=== PATIENT | female | born 1985 | race Caucasian/White ===

== ENCOUNTER 2017-10-23 15:48 | Emergency (ER) | payer OTHER, SELFPAY ==
[2017-10-23 15:51] VITALS: BP 122/80; PULSE 87; RESP 14; TEMP 36.9; O2SAT 99; BMI 31.4
--- NOTE | 2017-10-23 18:48 | ED_ITS ---
HPI - Headache <KENIA Avila - Last Filed: 10/23/17 22:16> General Chief Complaint: Headache Stated Complaint: DIARRHEA 8WKS SPOTTING Time Seen by Provider: 10/23/17 19:12 History of Present Illness HPI Narrative: 31-year-old female currently 8 weeks 6 para 3 here for complaint of having a migraine headache that she has a history of. Nausea and lower pelvic abdominal pain that started a few days ago. She states that she has also had some vaginal spotting. She states that she has had some diarrhea as well. She denies any fevers or chills. She denies any urinary symptoms. Positive p.o. intake. She denies any flank pain. She denies any other concerns or complaints. MD Complaint: headache Related Data Home Medications Medication Instructions Recorded Confirmed methylphenidate HCl [Concerta] 36 mg PO QAM 10/23/17 10/23/17 sertraline [Zoloft] 50 mg PO DAILY 10/23/17 10/23/17 Previous Rx's Medication Instructions Recorded nitrofurantoin monohyd/m-cryst 1 cap PO Q12H 7 Days #14 cap 10/23/17 [Macrobid] Allergies Allergy/AdvReac Type Severity Reaction Status Date / Time cephalexin [CEPHALEXIN] Allergy Unknown Verified 10/23/17 15:54 latex [LATEX] Allergy Unknown Verified 10/23/17 15:54 levofloxacin [From LEVAQUIN] Allergy Unknown Verified 10/23/17 15:54 morphine [MORPHINE] Allergy Unknown Verified 10/23/17 15:54 ondansetron [ONDANSETRON] Allergy Unknown Verified 10/23/17 15:54 oxycodone [From PERCOCET] Allergy Unknown Verified 10/23/17 15:54 Penicillins [PENICILLINS] Allergy Unknown Verified 10/23/17 15:54 Review of Systems <KENIA Avila - Last Filed: 10/23/17 22:16> Constitutional Denies chills, Denies fever(s), Reports headache(s), Denies lethargy and Denies weakness Eyes Denies change in vision, Denies eye discharge, Denies irritation and Denies loss of vision ENT Ears, Nose, Mouth, and Throat: Denies change in voice, Reports headache(s), Denies neck pain and Denies sore throat Cardiovascular Denies chest pain, Denies irregular heart rhythm, Denies lightheadedness, Denies palpitations, Denies dyspnea, Denies dyspnea on exertion and Denies orthopnea Respiratory Denies cough, Denies dyspnea, Denies dyspnea on exertion and Denies wheezing Gastrointestinal Gastrointestinal: Reports abdominal pain and Reports diarrhea Genitourinary Comments: Vaginal spotting Musculoskeletal Denies neck pain Integumentary/Breasts Denies pruritus, Denies erythema, Denies rash and Denies wounds Neurologic Reports headache(s), Denies loss of vision and Denies weakness Endocrine Denies palpitations Allergic/Immunologic Denies wheezing Exam <KENIA Avila - Last Filed: 10/23/17 22:16> Initial Vital Signs Initial Vital Signs: Vital Signs Temperature 98.5 F 10/23/17 15:51 Pulse Rate 87 10/23/17 15:51 Respiratory Rate 14 10/23/17 15:51 Blood Pressure 122/80 H 10/23/17 15:51 Pulse Oximetry 99 10/23/17 15:51 Const General: cooperative and well developed Nutritional Appearance: well nourished Orientation: alert, awake, oriented x3 and not confused [facility] Mouth: oral mucosae normal and moist mucous membranes Eyes Conjunctivae: conjunctivae normal Sclera: sclerae normal Pupils: PERRL EOM: EOM intact bilaterally Resp Effort & Inspection: normal respiratory effort, able to speak in complete sentences, no respiratory distress and no use of accessory muscles Auscultation: clear to auscultation bilaterally, no rales, no rhonchi and no wheezes Cardio Rate: regular rate Rhythm: regular rhythm Heart Sounds: no click, no gallops, no murmurs and no rubs GI Inspection: non-distended Palpation: soft, no hepatosplenomegaly, No guarding, No pulsatile mass and tender Auscultation: normal bowel sounds Other: Generalized tenderness General: No CVA tenderness Skin General: no rashes or lesions noted, No jaundice and No petechiae <Jason Junior MD - Last Filed: 10/26/17 05:46> Initial Vital Signs Initial Vital Signs: Vital Signs Temperature 98.5 F 10/23/17 15:51 Pulse Rate 87 10/23/17 15:51 Respiratory Rate 14 10/23/17 15:51 Blood Pressure 122/80 H 10/23/17 15:51 Pulse Oximetry 99 10/23/17 15:51 Course <KENIA Avila - Last Filed: 10/23/17 22:16> Orders Ordered: Discontinued Medications Acetaminophen (Tylenol) 650 mg PO NOW ONE Stop: 10/23/17 19:16 Last Admin: 10/23/17 20:34 Dose: 650 mg Diphenhydramine HCl (Benadryl) 25 mg IV NOW ONE Stop: 10/23/17 19:16 Last Admin: 10/23/17 19:28 Dose: 25 mg Sodium Chloride (Normal Saline 0.9%) 1,000 mls @ 1,000 mls/hr IV BOLUS ONE Stop: 10/23/17 19:43 Last Infusion: 10/23/17 20:34 Dose: 0 mls/hr Admin: 10/23/17 19:03 Dose: 1,000 mls/hr Sodium Chloride (Normal Saline 0.9%) 1,000 mls @ 1,000 mls/hr IV BOLUS ONE Stop: 10/23/17 20:14 Last Infusion: 10/23/17 21:59 Dose: 0 mls/hr Admin: 10/23/17 20:33 Dose: 1,000 mls/hr Metoclopramide HCl (Reglan) 10 mg IV NOW ONE Stop: 10/23/17 19:16 Last Admin: 10/23/17 19:28 Dose: 10 mg Nitrofurantoin Macrocrystals (Macrobid 100 Mg Capsule) 100 mg PO NOW ONE Stop: 10/23/17 22:15 Last Admin: 10/23/17 22:43 Dose: 100 mg Vital Signs - 8 hr 10/23/17 15:51 10/23/17 21:26 Temperature 98.5 F Pulse Rate 87 76 Respiratory Rate 14 16 Blood Pressure 122/80 H Blood Pressure [Right Arm] 108/65 Pulse Oximetry 99 97 <Jason Junior MD - Last Filed: 10/26/17 05:46> Orders Ordered: Discontinued Medications Acetaminophen (Tylenol) 650 mg PO NOW ONE Stop: 10/23/17 19:16 Last Admin: 10/23/17 20:34 Dose: 650 mg Diphenhydramine HCl (Benadryl) 25 mg IV NOW ONE Stop: 10/23/17 19:16 Last Admin: 10/23/17 19:28 Dose: 25 mg Sodium Chloride (Normal Saline 0.9%) 1,000 mls @ 1,000 mls/hr IV BOLUS ONE Stop: 10/23/17 19:43 Last Infusion: 10/23/17 20:34 Dose: 0 mls/hr Admin: 10/23/17 19:03 Dose: 1,000 mls/hr Sodium Chloride (Normal Saline 0.9%) 1,000 mls @ 1,000 mls/hr IV BOLUS ONE Stop: 10/23/17 20:14 Last Infusion: 10/23/17 21:59 Dose: 0 mls/hr Admin: 10/23/17 20:33 Dose: 1,000 mls/hr Metoclopramide HCl (Reglan) 10 mg IV NOW ONE Stop: 10/23/17 19:16 Last Admin: 10/23/17 19:28 Dose: 10 mg Nitrofurantoin Macrocrystals (Macrobid 100 Mg Capsule) 100 mg PO NOW ONE Stop: 10/23/17 22:15 Last Admin: 10/23/17 22:43 Dose: 100 mg Vital Signs - 8 hr 10/23/17 15:51 10/23/17 21:26 Temperature 98.5 F Pulse Rate 87 76 Respiratory Rate 14 16 Blood Pressure 122/80 H Blood Pressure [Right Arm] 108/65 Pulse Oximetry 99 97 MDM - Headache <KENIA Avila - Last Filed: 10/23/17 22:16> Lab Data Result diagrams: 10/23/17 19:57 10/23/17 19:57 Lab Results 10/23/17 10/23/17 10/23/17 Range/Units 18:45 18:45 19:50 WBC 7.2 (4.5-11.0) X10^3/uL RBC 4.41 (4.0-5.2) X10^6/uL Hgb 11.6 L (12.0-16.0) g/dL Hct 34.1 L (36-46) % MCV 77.5 L (80-100) fL MCH 26.3 (26-34) PG MCHC 33.9 (30-36) % RDW 16.1 H (11.6-14.8) % Plt Count 232 (150-400) X10^3/uL Neut % (Auto) 73.4 (50-75) % Lymph % (Auto) 19.7 L (25-40) % [place] % (Auto) 6.0 (3-14) % Eos % (Auto) 0.3 L (2-4) % Baso % (Auto) 0.6 (0-2) % Neut # (Auto) 5300 (6851-3058) /uL Sodium 136 L (137-145) mmol/L Potassium 3.1 L (3.4-5.1) mmol/L Chloride 101 (98-107) mmol/L Carbon Dioxide 24 (22-32) mmol/L BUN 6 L (7-17) mg/dL Creatinine 0.50 L (0.52-1.04) mg/dL Estimated GFR > 60.0 (>60) mL/min BUN/Creatinine Ratio 12.0 (6-22) Glucose 92 (70-100) mg/dL Calcium 8.8 (8.4-10.2) mg/dL Total Bilirubin 0.6 (0.2-1.3) mg/dL AST 23 (14-36) IU/L ALT 28 (9-52) IU/L Alkaline Phosphatase 82 (38-126) U/L Total Protein 6.8 (6.3-8.2) g/dL Albumin 3.9 (3.5-5.0) g/dL Globulin 2.9 (1.7-4.1) g/dL Albumin/Globulin Ratio 1.3 (1.0-2.8) Urine Color Yellow Urine Appearance Clear Urine pH 6.0 (4.5-8.0) Ur Specific [place] 1.010 (1.000-1.035) Urine Protein Negative (Negative) Urine Glucose (UA) Negative (Normal) g/dL Urine Ketones 1+ H (NEGATIVE) Urine Occult Blood Trace-lysed (Negative) Urine Nitrate Negative (Negative) Urine Bilirubin Negative (NEGATIVE) Urine Urobilinogen 0.2 (0.2) E.U./dL Ur Leukocyte Esterase Trace H (NEGATIVE) Urine RBC 0-1/hpf (0-5/HPF) Urine WBC 5-10/hpf H (0-5/HPF) Ur Squamous Epith Cells 1-5 /hpf Urine Bacteria Few (2-10) H (None) Ur Culture Indicated? Specimen cultured Micro UA Comment Not Reportable 10/23/17 10/23/17 Range/Units 19:57 19:57 WBC 7.4 (4.5-11.0) X10^3/uL RBC 4.22 (4.0-5.2) X10^6/uL Hgb 11.0 L (12.0-16.0) g/dL Hct 33.0 L (36-46) % MCV 78.2 L (80-100) fL MCH 26.1 (26-34) PG MCHC 33.3 (30-36) % RDW 16.1 H (11.6-14.8) % Plt Count 224 (150-400) X10^3/uL Neut % (Auto) 67.9 (50-75) % Lymph % (Auto) 24.7 L (25-40) % [place] % (Auto) 6.4 (3-14) % Eos % (Auto) 0.5 L (2-4) % Baso % (Auto) 0.5 (0-2) % Neut # (Auto) 5100 (5199-9701) /uL Sodium 138 (137-145) mmol/L Potassium 3.1 L (3.4-5.1) mmol/L Chloride 104 (98-107) mmol/L Carbon Dioxide 21 L (22-32) mmol/L BUN 5 L (7-17) mg/dL Creatinine 0.50 L (0.52-1.04) mg/dL Estimated GFR > 60.0 (>60) mL/min BUN/Creatinine Ratio 10.0 (6-22) Glucose 85 (70-100) mg/dL Calcium 8.3 L (8.4-10.2) mg/dL Total Bilirubin 0.5 (0.2-1.3) mg/dL AST 19 (14-36) IU/L ALT 27 (9-52) IU/L Alkaline Phosphatase 86 (38-126) U/L Total Protein 6.5 (6.3-8.2) g/dL Albumin 3.7 (3.5-5.0) g/dL Globulin 2.8 (1.7-4.1) g/dL Albumin/Globulin Ratio 1.3 (1.0-2.8) Urine Color Urine Appearance Urine pH (4.5-8.0) Ur Specific [place] (1.000-1.035) Urine Protein (Negative) Urine Glucose (UA) (Normal) g/dL Urine Ketones (NEGATIVE) Urine Occult Blood (Negative) Urine Nitrate (Negative) Urine Bilirubin (NEGATIVE) Urine Urobilinogen (0.2) E.U./dL Ur Leukocyte Esterase (NEGATIVE) Urine RBC (0-5/HPF) Urine WBC (0-5/HPF) Ur Squamous Epith Cells Urine Bacteria (None) Ur Culture Indicated? Micro UA Comment Imaging Data ob us: Radiologist's impression: PROCEDURE: US OB >= 14 WEEKS FETUS INDICATIONS: SPOTTING; PAIN OUTSIDE/PRIOR DATING DATA: Last menstrual period (LMP): Unknown. LMP-based estimated date of delivery (BEST): None available. First dating scan (date and location): 10/23/17, [facility]. Estimated date of delivery (BEST) from first dating scan: 06/04/18. TECHNIQUE: Real-time scanning was performed of the fetus, with image documentation and biometric measurements. Endovaginal scanning: Was performed COMPARISON: None. FINDINGS: Single live uterine gestation is present which measures 1.6 cm in length for a gestational age of 8 weeks, zero days. There is a 3.5 x 0.6 x 1.4 cm subchorionic hemorrhage. There is a left corpus luteal cyst. There is also a simple 2.3 cm left ovarian cyst. The right ovary is unremarkable. IMPRESSION: 1. Single live intrauterine gestation with a gestational age of 8 weeks, zero days. 2. Small subchorionic bleed. Dictated by: Alexandra Valente M.D. on 10/23/2017 at 21:40 Approved by: Alexandra Valente M.D. on 10/23/2017 at 21:42 MDM Narrative Medical decision making narrative: CBC and Chem panel were obtained were unremarkable. Urinalysis indicates urinary tract infection she is prescribed Macrobid. [id number] Tylenol as needed for any discomfort. Pelvic ultrasound was obtained and shows 8 week intrauterine live . Subchorionic hemorrhage was seen on ultrasound and suspect is why she is spotting. Left ovarian cyst was also seen and suspect that that is why she is having some abdominal discomfort she was treated for headache with fluids and antiemetics along with Tylenol which relieved her headache. She is encouraged to hydrate herself well any use prescribed Phenergan as needed for the nausea. Follow up with OBGYN in the next couple of days. Will hold off for treating in the diarrhea for now. For any worsening symptoms return to the emergency room. She is encouraged to go home to quiet environment and rest <Jason Junior MD - Last Filed: 10/26/17 05:46> Lab Data Lab Results 10/23/17 10/23/17 10/23/17 Range/Units 18:45 18:45 19:50 WBC 7.2 (4.5-11.0) X10^3/uL RBC 4.41 (4.0-5.2) X10^6/uL Hgb 11.6 L (12.0-16.0) g/dL Hct 34.1 L (36-46) % MCV 77.5 L (80-100) fL MCH 26.3 (26-34) PG MCHC 33.9 (30-36) % RDW 16.1 H (11.6-14.8) % Plt Count 232 (150-400) X10^3/uL Neut % (Auto) 73.4 (50-75) % Lymph % (Auto) 19.7 L (25-40) % [place] % (Auto) 6.0 (3-14) % Eos % (Auto) 0.3 L (2-4) % Baso % (Auto) 0.6 (0-2) % Neut # (Auto) 5300 (6211-8435) /uL Sodium 136 L (137-145) mmol/L Potassium 3.1 L (3.4-5.1) mmol/L Chloride 101 (98-107) mmol/L Carbon Dioxide 24 (22-32) mmol/L BUN 6 L (7-17) mg/dL Creatinine 0.50 L (0.52-1.04) mg/dL Estimated GFR > 60.0 (>60) mL/min BUN/Creatinine Ratio 12.0 (6-22) Glucose 92 (70-100) mg/dL Calcium 8.8 (8.4-10.2) mg/dL Total Bilirubin 0.6 (0.2-1.3) mg/dL AST 23 (14-36) IU/L ALT 28 (9-52) IU/L Alkaline Phosphatase 82 (38-126) U/L Total Protein 6.8 (6.3-8.2) g/dL Albumin 3.9 (3.5-5.0) g/dL Globulin 2.9 (1.7-4.1) g/dL Albumin/Globulin Ratio 1.3 (1.0-2.8) Urine Color Yellow Urine Appearance Clear Urine pH 6.0 (4.5-8.0) Ur Specific [place] 1.010 (1.000-1.035) Urine Protein Negative (Negative) Urine Glucose (UA) Negative (Normal) g/dL Urine Ketones 1+ H (NEGATIVE) Urine Occult Blood Trace-lysed (Negative) Urine Nitrate Negative (Negative) Urine Bilirubin Negative (NEGATIVE) Urine Urobilinogen 0.2 (0.2) E.U./dL Ur Leukocyte Esterase Trace H (NEGATIVE) Urine RBC 0-1/hpf (0-5/HPF) Urine WBC 5-10/hpf H (0-5/HPF) Ur Squamous Epith Cells 1-5 /hpf Urine Bacteria Few (2-10) H (None) Ur Culture Indicated? Specimen cultured Micro UA Comment Not Reportable 10/23/17 10/23/17 Range/Units 19:57 19:57 WBC 7.4 (4.5-11.0) X10^3/uL RBC 4.22 (4.0-5.2) X10^6/uL Hgb 11.0 L (12.0-16.0) g/dL Hct 33.0 L (36-46) % MCV 78.2 L (80-100) fL MCH 26.1 (26-34) PG MCHC 33.3 (30-36) % RDW 16.1 H (11.6-14.8) % Plt Count 224 (150-400) X10^3/uL Neut % (Auto) 67.9 (50-75) % Lymph % (Auto) 24.7 L (25-40) % [place] % (Auto) 6.4 (3-14) % Eos % (Auto) 0.5 L (2-4) % Baso % (Auto) 0.5 (0-2) % Neut # (Auto) 5100 (3955-3322) /uL Sodium 138 (137-145) mmol/L Potassium 3.1 L (3.4-5.1) mmol/L Chloride 104 (98-107) mmol/L Carbon Dioxide 21 L (22-32) mmol/L BUN 5 L (7-17) mg/dL Creatinine 0.50 L (0.52-1.04) mg/dL Estimated GFR > 60.0 (>60) mL/min BUN/Creatinine Ratio 10.0 (6-22) Glucose 85 (70-100) mg/dL Calcium 8.3 L (8.4-10.2) mg/dL Total Bilirubin 0.5 (0.2-1.3) mg/dL AST 19 (14-36) IU/L ALT 27 (9-52) IU/L Alkaline Phosphatase 86 (38-126) U/L Total Protein 6.5 (6.3-8.2) g/dL Albumin 3.7 (3.5-5.0) g/dL Globulin 2.8 (1.7-4.1) g/dL Albumin/Globulin Ratio 1.3 (1.0-2.8) Urine Color Urine Appearance Urine pH (4.5-8.0) Ur Specific [place] (1.000-1.035) Urine Protein (Negative) Urine Glucose (UA) (Normal) g/dL Urine Ketones (NEGATIVE) Urine Occult Blood (Negative) Urine Nitrate (Negative) Urine Bilirubin (NEGATIVE) Urine Urobilinogen (0.2) E.U./dL Ur Leukocyte Esterase (NEGATIVE) Urine RBC (0-5/HPF) Urine WBC (0-5/HPF) Ur Squamous Epith Cells Urine Bacteria (None) Ur Culture Indicated? Micro UA Comment Discharge Plan Departure Patient Disposition: Home, Self-Care Clinical Impression: Migraine, Urinary tract infection, Discharge Date/Time: 10/23/17 22:51 Interventions: ED Discharge Assessment Last Done: 10/23/17 22:50 Instructions: DI for Urinary Tract Infection (UTI) Activity Restrictions/Additional Instructions: Blood work this evening was obtained and was normal. Urinalysis indicates urinary tract infection you are prescribed an antibiotic called macrobid use as directed. Use [id number] Tylenol as needed for any discomfort. Ultrasound shows live intrauterine approximately 8 weeks along. There is a small subchorionic bleed hence your spotting. Follow up with OBGYN in the next couple of days for re-evaluation. Use a prescribed Phenergan as needed for nausea and vomiting. Plenty of fluids slowly advance diet as tolerated. For any worsening symptoms return to the emergency room. Prescriptions: New nitrofurantoin monohyd/m-cryst [Macrobid] 100 mg capsule 1 cap PO Q12H 7 Days Qty: 14 RF: 0 No Action sertraline [Zoloft] 50 mg Tablet 50 mg PO DAILY RF: 0 methylphenidate HCl [Concerta] 36 mg Tablet Extended Release 24hr 36 mg PO QAM RF: 0 Referrals: Patrick Mullen MD [Primary Care Provider] - <Jason Junior MD - Last Filed: 10/26/17 05:46> Cosign ED Attending Cosignature Attestation: The PA/BROADCAST OPERATIONS ENGINEER functioned independently for the care of this pt, I was available, but not asked to participate in care. I am unable to determine appropriateness of management without personally examining the pt.
[2017-10-23 18:57] LABS: Add Manual Diff / Slide Review NO; Basophils Percent Auto 0.6 % (0-2); Eosinophils Percent Auto 0.3 % (2-4); Hematocrit 34.1 % (36-46); Hemoglobin 11.6 g/dL (12.0-16.0); Lymphocytes Percent Auto 19.7 % (25-40); Mean Corpuscular HGB Conc 33.9 % (30-36); Mean Corpuscular Hemoglobin 26.3 PG (26-34); Mean Corpuscular Volume 77.5 fL (80-100); Neutrophils Absolute Auto 5300 /uL (3000-5900); Neutrophils Percent Auto 73.4 % (50-75); Platelet Count 232 X10^3/uL (150-400); Red Blood Cell Count 4.41 X10^6/uL (4.0-5.2); Red Cell Distribution Width 16.1 % (11.6-14.8); White Blood Cell Count 7.2 X10^3/uL (4.5-11.0)
[2017-10-23] MEDS: SODIUM CHLORIDE 0.9% 1,000 ML 1000 ML IV ×2 (19:03→20:33)
[2017-10-23 19:12] LABS: Alanine Aminotransferase 28 IU/L (9-52); Albumin 3.9 g/dL (3.5-5.0); Albumin Globulin Ratio 1.3 (1.0-2.8); Alkaline Phosphatase 82 U/L (38-126); Aspartate Aminotransferase 23 IU/L (14-36); Bilirubin Total 0.6 mg/dL (0.2-1.3); Blood Urea Nitrogen 6 mg/dL (7-17); Calcium 8.8 mg/dL (8.4-10.2); Carbon Dioxide 24 mmol/L (22-32); Chloride 101 mmol/L (98-107); Estimated Glomerular Filt Rate > 60.0 mL/min (>60); Globulin 2.9 g/dL (1.7-4.1); Glucose 92 mg/dL (70-100); HEMOLYSIS < 15 (0-50); Potassium 3.1 mmol/L (3.4-5.1); Sodium 136 mmol/L (137-145); Total Protein 6.8 g/dL (6.3-8.2)
--- NOTE | 2017-10-23 19:15 | DI.US.S_ITS ---
PROCEDURE: US OB >= 14 WEEKS FETUS INDICATIONS: SPOTTING; PAIN OUTSIDE/PRIOR DATING DATA: Last menstrual period (LMP): Unknown. LMP-based estimated date of delivery (BEST): None available. First dating scan (date and location): 10/23/17, [facility]. Estimated date of delivery (BEST) from first dating scan: 06/04/18. TECHNIQUE: Real-time scanning was performed of the fetus, with image documentation and biometric measurements. Endovaginal scanning: Was performed COMPARISON: None. FINDINGS: Single live uterine gestation is present which measures 1.6 cm in length for a gestational age of 8 weeks, zero days. There is a 3.5 x 0.6 x 1.4 cm subchorionic hemorrhage. There is a left corpus luteal cyst. There is also a simple 2.3 cm left ovarian cyst. The right ovary is unremarkable. IMPRESSION: 1. Single live intrauterine gestation with a gestational age of 8 weeks, zero days. 2. Small subchorionic bleed. Dictated by: Alexandra Valente M.D. on 10/23/2017 at 21:40 Approved by: Alexandra Valente M.D. on 10/23/2017 at 21:42
[2017-10-23] MEDS: METOCLOPRAMIDE 10 MG/2 ML INJ IV (19:28)
[2017-10-23] MEDS: diphenhydrAMINE 50 MG/ML VIAL 25 MG IV (19:28)
[2017-10-23 20:03] LABS: Appearance Urine UA CLEAR; Bilirubin Urine UA NEGATIVE (NEGATIVE); Color Urine UA YELLOW; Glucose Urine UA NEGATIVE (Normal); Ketones Urine UA 1+ (NEGATIVE); Leukocyte Esterase Urine UA TRACE (NEGATIVE); Nitrite Urine UA Negative (Negative); Occult Blood Urine UA TRACE-LYSED (Negative); Protein Urine UA NEGATIVE (Negative); Urobilinogen Urine UA 0.2 E.U./dL (0.2)
[2017-10-23 20:04] LABS: RBC Urine 0-1/HPF (0-5/HPF); Squamous Epithelial Cell Urine 1-5 /HPF; WBC Urine 5-10/HPF (0-5/HPF)
[2017-10-23 20:05] LABS: Bacteria Urine Few (2-10); Culture Indicated Urine Specimen Cultured
[2017-10-23 20:23] LABS: Add Manual Diff / Slide Review NO; Basophils Percent Auto 0.5 % (0-2); Eosinophils Percent Auto 0.5 % (2-4); Lymphocytes Percent Auto 24.7 % (25-40); Mean Corpuscular HGB Conc 33.3 % (30-36); Mean Corpuscular Hemoglobin 26.1 PG (26-34); Mean Corpuscular Volume 78.2 fL (80-100); Monocytes Percent Auto 6.4 % (3-14); Neutrophils Absolute Auto 5100 /uL (3000-5900); Neutrophils Percent Auto 67.9 % (50-75); Platelet Count 224 X10^3/uL (150-400); Red Blood Cell Count 4.22 X10^6/uL (4.0-5.2); Red Cell Distribution Width 16.1 % (11.6-14.8); White Blood Cell Count 7.4 X10^3/uL (4.5-11.0)
[2017-10-23 20:26] LABS: Alanine Aminotransferase 27 IU/L (9-52); Albumin 3.7 g/dL (3.5-5.0); Albumin Globulin Ratio 1.3 (1.0-2.8); Alkaline Phosphatase 86 U/L (38-126); Aspartate Aminotransferase 19 IU/L (14-36); Bilirubin Total 0.5 mg/dL (0.2-1.3); Blood Urea Nitrogen 5 mg/dL (7-17); Calcium 8.3 mg/dL (8.4-10.2); Carbon Dioxide 21 mmol/L (22-32); Chloride 104 mmol/L (98-107); Estimated Glomerular Filt Rate > 60.0 mL/min (>60); Globulin 2.8 g/dL (1.7-4.1); Glucose 85 mg/dL (70-100); HEMOLYSIS < 15 (0-50); Potassium 3.1 mmol/L (3.4-5.1); Sodium 138 mmol/L (137-145); Total Protein 6.5 g/dL (6.3-8.2)
[2017-10-23] MEDS: ACETAMINOPHEN 325 MG TABLET 650 MG PO (20:34)
[2017-10-23 21:26] VITALS: BP 108/65; PULSE 76; RESP 16; O2SAT 97
[2017-10-23 22:38] VITALS: BP 113/65; PULSE 70; RESP 17; O2SAT 97
[2017-10-23] MEDS: NITROFURANTOIN ER 100 MG CAPSULE PO (22:43)
== END 2017-10-23 22:51 | disposition home or self-care (01) ==
PROVIDERS: Emergency Provider Nurse Practitioner Family
DX: O23.41 Unspecified infection of urinary tract in pregnancy, first trimester (principal); Z3A.08 8 weeks gestation of pregnancy
CPT/HCPCS: 36591; 76811; 76817; 80053; 81001; 81003; 85025; 87086; 96361; 96374; 96375; 99283; 99284; J1200; J2765

== ENCOUNTER 2018-03-27 12:03 | Emergency (ER) | payer OTHER, SELFPAY ==
[2018-03-27 12:21] VITALS: BP 115/75; PULSE 105; RESP 20; TEMP 37; O2SAT 99; BMI 34.3
--- NOTE | 2018-03-27 12:26 | ED.FEVER ---
HPI - Fever <KENIA Avila - Last Filed: 03/27/18 21:43> General Chief Complaint: Fever Stated Complaint: flu like symptoms, 30 wks preg, BC said go here Time Seen by Provider: 03/27/18 12:16 Source: patient Mode of arrival: ambulatory Limitations: no limitations History of Present Illness HPI Narrative: 32-year-old female with history of hyper emesis gravidarum that is a nonsmoker. She has 6 para 3. She is approximately 30 weeks . She is being treated by [facility] as she is high risk due to history of bleeding while during and also the hyperemesis gravidarum. She currently has a port and is receiving TPN via a pump. She has been using Phenergan for her nausea and vomiting along with oral Benadryl. She reports having generalized body discomfort over the past couple of days and low-grade fever. She does report having generalized abdominal pain. She also reports that she has had contractions. Contractions earlier today or approximately every 3 min apart they have then spaced out to approximately about every 10 min. She has a history of having contractions and takes nifedipine daily for this. Family reports that there has been a viral illness flu-like symptoms going around the house over the past week. She denies any vaginal bleeding or discharge. She denies any urinary symptoms. She states that she has had nasal congestion. Related Data Home Medications Medication Instructions Recorded Confirmed sertraline [Zoloft] 150 mg PO QPM 10/23/17 03/27/18 Tpn 1 ea CONTINUOUS IV INFUSION Q20H 03/27/18 03/27/18 nifedipine 30 mg PO DAILY 03/27/18 03/27/18 pantoprazole 20 mg PO DAILY 03/27/18 03/27/18 promethazine 1 dose IV PRN PRN 03/27/18 03/27/18 promethazine [Phenadoz] 25 mg WA Q6H PRN 03/27/18 03/27/18 Allergies Allergy/AdvReac Type Severity Reaction Status Date / Time cephalexin [CEPHALEXIN] Allergy Unknown Verified 10/23/17 15:54 latex [LATEX] Allergy Unknown Verified 10/23/17 15:54 levofloxacin [From LEVAQUIN] Allergy Unknown Verified 10/23/17 15:54 morphine [MORPHINE] Allergy Unknown Verified 10/23/17 15:54 ondansetron [ONDANSETRON] Allergy Unknown Verified 10/23/17 15:54 oxycodone [From PERCOCET] Allergy Unknown Verified 10/23/17 15:54 Penicillins [PENICILLINS] Allergy Unknown Verified 10/23/17 15:54 Review of Systems <KENIA Avila - Last Filed: 03/27/18 21:43> Constitutional Reports body ache(s), Reports chills and Reports fever(s) Eyes Denies change in vision, Denies eye discharge, Denies irritation and Denies loss of vision ENT Ears, Nose, Mouth, and Throat: Reports nasal congestion Cardiovascular Denies chest pain, Denies irregular heart rhythm, Denies lightheadedness, Denies palpitations, Denies dyspnea, Denies dyspnea on exertion and Denies orthopnea Respiratory Denies cough, Denies dyspnea, Denies dyspnea on exertion and Denies wheezing Gastrointestinal Comments: Nausea vomiting generalized abdominal pain. Genitourinary Denies hematuria, Denies flank pain, Denies urinary incontinence and Denies urinary urgency Musculoskeletal Denies back pain, Denies muscle weakness, Denies numbness and Denies tingling Integumentary/Breasts Denies pruritus, Denies erythema, Denies rash and Denies wounds Neurologic Denies loss of vision, Denies numbness and Denies tingling Endocrine Denies palpitations Hematologic/Lymphatic Denies easy bruising Allergic/Immunologic Denies wheezing Exam <KENIA Avila - Last Filed: 03/27/18 21:43> Initial Vital Signs Initial Vital Signs: Vital Signs Temperature 98.6 F 03/27/18 12:21 Pulse Rate 105 H 03/27/18 12:21 Respiratory Rate 20 03/27/18 12:21 Blood Pressure 115/75 03/27/18 12:21 Pulse Oximetry 99 03/27/18 12:21 Const General: cooperative and well developed Nutritional Appearance: well nourished Orientation: alert, awake, oriented x3 and not confused HENMT Ears: external ears normal and TM's normal bilaterally Nose: external nose normal Mouth: oral mucosae normal, oropharynx normal and moist mucous membranes Eyes General: appearance normal, both eyes and all related structures Eyelids: eyelids normal Conjunctivae: conjunctivae normal Sclera: sclerae normal Pupils: PERRL EOM: EOM intact bilaterally Resp Effort & Inspection: normal respiratory effort, able to speak in complete sentences, no respiratory distress and no use of accessory muscles Auscultation: clear to auscultation bilaterally, no rales, no rhonchi and no wheezes Cardio Rate: regular rate Rhythm: regular rhythm Heart Sounds: no click, no gallops, no murmurs and no rubs Pulses: normal peripheral pulses GI Inspection: non-distended Palpation: soft, no hepatosplenomegaly, No guarding, No pulsatile mass and tender (Generalized tenderness) Auscultation: normal bowel sounds General: No CVA tenderness Skin General: no rashes or lesions noted, No jaundice and No petechiae Neuro General: alert, oriented x3, gait normal and no focal motor deficits Speech: speech normal <Asya Rodriguez MD - Last Filed: 04/03/18 00:02> Initial Vital Signs Initial Vital Signs: Vital Signs Temperature 98.6 F 03/27/18 12:21 Pulse Rate 105 H 03/27/18 12:21 Respiratory Rate 20 03/27/18 12:21 Blood Pressure 115/75 03/27/18 12:21 Pulse Oximetry 99 03/27/18 12:21 Course <KENIA Avila - Last Filed: 03/27/18 21:43> Orders Ordered: Discontinued Medications Acetaminophen (Tylenol) 650 mg PO NOW ONE Stop: 03/27/18 13:21 Last Admin: 03/27/18 13:29 Dose: 650 mg Diphenhydramine HCl (Benadryl) 25 mg PO NOW ONE Stop: 03/27/18 12:42 Last Admin: 03/27/18 12:46 Dose: 25 mg Sodium Chloride (Normal Saline 0.9%) 1,000 mls @ 1,000 mls/hr IV BOLUS ONE Stop: 03/27/18 13:40 Last Infusion: 03/27/18 14:40 Dose: 0 mls/hr Admin: 03/27/18 12:45 Dose: 1,000 mls/hr Vital Signs - 8 hr 03/27/18 13:55 03/27/18 14:31 03/27/18 14:32 Temperature 100.9 F H 100.6 F H Pulse Rate 96 H Respiratory Rate 16 Pulse Oximetry 100 <Asya Rodriguez MD - Last Filed: 04/03/18 00:02> Orders Ordered: Discontinued Medications Acetaminophen (Tylenol) 650 mg PO NOW ONE Stop: 03/27/18 13:21 Last Admin: 03/27/18 13:29 Dose: 650 mg Diphenhydramine HCl (Benadryl) 25 mg PO NOW ONE Stop: 03/27/18 12:42 Last Admin: 03/27/18 12:46 Dose: 25 mg Sodium Chloride (Normal Saline 0.9%) 1,000 mls @ 1,000 mls/hr IV BOLUS ONE Stop: 03/27/18 13:40 Last Infusion: 03/27/18 14:40 Dose: 0 mls/hr Admin: 03/27/18 12:45 Dose: 1,000 mls/hr Vital Signs - 8 hr 03/27/18 13:55 03/27/18 14:31 03/27/18 14:32 Temperature 100.9 F H 100.6 F H Pulse Rate 96 H Respiratory Rate 16 Pulse Oximetry 100 MDM - Fever <KENIA Avila - Last Filed: 03/27/18 21:43> Lab Data Result diagrams: 03/27/18 12:27 03/27/18 Unknown Lab Results 03/27/18 03/27/18 03/27/18 Range/Units 12:27 13:20 13:23 WBC 5.9 (4.5-11.0) X10^3/uL RBC 3.40 L (4.0-5.2) X10^6/uL Hgb 11.0 L (12.0-16.0) g/dL Hct 31.4 L (36-46) % MCV 92.5 (80-100) fL MCH 32.3 (26-34) PG MCHC 34.9 (30-36) % RDW 18.3 H (11.6-14.8) % Plt Count 167 (150-400) X10^3/uL Neut % (Auto) 89.7 H (50-75) % Lymph % (Auto) 5.9 L (25-40) % Smyth % (Auto) 3.9 (3-14) % Eos % (Auto) 0.2 L (2-4) % Baso % (Auto) 0.3 (0-2) % Neut # (Auto) 5300 (6694-1989) /uL Sodium Cancelled Potassium Cancelled Chloride Cancelled Carbon Dioxide Cancelled BUN Cancelled Creatinine Cancelled Estimated GFR Cancelled BUN/Creatinine Ratio Cancelled Glucose Cancelled Calcium Cancelled Total Bilirubin Cancelled AST Cancelled ALT Cancelled Alkaline Phosphatase Cancelled Total Protein Cancelled Albumin Cancelled Globulin Cancelled Albumin/Globulin Ratio Cancelled Specimen Hemolysis Cancelled Urine RBC None seen (0-5/HPF) Urine WBC None seen (0-5/HPF) Urine Bacteria None seen (None) Ur Culture Indicated? Cult not indicated Micro UA Comment Microscopic normal Influenza A & B (PCR) (Negative) 03/27/18 03/27/18 Range/Units Unknown Unknown WBC (4.5-11.0) X10^3/uL RBC (4.0-5.2) X10^6/uL Hgb (12.0-16.0) g/dL Hct (36-46) % MCV (80-100) fL MCH (26-34) PG MCHC (30-36) % RDW (11.6-14.8) % Plt Count (150-400) X10^3/uL Neut % (Auto) (50-75) % Lymph % (Auto) (25-40) % Smyth % (Auto) (3-14) % Eos % (Auto) (2-4) % Baso % (Auto) (0-2) % Neut # (Auto) (4529-9990) /uL Sodium 137 Potassium 3.8 Chloride 106 Carbon Dioxide 24 BUN 9 Creatinine 0.40 L Estimated GFR > 60.0 BUN/Creatinine Ratio 22.5 H Glucose 109 H Calcium 8.1 L Total Bilirubin 0.6 AST 41 H ALT 42 Alkaline Phosphatase 145 H Total Protein 5.7 L Albumin 3.0 L Globulin 2.7 Albumin/Globulin Ratio 1.1 Specimen Hemolysis Urine RBC (0-5/HPF) Urine WBC (0-5/HPF) Urine Bacteria (None) Ur Culture Indicated? Micro UA Comment Influenza A & B (PCR) Negative (Negative) Urine Dip Bedside Urine Glucose Negative Bedside Urine Bilirubin - Negative Bedside Urine Ketone - Negative Urine Specific Rye 1.010 Bedside Urine Occult Blood - Negative Bedside Urine pH 8.5 Bedside Urine Protein +/- 15 Bedside Urine Urobilinogen +/- 1mg Bedside Urine Nitrite - Negative Bedside Urine Leukocytes - Negative Esterase MDM Narrative Medical decision making narrative: CBC shows mild anemia that is consistent with her prior Lab values. Otherwise is unremarkable. CMP was obtained and shows elevated alk-phos at 1:45 a.m. and albumin at 3.0 otherwise is unremarkable. heart tones were obtained and were at 166. Urinalysis was negative for urinary tract infection. Her nausea vomiting improved after Phenergan was administered. She was given fluids in the emergency room. She reports her contractions slowed down to approximately every [address] min[address] Kiarra BENZ who is on-call for her OBGYN at [facility] who states that they will follow up with her in the next few days. That she should continue with the Phenergan and the Benadryl and with the Tylenol. If any worsening symptoms they would like to see her down there at [place]. Instructed patient's that if she did have worsening symptoms to drive to [place]. [place] will call them tomorrow to check on them. Signs and symptoms presents as a viral illness. <Asya Rodriguez MD - Last Filed: 04/03/18 00:02> Lab Data Lab Results 03/27/18 03/27/18 03/27/18 Range/Units 12:27 13:20 13:23 WBC 5.9 (4.5-11.0) X10^3/uL RBC 3.40 L (4.0-5.2) X10^6/uL Hgb 11.0 L (12.0-16.0) g/dL Hct 31.4 L (36-46) % MCV 92.5 (80-100) fL MCH 32.3 (26-34) PG MCHC 34.9 (30-36) % RDW 18.3 H (11.6-14.8) % Plt Count 167 (150-400) X10^3/uL Neut % (Auto) 89.7 H (50-75) % Lymph % (Auto) 5.9 L (25-40) % Smyth % (Auto) 3.9 (3-14) % Eos % (Auto) 0.2 L (2-4) % Baso % (Auto) 0.3 (0-2) % Neut # (Auto) 5300 (9340-9509) /uL Sodium Cancelled Potassium Cancelled Chloride Cancelled Carbon Dioxide Cancelled BUN Cancelled Creatinine Cancelled Estimated GFR Cancelled BUN/Creatinine Ratio Cancelled Glucose Cancelled Calcium Cancelled Total Bilirubin Cancelled AST Cancelled ALT Cancelled Alkaline Phosphatase Cancelled Total Protein Cancelled Albumin Cancelled Globulin Cancelled Albumin/Globulin Ratio Cancelled Specimen Hemolysis Cancelled Urine RBC None seen (0-5/HPF) Urine WBC None seen (0-5/HPF) Urine Bacteria None seen (None) Ur Culture Indicated? Cult not indicated Micro UA Comment Microscopic normal Influenza A & B (PCR) (Negative) 03/27/18 03/27/18 Range/Units Unknown Unknown WBC (4.5-11.0) X10^3/uL RBC (4.0-5.2) X10^6/uL Hgb (12.0-16.0) g/dL Hct (36-46) % MCV (80-100) fL MCH (26-34) PG MCHC (30-36) % RDW (11.6-14.8) % Plt Count (150-400) X10^3/uL Neut % (Auto) (50-75) % Lymph % (Auto) (25-40) % Smyth % (Auto) (3-14) % Eos % (Auto) (2-4) % Baso % (Auto) (0-2) % Neut # (Auto) (9192-6580) /uL Sodium 137 Potassium 3.8 Chloride 106 Carbon Dioxide 24 BUN 9 Creatinine 0.40 L Estimated GFR > 60.0 BUN/Creatinine Ratio 22.5 H Glucose 109 H Calcium 8.1 L Total Bilirubin 0.6 AST 41 H ALT 42 Alkaline Phosphatase 145 H Total Protein 5.7 L Albumin 3.0 L Globulin 2.7 Albumin/Globulin Ratio 1.1 Specimen Hemolysis Urine RBC (0-5/HPF) Urine WBC (0-5/HPF) Urine Bacteria (None) Ur Culture Indicated? Micro UA Comment Influenza A & B (PCR) Negative (Negative) Urine Dip Bedside Urine Glucose Negative Bedside Urine Bilirubin - Negative Bedside Urine Ketone - Negative Urine Specific Rye 1.010 Bedside Urine Occult Blood - Negative Bedside Urine pH 8.5 Bedside Urine Protein +/- 15 Bedside Urine Urobilinogen +/- 1mg Bedside Urine Nitrite - Negative Bedside Urine Leukocytes - Negative Esterase Discharge Plan Departure Patient Disposition: Home Clinical Impression: Viral infection Discharge Date/Time: 03/27/18 15:10 Interventions: ED Discharge Assessment Last Done: 03/27/18 15:10 Instructions: DI for Viral Syndrome Activity Restrictions/Additional Instructions: Influenza swab was obtained was negative. Urinalysis negative for urinary tract infection. heart rate was 166. Laboratory results show a mild anemia otherwise is unremarkable. Signs and symptoms presents as a viral illness. Discussed case with OBGYN Calvin who will follow up with you. They will call you tomorrow to check on you. If you have any worsening symptoms use requested that he go to [place] so they can evaluate you directly. Continue the TPN, Phenergan Benadryl and other medications as prescribed. Follow up with primary care provider. Prescriptions: No Action sertraline [Zoloft] 50 mg Tablet 150 mg PO QPM RF: 0 nifedipine 30 mg tablet extended release 24hr 30 mg PO DAILY RF: 0 promethazine [Phenadoz] 25 mg suppository 25 mg WA Q6H PRN (Reason: Nausea And Vomiting) RF: 0 pantoprazole 20 mg tablet,delayed release (DR/EC) 20 mg PO DAILY RF: 0 promethazine 50 mg/mL Solution 1 dose IV PRN PRN (Reason: Nausea And Vomiting) RF: 0 Tpn 1 ea Continuous IV Infusion Q20H RF: 0 Referrals: Patrick Mullen MD [Primary Care Provider] -
[2018-03-27] MEDS: SODIUM CHLORIDE 0.9% 1,000 ML 1000 ML IV (12:45)
[2018-03-27] MEDS: diphenhydrAMINE 25 MG TABLET PO (12:46)
[2018-03-27 12:49] LABS: Add Manual Diff / Slide Review NO; Basophils Percent Auto 0.3 % (0-2); Eosinophils Percent Auto 0.2 % (2-4); Hematocrit 31.4 % (36-46); Lymphocytes Percent Auto 5.9 % (25-40); Mean Corpuscular HGB Conc 34.9 % (30-36); Mean Corpuscular Hemoglobin 32.3 PG (26-34); Mean Corpuscular Volume 92.5 fL (80-100); Monocytes Percent Auto 3.9 % (3-14); Neutrophils Absolute Auto 5300 /uL (3000-5900); Neutrophils Percent Auto 89.7 % (50-75); Platelet Count 167 X10^3/uL (150-400); Red Cell Distribution Width 18.3 % (11.6-14.8); White Blood Cell Count 5.9 X10^3/uL (4.5-11.0)
[2018-03-27] MEDS: ACETAMINOPHEN 325 MG TABLET 650 MG PO (13:29)
--- NOTE | 2018-03-27 13:39 | PC.NURSE ---
Lab redraw to double check critical values reported on first draw.
[2018-03-27 13:49] LABS: Alanine Aminotransferase 42 IU/L (9-52); Albumin Globulin Ratio 1.1 (1.0-2.8); Alkaline Phosphatase 145 U/L (38-126); Aspartate Aminotransferase 41 IU/L (14-36); BUN Creatinine Ratio 22.5 (6-22); Bilirubin Total 0.6 mg/dL (0.2-1.3); Blood Urea Nitrogen 9 mg/dL (7-17); Calcium 8.1 mg/dL (8.4-10.2); Carbon Dioxide 24 mmol/L (22-32); Chloride 106 mmol/L (98-107); Estimated Glomerular Filt Rate > 60.0 mL/min (>60); Globulin 2.7 g/dL (1.7-4.1); Glucose 109 mg/dL (70-100); HEMOLYSIS < 15 (0-50); Potassium 3.8 mmol/L (3.4-5.1); Sodium 137 mmol/L (137-145); Total Protein 5.7 g/dL (6.3-8.2)
[2018-03-27 13:51] LABS: Bacteria Urine None Seen; RBC Urine None Seen (0-5/HPF); WBC Urine None Seen (0-5/HPF)
[2018-03-27 13:55] VITALS: TEMP 38.3
[2018-03-27 13:57] LABS: Culture Indicated Urine Cult Not Indicated; Urine Comments Microscopic Normal
[2018-03-27 13:58] LABS: Influenza A and B by PCR Rapid Negative (Negative)
[2018-03-27 14:31] VITALS: TEMP 38.1
[2018-03-27 14:32] VITALS: PULSE 96; RESP 16; O2SAT 100
== END 2018-03-27 15:10 | disposition home or self-care (01) ==
PROVIDERS: Emergency Provider Nurse Practitioner Family
DX: O98.53 Other viral diseases complicating the puerperium (principal); Z3A.30 30 weeks gestation of pregnancy
CPT/HCPCS: 36415; 36591; 80053; 81003; 81015; 85025; 87400; 96360; 96361; 99283; 99284

== ENCOUNTER → 2018-10-26 09:48 | Outpatient (CLI) | payer OTHER, SELFPAY ==
--- NOTE | 2018-10-26 | DI.MRI.S_ITS ---
PROCEDURE: MR WRIST RT WO CON INDICATIONS: Pain in right wrist TECHNIQUE: Noncontrast coronal proton density fast spin echo and T2 fast spin echo with fat saturation; coronal 3-D gradient echo, axial T1 spin echo and T2 fast spin echo with fat saturation, sagittal T1 spin echo through the wrist. COMPARISON: None. FINDINGS: Image quality: Diagnostic. Bones: No acute fracture, dislocation, suspicious osseous lesion, or evidence of osteonecrosis is present involving the osseous structures of the wrist. Bony alignment of the wrist is within normal limits. There is no widening of the scapholunate and lunotriquetral joints. The alignment of the distal radial ulnar joint is also within normal limits. No significant joint effusions are appreciated. Carpal ligaments: Evaluation of the extrinsic and intrinsic ligaments of the wrist is difficult without intra-articular contrast. However, no acute injuries are suspected involving these structures. Triangular fibrocartilage complex: The triangular fibrocartilage appears intact. The adjacent meniscal homolog appears normal in the absence of intra-articular contrast. The extensor carpi ulnaris tendon is normal in location and morphology. Tendons and soft tissues: The carpal tunnel structures appear normal, including the median nerve. The ulnar nerve appears normal within Guyon's canal. There is a small ganglion cyst along the dorsal aspect of the capitate that measures 7 x 10 x 3 mm and is directly underlying the contents of the 4th extensor compartment. There is mild increased signal involving the tendons of the 4th extensor compartment with a small amount of fluid contained within its corresponding tendon sheath. Otherwise, the remainder of the extensor tendons of the wrist are intact and within normal limits. IMPRESSION: 1. Small ganglion cyst probably is arising from the 4th extensor compartment tendon sheath may be resulting in mild tenosynovitis of the 4th extensor compartment. No tendon tearing is evident. 2. The remainder of the bones and soft tissues of the wrist are otherwise unremarkable. Dictated by: Hilario Peng M.D. on 10/26/2018 at 11:05 Approved by: Hilario Peng M.D. on 10/26/2018 at 11:15
== END ==
PROVIDERS: Visit Provider Family Medicine
DX: M25.531 Pain in right wrist (principal); M67.431 Ganglion, right wrist
CPT/HCPCS: 73221

== ENCOUNTER 2018-12-03 15:13 | Emergency (ER) | payer OTHER, SELFPAY ==
[2018-12-03 15:52] VITALS: BP 139/95; PULSE 101; RESP 16; TEMP 37; O2SAT 98
--- NOTE | 2018-12-03 15:56 | DI.RAD.S_ITS ---
PROCEDURE: XR CHEST 1V INDICATIONS: chest pain TECHNIQUE: One view of the chest was acquired. COMPARISON: None. FINDINGS: Surgical changes and devices: Cholecystectomy clips are seen. Lungs and pleura: An incomplete inspiratory result is noted, causing a crowded appearance to the lung markings. No focal infiltrates are seen. No pneumothorax or significant pleural effusions are seen. Mediastinum: Mediastinal contours appear normal. Heart size is normal. Bones and chest wall: No suspicious bony lesions. Overlying soft tissues appear unremarkable. IMPRESSION: Limited portable chest examination, without a significant cardiopulmonary abnormality identified. Dictated by: Dragan Patel M.D. on 12/03/2018 at 15:49 Approved by: Dragan Patel M.D. on 12/03/2018 at 15:50
--- NOTE | 2018-12-03 16:26 | ED.CHESTPAIN ---
HPI - Chest Pain <Rocio French PA-C - Last Filed: 12/03/18 21:14> General Chief Complaint: Chest Pain Stated Complaint: Fever, red in both eyes, chest pain Time Seen by Provider: 12/03/18 16:10 Source: patient Mode of arrival: ambulatory Limitations: no limitations History of Present Illness HPI narrative: This 32-year-old female comes to ED with several family members who have had red eyes and some upper respiratory symptoms for the last few days, however she has also had chest pain since yesterday, mainly on the right. She states that she is short of breath, which she describes as ?shallow? breathing, and air hunger without any wheeze. She has some congestion and postnasal drip. She states she really has no cough. She feels like the pain is deep in her chest as it was with previous pneumonia, but also feels like her posterior throat is sore and can't tell whether chest pain is due to that. Back of her throat hurts with a deep breath. She describes the pain as constant, nonradiating. She denies any new pain or swelling in her extremities. She states she has had some intermittent fever along with the rest of her family for a few days. Prior to this, her 4-year-old was diagnosed with pinkeye and ear infection. He is on antibiotics. She denies any rash or other known exposures. She does have a history of DVT last year in the setting of having a line in her arm, otherwise no personal or family history. Past Medical History 1. Migraines 2. IBS 3. Allergies 4. Recurrent hives 5. H/o UE DVT with pG, arm line 6. Agglutiation/blood disorder Past Surgical History Appendectomy Tonsillectomy Cholecystectomy Tummy tuck Liposuction Palomo's neuroma and plantar fasciitis release Related Data Home Medications Medication Instructions Recorded Confirmed sertraline [Zoloft] 150 mg PO QPM 10/23/17 03/27/18 Tpn 1 ea CONTINUOUS IV INFUSION Q20H 03/27/18 03/27/18 nifedipine 30 mg PO DAILY 03/27/18 03/27/18 pantoprazole 20 mg PO DAILY 03/27/18 03/27/18 promethazine 1 dose IV PRN PRN 03/27/18 03/27/18 promethazine [Phenadoz] 25 mg ID Q6H PRN 03/27/18 03/27/18 Allergies Allergy/AdvReac Type Severity Reaction Status Date / Time cephalexin [CEPHALEXIN] Allergy Unknown Verified 10/23/17 15:54 latex [LATEX] Allergy Unknown Verified 10/23/17 15:54 levofloxacin [From LEVAQUIN] Allergy Unknown Verified 10/23/17 15:54 morphine [MORPHINE] Allergy Unknown Verified 10/23/17 15:54 ondansetron [ONDANSETRON] Allergy Unknown Verified 10/23/17 15:54 oxycodone [From PERCOCET] Allergy Unknown Verified 10/23/17 15:54 Penicillins [PENICILLINS] Allergy Unknown Verified 10/23/17 15:54 Review of Systems <Rocio French PA-C - Last Filed: 12/03/18 21:14> Review of Systems ROS Unobtainable: All systems reviewed & are unremarkable except as noted in HPI and below PFSH <Rocio French PA-C - Last Filed: 12/03/18 21:14> Social History Smoking Status: Never smoker Social History Smoking Status: Never smoker Exam <Rocio French PA-C - Last Filed: 12/03/18 21:14> Narrative Exam Narrative: GENERAL APPEARANCE: Patient sitting comfortably, in no distress. HEAD: No sinus TTP. EYES: PERRL, EOMI. EARS: Normal auditory canals, TMS intact with normal light reflexes. ORAL CAVITY: Normal oropharynx. THROAT: Erythematous without exudate NECK/THYROID: Neck supple, full range of motion, no cervical lymphadenopathy. LUNGS: Breath sounds are a bit coarse at the bases, otherwise clear to auscultation, no cough on exam HEART: RRR without murmur, nl S1, S2, no S3 or S4. EXTREMITIES: No cyanosis, no edema, no calf tenderness DERMATOLOGIC: No exanthem Initial Vital Signs Initial Vital Signs: Vital Signs Temperature 98.6 F 12/03/18 15:52 Pulse Rate 101 H 12/03/18 15:52 Respiratory Rate 16 12/03/18 15:52 Blood Pressure 139/95 H 12/03/18 15:52 Pulse Oximetry 98 12/03/18 15:52 <Thong Doshi DO - Last Filed: 12/04/18 15:04> Initial Vital Signs Initial Vital Signs: Vital Signs Temperature 98.6 F 12/03/18 15:52 Pulse Rate 101 H 12/03/18 15:52 Respiratory Rate 16 12/03/18 15:52 Blood Pressure 139/95 H 12/03/18 15:52 Pulse Oximetry 98 12/03/18 15:52 Course <Rocio French PA-C - Last Filed: 12/03/18 21:14> Additional Information: Patient's symptoms are in the setting of upper respiratory illness also experience by multiple other family members. She has had pneumonia previously and this feels similar, no evidence of that today. May be a viral bronchitis. She did not have improvement with nebulizer treatment. She does take low doses of ibuprofen at home as needed, advised not to take on any regular basis but can use this at low doses for a couple of days along with Tylenol arthritis and monitor. Advised return if any acutely worsening symptoms, otherwise follow up with PCP this week to reassess. Orders Ordered: Discontinued Medications Albuterol/Ipratropium (Duoneb) 3 ml INH NOW ONE Stop: 12/03/18 16:54 Last Admin: 12/03/18 16:54 Dose: 3 ml Ibuprofen (Advil) 400 mg PO NOW ONE Stop: 12/03/18 17:59 Last Admin: 12/03/18 18:01 Dose: 400 mg Vital Signs - 8 hr 12/03/18 15:52 12/03/18 16:59 Temperature 98.6 F Pulse Rate 101 H 79 Respiratory Rate 16 14 Blood Pressure 139/95 H Pulse Oximetry 98 99 <Thong Doshi DO - Last Filed: 12/04/18 15:04> Orders Ordered: Discontinued Medications Albuterol/Ipratropium (Duoneb) 3 ml INH NOW ONE Stop: 12/03/18 16:54 Last Admin: 12/03/18 16:54 Dose: 3 ml Ibuprofen (Advil) 400 mg PO NOW ONE Stop: 12/03/18 17:59 Last Admin: 12/03/18 18:01 Dose: 400 mg Vital Signs - 8 hr 12/03/18 15:52 12/03/18 16:59 Temperature 98.6 F Pulse Rate 101 H 79 Respiratory Rate 16 14 Blood Pressure 139/95 H Pulse Oximetry 98 99 MDM - Chest Pain <Rocio French PA-C - Last Filed: 12/03/18 21:14> Lab Data Attestation: I reviewed the patient's lab results. Result diagrams: 12/03/18 16:54 12/03/18 16:54 Lab Results 12/03/18 12/03/18 12/03/18 Range/Units 16:54 16:54 16:54 WBC 6.1 (4.5-11.0) X10^3/uL RBC 5.28 H (4.0-5.2) X10^6/uL Hgb 15.9 (12.0-16.0) g/dL Hct 46.5 H (36-46) % MCV 88.1 (80-100) fL MCH 30.1 (26-34) PG MCHC 34.2 (30-36) % RDW 13.7 (11.6-14.8) % Plt Count 256 (150-400) X10^3/uL Neut % (Auto) 55.1 (50-75) % Lymph % (Auto) 33.7 (25-40) % Robertson % (Auto) 8.3 (3-14) % Eos % (Auto) 1.9 L (2-4) % Baso % (Auto) 1.0 (0-2) % Neut # (Auto) 3300 (6400-2373) /uL Lymph # (Auto) 2000 (7730-3782) /uL Robertson # (Auto) 500 (0-900) /uL Eos # (Auto) 100 (0-450) /uL Baso # (Auto) 100 (0-100) /uL PT 15.9 H (10.1-12.7) SECONDS INR 1.4 H (0.9-1.3) APTT 36 (26.4-36.2) SECONDS D-Dimer (<230) ng/mL Sodium 142 (137-145) mmol/L Potassium 3.7 (3.4-5.1) mmol/L Chloride 102 (98-107) mmol/L Carbon Dioxide 29 (22-32) mmol/L BUN 8 (7-17) mg/dL Creatinine 0.50 L (0.52-1.04) mg/dL Estimated GFR > 60.0 (>60) mL/min BUN/Creatinine Ratio 16.0 (6-22) Glucose 100 (70-100) mg/dL Calcium 9.3 (8.4-10.2) mg/dL Total Bilirubin 0.6 (0.2-1.3) mg/dL AST 64 H (14-36) IU/L ALT 109 H (9-52) IU/L Alkaline Phosphatase 149 H (38-126) U/L Total Creatine Kinase < 20 L (30-135) U/L CK-MB (CK-2) TNP CK-MB (CK-2) Rel Index TNP Troponin I < 0.012 (0.01-0.034) ng/mL Total Protein 8.2 (6.3-8.2) g/dL Albumin 4.7 (3.5-5.0) g/dL Globulin 3.5 (1.7-4.1) g/dL Albumin/Globulin Ratio 1.3 (1.0-2.8) Lipase 63 (23-300) U/L 12/03/18 Range/Units 16:54 WBC (4.5-11.0) X10^3/uL RBC (4.0-5.2) X10^6/uL Hgb (12.0-16.0) g/dL Hct (36-46) % MCV (80-100) fL MCH (26-34) PG MCHC (30-36) % RDW (11.6-14.8) % Plt Count (150-400) X10^3/uL Neut % (Auto) (50-75) % Lymph % (Auto) (25-40) % Robertson % (Auto) (3-14) % Eos % (Auto) (2-4) % Baso % (Auto) (0-2) % Neut # (Auto) (9539-7008) /uL Lymph # (Auto) (1814-4410) /uL Robertson # (Auto) (0-900) /uL Eos # (Auto) (0-450) /uL Baso # (Auto) (0-100) /uL PT (10.1-12.7) SECONDS INR (0.9-1.3) APTT (26.4-36.2) SECONDS D-Dimer < 200 (<230) ng/mL Sodium (137-145) mmol/L Potassium (3.4-5.1) mmol/L Chloride (98-107) mmol/L Carbon Dioxide (22-32) mmol/L BUN (7-17) mg/dL Creatinine (0.52-1.04) mg/dL Estimated GFR (>60) mL/min BUN/Creatinine Ratio (6-22) Glucose (70-100) mg/dL Calcium (8.4-10.2) mg/dL Total Bilirubin (0.2-1.3) mg/dL AST (14-36) IU/L ALT (9-52) IU/L Alkaline Phosphatase (38-126) U/L Total Creatine Kinase (30-135) U/L CK-MB (CK-2) CK-MB (CK-2) Rel Index Troponin I (0.01-0.034) ng/mL Total Protein (6.3-8.2) g/dL Albumin (3.5-5.0) g/dL Globulin (1.7-4.1) g/dL Albumin/Globulin Ratio (1.0-2.8) Lipase (23-300) U/L Point of Care Testing Test Results Negative Rapid Strep A Negative ECG Data Attestation: I personally reviewed and interpreted this ECG as follows: (Sinus rhythm, rate 94, normal axis) <Thong Doshi DO - Last Filed: 12/04/18 15:04> Lab Data Lab Results 12/03/18 12/03/18 12/03/18 Range/Units 16:54 16:54 16:54 WBC 6.1 (4.5-11.0) X10^3/uL RBC 5.28 H (4.0-5.2) X10^6/uL Hgb 15.9 (12.0-16.0) g/dL Hct 46.5 H (36-46) % MCV 88.1 (80-100) fL MCH 30.1 (26-34) PG MCHC 34.2 (30-36) % RDW 13.7 (11.6-14.8) % Plt Count 256 (150-400) X10^3/uL Neut % (Auto) 55.1 (50-75) % Lymph % (Auto) 33.7 (25-40) % Robertson % (Auto) 8.3 (3-14) % Eos % (Auto) 1.9 L (2-4) % Baso % (Auto) 1.0 (0-2) % Neut # (Auto) 3300 (6084-6456) /uL Lymph # (Auto) 2000 (1270-4818) /uL Robertson # (Auto) 500 (0-900) /uL Eos # (Auto) 100 (0-450) /uL Baso # (Auto) 100 (0-100) /uL PT 15.9 H (10.1-12.7) SECONDS INR 1.4 H (0.9-1.3) APTT 36 (26.4-36.2) SECONDS D-Dimer (<230) ng/mL Sodium 142 (137-145) mmol/L Potassium 3.7 (3.4-5.1) mmol/L Chloride 102 (98-107) mmol/L Carbon Dioxide 29 (22-32) mmol/L BUN 8 (7-17) mg/dL Creatinine 0.50 L (0.52-1.04) mg/dL Estimated GFR > 60.0 (>60) mL/min BUN/Creatinine Ratio 16.0 (6-22) Glucose 100 (70-100) mg/dL Calcium 9.3 (8.4-10.2) mg/dL Total Bilirubin 0.6 (0.2-1.3) mg/dL AST 64 H (14-36) IU/L ALT 109 H (9-52) IU/L Alkaline Phosphatase 149 H (38-126) U/L Total Creatine Kinase < 20 L (30-135) U/L CK-MB (CK-2) TNP CK-MB (CK-2) Rel Index TNP Troponin I < 0.012 (0.01-0.034) ng/mL Total Protein 8.2 (6.3-8.2) g/dL Albumin 4.7 (3.5-5.0) g/dL Globulin 3.5 (1.7-4.1) g/dL Albumin/Globulin Ratio 1.3 (1.0-2.8) Lipase 63 (23-300) U/L 12/03/18 Range/Units 16:54 WBC (4.5-11.0) X10^3/uL RBC (4.0-5.2) X10^6/uL Hgb (12.0-16.0) g/dL Hct (36-46) % MCV (80-100) fL MCH (26-34) PG MCHC (30-36) % RDW (11.6-14.8) % Plt Count (150-400) X10^3/uL Neut % (Auto) (50-75) % Lymph % (Auto) (25-40) % Robertson % (Auto) (3-14) % Eos % (Auto) (2-4) % Baso % (Auto) (0-2) % Neut # (Auto) (1704-1793) /uL Lymph # (Auto) (7818-1199) /uL Robertson # (Auto) (0-900) /uL Eos # (Auto) (0-450) /uL Baso # (Auto) (0-100) /uL PT (10.1-12.7) SECONDS INR (0.9-1.3) APTT (26.4-36.2) SECONDS D-Dimer < 200 (<230) ng/mL Sodium (137-145) mmol/L Potassium (3.4-5.1) mmol/L Chloride (98-107) mmol/L Carbon Dioxide (22-32) mmol/L BUN (7-17) mg/dL Creatinine (0.52-1.04) mg/dL Estimated GFR (>60) mL/min BUN/Creatinine Ratio (6-22) Glucose (70-100) mg/dL Calcium (8.4-10.2) mg/dL Total Bilirubin (0.2-1.3) mg/dL AST (14-36) IU/L ALT (9-52) IU/L Alkaline Phosphatase (38-126) U/L Total Creatine Kinase (30-135) U/L CK-MB (CK-2) CK-MB (CK-2) Rel Index Troponin I (0.01-0.034) ng/mL Total Protein (6.3-8.2) g/dL Albumin (3.5-5.0) g/dL Globulin (1.7-4.1) g/dL Albumin/Globulin Ratio (1.0-2.8) Lipase (23-300) U/L Point of Care Testing Test Results Negative Rapid Strep A Negative Discharge Plan Departure Patient Disposition: Home Clinical Impression: Chest pain Qualifiers: Chest pain type: chest pain on breathing Qualified Code(s): R07.1 - Chest pain on breathing Upper respiratory infection Qualifiers: URI type: unspecified viral URI Qualified Code(s): J06.9 - Acute upper respiratory infection, unspecified Discharge Date/Time: 12/03/18 18:45 Interventions: ED Discharge Assessment Last Done: 12/03/18 18:45 Instructions: DI for Viral Upper Respiratory Infection -- Adult, DI for Atypical Chest Pain Activity Restrictions/Additional Instructions: Based on your family's recent symptoms and your findings today, I think that you have the a viral infection, likely causing bronchitis and your chest discomfort. You did not appear to have pneumonia on your chest x-ray today, nor any new findings on her lab work to explain her symptoms. You should return to the ED if you have any acutely worsening symptoms. Otherwise, please rest, drink plenty of clear fluids, take ibuprofen 200-400 mg tabs every 8 hours, or at least at night as needed to help with pain. Also try Tylenol arthritis Strength or 8 hour, 1 650 mg capsule or tablet every 8 hours, which is longer acting then the usual Tylenol and may be more helpful. I think it is okay to take small doses of ibuprofen temporarily as you have done in the past, however you should see your PCP if you are not feeling better over the next couple of days for reassessment. Prescriptions: No Action sertraline [Zoloft] 50 mg Tablet 150 mg PO QPM RF: 0 nifedipine 30 mg tablet extended release 24hr 30 mg PO DAILY RF: 0 promethazine [Phenadoz] 25 mg suppository 25 mg ID Q6H PRN (Reason: Nausea And Vomiting) RF: 0 pantoprazole 20 mg tablet,delayed release (DR/EC) 20 mg PO DAILY RF: 0 promethazine 50 mg/mL Solution 1 dose IV PRN PRN (Reason: Nausea And Vomiting) RF: 0 Tpn 1 ea Continuous IV Infusion Q20H RF: 0 Referrals: Patrick Mullen MD [Primary Care Provider] - <Thong Doshi DO - Last Filed: 12/04/18 15:04> Cosign ED Attending Cosagrimaature Attestation: I was immediately available in the department for consultation. Documentation has been reviewed. I agree with assessment and plan.
[2018-12-03] MEDS: ALBUTEROL/IPRATROPIUM 3 ML AMPUL INH (16:54)
[2018-12-03 16:59] VITALS: PULSE 79; RESP 14; O2SAT 99
[2018-12-03 17:04] LABS: Add Manual Diff / Slide Review NO; Basophils Absolute Auto 100 /uL (0-100); Eosinophils Absolute Auto 100 /uL (0-450); Eosinophils Percent Auto 1.9 % (2-4); Hematocrit 46.5 % (36-46); Hemoglobin 15.9 g/dL (12.0-16.0); Lymphocytes Absolute Auto 2000 /uL (1100-4500); Lymphocytes Percent Auto 33.7 % (25-40); Mean Corpuscular HGB Conc 34.2 % (30-36); Mean Corpuscular Hemoglobin 30.1 PG (26-34); Mean Corpuscular Volume 88.1 fL (80-100); Monocytes Absolute Auto 500 /uL (0-900); Monocytes Percent Auto 8.3 % (3-14); Neutrophils Absolute Auto 3300 /uL (1500-7000); Neutrophils Percent Auto 55.1 % (50-75); Platelet Count 256 X10^3/uL (150-400); Red Blood Cell Count 5.28 X10^6/uL (4.0-5.2); Red Cell Distribution Width 13.7 % (11.6-14.8); White Blood Cell Count 6.1 X10^3/uL (4.5-11.0)
[2018-12-03 17:12] LABS: INR 1.4 (0.9-1.3); Prothrombin Time 15.9 SECONDS (10.1-12.7)
[2018-12-03 17:14] LABS: PTT Partial Thromboplastin Tim 36 SECONDS (26.4-36.2)
[2018-12-03 17:17] LABS: Alanine Aminotransferase 109 IU/L (9-52); Albumin 4.7 g/dL (3.5-5.0); Albumin Globulin Ratio 1.3 (1.0-2.8); Alkaline Phosphatase 149 U/L (38-126); Aspartate Aminotransferase 64 IU/L (14-36); Bilirubin Total 0.6 mg/dL (0.2-1.3); Blood Urea Nitrogen 8 mg/dL (7-17); Calcium 9.3 mg/dL (8.4-10.2); Carbon Dioxide 29 mmol/L (22-32); Chloride 102 mmol/L (98-107); Creatine Kinase < 20 U/L (30-135); Estimated Glomerular Filt Rate > 60.0 mL/min (>60); Globulin 3.5 g/dL (1.7-4.1); Glucose 100 mg/dL (70-100); HEMOLYSIS 18 (0-50); Lipase 63 U/L (23-300); Potassium 3.7 mmol/L (3.4-5.1); Sodium 142 mmol/L (137-145); Total Protein 8.2 g/dL (6.3-8.2)
[2018-12-03 17:25] LABS: D Dimer < 200 ng/mL (<230)
[2018-12-03 17:28] LABS: Troponin I < 0.012 ng/mL (0.01-0.034)
[2018-12-03] MEDS: IBUPROFEN 400 MG TABLET PO (18:01)
== END 2018-12-03 18:45 | disposition home or self-care (01) ==
PROVIDERS: Emergency Medicine; Emergency Provider Internal Medicine
DX: R07.1 Chest pain on breathing (principal); J06.9 Acute upper respiratory infection, unspecified
CPT/HCPCS: 36591; 71045; 80053; 81025; 82550; 83690; 84484; 85025; 85379; 85610; 85730; 87880; 93005; 94640; 99282; 99285

== ENCOUNTER 2018-12-14 13:41 | Emergency (ER) | payer OTHER, SELFPAY ==
[2018-12-14 13:48] VITALS: BP 136/96; PULSE 113; RESP 15; TEMP 36.8; O2SAT 97; BMI 34.3
--- NOTE | 2018-12-14 13:57 | DI.RAD.S_ITS ---
PROCEDURE: XR WRIST RT MIN 3V INDICATIONS: Latera wrist pain with cyst, tried to reduced this at home TECHNIQUE: 3 views of the wrist were acquired. COMPARISON: None. FINDINGS: Bones: No fractures or dislocations. No suspicious bony lesions. Scaphoid view: Not obtained of the scaphoid visualized appears normal Soft tissues: No suspicious soft tissue calcifications. IMPRESSION: No trauma found, source of lateral wrist pain is not identified. Dictated by: Shon Wooten M.D. on 12/14/2018 at 15:07 Approved by: Shon Wooten M.D. on 12/14/2018 at 15:07
[2018-12-14] MEDS: PROPARACAINE 0.5% OPHTH SOL 1 DROPS EYE-RIGHT (14:05)
[2018-12-14] MEDS: IBUPROFEN 400 MG TABLET PO (14:06)
[2018-12-14] MEDS: FLUORESCEIN 1 MG STRIP EYE-RIGHT (14:07)
--- NOTE | 2018-12-14 15:21 | ED.UPPEXIN ---
HPI - Extremity Injury (Upper) <KENIA Escamilla - Last Filed: 12/15/18 02:37> General Chief Complaint: Extremity Injury, Upper Stated Complaint: thinks she has pink eye, and right wrist pain also Time Seen by Provider: 12/14/18 13:42 Source: patient Mode of arrival: ambulatory Limitations: no limitations History of Present Illness HPI narrative: 32-year-old female, nonsmoker, who presents to ED with a chief complain of right wrist discomfort. She denies tingling or numbness to right had. She states she has a ganglion cyst on right lateral wrist and her tried topop this a few times last several days. She reports discomfort, swelling. She has been wearing prefabricated wrist splint for support. She also complains of bilateral eye irritation which is worse in the left eye. She states her Cat sneezed on her eye 2 nights ago and she has been rubbing her eyes and now she has a burning sensation. She uses contact lenses but had removed last night. She reports woke up with purulent discharge this morning. She reports mildly blurred vision even with glasses on. Related Data Home Medications Medication Instructions Recorded Confirmed sertraline [Zoloft] 150 mg PO QPM 10/23/17 03/27/18 Tpn 1 ea CONTINUOUS IV INFUSION Q20H 03/27/18 03/27/18 nifedipine 30 mg PO DAILY 03/27/18 03/27/18 promethazine 1 dose IV PRN PRN 03/27/18 03/27/18 promethazine [Phenadoz] 25 mg MS Q6H PRN 03/27/18 12/14/18 albuterol sulfate [ProAir HFA] 1 puff INHALATION PRN PRN 12/14/18 12/14/18 doxazosin 1 mg PO DAILY 12/14/18 12/14/18 ergocalciferol (vitamin D2) 50,000 unit PO QWEEK 12/14/18 12/14/18 [Vitamin D2] lisdexamfetamine [Vyvanse] 60 mg PO DAILY 12/14/18 12/14/18 methylphenidate HCl 36 mg PO DAILY 12/14/18 12/14/18 pantoprazole 40 mg PO DAILY 12/14/18 venlafaxine 150 mg PO DAILY 12/14/18 12/14/18 Previous Rx's Medication Instructions Recorded tobramycin 2 drop EYE-BOTH QID 5 Days #5 ml 12/14/18 Allergies Allergy/AdvReac Type Severity Reaction Status Date / Time cephalexin [CEPHALEXIN] Allergy Unknown Verified 10/23/17 15:54 latex [LATEX] Allergy Unknown Verified 10/23/17 15:54 levofloxacin [From LEVAQUIN] Allergy Unknown Verified 10/23/17 15:54 morphine [MORPHINE] Allergy Unknown Verified 10/23/17 15:54 ondansetron [ONDANSETRON] Allergy Unknown Verified 10/23/17 15:54 oxycodone [From PERCOCET] Allergy Unknown Verified 10/23/17 15:54 Penicillins [PENICILLINS] Allergy Unknown Verified 10/23/17 15:54 Review of Systems <KENIA Escamilla - Last Filed: 12/15/18 02:37> Review of Systems General: Denies fever, chills, fatigue, malaise, sweats. HEENT: See HPI Respiratory: Denies dyspnea, cough, wheezing, hemoptysis, sputum. Cardiovascular: Denies chest pain, palpitations, orthopnea, edema. Gastrointestinal: Denies nausea, vomiting, abdominal pain, diarrhea, constipation, melena. : Denies dysuria, frequency, incontinence, hematuria, urinary retention. Musculoskeletal: See HPI Skin: Denies rash, skin lesions, or other. Neurologic: Denies weakness, headache, numbness, change in speech, confusion, seizures, incoordination. Psychiatric: No concerning psychosocial issues. 12-point review of systems is negative except for those stated above. PFSH <KENIA Escamilla - Last Filed: 12/15/18 02:37> Social History Smoking Status: Never smoker Social History Smoking Status: Never smoker Exam <KENIA Escamilla - Last Filed: 12/15/18 02:37> Narrative Exam Narrative: GEN: Alert, oriented x 3, well appearing and nourished, and in no acute distress. Head: Normal cephalic, atraumatic. No scalp or temporal tenderness, palpable mass or rash. EYES: Pupils are equal, round, and reactive to light and accommodation. Extraocular muscles are intact bilaterally. Mildly injected conjunctivaon L eye. There is no subconjunctival hemorrhage, exudate and sclera non-icteric. Visual Acuity 20/20 -2 on L eye, 20/20 -1 on R eye with glasses. Non-focal but generalized Fluorescein stain uptake in L lateral eye> R lateral eye. ENT: Mucous membrane moist, no mucosal lesion. Throat without erythema, tonsillar hypertrophy or exudate. Uvula in midline, airway patent. Neck: Trachea in midline. No JVD, non-tender without lymphadenopathy. No masses or thyroid megaly. Supple, non-tender and no meningeal signs. CARDIAC: Normal regular rate and rhythm without murmurs, gallops, or rubs. No chest wall tenderness. No peripheral edema, cyanosis or pallor. Capillary refill is less than 2 seconds. RESPIRATORY: Lungs are cleat to auscultate bilaterally. No cough, wheezes, rales, or rhonchi. No stridor, respiratory distress, increase work of breathing, or accessary muscle used. ABD: Abdomen soft, nontender and non-distended. No guarding or rebound tenderness to palpate. Bowel sounds are normal in all 4 quadrants. There is no palpable masses or organomegaly. EXT: R lateral wrist with small ganglion cyst and reports discomfort with ROM. Radial and ulnar pulses intact in R hand. no loss of sensation noted. SKIN: Warm, dry, normal color for patient. No erythema, lesions or rash. NEUROLOGICAL: Alert and oriented to place, time and person. Sensation and motor function intact bilaterally. No facial droops, dysphasia. PSYCHIATRIC: Good judgement and reason, without hallucinations, abnormal affect or abnormal behaviors during the examination. Initial Vital Signs Initial Vital Signs: Vital Signs Temperature 98.2 F 12/14/18 13:48 Pulse Rate 113 H 12/14/18 13:48 Respiratory Rate 15 12/14/18 13:48 Blood Pressure 136/96 H 12/14/18 13:48 Pulse Oximetry 97 12/14/18 13:48 <Thong Doshi, DO - Last Filed: 12/16/18 06:33> Initial Vital Signs Initial Vital Signs: Vital Signs Temperature 98.2 F 12/14/18 13:48 Pulse Rate 113 H 12/14/18 13:48 Respiratory Rate 15 12/14/18 13:48 Blood Pressure 136/96 H 12/14/18 13:48 Pulse Oximetry 97 12/14/18 13:48 Course <KENIA Escamilla - Last Filed: 12/15/18 02:37> Orders Ordered: Discontinued Medications Fluorescein Sodium (Ful-Delfina) 1 mg EYE-RIGHT NOW ONE Stop: 12/14/18 13:58 Last Admin: 12/14/18 14:07 Dose: 1 mg Ibuprofen (Advil) 400 mg PO NOW ONE Stop: 12/14/18 13:58 Last Admin: 12/14/18 14:06 Dose: 400 mg Proparacaine HCl (Parcaine 0.5% Ophth Reyna) 1 drops EYE-RIGHT NOW ONE Stop: 12/14/18 13:58 Last Admin: 12/14/18 14:05 Dose: 3 drop Vital Signs - 8 hr 12/14/18 13:48 Temperature 98.2 F Pulse Rate 113 H Respiratory Rate 15 Blood Pressure 136/96 H Pulse Oximetry 97 <Thong Doshi DO - Last Filed: 12/16/18 06:33> Orders Ordered: Discontinued Medications Fluorescein Sodium (Ful-Delfina) 1 mg EYE-RIGHT NOW ONE Stop: 12/14/18 13:58 Last Admin: 12/14/18 14:07 Dose: 1 mg Ibuprofen (Advil) 400 mg PO NOW ONE Stop: 12/14/18 13:58 Last Admin: 12/14/18 14:06 Dose: 400 mg Proparacaine HCl (Parcaine 0.5% Ophth Reyna) 1 drops EYE-RIGHT NOW ONE Stop: 12/14/18 13:58 Last Admin: 12/14/18 14:05 Dose: 3 drop Vital Signs - 8 hr 12/14/18 13:48 Temperature 98.2 F Pulse Rate 113 H Respiratory Rate 15 Blood Pressure 136/96 H Pulse Oximetry 97 MDM - Extremity Injury (Upper) <KENIA Escamilla - Last Filed: 12/15/18 02:37> Differential Diagnosis Differential diagnosis: Likely sprain and strain of wrist and other (corneal abrasion, conjunctivitis) Medical Records Attestation: I reviewed the patient's medical records. Imaging Data XR-wrist R: Radiologist's impression: [address] [address] XRay Report Signed Patient: Katt Martin [facility]#: [id number] : 1985Acct:[id number] Age/Sex: 32 / FDate of Service: 12/14/18 Loc: ED Accession Number: [id number] Procedure: XR wrist RT min 3V Ordering Provider: Cedric Umanzor PROCEDURE: XR WRIST RT MIN 3V INDICATIONS: Latera wrist pain with cyst, tried to reduced this at home TECHNIQUE: 3 views of the wrist were acquired. COMPARISON: None. FINDINGS: Bones: No fractures or dislocations. No suspicious bony lesions. Scaphoid view: Not obtained of the scaphoid visualized appears normal Soft tissues: No suspicious soft tissue calcifications. IMPRESSION: No trauma found, source of lateral wrist pain is not identified. Dictated by: Shon Wooten M.D. on 12/14/2018 at 15:07 Approved by: Shon Wooten M.D. on 12/14/2018 at 15:07 [facility] Narrative Medical decision making narrative: This is a 32-year-old female came in with a right wrist pain with history of ganglion cyst and left eye burning discomfort. Right wrist x-ray without fracture and unremarkable. Left eye exam with fluorescein consistent with corneal abrasion on left lateral eye and mild corneal abrasion to right lateral. Patient was discharged to home with tobramycin eye drops since she has an allergy to Levaquin. 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 The patient encouraged to use her own wrist splint for comfort. Advised to use [id number] Tylenol and/or Motrin for pain relief and to follow up with her primary care physician for re-evaluation and possible referral to a orthopedist. Return precautions were discussed with patient and patient agrees with plan plan Discharge Plan Departure Patient Disposition: Home Clinical Impression: Ganglion cyst Abrasion, corneal Qualifiers: Encounter type: initial encounter Laterality: left Qualified Code(s): S05.02XA - Injury of conjunctiva and corneal abrasion without foreign body, left eye, initial encounter Acute wrist pain Qualifiers: Laterality: right Qualified Code(s): M25.531 - Pain in right wrist Discharge Date/Time: 12/14/18 15:36 Interventions: ED Discharge Assessment Last Done: 12/14/18 15:35 Instructions: DI for Corneal Abrasion, DI for Wrist Pain, DI Ganglion Cyst Activity Restrictions/Additional Instructions: You have been diagnosed with [cornea abrasion on both eyes but worsening on right side, ganglion cyst and the wrist pain]. What to do: *Take your medications as directed. Please take your eyedrops 4 times a day for 5 days. He can use Tylenol and/or Motrin for eye pain and wrist pain. Please continue to use wrist brace that you have to support right wrist and pain. He can use ice for next couple of days to decrease inflammation and pain. * Follow-up with heddle machine operator/paid internship next week Monday for re-evaluation and Follow up with your primary care provider in 2-3 days, call for an appointment. Let them know you were seen in the ED and that we asked you to be seen in follow up. *Return to ED if you have any new, worsening, or concerning symptoms, such as [worsening pain, swelling, redness spreading to eyelids, fever, chills, chest pain, breathing difficulty, unable to tolerate fluids vision difficulty]. Prescriptions: New tobramycin 0.3 % drops 2 drop EYE-BOTH QID 5 Days Qty: 5 RF: 0 No Action sertraline [Zoloft] 50 mg Tablet 150 mg PO QPM RF: 0 nifedipine 30 mg tablet extended release 24hr 30 mg PO DAILY RF: 0 promethazine [Phenadoz] 25 mg suppository 25 mg MS Q6H PRN (Reason: Nausea And Vomiting) RF: 0 promethazine 50 mg/mL Solution 1 dose IV PRN PRN (Reason: Nausea And Vomiting) RF: 0 Tpn 1 ea Continuous IV Infusion Q20H RF: 0 doxazosin 1 mg tablet 1 mg PO DAILY RF: 0 venlafaxine 150 mg capsule,extended release 24hr 150 mg PO DAILY RF: 0 pantoprazole 40 mg tablet,delayed release (DR/EC) 40 mg PO DAILY RF: 0 ergocalciferol (vitamin D2) [Vitamin D2] 50,000 unit capsule 50,000 unit PO QWEEK RF: 0 albuterol sulfate [ProAir HFA] 90 mcg/actuation HFA aerosol inhaler 1 puff inhalation PRN PRN (Reason: Shortness Of Breath) RF: 0 methylphenidate HCl 36 mg tablet extended release 24hr 36 mg PO DAILY RF: 0 Vyvanse 60 mg capsule 60 mg PO DAILY RF: 0 Referrals: Patrick Mullen MD [Primary Care Provider] - <Thong Doshi DO - Last Filed: 12/16/18 06:33> Cosign ED Attending Cosignature Attestation: I was immediately available in the department for consultation. Documentation has been reviewed. I agree with assessment and plan.
[2018-12-14 15:34] VITALS: BP 131/91; PULSE 98; RESP 16; O2SAT 99
== END 2018-12-14 15:36 | disposition home or self-care (01) ==
PROVIDERS: Emergency Provider Nurse Practitioner Family
DX: M67.40 Ganglion, unspecified site (principal); S05.02XA Injury of conjunctiva and corneal abrasion without foreign body, left eye, initial encounter
CPT/HCPCS: 73110; 99283

== ENCOUNTER 2019-02-01 13:34 | Emergency (ER) | payer OTHER, SELFPAY ==
[2019-02-01 13:44] VITALS: BP 129/98; PULSE 89; RESP 18; TEMP 36.7; O2SAT 98; BMI 32.4
--- NOTE | 2019-02-01 15:08 | ED_ITS ---
HPI - Back Pain/Injury <KENIA Escamilla - Last Filed: 02/01/19 23:39> General Chief Complaint: Back Pain/Injury Stated Complaint: back pain Time Seen by Provider: 02/01/19 14:48 Source: patient Mode of arrival: Ambulatory Limitations: no limitations History of Present Illness HPI Narrative: Patient is a 33-year-old female, nonsmoker, who presents to ED with the spouse to with chief complain of nontraumatic mid back pain which is worse on right side. Patient reports she has been driving all day 5 days ago and has been having progressively worsening back pain since the following day. Patient denies saddle anesthesia, incontinence for stool and urine, fever or chills, or rash on her back, weakness/tingling or numbness to her lower extremities or urinary symptoms. Patient has been using heat pack on her back and has been stretching which increased discomfort, and taking Tylenol at home but this has not been effective for pain management. Patient reports any movements specially lifting and carrying her young child increases her pain. Patient denies history of osteoporosis or osteopenia in the past. She is ambulatory into ED. Related Data Home Medications Medication Instructions Recorded Confirmed sertraline [Zoloft] 150 mg PO QPM 10/23/17 03/27/18 Tpn 1 ea CONTINUOUS IV INFUSION Q20H 03/27/18 03/27/18 nifedipine 30 mg PO DAILY 03/27/18 03/27/18 promethazine 1 dose IV PRN PRN 03/27/18 03/27/18 promethazine [Phenadoz] 25 mg LA Q6H PRN 03/27/18 12/14/18 albuterol sulfate [ProAir HFA] 1 puff INHALATION PRN PRN 12/14/18 12/14/18 doxazosin 1 mg PO DAILY 12/14/18 12/14/18 ergocalciferol (vitamin D2) 50,000 unit PO QWEEK 12/14/18 12/14/18 [Vitamin D2] lisdexamfetamine [Vyvanse] 60 mg PO DAILY 12/14/18 12/14/18 methylphenidate HCl 36 mg PO DAILY 12/14/18 12/14/18 pantoprazole 40 mg PO DAILY 12/14/18 venlafaxine 150 mg PO DAILY 12/14/18 02/01/19 lisdexamfetamine [Vyvanse] 70 mg PO QAM 02/01/19 02/01/19 Previous Rx's Medication Instructions Recorded cyclobenzaprine 10 mg PO TID PRN #10 tab 02/01/19 Allergies Allergy/AdvReac Type Severity Reaction Status Date / Time cephalexin [CEPHALEXIN] Allergy Unknown Verified 10/23/17 15:54 latex [LATEX] Allergy Unknown Verified 10/23/17 15:54 levofloxacin [From LEVAQUIN] Allergy Unknown Verified 10/23/17 15:54 ondansetron [ONDANSETRON] Allergy Unknown Verified 10/23/17 15:54 oxycodone [From PERCOCET] Allergy Unknown Verified 10/23/17 15:54 Penicillins [PENICILLINS] Allergy Unknown Verified 10/23/17 15:54 vancomycin Allergy Verified 02/01/19 13:42 Review of Systems <KENIA Escamilla - Last Filed: 02/01/19 23:39> Review of Systems ROS Unobtainable: All systems reviewed & are unremarkable except as noted in HPI and below PFSH <KENIA Escamilla - Last Filed: 02/01/19 23:39> Social History Smoking Status: Never smoker Exam <KENIA Escamilla - Last Filed: 02/01/19 23:39> Narrative Exam Narrative: General appearance: well developed, well nourished, in no acute distress. Head: normocephalic, atraumatic, no scalp lesions, non-tender. Eye: pupil equal, round. EOMI. Nose: nares patent. Oral: mucosa moist. Neck/Thyroid: neck supple, full range of motion, no visible masses. Skin: no suspicious rashes, lesions over visible areas. Warm and dry. Heart: no clubbing, no cyanosis, no edema. Lungs: Breathing even and unlabored. No stridor. No accessory muscles used. Chest: normal shape and expansion. Abdomen: non-obese, non-distended. Neurologic: alert and oriented. Cognitive exam, CYLINDER TESTER and PNS grossly intact on informal exam. Psych: good eye contact, normal affect. Initial Vital Signs Initial Vital Signs: Vital Signs Temperature 98.1 F 09/27/19 13:44 Pulse Rate 89 02/01/19 13:44 Respiratory Rate 18 02/01/19 13:44 Blood Pressure 129/98 H 02/01/19 13:44 Pulse Oximetry 98 02/01/19 13:44 Back/Spine/Pelvis Back: back tenderness (Mid to low back worse on right side), No CVA tenderness, No ecchymosis, No erythema, No mass and No warmth Cervical Spine: cervical ROM normal Thoracic/Lumbar Spine: thoracic and lumbar spine normal to inspection, No surgical scar(s) present, bend over test abnormal (Due to pain), pain with thoraco-lumbar ROM, paraspinal tenderness, thoraco-lumbar ROM limited (Due to pain), No thoracic spinal tenderness and No lumbar spinal tenderness <Hamzah Boo DO - Last Filed: 02/09/19 00:06> Initial Vital Signs Initial Vital Signs: Vital Signs Temperature 98.1 F 02/01/19 13:44 Pulse Rate 89 02/01/19 13:44 Respiratory Rate 18 02/01/19 13:44 Blood Pressure 129/98 H 02/01/19 13:44 Pulse Oximetry 98 02/01/19 13:44 Scores <SHARON EscamillaP - Last Filed: 02/01/19 23:39> GCS Jes coma scale eye opening: Spontaneous Jes coma scale verbal response: Orientated [place] coma scale motor response: Obey commands [place] coma scale total score: 15 Course <[facility] Last Filed: 02/01/19 23:39> Orders Ordered: Discontinued Medications Cyclobenzaprine HCl (Flexeril) 10 mg PO NOW ONE Stop: 02/01/19 15:09 Last Admin: 02/01/19 15:52 Dose: 10 mg Documented by: DAMIÁN Ketorolac Tromethamine (Toradol) 60 mg IM NOW ONE Stop: 02/01/19 15:09 Last Admin: 02/01/19 15:51 Dose: 60 mg Documented by: DAMIÁN Vital Signs Vital signs: Vital Signs - 8 hr 02/01/19 16:27 Pulse Rate 92 H Respiratory Rate 16 Blood Pressure [Left Arm] 127/87 Pulse Oximetry 99 <DO Dario Liu Last Filed: 02/09/19 00:06> Orders Ordered: Discontinued Medications Cyclobenzaprine HCl (Flexeril) 10 mg PO NOW ONE Stop: 02/01/19 15:09 Last Admin: 02/01/19 15:52 Dose: 10 mg Documented by: DAMIÁN Ketorolac Tromethamine (Toradol) 60 mg IM NOW ONE Stop: 02/01/19 15:09 Last Admin: 02/01/19 15:51 Dose: 60 mg Documented by: DAMIÁN Vital Signs Vital signs: Vital Signs - 8 hr 02/01/19 16:27 Pulse Rate 92 H Respiratory Rate 16 Blood Pressure [Left Arm] 127/87 Pulse Oximetry 99 MDM - Back Pain/Injury <KENIA Escamilla - Last Filed: 02/01/19 23:39> Differential Diagnosis Differential diagnosis: Likely strain of lumbar region, thoracic back pain and other (UTI, lumbar back pain, shingles) Medical Records Attestation: I reviewed the patient's medical records. Lab Data Attestation: I reviewed the patient's lab results. Labs: Point of Care Testing Test Results Negative Urine Dip Bedside Urine Glucose Negative Bedside Urine Bilirubin - Negative Bedside Urine Ketone - Negative Urine Specific [place] 1.015 Bedside Urine Occult Blood - Negative Bedside Urine pH 7.5 Bedside Urine Protein - Negative Bedside Urine Urobilinogen - Negative Bedside Urine Nitrite - Negative Bedside Urine Leukocytes - Negative Esterase MDM Narrative Medical decision making narrative: This 33-year-old female who presents to ED with nontraumatic mid to low back pain which is worse on the right side with movements, lifting, stretching, carrying her child. Patient does not have constitutional symptoms or urinary symptoms. Urine test shows no indications for infection. There was no rash to be seen on her back. Since patient is young and has no history of osteoporosis, osteopenia, compression fracture x-ray test was deferred at this time. Patient was medicated with Ketorlac IM injection and Flexeril p.o. which improved her back pain. Return precautions were discussed with the patient and patient advised to follow up with her primary care physician next week. Patient advised to rest her back next couple of days and start stretching when acute pain is improved. Patient verbalized the understanding and agrees with treatment plan. Flexeril medication precautions were discussed with the patient and patient advised to use [id number] Tylenol and/or Motrin and warm pack as home therapy. <Hamzah Boo, DO - Last Filed: 02/09/19 00:06> Lab Data Labs: Point of Care Testing Test Results Negative Urine Dip Bedside Urine Glucose Negative Bedside Urine Bilirubin - Negative Bedside Urine Ketone - Negative Urine Specific [place] 1.015 Bedside Urine Occult Blood - Negative Bedside Urine pH 7.5 Bedside Urine Protein - Negative Bedside Urine Urobilinogen - Negative Bedside Urine Nitrite - Negative Bedside Urine Leukocytes - Negative Esterase Discharge Plan Departure Patient Disposition: Home Clinical Impression: Acute mid back pain Discharge Date/Time: 02/01/19 17:12 Instructions: DI for Back Strain or Sprain Activity Restrictions/Additional Instructions: You have been diagnosed with mid back pain without radiation. We treated you with Toradol and muscle relaxant here in ED as musculoskeletal pain. What to do: *Take your medications as directed. Please take [id number] Tylenol and/or Motrin as needed for discomfort as needed. I transmitted Flexeril which is muscle relaxant to [facility] at [place]. This medication may cause drowsiness so please take precaution such as not driving, drink alcohol, not operating any heavy equipments. *Follow up with your primary care provider in 2-3 days, call for an appointment. Let them know you were seen in the ED and that we asked you to be seen in follow up. *Return to ED if you have any new, worsening, or concerning symptoms, such as fever, chest pain, breathing difficulty, tingling/weakness/numbness to lower extremities, numbness to groin areas, incontinence of stool and urine, or any acute concerns. Prescriptions: New cyclobenzaprine 10 mg tablet 10 mg PO TID PRN (Reason: muscle spasm) Qty: 10 RF: 0 No Action Vyvanse 70 mg capsule 70 mg PO QAM RF: 0 sertraline [Zoloft] 50 mg Tablet 150 mg PO QPM RF: 0 nifedipine 30 mg tablet extended release 24hr 30 mg PO DAILY RF: 0 promethazine [Phenadoz] 25 mg suppository 25 mg LA Q6H PRN (Reason: Nausea And Vomiting) RF: 0 promethazine 50 mg/mL Solution 1 dose IV PRN PRN (Reason: Nausea And Vomiting) RF: 0 Tpn 1 ea Continuous IV Infusion Q20H RF: 0 doxazosin 1 mg tablet 1 mg PO DAILY RF: 0 venlafaxine 150 mg capsule,extended release 24hr 150 mg PO DAILY RF: 0 pantoprazole 40 mg tablet,delayed release (DR/EC) 40 mg PO DAILY RF: 0 ergocalciferol (vitamin D2) [Vitamin D2] 50,000 unit capsule 50,000 unit PO QWEEK RF: 0 albuterol sulfate [ProAir HFA] 90 mcg/actuation HFA aerosol inhaler 1 puff inhalation PRN PRN (Reason: Shortness Of Breath) RF: 0 methylphenidate HCl 36 mg tablet extended release 24hr 36 mg PO DAILY RF: 0 Vyvanse 60 mg capsule 60 mg PO DAILY RF: 0 Referrals: Patrick Mullen MD [Primary Care Provider] - <Hamzah Boo DO - Last Filed: 02/09/19 00:06> Sign Out Provider Sign Out Attestation: I was available for consultation during this patient's emergency department encounter
[2019-02-01] MEDS: KETOROLAC 60 MG/2 ML VIAL IM (15:51)
[2019-02-01] MEDS: CYCLOBENZAPRINE 10 MG TABLET PO (15:52)
[2019-02-01 16:27] VITALS: BP 127/87; PULSE 92; RESP 16; O2SAT 99
== END 2019-02-01 17:12 | disposition home or self-care (01) ==
PROVIDERS: Emergency Provider Nurse Practitioner Family
DX: M54.89 Other dorsalgia (principal)
CPT/HCPCS: 81003; 81025; 96372; 99282; 99283; J1885

== ENCOUNTER 2019-04-27 07:55 | Emergency (ER) | payer OTHER, SELFPAY ==
--- NOTE | 2019-04-27 08:02 | ED_ITS ---
HPI - Ear Problem General Chief complaint: Ear Stated complaint: EAR ACHE/HEAD POUNDING Time Seen by Provider: 04/27/19 08:01 Source: patient and old records reviewed Mode of arrival: Ambulatory Limitations: no limitations History of Present Illness HPI Narrative: This is a 33-year-old female who comes in with complaint of fevers up to 101 F, nasal congestion, sore throat with hoarseness as well as some sinus pressure and bilateral ear pain. Patient states that symptoms have been going on for several days. She states all of her kids at home have had similar symptoms. Patient states that she has not really had much of a cough. She hasn't had a lot of difficulties breathing. She has been nauseated and vomiting. She states she is about 6 weeks and had hyperemesis with her last and states that she starting to develop it again. Patient states she vomits after pretty much every meal. She can keep some water down with small sips. Patient is in the process of establishing with OB at [facility] but did have a referral from her primary care here. She states with her last she did have a PICC line at 1 point. She has been taking promethazine p.o. at home. She states Zofran makes things worse. Patient states she has been making urine but feels like a little bit less than normal. She has been moderately constipated. She has had occasional mild cramping. She denies any frequency, urgency or dysuria. She states she has a history of tonsillectomy, appendectomy and cholecystectomy. Related Data Home Medications Medication Instructions Recorded Confirmed sertraline [Zoloft] 150 mg PO QPM 10/23/17 03/27/18 Tpn 1 ea CONTINUOUS IV INFUSION Q20H 03/27/18 03/27/18 nifedipine 30 mg PO DAILY 03/27/18 03/27/18 promethazine 1 dose IV PRN PRN 03/27/18 03/27/18 promethazine [Phenadoz] 25 mg AL Q6H PRN 03/27/18 12/14/18 albuterol sulfate [ProAir HFA] 1 puff INHALATION PRN PRN 12/14/18 12/14/18 doxazosin 1 mg PO DAILY 12/14/18 12/14/18 ergocalciferol (vitamin D2) 50,000 unit PO QWEEK 12/14/18 12/14/18 [Vitamin D2] lisdexamfetamine [Vyvanse] 60 mg PO DAILY 12/14/18 12/14/18 methylphenidate HCl 36 mg PO DAILY 12/14/18 12/14/18 pantoprazole 40 mg PO DAILY 12/14/18 venlafaxine 150 mg PO DAILY 12/14/18 04/27/19 lisdexamfetamine [Vyvanse] 70 mg PO QAM 02/01/19 02/01/19 Previous Rx's Medication Instructions Recorded cyclobenzaprine 10 mg PO TID PRN #10 tab 02/01/19 amoxicillin-pot clavulanate 1 tab PO BID #20 tab 04/27/19 [Augmentin] Allergies Allergy/AdvReac Type Severity Reaction Status Date / Time cephalexin [CEPHALEXIN] Allergy Unknown Verified 04/27/19 08:08 latex [LATEX] Allergy Unknown Verified 04/27/19 08:08 levofloxacin [From LEVAQUIN] Allergy Unknown Verified 04/27/19 08:08 ondansetron [ONDANSETRON] Allergy Unknown Verified 04/27/19 08:08 oxycodone [From PERCOCET] Allergy Unknown Verified 04/27/19 08:08 Penicillins [PENICILLINS] Allergy Unknown Verified 04/27/19 08:08 vancomycin Allergy Verified 04/27/19 08:08 Review of Systems Review of Systems ROS Unobtainable: All systems reviewed & are unremarkable except as noted in HPI and below Patient History Social History Smoking Status: Never smoker Smoking Status: Never smoker alcohol intake frequency: 0-2 drinks per day Substance Use Type: does not use Exam Narrative Exam Narrative: GEN: well nourished, well appearing female, alert and oriented x 3, patient appears to be in mild distress. HEENT: Atraumatic, pupils are equal round reactive to light, extraocular movements are intact, nares are clear, TMs are clear with no fluid, no erythema, no bulge. Throat is mildly erythematous without any exudates, no tonsillar enlargement or uvular deviation, mild bilateral cervical lymphadenopathy. Patient does have tenderness bilaterally particularly on the left sinus. HEART: Regular rate and rhythm without murmur, clicks, rubs. LUNGS:Lungs clear to auscultation, no wheezes, rales, crackles, chest moves symmetrically ABD:bowel sounds normal, soft, non-tender, no guarding, rebound, rigidity, no masses noted, no hepatosplenomegaly :No CVA tenderness. MSCL: Non-tender, no muscle atrophy, muscles strength 5/5 upper and lower extremities, full range of motion, normal gait NEURO:CN 2-12 intact, sensation normal. SKIN: No rash, no skin changes. Initial Vital Signs Initial Vital Signs: Vital Signs Pulse Rate 78 04/27/19 08:05 Respiratory Rate 16 04/27/19 08:05 Blood Pressure 129/83 04/27/19 08:05 Pulse Oximetry 100 04/27/19 08:05 Course Orders Ordered: ED Orders 04/27/19 08:50 Influenza A & B (PCR) Stat Discontinued Medications Acetaminophen (Tylenol) 975 mg PO NOW ONE Stop: 04/27/19 09:20 Last Admin: 04/27/19 09:42 Dose: 975 mg Documented by: KATE Sodium Chloride (Normal Saline 0.9%) 1,000 mls @ 1,000 mls/hr IV BOLUS ONE Stop: 04/27/19 09:17 Last Infusion: 04/27/19 11:00 Dose: 0 mls/hr Documented by: Admin: 04/27/19 09:07 Dose: 1,000 mls/hr Documented by: KATE Metoclopramide HCl (Reglan) 10 mg IV NOW ONE Stop: 04/27/19 08:24 Last Admin: 04/27/19 09:08 Dose: 10 mg Documented by: KATE Vital Signs Vital signs: Vital Signs - 8 hr 04/27/19 08:05 04/27/19 09:00 04/27/19 10:00 Pulse Rate 78 77 69 Respiratory Rate 16 16 17 Blood Pressure 129/83 Blood Pressure [Right Arm] 118/73 122/84 Pulse Oximetry 100 99 99 04/27/19 11:00 Pulse Rate 71 Respiratory Rate 15 Blood Pressure Blood Pressure [Right Arm] 121/78 Pulse Oximetry 99 Medical Decision Making Lab Data Lab results reviewed: Yes I reviewed the patient's lab results. Labs: Lab Results 04/27/19 Range/Units 08:50 Influenza A (RT-PCR) Flu a negative (NEGATIVE) Influenza B (RT-PCR) Flu b negative (NEGATIVE) Point of Care Testing Test Results Positive Rapid Strep A Negative Urine Dip Bedside Urine Glucose Negative Bedside Urine Bilirubin + 1 Bedside Urine Ketone - Negative Urine Specific [place] 1.020 Bedside Urine Occult Blood - Negative Bedside Urine pH 6.0 Bedside Urine Protein - Negative Bedside Urine Urobilinogen - Negative Bedside Urine Nitrite - Negative Bedside Urine Leukocytes - Negative Esterase Point of care testing: Point of Care Testing Test Results Positive Rapid Strep A Negative Urine Dip Bedside Urine Glucose Negative Bedside Urine Bilirubin + 1 Bedside Urine Ketone - Negative Urine Specific [place] 1.020 Bedside Urine Occult Blood - Negative Bedside Urine pH 6.0 Bedside Urine Protein - Negative Bedside Urine Urobilinogen - Negative Bedside Urine Nitrite - Negative Bedside Urine Leukocytes - Negative Esterase MDM Narrative Medical decision making narrative: Patient states she has been having difficulty keeping down liquids plan for L of fluids. She states Zofran makes her worse. We do not have promethazine IV which she typically takes p.o.. She states she has had Reglan in the past although it typically is a very helpful but she is willing to try it. She has had subjective fevers at home with sinus tenderness so I suspect she may have a sinusitis but with her and fevers I would go ahead and check for influenza. Influenza negative. Patient was given a L of fluids. She was taking oral liquids here in the department and requested some Tylenol for headache which she was given and tolerated. Discussed she has had recent objective fevers by thermometer at as well as sinus tenderness go ahead and cover her for a sinusitis. Patient has multiple allergies, asked if she'd ever had Augmentin or amoxicillin/clavulanic acid and she states she has taken this without any issues in the past. We did review her other allergies and she was allergic to Keflex as well as penicillin. Patient was offered a prescription for promethazine per rectum which she defers. Discharge Plan Departure Patient Disposition: Home Clinical Impression: Acute sinusitis, Upper respiratory tract infection Discharge Date/Time: 04/27/19 11:05 Instructions: DI for Sinusitis Activity Restrictions/Additional Instructions: Follow up with primary care or ob in the next week for recheck. Take antibiotics until gone. [email or web address] [place]. It is also recommended to use flonase once or twice daily intranasally while having symptoms. Continue with your home medications as prescribed. Return to the ER for persistently high fevers greater than 100.4F, new confusio n, altered mental status, vision changes, new facial or neck swelling or redness, muffled voice, or other new or concerning symptoms. Prescriptions: New amoxicillin-pot clavulanate [Augmentin] 875-125 mg tablet 1 tab PO BID Qty: 20 RF: 0 No Action cyclobenzaprine 10 mg tablet 10 mg PO TID PRN (Reason: muscle spasm) Qty: 10 RF: 0 Vyvanse 70 mg capsule 70 mg PO QAM RF: 0 sertraline [Zoloft] 50 mg Tablet 150 mg PO QPM RF: 0 nifedipine 30 mg tablet extended release 24hr 30 mg PO DAILY RF: 0 promethazine [Phenadoz] 25 mg suppository 25 mg AL Q6H PRN (Reason: Nausea And Vomiting) RF: 0 promethazine 50 mg/mL Solution 1 dose IV PRN PRN (Reason: Nausea And Vomiting) RF: 0 Tpn 1 ea Continuous IV Infusion Q20H RF: 0 doxazosin 1 mg tablet 1 mg PO DAILY RF: 0 venlafaxine 150 mg capsule,extended release 24hr 150 mg PO DAILY RF: 0 pantoprazole 40 mg tablet,delayed release (DR/EC) 40 mg PO DAILY RF: 0 ergocalciferol (vitamin D2) [Vitamin D2] 50,000 unit capsule 50,000 unit PO QWEEK RF: 0 albuterol sulfate [ProAir HFA] 90 mcg/actuation HFA aerosol inhaler 1 puff inhalation PRN PRN (Reason: Shortness Of Breath) RF: 0 methylphenidate HCl 36 mg tablet extended release 24hr 36 mg PO DAILY RF: 0 Vyvanse 60 mg capsule 60 mg PO DAILY RF: 0 Referrals: Lamar Javier DO [Primary Care Provider] -
[2019-04-27 08:05] VITALS: BP 129/83; PULSE 78; RESP 16; O2SAT 100
[2019-04-27 09:00] VITALS: BP 118/73; PULSE 77; RESP 16; O2SAT 99
[2019-04-27] MEDS: SODIUM CHLORIDE 0.9% 1,000 ML 1000 ML IV (09:07)
[2019-04-27] MEDS: METOCLOPRAMIDE 10 MG/2 ML INJ IV (09:08)
[2019-04-27 09:28] LABS: Influenza A - CEPHEID Flu A NEGATIVE (NEGATIVE); Influenza B - CEPHEID Flu B NEGATIVE (NEGATIVE)
[2019-04-27] MEDS: ACETAMINOPHEN 325 MG TABLET 975 MG PO (09:42)
[2019-04-27 10:00] VITALS: BP 122/84; PULSE 69; RESP 17; O2SAT 99
[2019-04-27 11:00] VITALS: BP 121/78; PULSE 71; RESP 15; O2SAT 99
== END 2019-04-27 11:05 | disposition home or self-care (01) ==
PROVIDERS: Emergency Provider Emergency Medicine; PCP Family Medicine
DX: J01.90 Acute sinusitis, unspecified (principal); J06.9 Acute upper respiratory infection, unspecified; O21.9 Vomiting of pregnancy, unspecified; Z3A.01 Less than 8 weeks gestation of pregnancy
CPT/HCPCS: 36415; 81003; 81025; 87502; 87880; 96361; 96374; 99284; J2765

== ENCOUNTER 2019-05-26 18:37 | Emergency (ER) | payer OTHER, SELFPAY ==
[2019-05-26 18:44] VITALS: BP 127/85; PULSE 82; RESP 15; TEMP 37; O2SAT 100; BMI 31.7
--- NOTE | 2019-05-26 19:13 | ED.NAVMDI ---
HPI - Nausea/Vomiting/Diarrhea <Cedric KENIA Umanzor - Last Filed: 05/26/19 22:16> General Chief complaint: Nausea/Vomiting/Diarrhea Stated complaint: thinks dehydrated, 13wks ,vomiting,diarrhe Time Seen by Provider: 05/26/19 18:40 Source: patient Mode of arrival: Ambulatory Limitations: no limitations History of Present Illness HPI Narrative: This is a 33-year-old female who is 13 week EGA with LMP 02/20/2019 with presents to ED with hyperemesis gravidarum. Patient states she feels dehydrated and stop peeing and reports last urination about 1-1/2 hour ago with only a few drops. Patient also currently nursing her toddler child. Patient has been having multiple episodes of nausea and vomiting for last 2 months and also now she has diarrhea last 4-5 days everytime she eats. Patient denies urinary symptoms such as urgency, frequency, dysuria, hematuria and blood in her stool. She also reports bilateral lower abdominal pain worse on the left side which radiating to her bilateral flanks. Patient states abdominal discomfort feels as when she had kidney stone in the past. Reports had a 1 day duration of fever of 100.2 2 days ago. IUP verified by ultrasound a few weeks ago. Patient denies vaginal bleeding at this time. Patient denies chest pain, breathing difficulty but lightheaded all the time. She states is able to tolerate very small sips at a time but when she tries to drink moderate to large amount, she gets nauseous and vomits. Patient has 1st appointment at [facility] due to high risk with history of labor due to hyper emesis gravidarum. Patient uses promethazine at home and last dose was taken 1 hour prior coming into ED at 6:00 p.m. patient reports she had taken Tylenol at home this morning for abdominal discomfort without much effect. Related Data Home Medications Medication Instructions Recorded Confirmed sertraline [Zoloft] 150 mg PO QPM 10/23/17 03/27/18 Tpn 1 ea CONTINUOUS IV INFUSION Q20H 03/27/18 03/27/18 nifedipine 30 mg PO DAILY 03/27/18 03/27/18 promethazine 1 dose IV PRN PRN 03/27/18 03/27/18 promethazine [Phenadoz] 25 mg LA Q6H PRN 03/27/18 12/14/18 albuterol sulfate [ProAir HFA] 1 puff INHALATION PRN PRN 12/14/18 12/14/18 doxazosin 1 mg PO DAILY 12/14/18 12/14/18 ergocalciferol (vitamin D2) 50,000 unit PO QWEEK 12/14/18 12/14/18 [Vitamin D2] lisdexamfetamine [Vyvanse] 60 mg PO DAILY 12/14/18 12/14/18 methylphenidate HCl 36 mg PO DAILY 12/14/18 12/14/18 pantoprazole 40 mg PO DAILY 12/14/18 venlafaxine 150 mg PO DAILY 12/14/18 04/27/19 lisdexamfetamine [Vyvanse] 70 mg PO QAM 02/01/19 02/01/19 Previous Rx's Medication Instructions Recorded cyclobenzaprine 10 mg PO TID PRN #10 tab 02/01/19 amoxicillin-pot clavulanate 1 tab PO BID #20 tab 04/27/19 [Augmentin] Allergies Allergy/AdvReac Type Severity Reaction Status Date / Time cephalexin [CEPHALEXIN] Allergy Unknown Verified 05/26/19 18:44 latex [LATEX] Allergy Unknown Verified 05/26/19 18:44 levofloxacin [From LEVAQUIN] Allergy Unknown Verified 05/26/19 18:44 ondansetron [ONDANSETRON] Allergy Unknown Verified 05/26/19 18:44 oxycodone [From PERCOCET] Allergy Unknown Verified 05/26/19 18:44 Penicillins [PENICILLINS] Allergy Unknown Verified 05/26/19 18:44 vancomycin Allergy Verified 05/26/19 18:44 Review of Systems <KENIA Escamilla - Last Filed: 05/26/19 22:16> Review of Systems Narrative: General: Denies fever, (+) always has chills, fatigue, malaise, sweats. HEENT: Denies sinus pain, ear pain, sore throat, difficulty swallowing, (+) dizziness. Respiratory: Denies dyspnea, cough, wheezing, hemoptysis, sputum. Cardiovascular: Denies chest pain, palpitations, orthopnea, edema. Gastrointestinal: See HPI : Denies dysuria, frequency, incontinence, hematuria, urinary retention. Musculoskeletal: Denies weakness, joint pain or bony pain. Skin: Denies rash, skin lesions, or other. Neurologic: Denies weakness, headache, numbness, change in speech, confusion, seizures, incoordination. Psychiatric: No concerning psychosocial issues. 12-point review of systems is negative except for those stated above. Patient History <KENIA Escamilla - Last Filed: 05/26/19 22:16> Medical History (Updated 05/26/19 @ 21:52 by KENIA Escamilla) Hyperemesis affecting , antepartum (Acute) Kidney stone (Acute) Surgical History (Updated 05/26/19 @ 21:55 by KENIA Escamilla) History of appendectomy (Acute) Social History Smoking Status: Never smoker Smoking Status: Never smoker alcohol intake frequency: 0-2 drinks per day Substance Use Type: does not use Exam <KENIA Escamilla - Last Filed: 05/26/19 22:16> Narrative Exam Narrative: GEN: Alert, oriented x 3, well appearing and nourished, and in no acute distress. Head: Normal cephalic, atraumatic. No scalp or temporal tenderness, palpable mass or rash. EYES: Pupils are equal, round, and reactive to light and accommodation. Extraocular muscles are intact bilaterally. There is no subconjunctival hemorrhage, exudate and sclera non-icteric. ENT: Bilateral auditory canals and tympanic membranes clear. Hearing grossly intact. Nose without bleeding, purulent discharge or deviation. Facial sinuses nontender to palpate. Mucous membrane moist, no mucosal lesion. Throat without erythema, tonsillar hypertrophy or exudate. Uvula in midline, airway patent. Neck: Trachea in midline. No JVD, non-tender without lymphadenopathy. No masses or thyroid megaly. Supple, non-tender and no meningeal signs. CARDIAC: Normal regular rate and rhythm without murmurs, gallops, or rubs. No chest wall tenderness. No peripheral edema, cyanosis or pallor. Capillary refill is less than 2 seconds. RESPIRATORY: Lungs are clear to auscultate bilaterally. No cough, wheezes, rales, or rhonchi. No stridor, respiratory distress, increase work of breathing, or accessary muscle used. ABD: Abdomen soft, tender to palpate in bilateral lower abdomen worsening in left side which radiates to bilateral flank and non-distended. No guarding or rebound tenderness to palpate. Bowel sounds are normal in all 4 quadrants. There is no palpable masses or organomegaly. EXT: Full painless ROM of all extremities with no loss of sensation, strength, effusion or edema. SKIN: Warm, dry, normal color for patient. No erythema, lesions or rash over visible areas. BACK: Nontender without deformity or crepitance. No flank tenderness. NEUROLOGICAL: Alert and oriented to place, time and person. Sensation and motor function intact bilaterally. No facial droops, dysphasia. PSYCHIATRIC: Good judgement and reason, without hallucinations, abnormal affect or abnormal behaviors during the examination. Initial Vital Signs Initial Vital Signs: Vital Signs Temperature 98.6 F 05/26/19 18:44 Pulse Rate 82 05/26/19 18:44 Respiratory Rate 15 05/26/19 18:44 Blood Pressure 127/85 05/26/19 18:44 Pulse Oximetry 100 05/26/19 18:44 <Thogn Doshi DO - Last Filed: 05/27/19 05:44> Initial Vital Signs Initial Vital Signs: Vital Signs Temperature 98.6 F 05/26/19 18:44 Pulse Rate 82 05/26/19 18:44 Respiratory Rate 15 05/26/19 18:44 Blood Pressure 127/85 05/26/19 18:44 Pulse Oximetry 100 05/26/19 18:44 Scores <KENIA Escamilla - Last Filed: 05/26/19 22:16> GCS Paia coma scale eye opening: Spontaneous Paia coma scale verbal response: Orientated Jes coma scale motor response: Obey commands Jes coma scale total score: 15 Course <KENIA Escamilla - Last Filed: 05/26/19 22:16> Orders Ordered: ED Orders 05/26/19 21:17 Urine Microscopic Stat Discontinued Medications Hydrocodone Bitart/Acetaminophen (Vicodin 5/325 Prepack) 1 bottle MISC SEEINSTR ONE Stop: 05/26/19 21:07 Last Admin: 05/26/19 21:29 Dose: 1 bottle Documented by: CLARE Sodium Chloride (Normal Saline 0.9%) 500 mls @ 1,000 mls/hr IV BOLUS PRN PRN Reason: Fluid replacement Sodium Chloride (Normal Saline 0.9%) 1,000 mls @ 1,000 mls/hr IV BOLUS ONE Stop: 05/26/19 20:34 Last Infusion: 05/26/19 20:50 Dose: 0 mls/hr Documented by: Admin: 05/26/19 19:50 Dose: 1,000 mls/hr Documented by: CLARE Vital Signs Vital signs: Vital Signs - 8 hr 05/26/19 22:00 Temperature 98.6 F Pulse Rate 75 Respiratory Rate 16 Blood Pressure 125/80 Pulse Oximetry 98 <Thong Doshi DO - Last Filed: 05/27/19 05:44> Orders Ordered: ED Orders 05/26/19 21:17 Urine Microscopic Stat Discontinued Medications Hydrocodone Bitart/Acetaminophen (Vicodin 5/325 Prepack) 1 bottle MISC SEEINSTR ONE Stop: 05/26/19 21:07 Last Admin: 05/26/19 21:29 Dose: 1 bottle Documented by: CLARE Sodium Chloride (Normal Saline 0.9%) 500 mls @ 1,000 mls/hr IV BOLUS PRN PRN Reason: Fluid replacement Sodium Chloride (Normal Saline 0.9%) 1,000 mls @ 1,000 mls/hr IV BOLUS ONE Stop: 05/26/19 20:34 Last Infusion: 05/26/19 20:50 Dose: 0 mls/hr Documented by: Admin: 05/26/19 19:50 Dose: 1,000 mls/hr Documented by: CLARE Vital Signs Vital signs: Vital Signs - 8 hr 05/26/19 22:00 Temperature 98.6 F Pulse Rate 75 Respiratory Rate 16 Blood Pressure 125/80 Pulse Oximetry 98 MDM - Nausea/Vomiting/Diarrhea <KENIA Escamilla - Last Filed: 05/26/19 22:16> Differential Diagnosis Differential diagnosis: Likely gastroenteritis, dehydration and other (Hyperemesis , UTI, kidney stone, pyelonephritis) Medical Records Attestation: I reviewed the patient's medical records. Lab Data Attestation: I reviewed the patient's lab results. Result diagrams: 05/26/19 19:34 05/26/19 19:34 Labs: Lab Results 05/26/19 05/26/19 05/26/19 Range/Units 19:34 19:34 21:17 WBC 6.7 (4.5-11.0) X10^3/uL RBC 4.07 (4.0-5.2) X10^6/uL Hgb 12.8 (12.0-16.0) g/dL Hct 35.7 L (36-46) % MCV 87.8 (80-100) fL MCH 31.4 (26-34) PG MCHC 35.7 (30-36) % RDW 12.4 (11.6-14.8) % Plt Count 235 (150-400) X10^3/uL Neut % (Auto) 66.6 (50-75) % Lymph % (Auto) 24.0 L (25-40) % [place] % (Auto) 7.7 (3-14) % Eos % (Auto) 1.3 L (2-4) % Baso % (Auto) 0.4 (0-2) % Neut # (Auto) 4400 (0520-7530) /uL Lymph # (Auto) 1600 (6607-3021) /uL [place] # (Auto) 500 (0-900) /uL Eos # (Auto) 100 (0-450) /uL Baso # (Auto) 0 (0-100) /uL Sodium 137 (137-145) mmol/L Potassium 3.4 (3.4-5.1) mmol/L Chloride 107 (98-107) mmol/L Carbon Dioxide 24 (22-32) mmol/L BUN 5 L (7-17) mg/dL Creatinine 0.40 L (0.52-1.04) mg/dL Estimated GFR > 60.0 (>60) mL/min BUN/Creatinine Ratio 12.5 (6-22) Glucose 95 (70-100) mg/dL Calcium 9.0 (8.4-10.2) mg/dL Total Bilirubin 0.2 (0.2-1.3) mg/dL AST 33 (14-36) IU/L ALT 29 (<35) IU/L Alkaline Phosphatase 91 (38-126) U/L Total Protein 6.7 (6.3-8.2) g/dL Albumin 3.7 (3.5-5.0) g/dL Globulin 3.0 (1.7-4.1) g/dL Albumin/Globulin Ratio 1.2 (1.0-2.8) Lipase 104 (23-300) U/L Urine RBC None seen (0-5/HPF) Urine WBC None seen (0-5/HPF) Urine Bacteria None seen (None) Ur Culture Indicated? Cult not indicated Urine Dip Bedside Urine Glucose Negative Bedside Urine Bilirubin - Negative Bedside Urine Ketone + 15 Urine Specific [place] 1.030 Bedside Urine Occult Blood - Negative Bedside Urine pH 6.0 Bedside Urine Protein +/- 15 Bedside Urine Urobilinogen - Negative Bedside Urine Nitrite - Negative Bedside Urine Leukocytes +/- 15 Esterase MDM Narrative Medical decision making narrative: This a 13 week EGA female who presents today with feeling dehydrated with frequent vomiting for last 2 months and 4-5 days of diarrhea and currently nursing her 1 year old toddler. The patient also reports bilateral L>R lower abdominal pain for last a few days. Patient is afebrile with stable vital signs. CBC is unremarkable. BMP is not consistent with dehydration but her urine does show elevated specific gravity of 1.030 after a liter of NS infusion. Patient states she had taken promethazine on hour prior coming into ED and is not requiring additional antiemetic at this time stating Zofran makes her ill. Patient was able to tolerate ice chips and small sips of liquids before discharging to home. Patient was able to ambulate in stable gait prior discharged to home. No evidence of urinary tract infection or blood in urine per UA. Patient reports IUP has been verified couple of weeks ago by ultrasound test. Patient has history of appendectomy. Differential diagnosis of ovarian cyst was considered but abdominal exam is not specific and deferred the imaging test today. FHT at 160 and the patient denies any vaginal bleeding. Patient declined Tylenol for abdominal discomfort and discussed limited options for pain management during with patient. Patient opted for stronger medications such as narcotic medication and [place] prepack provided after discussing narcotic medication precautions and risk during . Strict return precautions were discussed with the patient and patient advised to follow-up with [place] [facility] specialist for risk . Patient verbalized the understanding and agrees with the treatment plan. <Thong Doshi, DO - Last Filed: 05/27/19 05:44> Lab Data Labs: Lab Results 05/26/19 05/26/19 05/26/19 Range/Units 19:34 19:34 21:17 WBC 6.7 (4.5-11.0) X10^3/uL RBC 4.07 (4.0-5.2) X10^6/uL Hgb 12.8 (12.0-16.0) g/dL Hct 35.7 L (36-46) % MCV 87.8 (80-100) fL MCH 31.4 (26-34) PG MCHC 35.7 (30-36) % RDW 12.4 (11.6-14.8) % Plt Count 235 (150-400) X10^3/uL Neut % (Auto) 66.6 (50-75) % Lymph % (Auto) 24.0 L (25-40) % [place] % (Auto) 7.7 (3-14) % Eos % (Auto) 1.3 L (2-4) % Baso % (Auto) 0.4 (0-2) % Neut # (Auto) 4400 (7611-2412) /uL Lymph # (Auto) 1600 (4456-3630) /uL [place] # (Auto) 500 (0-900) /uL Eos # (Auto) 100 (0-450) /uL Baso # (Auto) 0 (0-100) /uL Sodium 137 (137-145) mmol/L Potassium 3.4 (3.4-5.1) mmol/L Chloride 107 (98-107) mmol/L Carbon Dioxide 24 (22-32) mmol/L BUN 5 L (7-17) mg/dL Creatinine 0.40 L (0.52-1.04) mg/dL Estimated GFR > 60.0 (>60) mL/min BUN/Creatinine Ratio 12.5 (6-22) Glucose 95 (70-100) mg/dL Calcium 9.0 (8.4-10.2) mg/dL Total Bilirubin 0.2 (0.2-1.3) mg/dL AST 33 (14-36) IU/L ALT 29 (<35) IU/L Alkaline Phosphatase 91 (38-126) U/L Total Protein 6.7 (6.3-8.2) g/dL Albumin 3.7 (3.5-5.0) g/dL Globulin 3.0 (1.7-4.1) g/dL Albumin/Globulin Ratio 1.2 (1.0-2.8) Lipase 104 (23-300) U/L Urine RBC None seen (0-5/HPF) Urine WBC None seen (0-5/HPF) Urine Bacteria None seen (None) Ur Culture Indicated? Cult not indicated Urine Dip Bedside Urine Glucose Negative Bedside Urine Bilirubin - Negative Bedside Urine Ketone + 15 Urine Specific [place] 1.030 Bedside Urine Occult Blood - Negative Bedside Urine pH 6.0 Bedside Urine Protein +/- 15 Bedside Urine Urobilinogen - Negative Bedside Urine Nitrite - Negative Bedside Urine Leukocytes +/- 15 Esterase Discharge Plan Departure Patient Disposition: Home Clinical Impression: Hyperemesis gravidarum Abdominal pain Qualifiers: Abdominal location: lower abdomen, unspecified Qualified Code(s): R10.30 - Lower abdominal pain, unspecified Discharge Date/Time: 05/26/19 22:01 Instructions: DI for Hyperemesis Gravidarum, DI for Abdominal Pain -- Early Activity Restrictions/Additional Instructions: You have been diagnosed with [hyperemesis gravidarum. Urine appears to be clean for infection and no blood. heart tone was in 160. You were hydrated with IV fluid of normal saline and were able to tolerate small sips of liquids without vomiting. Blood tests were unremarkable today for CBC and chemistry.]. What to do: *Take your medications as directed. Please continue to take promethazine as needed for the discomfort and hydrate with small sips of liquids throughout the day. You were discharged to home with [place] prepack for discomfort. Please take this medication only for severe pain. This may cause drowsiness and constipation so please take precautions. You can take Tylenol 4000 mg in 24 hour period. *Follow up with your primary care provider in 2-3 days, call for an appointment. Let them know you were seen in the ED and that we asked you to be seen in follow up. *Return to ED if you have any new, worsening, or concerning symptoms, such as [fever, unable to tolerate fluids, feeling like fainting, chest pain, breathing difficulty, worsening pain, vaginal bleeding, or any acute concerns]. Prescriptions: No Action cyclobenzaprine 10 mg tablet 10 mg PO TID PRN (Reason: muscle spasm) Qty: 10 RF: 0 Vyvanse 70 mg capsule 70 mg PO QAM RF: 0 amoxicillin-pot clavulanate [Augmentin] 875-125 mg tablet 1 tab PO BID Qty: 20 RF: 0 sertraline [Zoloft] 50 mg Tablet 150 mg PO QPM RF: 0 nifedipine 30 mg tablet extended release 24hr 30 mg PO DAILY RF: 0 promethazine [Phenadoz] 25 mg suppository 25 mg LA Q6H PRN (Reason: Nausea And Vomiting) RF: 0 promethazine 50 mg/mL Solution 1 dose IV PRN PRN (Reason: Nausea And Vomiting) RF: 0 Tpn 1 ea Continuous IV Infusion Q20H RF: 0 doxazosin 1 mg tablet 1 mg PO DAILY RF: 0 venlafaxine 150 mg capsule,extended release 24hr 150 mg PO DAILY RF: 0 pantoprazole 40 mg tablet,delayed release (DR/EC) 40 mg PO DAILY RF: 0 ergocalciferol (vitamin D2) [Vitamin D2] 50,000 unit capsule 50,000 unit PO QWEEK RF: 0 albuterol sulfate [ProAir HFA] 90 mcg/actuation HFA aerosol inhaler 1 puff inhalation PRN PRN (Reason: Shortness Of Breath) RF: 0 methylphenidate HCl 36 mg tablet extended release 24hr 36 mg PO DAILY RF: 0 Vyvanse 60 mg capsule 60 mg PO DAILY RF: 0 Referrals: Lamar Javier DO [Primary Care Provider] -
[2019-05-26 19:43] LABS: Add Manual Diff / Slide Review NO; Basophils Absolute Auto 0 /uL (0-100); Basophils Percent Auto 0.4 % (0-2); Eosinophils Absolute Auto 100 /uL (0-450); Eosinophils Percent Auto 1.3 % (2-4); Hematocrit 35.7 % (36-46); Hemoglobin 12.8 g/dL (12.0-16.0); Lymphocytes Absolute Auto 1600 /uL (1100-4500); Mean Corpuscular HGB Conc 35.7 % (30-36); Mean Corpuscular Hemoglobin 31.4 PG (26-34); Mean Corpuscular Volume 87.8 fL (80-100); Monocytes Absolute Auto 500 /uL (0-900); Monocytes Percent Auto 7.7 % (3-14); Neutrophils Absolute Auto 4400 /uL (1500-7000); Neutrophils Percent Auto 66.6 % (50-75); Platelet Count 235 X10^3/uL (150-400); Red Blood Cell Count 4.07 X10^6/uL (4.0-5.2); Red Cell Distribution Width 12.4 % (11.6-14.8); White Blood Cell Count 6.7 X10^3/uL (4.5-11.0)
[2019-05-26] MEDS: SODIUM CHLORIDE 0.9% 1,000 ML 1000 ML IV (19:50)
[2019-05-26 19:52] LABS: Alanine Aminotransferase 29 IU/L (<35); Albumin 3.7 g/dL (3.5-5.0); Albumin Globulin Ratio 1.2 (1.0-2.8); Alkaline Phosphatase 91 U/L (38-126); Aspartate Aminotransferase 33 IU/L (14-36); BUN Creatinine Ratio 12.5 (6-22); Bilirubin Total 0.2 mg/dL (0.2-1.3); Blood Urea Nitrogen 5 mg/dL (7-17); Carbon Dioxide 24 mmol/L (22-32); Chloride 107 mmol/L (98-107); Estimated Glomerular Filt Rate > 60.0 mL/min (>60); Glucose 95 mg/dL (70-100); HEMOLYSIS < 15 (0-50); Lipase 104 U/L (23-300); Potassium 3.4 mmol/L (3.4-5.1); Sodium 137 mmol/L (137-145); Total Protein 6.7 g/dL (6.3-8.2)
[2019-05-26 21:27] LABS: Bacteria Urine None Seen; RBC Urine None Seen (0-5/HPF); WBC Urine None Seen (0-5/HPF)
[2019-05-26] MEDS: HYDROCODONE/ACET 5/325 PREPACK 1 BOTTLE MISC (21:29)
[2019-05-26 21:35] LABS: Culture Indicated Urine Cult Not Indicated
[2019-05-26 22:00] VITALS: BP 125/80; PULSE 75; RESP 16; TEMP 37; O2SAT 98
== END 2019-05-26 22:01 | disposition home or self-care (01) ==
PROVIDERS: Emergency Provider Nurse Practitioner Family; PCP Family Medicine
DX: O21.0 Mild hyperemesis gravidarum (principal); Z3A.13 13 weeks gestation of pregnancy; R10.30 Lower abdominal pain, unspecified
CPT/HCPCS: 36415; 80053; 81003; 81015; 83690; 85025; 96360; 99284

== ENCOUNTER 2019-06-05 12:17 | Emergency (ER) | payer OTHER, SELFPAY ==
[2019-06-05] VITALS (9 sets, daily range): BP systolic 115–129; BP diastolic 59–86; PULSE 85–109; RESP 18; TEMP 36.7; O2SAT 92–100
[2019-06-05 13:42] LABS: Influenza A - CEPHEID Flu A NEGATIVE (NEGATIVE); Influenza B - CEPHEID Flu B NEGATIVE (NEGATIVE)
[2019-06-05] MEDS: ALBUTEROL 2.5 MG/3 ML NEB (ADULT) INH ×2 (14:52→15:34)
--- NOTE | 2019-06-05 14:55 | ED.URI ---
HPI - URI/Sore Throat <Estella SmithKENIA - Last Filed: 06/05/19 21:44> General Chief Complaint: Upper Respiratory Symptoms Stated Complaint: chest pain, state feels like fluid in lungs Time Seen by Provider: 06/05/19 13:46 Mode of arrival: Ambulatory History of Present Illness HPI Narrative: 33-year-old female who is 14weeks , , presents emergency department complaining of cough, chest congestion, right-sided ear pain, and intermittent fever of 102F for the past 4 days. Patient states she has a history of a DVT that occurred after a PICC line was inserted and left in place for some time. No lines in place at this time. Patient reports her cough initially started as a dry cough but then progressed to mild productive sputum. She states she has for emesis so vomiting and nausea is common. She denies any diarrhea at this time or abdominal pain. Patient denies any vaginal bleeding chest pain, dizziness, high blood pressure, or other concerns. She denies any history of asthma. She states she has had pneumonia in the past as well as bronchitis and this feels similar. Related Data Home Medications Medication Instructions Recorded Confirmed sertraline [Zoloft] 150 mg PO QPM 10/23/17 03/27/18 Tpn 1 ea CONTINUOUS IV INFUSION Q20H 03/27/18 03/27/18 nifedipine 30 mg PO DAILY 03/27/18 03/27/18 promethazine 1 dose IV PRN PRN 03/27/18 03/27/18 promethazine [Phenadoz] 25 mg AK Q6H PRN 03/27/18 12/14/18 albuterol sulfate [ProAir HFA] 1 puff INHALATION PRN PRN 12/14/18 12/14/18 doxazosin 1 mg PO DAILY 12/14/18 12/14/18 ergocalciferol (vitamin D2) 50,000 unit PO QWEEK 12/14/18 12/14/18 [Vitamin D2] lisdexamfetamine [Vyvanse] 60 mg PO DAILY 12/14/18 12/14/18 methylphenidate HCl 36 mg PO DAILY 12/14/18 12/14/18 pantoprazole 40 mg PO DAILY 12/14/18 venlafaxine 150 mg PO DAILY 12/14/18 04/27/19 lisdexamfetamine [Vyvanse] 70 mg PO QAM 02/01/19 02/01/19 Previous Rx's Medication Instructions Recorded cyclobenzaprine 10 mg PO TID PRN #10 tab 02/01/19 amoxicillin-pot clavulanate 1 tab PO BID #20 tab 04/27/19 [Augmentin] albuterol sulfate [ProAir HFA] 2 puff INHALATION Q4-6H PRN #8.5 06/05/19 gram Allergies Allergy/AdvReac Type Severity Reaction Status Date / Time cephalexin [CEPHALEXIN] Allergy Unknown Verified 05/26/19 18:44 latex [LATEX] Allergy Unknown Verified 05/26/19 18:44 levofloxacin [From LEVAQUIN] Allergy Unknown Verified 05/26/19 18:44 ondansetron [ONDANSETRON] Allergy Unknown Verified 05/26/19 18:44 oxycodone [From PERCOCET] Allergy Unknown Verified 05/26/19 18:44 Penicillins [PENICILLINS] Allergy Unknown Verified 05/26/19 18:44 vancomycin Allergy Verified 05/26/19 18:44 Review of Systems <KENIA Henning - Last Filed: 06/05/19 21:44> Review of Systems Narrative: REVIEW OF SYSTEMS: GENERAL: Denies fevers. HENT: No head trauma or hearing loss. EYES: No loss of vision, double vision, eye pain, irritation or discharge. CARDIOVASCULAR: No chest pain or syncope. RESPIRATORY: Reports cough, see HPI. GASTROINTESTINAL: No nausea, vomiting, diarrhea, or constipation. MUSCULOSKELETAL: No weakness or injury. INTEGUMENTARY: No rash, lesions, or pruritus. NEURO: No memory loss, or confusion. Patient History <KENIA Henning - Last Filed: 06/05/19 21:44> Medical History Hyperemesis affecting , antepartum (Acute) Kidney stone (Acute) Surgical History History of appendectomy (Acute) Social History Smoking Status: Never smoker Smoking Status: Never smoker alcohol intake frequency: 0-2 drinks per day Substance Use Type: does not use Exam <KENIA Henning - Last Filed: 06/05/19 21:44> Initial Vital Signs Initial Vital Signs: Vital Signs Temperature 98.1 F 06/05/19 12:20 Pulse Rate 97 H 06/05/19 12:20 Respiratory Rate 18 06/05/19 12:20 Blood Pressure 128/86 06/05/19 12:20 Pulse Oximetry 92 06/05/19 12:20 PHYSICAL EXAMINATION: GENERAL: Well groomed, alert, and cooperative. Answers questions promptly and appropriately. Vital signs noted. HENT: Normocephalic, atraumatic. Ear canals patent. Right TM with small effusion, left TM intact with crisp light reflex. Oral mucosa with small amount of erythema. EYES: PERRLA, EOMIs, conjunctiva pink, sclera white, no periorbital swelling. CHEST: Normal to inspection and without deformities. CARDIOVASCULAR: S1 and S2 sounds normal. Regular rate and rhythm, no murmurs, clicks, or bruits. No pedal edema. RESPIRATORY: Normal respiratory rate, trachea midline, airway patent. No stridor, nasal flaring or accessory muscle use. Occasional scattered rhonchi heard during examination, no crackles or wheezes, this improved after 2 DuoNeb administrations. GASTROINTESTINAL: Bowel sounds normoactive. Abdomen is soft and non-tender. No organomegaly. MUSCULOSKELETAL: Normal gait and coordination. Equal tone and mass bilaterally. EXTREMITIES: CMS intact. Moves all extremities. SKIN: Warm, dry, soft, appropriate color for ethnicity. No lesions, rashes, or wounds. NEURO: Alert and Oriented X 3. Good coordination. No ataxia, or sensory deficits, or cognitive issues. PSYCH: Appropriate affect and mood. <William Adams MD - Last Filed: 06/05/19 21:58> Initial Vital Signs Initial Vital Signs: Vital Signs Temperature 98.1 F 06/05/19 12:20 Pulse Rate 97 H 06/05/19 12:20 Respiratory Rate 18 06/05/19 12:20 Blood Pressure 128/86 06/05/19 12:20 Pulse Oximetry 92 06/05/19 12:20 Scores <KENIA Henning - Last Filed: 06/05/19 21:44> Wells' Criteria for PE Clinical signs and symptoms of DVT: No PE is #1 Dx or equally likely: No Heart rate > 100: No Immobilization at least 3 days or surg in previous 4 weeks: No History of PE or DVT: Yes Hemoptysis: No Malignancy w/Treatment within 6 months or palliative: No Wells' PE Score total: 1.5 Course <Estella ChowKENIA rowell - Last Filed: 06/05/19 21:44> Course Course Narrative: Patient denied any decreased symptoms after 1st DuoNeb administration, however, patient reported decreased shortness of breath and felt like ?her chest was opened up ?after 2nd DuoNeb administration. I discussed with patient further testing for a DVT due to history. We discussed risks and benefits such as a CT and/or MRI during , Patient stated she feels comfortable returning home at this time and waiting and returning to the emergency department if any symptoms worsen. Orders Ordered: ED Orders 06/05/19 15:19 XR chest 1V Stat Discontinued Medications Albuterol (Ventolin) 2.5 mg INH NOW ONE Stop: 06/05/19 14:18 Last Admin: 06/05/19 14:52 Dose: 2.5 mg Documented by: ROSA MARIA Albuterol (Ventolin) 2.5 mg INH NOW ONE Stop: 06/05/19 15:28 Last Admin: 06/05/19 15:34 Dose: 2.5 mg Documented by: ROSA MARIA Consultations Consultation #1: Patient staffed with Dr. Adams. Vital Signs Vital signs: Vital Signs - 8 hr 06/05/19 14:53 06/05/19 14:55 06/05/19 15:34 Pulse Rate 89 91 H 85 Respiratory Rate 18 18 18 Blood Pressure [Left Arm] 120/59 L Pulse Oximetry 97 100 99 06/05/19 16:00 06/05/19 16:01 06/05/19 16:30 Pulse Rate 99 H 109 H 106 H Respiratory Rate 18 18 18 Blood Pressure [Left Arm] 116/69 125/85 129/78 Pulse Oximetry 100 100 100 06/05/19 17:00 06/05/19 17:24 Pulse Rate 91 H 101 H Respiratory Rate 18 18 Blood Pressure [Left Arm] 115/64 126/78 Pulse Oximetry 100 100 <William Adams MD - Last Filed: 06/05/19 21:58> Orders Ordered: ED Orders 06/05/19 15:19 XR chest 1V Stat Discontinued Medications Albuterol (Ventolin) 2.5 mg INH NOW ONE Stop: 06/05/19 14:18 Last Admin: 06/05/19 14:52 Dose: 2.5 mg Documented by: ROSA MARIA Albuterol (Ventolin) 2.5 mg INH NOW ONE Stop: 06/05/19 15:28 Last Admin: 06/05/19 15:34 Dose: 2.5 mg Documented by: ROSA MARIA Vital Signs Vital signs: Vital Signs - 8 hr 06/05/19 14:53 06/05/19 14:55 06/05/19 15:34 Pulse Rate 89 91 H 85 Respiratory Rate 18 18 18 Blood Pressure [Left Arm] 120/59 L Pulse Oximetry 97 100 99 06/05/19 16:00 06/05/19 16:01 06/05/19 16:30 Pulse Rate 99 H 109 H 106 H Respiratory Rate 18 18 18 Blood Pressure [Left Arm] 116/69 125/85 129/78 Pulse Oximetry 100 100 100 06/05/19 17:00 06/05/19 17:24 Pulse Rate 91 H 101 H Respiratory Rate 18 18 Blood Pressure [Left Arm] 115/64 126/78 Pulse Oximetry 100 100 MDM - URI/Sore Throat <KENIA Henning - Last Filed: 06/05/19 21:44> Medical Records Attestation: I reviewed the patient's medical records. Lab Data Attestation: I reviewed the patient's lab results. Labs: Lab Results 06/05/19 Range/Units 12:36 Influenza A (RT-PCR) Flu a negative (NEGATIVE) Influenza B (RT-PCR) Flu b negative (NEGATIVE) Imaging Data Chest x-ray: Radiologist's Impression: [address] [address] XRay Report Signed Patient: Katt Martin [facility]#: [id number] : 1985Acct:[id number] Age/Sex: 33 / FDate of Service: 06/05/19 Loc: ED Accession Number: [id number] Procedure: XR chest 1V Ordering Provider: Estella Smith PROCEDURE: XR CHEST 1V INDICATIONS: SOB TECHNIQUE: One view of the chest was acquired. COMPARISON: [facility], CR, XR CHEST 1V, 12/03/2018, 16:09. FINDINGS: Surgical changes and devices: None. Lungs and pleura: Lungs are clear. No pleural effusions or pneumothorax. Mediastinum: Mediastinal contours appear normal. Heart size is normal. Bones and chest wall: No suspicious bony lesions. Overlying soft tissues appear unremarkable. IMPRESSION: Normal for age, source of current shortness of breath symptoms is not seen. Dictated by: Shon Wooten M.D. on 06/05/2019 at 16:47 Approved by: Shon Wooten M.D. on 06/05/2019 at 16:47 [facility] Narrative Medical decision making narrative: 33-year-old female who is currently pregnany , and has a history of DVT from a central line placement a few years ago, presents to the emergency department for chest congestion. X-ray was completed after discussion of risks and benefits with patient, patient's symptoms improved after 2 DuoNeb administrations. Patient also has a daughter who was diagnosed with a non-threating coronoal respiratory virus today as well. Differential includes bronchitis (most likely due to symptoms improvement after DuoNeb administration, history of fever), less likely pneumonia (no up a CT seen on x-ray), less likely pulmonary edema (due to benign lung examination and negative x-ray), and less likely DVT due to improved symptoms after DuoNeb administration, history of fever, and other symptoms such as ear pain and nasal congestion. However, patient has a slightly increased risk of DVT/PE due to and past DVT from a central line placement. However, a offered patient further evaluation of PE due to history of DVT, she declined at this time after explaining risks and benefits. Patient was given very strict ED return precautions. Follow-up instructions discussed. <William Adams MD - Last Filed: 06/05/19 21:58> Lab Data Labs: Lab Results 06/05/19 Range/Units 12:36 Influenza A (RT-PCR) Flu a negative (NEGATIVE) Influenza B (RT-PCR) Flu b negative (NEGATIVE) Discharge Plan Departure Patient Disposition: Home Clinical Impression: Bronchitis URI (upper respiratory infection) Qualifiers: URI type: unspecified viral URI Qualified Code(s): J06.9 - Acute upper respiratory infection, unspecified Discharge Date/Time: 06/05/19 17:25 Instructions: DI for Acute Bronchitis Activity Restrictions/Additional Instructions: Thank you for entrusting me with your care today. As discussed, x-rays negative for any findings of pneumonia. It is most likely that you have bronchitis which is viral. I have given you an albuterol inhaler, you can use this every 4-6 hours as needed for your symptoms this was sent to [facility] in [place]. Please follow-up with your primary care provider as discussed on Monday. If you develop any worsening symptoms such as worsening shortness of breath, dizziness, syncope, seizures, chest pain, high fevers that do not decreased with Tylenol ibuprofen, return emergency department immediately. Prescriptions: New albuterol sulfate [ProAir HFA] 90 mcg/actuation HFA aerosol inhaler 2 puff INHALATION Q4-6H PRN (Reason: shortness of breath or wheezing) Qty: 8.5 RF: 0 No Action cyclobenzaprine 10 mg tablet 10 mg PO TID PRN (Reason: muscle spasm) Qty: 10 RF: 0 Vyvanse 70 mg capsule 70 mg PO QAM RF: 0 amoxicillin-pot clavulanate [Augmentin] 875-125 mg tablet 1 tab PO BID Qty: 20 RF: 0 sertraline [Zoloft] 50 mg Tablet 150 mg PO QPM RF: 0 nifedipine 30 mg tablet extended release 24hr 30 mg PO DAILY RF: 0 promethazine [Phenadoz] 25 mg suppository 25 mg [place] Q6H PRN (Reason: Nausea And Vomiting) RF: 0 promethazine 50 mg/mL Solution 1 dose IV PRN PRN (Reason: Nausea And Vomiting) RF: 0 Tpn 1 ea Continuous IV Infusion Q20H RF: 0 doxazosin 1 mg tablet 1 mg PO DAILY RF: 0 venlafaxine 150 mg capsule,extended release 24hr 150 mg PO DAILY RF: 0 pantoprazole 40 mg tablet,delayed release (DR/EC) 40 mg PO DAILY RF: 0 ergocalciferol (vitamin D2) [Vitamin D2] 50,000 unit capsule 50,000 unit PO QWEEK RF: 0 albuterol sulfate [ProAir HFA] 90 mcg/actuation HFA aerosol inhaler 1 puff inhalation PRN PRN (Reason: Shortness Of Breath) RF: 0 methylphenidate HCl 36 mg tablet extended release 24hr 36 mg PO DAILY RF: 0 Vyvanse 60 mg capsule 60 mg PO DAILY RF: 0 Referrals: Lamar Javier DO [Primary Care Provider] -
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
--- NOTE | 2019-06-05 15:19 | DI.RAD.S_ITS ---
PROCEDURE: XR CHEST 1V INDICATIONS: SOB TECHNIQUE: One view of the chest was acquired. COMPARISON: [facility], CR, XR CHEST 1V, 12/03/2018, 16:09. FINDINGS: Surgical changes and devices: None. Lungs and pleura: Lungs are clear. No pleural effusions or pneumothorax. Mediastinum: Mediastinal contours appear normal. Heart size is normal. Bones and chest wall: No suspicious bony lesions. Overlying soft tissues appear unremarkable. IMPRESSION: Normal for age, source of current shortness of breath symptoms is not seen. Dictated by: Shon Wooten M.D. on 06/05/2019 at 16:47 Approved by: Shon Wooten M.D. on 06/05/2019 at 16:47
== END 2019-06-05 17:25 | disposition home or self-care (01) ==
PROVIDERS: Emergency Medicine; Emergency Provider Nurse Practitioner; PCP Family Medicine
DX: J40 Bronchitis, not specified as acute or chronic (principal); J06.9 Acute upper respiratory infection, unspecified
CPT/HCPCS: 71045; 87502; 94640; 99284; J7613

== ENCOUNTER 2019-07-11 12:27 | Emergency (ER) | payer OTHER, SELFPAY ==
[2019-07-11 13:02] VITALS: BP 137/83; PULSE 95; RESP 15; TEMP 37.2; O2SAT 100; BMI 32.2
--- NOTE | 2019-07-11 13:06 | DI.RAD.S_ITS ---
PROCEDURE: XR HAND RT MIN 3V INDICATIONS: hand caught in lead rope for horse,pain in all digits mostly TECHNIQUE: 3 views of the hand(s) acquired. COMPARISON: None. FINDINGS: Bones: No fractures or dislocations. Carpal bones are normally aligned. No suspicious bony lesions. Soft tissues: No suspicious soft tissue calcifications. IMPRESSION: No trauma found. Dictated by: Shon Wooten M.D. on 07/11/2019 at 13:26 Approved by: Shon Wooten M.D. on 07/11/2019 at 13:27
--- NOTE | 2019-07-11 14:14 | ED_ITS ---
HPI - Extremity Injury (Upper) <Estella SmithKENIA - Last Filed: 07/11/19 21:24> General Chief Complaint: Extremity Injury, Upper Stated Complaint: accident with horse right hand swollen Time Seen by Provider: 07/11/19 12:59 Source: patient Mode of arrival: Ambulatory Limitations: no limitations History of Present Illness HPI narrative: 33-year-old female presents to the emergency department complaining of right wrist pain after getting her hand caught in a loop of rope that was attached her horse, she states her horse pulled away and she ?heard all of her fingers snap and pop ?. Patient states the dull aching pain is worse in her 4th finger and lateral metatarsals. Patient reports a mild amount of swelling. She denies any previous injuries to that hand. She denies any other injuries such as head injury or elbow injury. Patient reports she is currently . Denies any other significant history. Patient denies any fevers, chills, numbness, tingling, nausea, vomiting, diarrhea, or any other concerns. Related Data Home Medications Medication Instructions Recorded Confirmed sertraline [Zoloft] 150 mg PO QPM 10/23/17 03/27/18 Tpn 1 ea CONTINUOUS IV INFUSION Q20H 03/27/18 03/27/18 nifedipine 30 mg PO DAILY 03/27/18 03/27/18 promethazine 1 dose IV PRN PRN 03/27/18 03/27/18 promethazine [Phenadoz] 25 mg WA Q6H PRN 03/27/18 12/14/18 doxazosin 1 mg PO DAILY 12/14/18 12/14/18 ergocalciferol (vitamin D2) 50,000 unit PO QWEEK 12/14/18 12/14/18 [Vitamin D2] lisdexamfetamine [Vyvanse] 60 mg PO DAILY 12/14/18 12/14/18 methylphenidate HCl 36 mg PO DAILY 12/14/18 12/14/18 pantoprazole 40 mg PO DAILY 12/14/18 venlafaxine 150 mg PO DAILY 12/14/18 04/27/19 lisdexamfetamine [Vyvanse] 70 mg PO QAM 02/01/19 02/01/19 Previous Rx's Medication Instructions Recorded albuterol sulfate [ProAir HFA] 2 puff INHALATION Q4-6H PRN #8.5 06/05/19 gram Allergies Allergy/AdvReac Type Severity Reaction Status Date / Time cephalexin [CEPHALEXIN] Allergy Unknown Verified 07/11/19 13:02 latex [LATEX] Allergy Unknown Verified 07/11/19 13:02 levofloxacin [From LEVAQUIN] Allergy Unknown Verified 07/11/19 13:02 ondansetron [ONDANSETRON] Allergy Unknown Verified 07/11/19 13:02 oxycodone [From PERCOCET] Allergy Unknown Verified 07/11/19 13:02 Penicillins [PENICILLINS] Allergy Unknown Verified 07/11/19 13:02 vancomycin Allergy Verified 07/11/19 13:02 Review of Systems <KENIA Henning - Last Filed: 07/11/19 21:24> Review of Systems Narrative: REVIEW OF SYSTEMS: GENERAL: Denies fever or chills. HENT: No head trauma. EYES: No double vision or vision loss. CARDIOVASCULAR: No chest pain or syncope. GASTROINTESTINAL: No nausea, vomiting, diarrhea, or constipation. GENITOURINARY: No flank pain or dysuria. MUSCULOSKELETAL: Complains of right hand and 4th finger pain, see HPI. NEURO: No numbness, tingling. Patient History <KENIA Henning - Last Filed: 07/11/19 21:24> Medical History Hyperemesis affecting , antepartum (Acute) Kidney stone (Acute) Surgical History History of appendectomy (Acute) Social History Smoking Status: Never smoker Smoking Status: Never smoker alcohol intake frequency: holidays/special occasions only Substance Use Type: does not use Exam <KENIA Henning - Last Filed: 07/11/19 21:24> Initial Vital Signs Initial Vital Signs: Vital Signs Temperature 99.0 F 07/11/19 13:02 Pulse Rate 95 H 07/11/19 13:02 Respiratory Rate 15 07/11/19 13:02 Blood Pressure 137/83 07/11/19 13:02 Pulse Oximetry 100 07/11/19 13:02 PHYSICAL EXAMINATION: GENERAL: Well groomed, alert, and cooperative. Answers questions promptly and appropriately. Vital signs noted. HENT: Normocephalic, atraumatic. EYES: Symmetrical, sclera white, no periorbital swelling. CARDIOVASCULAR: Regular rhythm. RESPIRATORY: No nasal flaring or stridor. MUSCULOSKELETAL: Tenderness and slight swelling with small amount of ecchymosis noted to right 4th finger around MIP joint, decreased flexion due to pain. Tenderness noted to 4th metatarsal, no bruising or swelling or erythema to this area. Full range of motion of wrist. Patient is able to make a fist and extend hand. Normal gait and coordination. Equal tone and mass bilaterally. No spinal tenderness or deformities. EXTREMITIES: CMS intact. No pedal edema. SKIN: Warm, dry, soft, appropriate color for ethnicity. No lesions, rashes, or wounds. NEURO: Alert and Oriented X 3. No sensory deficits. PSYCH: Appropriate affect and mood. <Hamzah Boo DO - Last Filed: 07/19/19 20:38> Initial Vital Signs Initial Vital Signs: Vital Signs Temperature 99.0 F 07/11/19 13:02 Pulse Rate 95 H 07/11/19 13:02 Respiratory Rate 15 07/11/19 13:02 Blood Pressure 137/83 07/11/19 13:02 Pulse Oximetry 100 07/11/19 13:02 Course <KENIA Henning - Last Filed: 07/11/19 21:24> Course Course Narrative: Patient was given a wrist brace, fingers were manfred-taped. Orders Ordered: ED Orders 07/11/19 13:06 XR hand RT min 3V Stat Vital Signs Vital signs: Vital Signs - 8 hr 07/11/19 13:02 Temperature 99.0 F Pulse Rate 95 H Respiratory Rate 15 Blood Pressure 137/83 Pulse Oximetry 100 <Hamzah Boo DO - Last Filed: 07/19/19 20:38> Orders Ordered: ED Orders 07/11/19 13:06 XR hand RT min 3V Stat Vital Signs Vital signs: Vital Signs - 8 hr 07/11/19 13:02 Temperature 99.0 F Pulse Rate 95 H Respiratory Rate 15 Blood Pressure 137/83 Pulse Oximetry 100 MDM - Extremity Injury (Upper) <KENIA Henning - Last Filed: 07/11/19 21:24> Medical Records Attestation: I reviewed the patient's medical records. Lab Data Attestation: I reviewed the patient's lab results. Imaging Data Chest x-ray: Radiologist's Impression: [address] [address] XRay Report Signed Patient: Katt Martin DMR#: [id number] : 1985Acct:[id number] Age/Sex: 33 / FDate of Service: 07/11/19 Loc: ED Accession Number: [id number] Procedure: XR hand RT min 3V Ordering Provider: Hamzah Boo D.O. PROCEDURE: XR HAND RT MIN 3V INDICATIONS: hand caught in lead rope for horse,pain in all digits mostly TECHNIQUE: 3 views of the hand(s) acquired. COMPARISON: None. FINDINGS: Bones: No fractures or dislocations. Carpal bones are normally aligned. No suspicious bony lesions. Soft tissues: No suspicious soft tissue calcifications. IMPRESSION: No trauma found. Dictated by: Shon Wooten M.D. on 07/11/2019 at 13:26 Approved by: Shon Wooten M.D. on 07/11/2019 at 13:27 MDM Narrative Medical decision making narrative: 33-year-old female presenting to the emergency department complaining of hand and finger pain after getting her hand stuck in a lead rope while attending up a hoarse. I suspect her symptoms are most likely caused by a finger and hand sprain. Less likely fracture due to negative x-ray and no signs of significant swelling or deformities on examination. Patient was given a wrist brace to help with pain and her fingers were manfred-taped. Return precautions given, follow-up instructions were discussed to be re-evaluated 1-2 weeks if pain continues. Patient was en couraged to use Tylenol is ibuprofen due to . She agrees to plan of care verbalized understanding Discharge Plan Departure Patient Disposition: Home Clinical Impression: Sprain of wrist Qualifiers: Encounter type: initial encounter Laterality: right Qualified Code(s): S63.501A - Unspecified sprain of right wrist, initial encounter Finger sprain Qualifiers: Encounter type: initial encounter Finger: unspecified finger Qualified Code(s): S63.619A - Unspecified sprain of unspecified finger, initial encounter Discharge Date/Time: 07/11/19 14:49 Instructions: DI for Wrist Sprain, DI for Finger Sprain Activity Restrictions/Additional Instructions: Thank you for entrusting me with your care today. As discussed, your x-rays negative for any fractures. You can manfred tape your finger and you may wear the wrist brace to help with pain over the next week. Remove your wrist from the brace and in gently perform stretches of your wrist and fingers to prevent stiffness. You can take APAP as needed for pain every 6 hours . I suggest following up in 1-2 weeks with your primary care provider if you are still having significant pain. Return emergency department for any new or worsening symptoms such as chest pain, shortness of breath, syncope, or any other concerns. Prescriptions: No Action Vyvanse 70 mg capsule 70 mg PO QAM RF: 0 sertraline [Zoloft] 50 mg Tablet 150 mg PO QPM RF: 0 nifedipine 30 mg tablet extended release 24hr 30 mg PO DAILY RF: 0 promethazine [Phenadoz] 25 mg suppository 25 mg WA Q6H PRN (Reason: Nausea And Vomiting) RF: 0 promethazine 50 mg/mL Solution 1 dose IV PRN PRN (Reason: Nausea And Vomiting) RF: 0 Tpn 1 ea Continuous IV Infusion Q20H RF: 0 doxazosin 1 mg tablet 1 mg PO DAILY RF: 0 venlafaxine 150 mg capsule,extended release 24hr 150 mg PO DAILY RF: 0 pantoprazole 40 mg tablet,delayed release (DR/EC) 40 mg PO DAILY RF: 0 ergocalciferol (vitamin D2) [Vitamin D2] 50,000 unit capsule 50,000 unit PO QWEEK RF: 0 methylphenidate HCl 36 mg tablet extended release 24hr 36 mg PO DAILY RF: 0 Vyvanse 60 mg capsule 60 mg PO DAILY RF: 0 albuterol sulfate [ProAir HFA] 90 mcg/actuation HFA aerosol inhaler 2 puff INHALATION Q4-6H PRN (Reason: shortness of breath or wheezing) Qty: 8.5 RF: 0 Referrals: Lamar Javier DO [Primary Care Provider] - <Hamzah Boo DO - Last Filed: 07/19/19 20:38> Sign Out Provider Sign Out Attestation: Dr Boo Co-Sign Statement: I was available for consultation during this patient's emergency department visit. This chart is signed by myself for administrative purposes only. I did not have direct contact with this patient during this visit. They were seen independently by the APC.
== END 2019-07-11 14:49 | disposition home or self-care (01) ==
PROVIDERS: Emergency Provider Nurse Practitioner; PCP Family Medicine
DX: S63.501A Unspecified sprain of right wrist, initial encounter (principal); S63.619A Unspecified sprain of unspecified finger, initial encounter
CPT/HCPCS: 73130; 99282; 99283

== ENCOUNTER 2019-11-19 18:25 | Emergency (ER) | payer OTHER, SELFPAY ==
[2019-11-19] VITALS (7 sets, daily range): BP systolic 135–154; BP diastolic 81–97; PULSE 68–79; RESP 16–26; O2SAT 95–98; BMI 34.3
--- NOTE | 2019-11-19 18:47 | ED_ITS ---
HPI - Chest Pain General Chief Complaint: Chest Pain Stated Complaint: CHEST PAIN HEADACHE Time Seen by Provider: 11/19/19 18:30 Source: patient Mode of arrival: Ambulatory Limitations: no limitations History of Present Illness HPI narrative: 33F non smoker with history of preeclampsia since induced vaginal delivery 3 weeks ago. She is managed by OB at [facility] and recently had her labetalol increased to 400 3 times a day. She presents today because of chest pressure and heaviness as well as shortness of breath and headache. She denies blurred vision or focal neurologic findings such as numbness, tingling or weakness. She denies any provocation or palliation of her chest pressure or headache. MD complaint: chest pain Onset (ago): day(s) Duration: constant Onset: during rest Severity: moderate Quality: aching Pain radiation: none Relieving factors: nothing Exacerbating factors: nothing Treatments prior to arrival chest pain: none Related Data On Oral Contraceptives: No Home Medications Medication Instructions Recorded Confirmed sertraline [Zoloft] 150 mg PO QPM 10/23/17 03/27/18 Tpn 1 ea CONTINUOUS IV INFUSION Q20H 03/27/18 03/27/18 nifedipine 30 mg PO DAILY 03/27/18 03/27/18 promethazine 1 dose IV PRN PRN 03/27/18 03/27/18 promethazine [Phenadoz] 25 mg ID Q6H PRN 03/27/18 12/14/18 doxazosin 1 mg PO DAILY 12/14/18 12/14/18 ergocalciferol (vitamin D2) 50,000 unit PO QWEEK 12/14/18 12/14/18 [Vitamin D2] lisdexamfetamine [Vyvanse] 60 mg PO DAILY 12/14/18 12/14/18 methylphenidate HCl 36 mg PO DAILY 12/14/18 12/14/18 pantoprazole 40 mg PO DAILY 12/14/18 venlafaxine 150 mg PO DAILY 12/14/18 04/27/19 lisdexamfetamine [Vyvanse] 70 mg PO QAM 02/01/19 02/01/19 Previous Rx's Medication Instructions Recorded albuterol sulfate [ProAir HFA] 2 puff INHALATION Q4-6H PRN #8.5 06/05/19 gram Allergies Allergy/AdvReac Type Severity Reaction Status Date / Time prochlorperazine Allergy Severe Anxiety Verified 11/19/19 18:35 [From Compazine] cephalexin [CEPHALEXIN] Allergy Unknown Verified 11/19/19 18:34 latex [LATEX] Allergy Unknown Verified 11/19/19 18:34 levofloxacin [From LEVAQUIN] Allergy Unknown Verified 11/19/19 18:34 ondansetron [ONDANSETRON] Allergy Unknown Verified 11/19/19 18:34 oxycodone [From PERCOCET] Allergy Unknown Verified 11/19/19 18:34 Penicillins [PENICILLINS] Allergy Unknown Verified 11/19/19 18:34 vancomycin Allergy Verified 11/19/19 18:34 Review of Systems Constitutional Constitutional: Denies chills, Denies fatigue, Denies fever(s), Denies frequent falls, Reports headache(s), Denies lethargy and Denies weakness Eyes Eyes: Denies change in vision, Denies eye discharge, Denies irritation and Denies loss of vision ENT Ears, Nose, Mouth, and Throat: Denies change in voice, Denies dizziness, Reports headache(s), Denies neck pain, Denies sore throat and Denies throat swelling Cardiovascular Cardiovascular: Reports chest pain, Denies irregular heart rhythm, Denies lightheadedness, Denies palpitations, Denies dyspnea, Denies dyspnea on exertion and Denies orthopnea Respiratory Respiratory: Denies cough, Denies dyspnea, Denies dyspnea on exertion and Denies wheezing Gastrointestinal Gastrointestinal: Denies abdominal pain, Denies change in bowel habits, Denies diarrhea, Denies nausea and Denies vomiting Musculoskeletal Musculoskeletal: Denies neck pain and Denies numbness Integumentary/Breasts Skin/Breast: Denies pruritus, Denies erythema, Denies rash and Denies wounds Neurologic Neurologic: Denies behavioral changes, Denies confusion, Denies dizziness, Denies frequent falls, Reports headache(s), Denies loss of vision, Denies numbness and Denies weakness Psychiatric Psychiatric: Denies anxiety, Denies behavioral changes, Denies confusion, Denies depression, Denies homicidal ideation and Denies suicidal ideation Endocrine Endocrine: Denies fatigue, Denies flushing and Denies palpitations Hematologic/Lymphatic Hematologic/Lymphatic: Denies easy bruising Allergic/Immunologic Allergic/Immunologic: Denies urticaria, Denies throat swelling and Denies wheezing Patient History Medical History Hyperemesis affecting , antepartum (Acute) Kidney stone (Acute) Surgical History History of appendectomy (Acute) Social History Smoking Status: Never smoker Smoking Status: Never smoker alcohol intake frequency: holidays/special occasions only Substance Use Type: does not use Exam Narrative Exam Narrative: GENERAL: [33] year old patient appears stated age. Well- nourished, well-developed patient, in mild distress. HEAD: Atraumatic. Normocephalic. EYES: Pupils equal round and reactive. Extraocular motions intact. No scleral icterus. No injection or drainage. ENT: Nose without bleeding, purulent drainage. Throat without erythema, tonsillar hypertrophy or exudate. Airway patent. NECK: Trachea midline. Non tender CARDIOVASCULAR: Regular rate and rhythm without murmurs, gallops, or rubs. RESPIRATORY: Clear to auscultation. Breath sounds equal bilaterally. No wheezes, rales, or rhonchi. GASTROINTESTINAL: Abdomen soft, non-tender, nondistended. EXTREMITIES: No edema or joint tenderness. BACK: Nontender without deformity or crepitance. No flank tenderness. NEURO: AOx3. SKIN: No rash or erythema of visible areas NIH Stroke Scale 1a. LOC: Patient is alert and keenly responsive (0) 1b. LOC Questions: Patient answers both LOC questions accurately (0) 1c. LOC Commands: Patient performs both tasks correctly (0) 2. Best Gaze: Normal (0) 3. Visual: No visual loss (0) 4. Facial palsy: Normal symmetrical movements (0) 5. Motor arm: No drift (0) 6. Motor leg: No drift (0) 7. Limb ataxia: Absent (0) 8. Sensory: Normal (0) 9. Best language: No aphasia; normal (0) 10. Dysarthria: Normal (0) 11. 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 Case discussed in length. Physical exam and lab findings very reassuring. They have had extensive workups for what sounds like chronic episodes of chest pain and headache. Ob recommends close follow-up and return precautions Orders Ordered: ED Orders 11/19/19 18:36 EKG-12 Lead Stat 11/19/19 18:45 Complete Blood Count AUTO DIFF Stat Comprehensive Metabolic Panel Stat D Dimer Stat Lactate Dehydrogenase Stat Magnesium Stat Uric Acid Stat 11/19/19 20:00 XR chest 1V Stat Discontinued Medications Sodium Chloride (Normal Saline 0.9%) 500 mls @ 1,000 mls/hr IV BOLUS ONE Stop: 11/19/19 19:42 Last Infusion: 11/19/19 20:39 Dose: 0 mls/hr Documented by: Admin: 11/19/19 19:23 Dose: 1,000 mls/hr Documented by: CLARE Ketorolac Tromethamine (Toradol) 15 mg IV NOW ONE Stop: 11/19/19 19:46 Last Admin: 11/19/19 19:51 Dose: 15 mg Documented by: CLARE Labetalol HCl (Trandate) 10 mg IV NOW ONE Stop: 11/19/19 19:14 Last Admin: 11/19/19 21:31 Dose: Not Given Documented by: CLARE Vital Signs Vital signs: Vital Signs - 8 hr 11/19/19 18:29 11/19/19 19:07 11/19/19 20:01 Pulse Rate 79 79 75 Respiratory Rate 16 22 Blood Pressure 154/91 H 140/81 Pulse Oximetry 98 98 95 11/19/19 20:02 11/19/19 20:30 11/19/19 21:00 Pulse Rate 76 73 72 Respiratory Rate 24 25 H 21 Blood Pressure 136/90 135/89 140/96 H Pulse Oximetry 96 95 97 11/19/19 21:30 Pulse Rate 68 Respiratory Rate 26 H Blood Pressure 154/97 H Pulse Oximetry 97 MDM - Chest Pain Lab Data Result diagrams: 11/19/19 18:45 11/19/19 18:45 Labs: Lab Results 07/14/20 07/14/20 07/14/20 Range/Units 18:45 18:45 18:45 WBC 7.1 (4.5-11.0) X10^3/uL RBC 4.65 (4.0-5.2) X10^6/uL Hgb 12.5 (12.0-16.0) g/dL Hct 38.0 (36-46) % MCV 81.8 (80-100) fL MCH 26.8 (26-34) PG MCHC 32.7 (30-36) % RDW 16.9 H (11.6-14.8) % Plt Count 286 (150-400) X10^3/uL Neut % (Auto) 54.9 (50-75) % Lymph % (Auto) 35.1 (25-40) % [place] % (Auto) 5.2 (3-14) % Eos % (Auto) 3.6 (2-4) % Baso % (Auto) 1.2 (0-2) % Neut # (Auto) 3900 (7174-6864) /uL Lymph # (Auto) 2500 (7593-5032) /uL [place] # (Auto) 400 (0-900) /uL Eos # (Auto) 300 (0-450) /uL Baso # (Auto) 100 (0-100) /uL D-Dimer (<230) ng/mL Sodium 139 (137-145) mmol/L Potassium 4.0 (3.4-5.1) mmol/L Chloride 107 (98-107) mmol/L Carbon Dioxide 25 (22-32) mmol/L BUN 19 H (7-17) mg/dL Creatinine 0.78 (0.52-1.04) mg/dL Estimated GFR > 60.0 (>60) mL/min BUN/Creatinine Ratio 24.4 H (6-22) Glucose 102 H (70-100) mg/dL Uric Acid 4.8 (2.5-6.2) mg/dL Calcium 9.5 (8.4-10.2) mg/dL Magnesium 1.9 (1.6-2.3) mg/dL Total Bilirubin 0.3 (0.2-1.3) mg/dL AST 58 H (14-36) IU/L Alkaline Phosphatase 125 (38-126) U/L Lactate Dehydrogenase 442 (313-618) U/L Total Protein 6.9 (6.3-8.2) g/dL Albumin 4.2 (3.5-5.0) g/dL Globulin 2.7 (1.7-4.1) g/dL Albumin/Globulin Ratio 1.6 (1.0-2.8) 11/19/19 Range/Units 18:45 WBC (4.5-11.0) X10^3/uL RBC (4.0-5.2) X10^6/uL Hgb (12.0-16.0) g/dL Hct (36-46) % MCV (80-100) fL MCH (26-34) PG MCHC (30-36) % RDW (11.6-14.8) % Plt Count (150-400) X10^3/uL Neut % (Auto) (50-75) % Lymph % (Auto) (25-40) % [place] % (Auto) (3-14) % Eos % (Auto) (2-4) % Baso % (Auto) (0-2) % Neut # (Auto) (4572-3265) /uL Lymph # (Auto) (2184-4105) /uL [place] # (Auto) (0-900) /uL Eos # (Auto) (0-450) /uL Baso # (Auto) (0-100) /uL D-Dimer < 200 (<230) ng/mL Sodium (137-145) mmol/L Potassium (3.4-5.1) mmol/L Chloride (98-107) mmol/L Carbon Dioxide (22-32) mmol/L BUN (7-17) mg/dL Creatinine (0.52-1.04) mg/dL Estimated GFR (>60) mL/min BUN/Creatinine Ratio (6-22) Glucose (70-100) mg/dL Uric Acid (2.5-6.2) mg/dL Calcium (8.4-10.2) mg/dL Magnesium (1.6-2.3) mg/dL Total Bilirubin (0.2-1.3) mg/dL AST (14-36) IU/L Alkaline Phosphatase (38-126) U/L Lactate Dehydrogenase (313-618) U/L Total Protein (6.3-8.2) g/dL Albumin (3.5-5.0) g/dL Globulin (1.7-4.1) g/dL Albumin/Globulin Ratio (1.0-2.8) Urine Dip Bedside Urine Glucose Negative Bedside Urine Bilirubin + 1 Bedside Urine Ketone - Negative Urine Specific [place] 1.025 Bedside Urine Occult Blood - Negative Bedside Urine pH 6.0 Bedside Urine Protein - Negative Bedside Urine Urobilinogen - Negative Bedside Urine Nitrite - Negative Bedside Urine Leukocytes - Negative Esterase ECG Data Attestation: I personally reviewed and interpreted this ECG as follows: Interpretation: EKG is normal sinus rhythm rate [76] and free of any signs of ischemia or ectopy. No ST segmental elevation or depression. No T wave inversions MDM Narrative Medical decision making narrative: Multiple etiologies for patient's symptoms considered including: [Preeclampsia of versus migraine versus other chronic headache versus pulmonary embolism versus other] Patient's symptoms improved or duration of stay with above-stated therapies. Findings and discharge diagnosis discussed with patient/family followed by verbalization of understanding Return precautions discussed with patient/family whom verbalize understanding. Discharge Plan Departure Patient Disposition: Home Clinical Impression: Atypical chest pain Headache Qualifiers: Headache type: unspecified Headache chronicity pattern: chronic headache Intractability: not intractable Qualified Code(s): R51 - Headache Discharge Date/Time: 11/19/19 21:46 Activity Restrictions/Additional Instructions: *You have been diagnosed with [headache and atypical chest pain, reassuring lab work and evaluation. On likely a consequence of preeclampsia] *What to do: *Take medications as directed *Follow up with your primary care provider in 2-3 days, call for an appointment. Let them know you were seen in the Emergency Department and that we ask that you be seen in follow up *Return to ER if you should have any new, worsening or concerning symptoms Prescriptions: No Action Vyvanse 70 mg capsule 70 mg PO QAM RF: 0 sertraline [Zoloft] 50 mg Tablet 150 mg PO QPM RF: 0 nifedipine 30 mg tablet extended release 24hr 30 mg PO DAILY RF: 0 promethazine [Phenadoz] 25 mg suppository 25 mg ID Q6H PRN (Reason: Nausea And Vomiting) RF: 0 promethazine 50 mg/mL Solution 1 dose IV PRN PRN (Reason: Nausea And Vomiting) RF: 0 Tpn 1 ea Continuous IV Infusion Q20H RF: 0 doxazosin 1 mg tablet 1 mg PO DAILY RF: 0 venlafaxine 150 mg capsule,extended release 24hr 150 mg PO DAILY RF: 0 pantoprazole 40 mg tablet,delayed release (DR/EC) 40 mg PO DAILY RF: 0 ergocalciferol (vitamin D2) [Vitamin D2] 50,000 unit capsule 50,000 unit PO QWEEK RF: 0 methylphenidate HCl 36 mg tablet extended release 24hr 36 mg PO DAILY RF: 0 Vyvanse 60 mg capsule 60 mg PO DAILY RF: 0 albuterol sulfate [ProAir HFA] 90 mcg/actuation HFA aerosol inhaler 2 puff INHALATION Q4-6H PRN (Reason: shortness of breath or wheezing) Qty: 8.5 RF: 0 Referrals: Lamar Javier DO [Primary Care Provider] -
[2019-11-19 18:58] LABS: Add Manual Diff / Slide Review NO; Basophils Absolute Auto 100 /uL (0-100); Basophils Percent Auto 1.2 % (0-2); Eosinophils Absolute Auto 300 /uL (0-450); Eosinophils Percent Auto 3.6 % (2-4); Hemoglobin 12.5 g/dL (12.0-16.0); Lymphocytes Absolute Auto 2500 /uL (1100-4500); Lymphocytes Percent Auto 35.1 % (25-40); Mean Corpuscular HGB Conc 32.7 % (30-36); Mean Corpuscular Hemoglobin 26.8 PG (26-34); Mean Corpuscular Volume 81.8 fL (80-100); Monocytes Absolute Auto 400 /uL (0-900); Monocytes Percent Auto 5.2 % (3-14); Neutrophils Absolute Auto 3900 /uL (1500-7000); Neutrophils Percent Auto 54.9 % (50-75); Platelet Count 286 X10^3/uL (150-400); Red Blood Cell Count 4.65 X10^6/uL (4.0-5.2); Red Cell Distribution Width 16.9 % (11.6-14.8); White Blood Cell Count 7.1 X10^3/uL (4.5-11.0)
[2019-11-19 19:10] LABS: Albumin 4.2 g/dL (3.5-5.0); Albumin Globulin Ratio 1.6 (1.0-2.8); Alkaline Phosphatase 125 U/L (38-126); Aspartate Aminotransferase 58 IU/L (14-36); BUN Creatinine Ratio 24.4 (6-22); Bilirubin Total 0.3 mg/dL (0.2-1.3); Blood Urea Nitrogen 19 mg/dL (7-17); Calcium 9.5 mg/dL (8.4-10.2); Carbon Dioxide 25 mmol/L (22-32); Chloride 107 mmol/L (98-107); Estimated Glomerular Filt Rate > 60.0 mL/min (>60); Globulin 2.7 g/dL (1.7-4.1); Glucose 102 mg/dL (70-100); HEMOLYSIS < 15 (0-50); Lactate Dehydrogenase 442 U/L (313-618); Magnesium 1.9 mg/dL (1.6-2.3); Sodium 139 mmol/L (137-145); Total Protein 6.9 g/dL (6.3-8.2)
[2019-11-19 19:22] LABS: Uric Acid 4.8 mg/dL (2.5-6.2)
[2019-11-19] MEDS: SODIUM CHLORIDE 0.9% 500 ML 1000 ML IV (19:23)
[2019-11-19] MEDS: KETOROLAC 60 MG/2 ML VIAL 15 MG IV (19:51)
--- NOTE | 2019-11-19 20:00 | DI.RAD.S_ITS ---
PROCEDURE: XR CHEST 1V INDICATIONS: SOB/CP TECHNIQUE: One view of the chest was acquired. COMPARISON: [facility], CR, XR CHEST 1V, 06/05/2019, 16:13. FINDINGS: Surgical changes and devices: None. Lungs and pleura: Lungs are clear. No pleural effusions or pneumothorax. Mediastinum: Mediastinal contours appear normal. Heart size is normal. Bones and chest wall: No suspicious bony lesions. Overlying soft tissues appear unremarkable. IMPRESSION: Chest without acute cardiopulmonary abnormalities. Dictated by: Boone Hitchcock M.D. on 11/19/2019 at 21:53 Approved by: Boone Hitchcock M.D. on 11/19/2019 at 21:54
[2019-11-19 20:01] LABS: D Dimer < 200 ng/mL (<230)
[2019-11-20 14:34] LABS: Alanine Aminotransferase 49 IU/L (<35)
== END 2019-11-19 21:46 | disposition home or self-care (01) ==
PROVIDERS: Emergency Provider Emergency Medicine; PCP Family Medicine
DX: R07.89 Other chest pain (principal); R06.02 Shortness of breath; R51 Headache
CPT/HCPCS: 36415; 71045; 80053; 81003; 83615; 83735; 84550; 85025; 85379; 93005; 93010; 96361; 96374; 99284; J1885

== ENCOUNTER 2020-05-29 15:32 | Emergency (ER) | payer OTHER, SELFPAY ==
[2020-05-29 15:45] VITALS: BP 159/93; PULSE 105; RESP 16; TEMP 36.9; O2SAT 96; BMI 30.7
--- NOTE | 2020-05-29 15:56 | ED_ITS ---
HPI - General Adult General Chief complaint: Abdominal Pain Stated complaint: RIGHT LOWER PAIN PAIN TOWARDS BACK Time Seen by Provider: 05/29/20 15:47 Source: patient Mode of arrival: Ambulatory Limitations: no limitations History of Present Illness HPI narrative: Patient is a 34-year-old female with a history of kidney stones who is here for evaluation of right lower quadrant pain radiating to the right side of her back. States that has been going on for the past several hours. She has no blood in her urine. She has had kidney stones the past but states this feels somewhat different than that. She has been having diarrhea. Does have some urinary symptoms. No fevers. No nausea vomiting. No recent travel. [place] camping[place] No recent antibiotics prior Related Data Home Medications Medication Instructions Recorded Confirmed sertraline [Zoloft] 150 mg PO QPM 10/23/17 03/27/18 Tpn 1 ea CONTINUOUS IV INFUSION Q20H 03/27/18 03/27/18 nifedipine 30 mg PO DAILY 03/27/18 03/27/18 promethazine 1 dose IV PRN PRN 03/27/18 03/27/18 promethazine [Phenadoz] 25 mg OH Q6H PRN 03/27/18 12/14/18 doxazosin 1 mg PO DAILY 12/14/18 12/14/18 ergocalciferol (vitamin D2) 50,000 unit PO QWEEK 12/14/18 12/14/18 [Vitamin D2] lisdexamfetamine [Vyvanse] 60 mg PO DAILY 12/14/18 12/14/18 methylphenidate HCl 36 mg PO DAILY 12/14/18 12/14/18 pantoprazole 40 mg PO DAILY 12/14/18 venlafaxine 150 mg PO DAILY 12/14/18 04/27/19 lisdexamfetamine [Vyvanse] 70 mg PO QAM 02/01/19 02/01/19 Previous Rx's Medication Instructions Recorded albuterol sulfate [ProAir HFA] 2 puff INHALATION Q4-6H PRN #8.5 06/05/19 gram Allergies Allergy/AdvReac Type Severity Reaction Status Date / Time prochlorperazine Allergy Severe Anxiety Verified 11/19/19 18:35 [From Compazine] cephalexin [CEPHALEXIN] Allergy Unknown Verified 11/19/19 18:34 latex [LATEX] Allergy Unknown Verified 11/19/19 18:34 levofloxacin [From LEVAQUIN] Allergy Unknown Verified 11/19/19 18:34 ondansetron [ONDANSETRON] Allergy Unknown Verified 11/19/19 18:34 oxycodone [From PERCOCET] Allergy Unknown Verified 11/19/19 18:34 Penicillins [PENICILLINS] Allergy Unknown Verified 11/19/19 18:34 vancomycin Allergy Verified 11/19/19 18:34 Review of Systems Constitutional Constitutional: Denies fever(s) and Denies headache(s) ENT Ears, Nose, Mouth, and Throat: Denies headache(s) Cardiovascular Cardiovascular: Denies chest pain and Denies dyspnea Respiratory Respiratory: Denies dyspnea Gastrointestinal Gastrointestinal: Reports abdominal pain, Denies melena, Denies hematochezia, Reports diarrhea, Denies nausea and Denies vomiting Genitourinary Comments: Difficulty starting urinary stream Musculoskeletal Musculoskeletal: Denies arthralgias and Denies myalgias Integumentary/Breasts Skin/Breast: Denies lesions and Denies rash Neurologic Neurologic: Denies behavioral changes and Denies headache(s) Psychiatric Psychiatric: Denies behavioral changes Hematologic/Lymphatic Hematologic/Lymphatic: Denies easy bleeding and Denies easy bruising On Anticoagulants: No Allergic/Immunologic Allergic/Immunologic: Denies urticaria Patient History Medical History (Updated 05/29/20 @ 19:19 by Hamzah Boo DO) Hyperemesis affecting , antepartum Kidney stone Surgical History History of appendectomy Social History Smoking Status: Never smoker Smoking Status: Never smoker alcohol intake frequency: holidays/special occasions only Substance Use Type: does not use Exam Initial Vital Signs Initial Vital Signs: Vital Signs Temperature 98.4 F 05/29/20 15:45 Pulse Rate 105 H 05/29/20 15:45 Respiratory Rate 16 05/29/20 15:45 Blood Pressure 159/93 H 05/29/20 15:45 Pulse Oximetry 96 05/29/20 15:45 Const General: cooperative and comfortable Limitations: mental status not altered HENMT Head: normal to inspection and normocephalic Resp Effort & Inspection: normal respiratory effort Auscultation: clear to auscultation bilaterally Cardio Rate: regular rate Rhythm: regular rhythm GI Inspection: non-distended Palpation: tender (Right-sided abdomen) Back/Spine/Pelvis Back: No CVA tenderness Skin Lesions: no lesions Rashes: no rashes Neuro General: patient alert, patient awake and patient oriented x3 Cognition: normal cognition Extrem General: capillary refill normal Psych Appearance: grossly normal and well kempt Course Orders Ordered: ED Orders 05/29/20 15:55 CMP [Comprehensive Metabolic Panel] Stat Complete Blood Count AUTO DIFF Stat 05/29/20 15:59 CT kidney ureter bladder (KUB) Stat 05/29/20 17:30 GI Panel (Film Array) Stat Discontinued Medications Acetaminophen (Acetaminophen 325 Mg Tablet) 650 mg PO NOW ONE Stop: 05/29/20 18:36 Last Admin: 05/29/20 18:46 Dose: 650 mg Documented by: Sodium Chloride (Normal Saline 0.9%) 1,000 mls @ 1,000 mls/hr IV BOLUS ONE Stop: 05/29/20 16:57 Last Infusion: 05/29/20 17:57 Dose: 0 mls/hr Documented by: Admin: 05/29/20 16:44 Dose: 1,000 mls/hr Documented by: MMJACK Ketorolac Tromethamine (Ketorolac 60 Mg/2 Ml Vial) 30 mg IV NOW ONE Stop: 05/29/20 16:53 Last Admin: 05/29/20 17:03 Dose: 30 mg Documented by: MMINOR Vital Signs Vital signs: Vital Signs - 8 hr 05/29/20 15:45 05/29/20 16:49 05/29/20 17:00 Temperature 98.4 F Pulse Rate 105 H 94 H 100 H Respiratory Rate 16 Blood Pressure 159/93 H 155/102 H 169/85 H Pulse Oximetry 96 97 98 05/29/20 18:53 05/29/20 19:00 Temperature Pulse Rate 87 78 Respiratory Rate 16 Blood Pressure 144/97 H Pulse Oximetry 99 98 Medical Decision Making Lab Data Lab results reviewed: Yes I reviewed the patient's lab results. Result diagrams: 05/29/20 15:55 05/29/20 15:55 Labs: Lab Results 05/29/20 05/29/20 05/29/20 Range/Units 15:55 15:55 17:30 WBC 7.5 (4.5-11.0) X10^3/uL RBC 5.19 (4.0-5.2) X10^6/uL Hgb 15.7 (12.0-16.0) g/dL Hct 46.4 H (36-46) % MCV 89.5 (80-100) fL MCH 30.2 (26-34) PG MCHC 33.8 (30-36) % RDW 12.9 (11.6-14.8) % Plt Count 309 (150-400) X10^3/uL Neut % (Auto) 57.7 (50-75) % Lymph % (Auto) 33.1 (25-40) % [place] % (Auto) 6.6 (3-14) % Eos % (Auto) 1.9 L (2-4) % Baso % (Auto) 0.7 (0-2) % Neut # (Auto) 4300 (8798-0537) /uL Lymph # (Auto) 2500 (2449-5683) /uL [place] # (Auto) 500 (0-900) /uL Eos # (Auto) 100 (0-450) /uL Baso # (Auto) 100 (0-100) /uL Sodium 141 (137-145) mmol/L Potassium 3.3 L (3.4-5.1) mmol/L Chloride 105 (98-107) mmol/L Carbon Dioxide 31 (22-32) mmol/L BUN 8 (7-17) mg/dL Creatinine 0.44 L (0.52-1.04) mg/dL Estimated GFR > 60.0 (>60) mL/min BUN/Creatinine Ratio 18.2 (6-22) Glucose 116 H (70-100) mg/dL Calcium 9.7 (8.4-10.2) mg/dL Total Bilirubin 0.4 (0.2-1.3) mg/dL AST 106 H (14-36) IU/L ALT 133 H (<35) IU/L Alkaline Phosphatase 120 (38-126) U/L Total Protein 7.6 (6.3-8.2) g/dL Albumin 4.5 (3.5-5.0) g/dL Globulin 3.1 (1.7-4.1) g/dL Albumin/Globulin Ratio 1.5 (1.0-2.8) Stl C. cayetanensis PCR Not detected (Not Detect) Stool Rotavirus (PCR) Not detected (Not Detect) Stool Adenovirus (PCR) Not detected (Not Detect) Stool Astrovirus (PCR) Not detected (Not Detect) Stool Cryptosporidium PCR Not detected (Not Detect) Stl E.coli Shiga Tox PCR Not detected (Not Detect) St Sh/Enteroin Ecoli PCR Not detected (Not Detect) Stool E coli O157 PCR Not Reportable Stl Enterotoxigenic E PCR Not detected (Not Detect) Stool EPEC (PCR) Not detected (Not Detect) Stl E. histolytica PCR Not detected (Not Detect) Stool Giardia Lamblia PCR Not detected (Not Detect) Stool Sapovirus (PCR) Not detected (Not Detect) Stl P. shigelloides PCR Not detected (Not Detect) St Y.enterocolitica PCR Not detected (Not Detect) Stool Vibrio (PCR) Not detected (Not Detect) Stl Vibrio cholerae PCR Not detected (Not Detect) Stl Enteroaggr Ecoli PCR Not detected (Not Detect) Stl Norovirus GI/GII PCR Not detected (Not Detect) Campylobacter (PCR) Not detected (Not Detect) C. difficile Tox (PCR) Not detected (Not Detect) Salmonella (PCR) Not detected (Not Detect) Point of Care Testing Test Results Negative Urine Dip Bedside Urine Glucose Negative Bedside Urine Bilirubin - Negative Bedside Urine Ketone - Negative Urine Specific [place] 1.020 Bedside Urine Occult Blood - Negative Bedside Urine pH 7 Bedside Urine Protein - Negative Bedside Urine Urobilinogen - Negative Bedside Urine Nitrite - Negative Bedside Urine Leukocytes +/- 15 Esterase Point of care testing: Point of Care Testing Test Results Negative Urine Dip Bedside Urine Glucose Negative Bedside Urine Bilirubin - Negative Bedside Urine Ketone - Negative Urine Specific [place] 1.020 Bedside Urine Occult Blood - Negative Bedside Urine pH 7 Bedside Urine Protein - Negative Bedside Urine Urobilinogen - Negative Bedside Urine Nitrite - Negative Bedside Urine Leukocytes +/- [address] scan - abdomen/pelvis: Radiologist's Impression: [address] [id number] Scan ReportSigned Patient: Katt Martin [facility]#: [id number]: 1985Acct:[id number]/Sex: 34 / FDate of Service: 05/29/20Loc: EDAccession Number: [id number] Procedure: CT kidney ureter bladder (KUB) Ordering Provider: Hamzah Boo D.O. PROCEDURE: CT KIDNEY URETER BLADDER (KUB) INDICATIONS: Right side pain concern for stone TECHNIQUE: Noncontrast 5 mm thick sections acquired from the diaphragms to the symphysis. 5 mm thick coronal and sagittal reformats were then performed. For radiation dose reduction, the following was used: automated exposure control, adjustment of mA and/or kV according to patient size. COMPARISON: None. FINDINGS: Image quality: Excellent. Lung bases: Lung bases are clear. Heart size is normal. Urinary system: Both kidneys are normal in size. No kidney stones. No h ydronephrosis or perinephric fat stranding. Both ureters appear non-dilated throughout their expected courses. Bladder wall thickness is normal; no calcified bladder stones. Other solid organs: There is diffuse severe fatty infiltration of the liver. The liver is enlarged, measuring 21.9 cm in craniocaudal dimension. Gallbladder is surgically absent. Pancreas is normal in contours. Spleen is normal in size. No adrenal nodules. Peritoneum and bowel: Mild bowel wall thickening involving the colon may be related to underdistention or mild colitis. There are no signs of bowel obstruction. No free fluid or air. Appendectomy clips are noted. Nodes and vessels: No retroperitoneal or mesenteric adenopathy by size criteria. Aorta and inferior vena cava are normal in caliber. Abdominal wall: No ventral hernias. Calcifications in the subcutaneous tissues anterior to the lower abdominal wall are most likely dystrophic in nature. Pelvis: No free pelvic fluid. No inguinal hernias or adenopathy. The uterus is normal in size. No suspicious adnexal mass is seen. Bones: No suspicious bony lesions. No vertebral body compression fractures. IMPRESSION: 1. No renal or ureteral calculus or hydronephrosis. 2. Mild bowel wall thickening throughout the colon may be related to underdistention or a mild colitis. Recommend correlation with clinical findings. 3. Diffuse hepatic steatosis and hepatomegaly. Dictated by: José Miguel Marsh M.D. on 05/29/2020 at 16:11 Approved by: José Miguel Marsh M.D. on 05/29/2020 at 16:20 MDM Narrative Medical decision making narrative: Patient's CT scan is consistent with colitis. This does fit her exam today. She has not have leukocytosis. GI panel is negative for infectious etiology. No indication for antibiotics. Patient does have a history of fibromyalgia. She has [place] at home. She also has nausea medication at home. During her stay here patient has multiple times for pain medicine had at the very end of her stay asked for IV pain medicine. Informed her that we would do 1 dose of an oral pain med and that she can take her medicine at home. We did discuss the concerns of this with GI issues to include constipation. She was given return precautions and follow-up instructions. She expressed understanding and agreement. Discharge Plan Departure Patient Disposition: Home Clinical Impression: Colitis Instructions: DI for Colitis Activity Restrictions/Additional Instructions: Take all of your home medications as directed. Be sure to increase your fluid intake. Contact your primary provider for follow-up. Return the emergency department for any new or worsening symptoms Prescriptions: No Action Vyvanse 70 mg capsule 70 mg PO QAM RF: 0 sertraline [Zoloft] 50 mg Tablet 150 mg PO QPM RF: 0 nifedipine 30 mg tablet extended release 24hr 30 mg PO DAILY RF: 0 promethazine [Phenadoz] 25 mg suppository 25 mg OH Q6H PRN (Reason: Nausea And Vomiting) RF: 0 promethazine 50 mg/mL Solution 1 dose IV PRN PRN (Reason: Nausea And Vomiting) RF: 0 Tpn 1 ea Continuous IV Infusion Q20H RF: 0 doxazosin 1 mg tablet 1 mg PO DAILY RF: 0 venlafaxine 150 mg capsule,extended release 24hr 150 mg PO DAILY RF: 0 pantoprazole 40 mg tablet,delayed release (DR/EC) 40 mg PO DAILY RF: 0 ergocalciferol (vitamin D2) [Vitamin D2] 50,000 unit capsule 50,000 unit PO QWEEK RF: 0 methylphenidate HCl 36 mg tablet extended release 24hr 36 mg PO DAILY RF: 0 Vyvanse 60 mg capsule 60 mg PO DAILY RF: 0 albuterol sulfate [ProAir HFA] 90 mcg/actuation HFA aerosol inhaler 2 puff INHALATION Q4-6H PRN (Reason: shortness of breath or wheezing) Qty: 8.5 RF: 0 Referrals: Lamar Javier DO [Primary Care Provider] -
--- NOTE | 2020-05-29 15:59 | DI.CT.S_ITS ---
PROCEDURE: CT KIDNEY URETER BLADDER (KUB) INDICATIONS: Right side pain concern for stone TECHNIQUE: Noncontrast 5 mm thick sections acquired from the diaphragms to the symphysis. 5 mm thick coronal and sagittal reformats were then performed. For radiation dose reduction, the following was used: automated exposure control, adjustment of mA and/or kV according to patient size. COMPARISON: None. FINDINGS: Image quality: Excellent. Lung bases: Lung bases are clear. Heart size is normal. Urinary system: Both kidneys are normal in size. No kidney stones. No hydronephrosis or perinephric fat stranding. Both ureters appear non-dilated throughout their expected courses. Bladder wall thickness is normal; no calcified bladder stones. Other solid organs: There is diffuse severe fatty infiltration of the liver. The liver is enlarged, measuring 21.9 cm in craniocaudal dimension. Gallbladder is surgically absent. Pancreas is normal in contours. Spleen is normal in size. No adrenal nodules. Peritoneum and bowel: Mild bowel wall thickening involving the colon may be related to underdistention or mild colitis. There are no signs of bowel obstruction. No free fluid or air. Appendectomy clips are noted. Nodes and vessels: No retroperitoneal or mesenteric adenopathy by size criteria. Aorta and inferior vena cava are normal in caliber. Abdominal wall: No ventral hernias. Calcifications in the subcutaneous tissues anterior to the lower abdominal wall are most likely dystrophic in nature. Pelvis: No free pelvic fluid. No inguinal hernias or adenopathy. The uterus is normal in size. No suspicious adnexal mass is seen. Bones: No suspicious bony lesions. No vertebral body compression fractures. IMPRESSION: 1. No renal or ureteral calculus or hydronephrosis. 2. Mild bowel wall thickening throughout the colon may be related to underdistention or a mild colitis. Recommend correlation with clinical findings. 3. Diffuse hepatic steatosis and hepatomegaly. Dictated by: José Miguel Marsh M.D. on 05/29/2020 at 16:11 Approved by: José Miguel Marsh M.D. on 05/29/2020 at 16:20
[2020-05-29 16:06] LABS: Add Manual Diff / Slide Review NO; Basophils Absolute Auto 100 /uL (0-100); Basophils Percent Auto 0.7 % (0-2); Eosinophils Absolute Auto 100 /uL (0-450); Eosinophils Percent Auto 1.9 % (2-4); Hematocrit 46.4 % (36-46); Hemoglobin 15.7 g/dL (12.0-16.0); Lymphocytes Absolute Auto 2500 /uL (1100-4500); Lymphocytes Percent Auto 33.1 % (25-40); Mean Corpuscular HGB Conc 33.8 % (30-36); Mean Corpuscular Hemoglobin 30.2 PG (26-34); Mean Corpuscular Volume 89.5 fL (80-100); Monocytes Absolute Auto 500 /uL (0-900); Monocytes Percent Auto 6.6 % (3-14); Neutrophils Absolute Auto 4300 /uL (1500-7000); Neutrophils Percent Auto 57.7 % (50-75); Platelet Count 309 X10^3/uL (150-400); Red Blood Cell Count 5.19 X10^6/uL (4.0-5.2); Red Cell Distribution Width 12.9 % (11.6-14.8); White Blood Cell Count 7.5 X10^3/uL (4.5-11.0)
[2020-05-29 16:13] LABS: Alanine Aminotransferase 133 IU/L (<35); Albumin 4.5 g/dL (3.5-5.0); Albumin Globulin Ratio 1.5 (1.0-2.8); Alkaline Phosphatase 120 U/L (38-126); Aspartate Aminotransferase 106 IU/L (14-36); BUN Creatinine Ratio 18.2 (6-22); Bilirubin Total 0.4 mg/dL (0.2-1.3); Blood Urea Nitrogen 8 mg/dL (7-17); Calcium 9.7 mg/dL (8.4-10.2); Carbon Dioxide 31 mmol/L (22-32); Chloride 105 mmol/L (98-107); Estimated Glomerular Filt Rate > 60.0 mL/min (>60); Globulin 3.1 g/dL (1.7-4.1); Glucose 116 mg/dL (70-100); HEMOLYSIS < 15 (0-50); Potassium 3.3 mmol/L (3.4-5.1); Sodium 141 mmol/L (137-145); Total Protein 7.6 g/dL (6.3-8.2)
[2020-05-29] MEDS: SODIUM CHLORIDE 0.9% 1,000 ML 1000 ML IV (16:44)
[2020-05-29 16:49] VITALS: BP 155/102; PULSE 94; O2SAT 97
[2020-05-29 17:00] VITALS: BP 169/85; PULSE 100; O2SAT 98
[2020-05-29] MEDS: KETOROLAC 60 MG/2 ML VIAL 30 MG IV (17:03)
[2020-05-29] MEDS: ACETAMINOPHEN 325 MG TABLET 650 MG PO (18:46)
[2020-05-29 18:53] VITALS: BP 144/97; PULSE 87; RESP 16; O2SAT 99
[2020-05-29 19:00] VITALS: PULSE 78; O2SAT 98
[2020-05-29 19:01] VITALS: BP 148/96; PULSE 83; O2SAT 98
[2020-05-29 19:11] LABS: Adenovirus F 40/41 Not Detected (Not Detect); Astrovirus Not Detected (Not Detect); Campylobacter Not Detected (Not Detect); Clostridium difficile toxin AB Not Detected (Not Detect); Cryptosporidium Not Detected (Not Detect); Cyclospora cayetanensis Not Detected (Not Detect); Entamoeba histolytica Not Detected (Not Detect); Enteroaggregative E.coli Not Detected (Not Detect); Enteropathogenic E.coli Not Detected (Not Detect); Enterotoxigenic E.coli It/st Not Detected (Not Detect); Giardia lamblia Not Detected (Not Detect); Norovirus GI/GII Not Detected (Not Detect); Plesiomonsa shigelloides Not Detected (Not Detect); Rotavirus A Not Detected (Not Detect); Salmonella Not Detected (Not Detect); Sapovirus Not Detected (Not Detect); Shiga-like toxin-prod E.coli Not Detected (Not Detect); Shigella/Enteroinvasive E.coli Not Detected (Not Detect); Vibrio Not Detected (Not Detect); Vibrio cholerae Not Detected (Not Detect); Yersinia enterocolitica Not Detected (Not Detect)
[2020-05-29] MEDS: HYDROCODONE/ACET 5/325 TABLET 1 TAB PO (19:26)
== END 2020-05-29 19:35 | disposition home or self-care (01) ==
PROVIDERS: Emergency Provider Emergency Medicine; PCP Family Medicine
DX: K52.9 Noninfective gastroenteritis and colitis, unspecified (principal); Z87.442 Personal history of urinary calculi; R10.31 Right lower quadrant pain
CPT/HCPCS: 36415; 74176; 80053; 81003; 81025; 85025; 87507; 96361; 96374; 99281; 99284; J1885

== ENCOUNTER → 2020-06-22 14:39 | Outpatient (CLI) | payer OTHER, SELFPAY ==
[2020-06-22 15:40] LABS: COVID19 -Nasal RAPID Negative (Negative)
== END ==
PROVIDERS: PCP Family Medicine; Visit Provider Nurse Practitioner
DX: Z01.812 Encounter for preprocedural laboratory examination (principal); Z20.822 Contact with and (suspected) exposure to COVID-19
CPT/HCPCS: 87635

== ENCOUNTER 2020-10-15 19:42 | Observation (INO) | payer OTHER, SELFPAY ==
[2020-10-15] VITALS (9 sets, daily range): BP systolic 139–178; BP diastolic 87–115; PULSE 86–96; RESP 16–19; TEMP 36.7–37.2; O2SAT 96–99; BMI 34.3; BMI 35.5
--- NOTE | 2020-10-15 19:59 | DI.CT.S_ITS ---
PROCEDURE: CT CERVICAL SPINE WO CON INDICATIONS: midline pain after facial trauma TECHNIQUE: Noncontrast 3 mm thick sections acquired from the skull base to the T4 level. Sagittal and coronal reformats were then constructed. For radiation dose reduction, the following was used: automated exposure control, adjustment of mA and/or kV according to patient size. COMPARISON: None. FINDINGS: Image quality: Excellent. Bones: No acute fractures or dislocations. No acute compression fractures of the vertebral bodies. Craniocervical junction is intact. C1-C2 relationship is preserved. Visualized superior ribs are intact. Straightening of cervical lordosis which may be due to patient positioning and/or concurrent muscle spasms. Soft tissues: Prevertebral soft tissues are normal in thickness. No paravertebral hematomas. No apical pneumothoraces. IMPRESSION: Cervical spine without acute fracture or dislocation. Mild straightening of normal cervical lordosis likely related to positioning and/or concurrent muscle spasms. Dictated by: Boone Hitchcock M.D. on 10/15/2020 at 20:28 Approved by: Boone Hitchcock M.D. on 10/15/2020 at 20:31
--- NOTE | 2020-10-15 19:59 | DI.CT.S_ITS ---
PROCEDURE: CT HEAD/BRAIN WO CON INDICATIONS: facial trauma TECHNIQUE: Noncontrast 4.5 mm thick angled axial sections acquired from the foramen magnum to the vertex, with coronal and sagittal reformats. For radiation dose reduction, the following was used: automated exposure control, adjustment of mA and/or kV according to patient size. COMPARISON: None. FINDINGS: Image quality: Excellent. CSF spaces: Basal cisterns are patent. No extra-axial fluid collections. Ventricles are normal in size and shape. Brain: No midline shift. No intracranial masses or hemorrhage. [place]-white matter interface is normal. Faint bilateral basal ganglial hyperdensities likely related to senescent calcifications. Skull and face: Calvarium and visualized facial bones are intact, without suspicious lesions. Sinuses: Visualized sinuses and mastoids are clear. IMPRESSION: CT head without acute intracranial abnormalities. No acute calvarial fractures. Dictated by: Boone Hitchcock M.D. on 10/15/2020 at 20:20 Approved by: Boone Hitchcock M.D. on 10/15/2020 at 20:22
--- NOTE | 2020-10-15 19:59 | DI.CT.S_ITS ---
PROCEDURE: CT FACIAL BONES WO CON INDICATIONS: facial trauma TECHNIQUE: Noncontrast 2.5 mm thick axial images acquired from the mandible through the frontal sinuses, with coronal and sagittal reformatting. For radiation dose reduction, the following was used: automated exposure control, adjustment of mA and/or kV according to patient size. COMPARISON: None. FINDINGS: Image quality: Excellent. Bones and teeth: There is fracture of the anterior, midline maxilla with associated fracture extending through the alveolar ridge and roots of the right central and lateral incisors. There is also mild distraction of the right central and lateral incisors from the maxilla. Possible avulsion fracture fragment off the anterior tip of the right nasal bone. Remainder of the visualized osseous structures appear intact. Orbital shine are intact. Sinus shine show no fracture or deformity. Visualized portions of the mandible demonstrate no fractures or subluxation. Zygomatic arches are intact. Pterygoid plates are intact. Visualized portions of the skull base and auditory canals are intact. Sinuses: Paranasal sinuses are aerated, without fluid levels, mucosal thickening, or mucoceles. Mastoid air cells are aerated. Soft tissues: Soft tissue swelling overlying the maxilla. No suspicious masses, or fluid collections. No enlarged lymph nodes. No radiopaque soft tissue debris. Vascular: Visualized vascular structures appear normal in the absence of contrast. Bony vascular foramina and canals are intact. IMPRESSION: 1. Minimally displaced midline fracture of the anterior maxilla with associated fracture extending through the alveolar ridge and roots of the right central and lateral incisors. Mild distraction of the right central and lateral incisors. 2. Possible avulsion fracture fragment off the distal tip of the right nasal bone. Dictated by: Boone Hitchcock M.D. on 10/15/2020 at 20:22 Approved by: Boone Hitchcock M.D. on 10/15/2020 at 20:28
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
[2020-10-15] MEDS: HYDROMORPHONE 1 MG INJ IV ×3 (20:24→23:08)
[2020-10-15 21:21] LABS: Add Manual Diff / Slide Review NO; Basophils Absolute Auto 100 /uL (0-100); Basophils Percent Auto 0.8 % (0-2); Eosinophils Absolute Auto 100 /uL (0-450); Hematocrit 46.9 % (36-46); Hemoglobin 16.2 g/dL (12.0-16.0); Lymphocytes Absolute Auto 2200 /uL (1100-4500); Lymphocytes Percent Auto 20.3 % (25-40); Mean Corpuscular HGB Conc 34.6 % (30-36); Mean Corpuscular Hemoglobin 31.3 PG (26-34); Mean Corpuscular Volume 90.3 fL (80-100); Monocytes Absolute Auto 600 /uL (0-900); Monocytes Percent Auto 5.5 % (3-14); Neutrophils Absolute Auto 7900 /uL (1500-7000); Neutrophils Percent Auto 72.4 % (50-75); Platelet Count 253 X10^3/uL (150-400); Red Cell Distribution Width 12.7 % (11.6-14.8); White Blood Cell Count 10.9 X10^3/uL (4.5-11.0)
[2020-10-15 21:33] LABS: BUN Creatinine Ratio 25.5 (6-22); Blood Urea Nitrogen 12 mg/dL (7-17); Calcium 9.6 mg/dL (8.4-10.2); Carbon Dioxide 26 mmol/L (22-32); Chloride 105 mmol/L (98-107); Estimated Glomerular Filt Rate > 60.0 mL/min (>60); Glucose 107 mg/dL (70-100); HEMOLYSIS < 15 (0-50); Potassium 3.4 mmol/L (3.4-5.1); Sodium 141 mmol/L (137-145)
[2020-10-15] MEDS: HYDROMORPHONE 0.5 MG INJ IV (21:39)
[2020-10-15 22:02] LABS: COVID19 - ADMIT (NP swab/PCR) Negative (Negative)
[2020-10-15] MEDS: SODIUM CHLORIDE 0.45% 1,000 ML 100 ML IV (23:08)
[2020-10-15] MEDS: LORazepam 2 MG/ML INJ 0.5 MG IV (23:18)
--- NOTE | 2020-10-15 23:46 | PC.NURSE ---
Adnit/Evening Shift Note- Patientm arrived to room via stretcher from ER at 2150. Patient alert and oriented and able to make needs known to staff. Admit questions done, medications reviewed, physical assessment done, and skincheck completed. Patient oriented to bed and bed controls, room, bathroom, lights, phone, menu, and call tyson/TV remote. PRN Pain medications ad nausea medication provided per patient request. Tele monitor placed as ordered. Patient agrees to call for assistance. as needed. Safety measures in place. Call tyson and phone within reach. Will continue to monitor.
[2020-10-16] VITALS (8 sets, daily range): BP systolic 122–142; BP diastolic 77–96; PULSE 68–81; RESP 16–20; TEMP 36.1–36.5; O2SAT 95–100
[2020-10-16] MEDS: HYDROMORPHONE 2 MG INJ IV ×5 (00:50→08:37)
[2020-10-16] MEDS: PROCHLORPERAZINE 25 MG SUPP PR (01:11)
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
[2020-10-16] MEDS: LORazepam 2 MG/ML INJ 0.5 MG IV ×2 (04:00→08:31)
[2020-10-16 05:51] LABS: Add Manual Diff / Slide Review NO; Basophils Absolute Auto 100 /uL (0-100); Basophils Percent Auto 0.6 % (0-2); Eosinophils Absolute Auto 100 /uL (0-450); Eosinophils Percent Auto 0.9 % (2-4); Hematocrit 41.1 % (36-46); Hemoglobin 14.1 g/dL (12.0-16.0); Lymphocytes Absolute Auto 1700 /uL (1100-4500); Lymphocytes Percent Auto 18.8 % (25-40); Mean Corpuscular HGB Conc 34.3 % (30-36); Mean Corpuscular Volume 90.5 fL (80-100); Monocytes Absolute Auto 500 /uL (0-900); Monocytes Percent Auto 5.8 % (3-14); Neutrophils Absolute Auto 6800 /uL (1500-7000); Neutrophils Percent Auto 73.9 % (50-75); Platelet Count 227 X10^3/uL (150-400); Red Blood Cell Count 4.54 X10^6/uL (4.0-5.2); Red Cell Distribution Width 12.7 % (11.6-14.8); White Blood Cell Count 9.2 X10^3/uL (4.5-11.0)
[2020-10-16 05:55] LABS: BUN Creatinine Ratio 32.5 (6-22); Blood Urea Nitrogen 13 mg/dL (7-17); Calcium 8.8 mg/dL (8.4-10.2); Carbon Dioxide 28 mmol/L (22-32); Chloride 102 mmol/L (98-107); Estimated Glomerular Filt Rate > 60.0 mL/min (>60); Glucose 115 mg/dL (70-100); HEMOLYSIS < 15 (0-50); Magnesium 1.7 mg/dL (1.6-2.3); Sodium 137 mmol/L (137-145)
[2020-10-16] MEDS: SODIUM CHLORIDE 0.9% 1,000 ML 125 ML IV ×2 (08:39→18:20)
--- NOTE | 2020-10-16 11:39 | PC.NURSE ---
Addendum entered by Anabel Pearson R.N. 10/16/20 14:58: Patient unable to tolerate concurrent NS @ 25cc/hr with Potassium IV at 100cc/hr. Dropped K+ rate to 60cc/hr, unable to tolerate. Dropped to 40cc/hr, NS at 85cc/hr, patient tolerating. Sleeping at this time. bedside. Addendum entered by Anabel Pearson R.N. 10/16/20 14:12: Patient c/o facial pain 01/15. IV Ketorolac administered. Addendum entered by Anabel Pearson R.N. 10/16/20 12:48: [place] [facility] [place] in to [place] patient. MAR adjusted. Pt back to bed. Patient had a bout of incontinence while vomiting. IN Phenergan administered. Patient unable to void for specimen at this time. Will continue to monitor. Original Note: Patient resting with eyes closed at this time. Breathing unlabored. Patient is A/O x 4. C/O pain 10 earlier this AM, PRN medications administered. Patient c/o dry mouth. Mouth moistened with sponge. Patient remains NPO. NS infusing at 125 cc/hr, RFA IV. PERRLA. Voiding. N/V, 50 cc of emesis out. Patient on RA, 100%, lungs CTA. and baby are in room. Patient encouraged to pump and dump while taking Dilaudid. Patient requesting phenergMD carmine aware. Call light in reach.
[2020-10-16] MEDS: LORazepam 2 MG/ML INJ 1 MG IV (11:57)
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
[2020-10-16] MEDS: PROMETHAZINE 25 MG SUPP PR ×3 (12:38→21:13)
[2020-10-16] MEDS: POTASSIUM CHLORIDE IN WATER 10 MEQ/100 ML PIGGYBACK 40 MEQ IV ×4 (12:38→21:13)
[2020-10-16] MEDS: KETOROLAC 30 MG/ML VIAL IV (14:11)
--- NOTE | 2020-10-16 14:18 | PM.PN.1 ---
Subjective Subjective Date Patient Seen: 10/16/20 Time Patient Seen: 14:18 Interval history: 34 year old female admitted with right mandibular fracture, awaiting operative management with Dr. Nelson. pain difficult to control today, also . changed to toradol today as well as she has been persistently nauseous and throwing up. Exam Vital Signs (past 8 hours): - 10/16/20 08:05 10/16/20 09:35 10/16/20 10:15 Temperature 96.9 F L Pulse Rate 81 Respiratory Rate 16 Blood Pressure 133/89 Pulse Oximetry 98 95 100 10/16/20 12:45 Temperature Pulse Rate 68 Respiratory Rate 18 Blood Pressure 139/89 Pulse Oximetry 95 Oxygen Delivery Method Room Air Oxygen Flow Rate 0 Narrative Exam Narrative: Alert, oriented, well-developed 34 y.o. female, nauseous and vomiting HEENT: normocephalic, sclera non-icteric, oral mucosa pink and moist, displaced upper teeth w/bleeding in her mouth, nose not deformed but swollen Neck: supple, full ROM, no JVD, trachea is midline Resp: Lungs CTA, non-labored breathing CV: RRR, no murmur or rubs Abd: soft, non-tender, normoactive BTs Skin: no lesions or rashes, dry and intact Neuro: Alert and oriented X 4 w/no focal deficits. Labored speech due to mouth injuries. Extremities: moves all 4 extremities, is ambulatory, negative Carolyn?s sign Psyche: anxious, restless. Objective Labs Result Diagrams: 10/16/20 05:25 10/16/20 05:25 Labs: Laboratory Results - last 24 hr 10/15/20 10/15/20 10/15/20 21:00 21:15 21:15 WBC 10.9 RBC 5.20 Hgb 16.2 H Hct 46.9 H MCV 90.3 MCH 31.3 MCHC 34.6 RDW 12.7 Plt Count 253 Neut % (Auto) 72.4 Lymph % (Auto) 20.3 L [place] % (Auto) 5.5 Eos % (Auto) 1.0 L Baso % (Auto) 0.8 Neut # (Auto) 7900 H Lymph # (Auto) 2200 [place] # (Auto) 600 Eos # (Auto) 100 Baso # (Auto) 100 Sodium 141 Potassium 3.4 Chloride 105 Carbon Dioxide 26 BUN 12 Creatinine 0.47 L Estimated GFR > 60.0 BUN/Creatinine Ratio 25.5 H Glucose 107 H Calcium 9.6 Magnesium SARS-CoV-2 (PCR) Negative 10/16/20 10/16/20 05:25 05:25 WBC 9.2 RBC 4.54 Hgb 14.1 Hct 41.1 MCV 90.5 MCH 31.0 MCHC 34.3 RDW 12.7 Plt Count 227 Neut % (Auto) 73.9 Lymph % (Auto) 18.8 L [place] % (Auto) 5.8 Eos % (Auto) 0.9 L Baso % (Auto) 0.6 Neut # (Auto) 6800 Lymph # (Auto) 1700 [place] # (Auto) 500 Eos # (Auto) 100 Baso # (Auto) 100 Sodium 137 Potassium 3.0 L Chloride 102 Carbon Dioxide 28 BUN 13 Creatinine 0.40 L Estimated GFR > 60.0 BUN/Creatinine Ratio 32.5 H Glucose 115 H Calcium 8.8 Magnesium 1.7 SARS-CoV-2 (PCR) [facility] Medical History (Updated 10/16/20 @ 02:06 by KENIA Wright) ADHD Depression DVT (deep venous thrombosis) Hyperemesis affecting , antepartum Kidney stone Surgical History History of appendectomy Social History household members: spouse and children Smoking Status: Never smoker Assessment & Plan Assessment & Plan narrative: Katt Cazares is a 34 year old female admitted with R mandibular fracture. Right mandible fracture, acute and present on admission -Pain control with IV dilaudid, difficulties with pain control and nausea. Patient as well, will switch to toradol for pain control with hopefully less nausea. Patient best responsive to phenergan but unable to take PO, will continue [place] today. -She will undergo surgical repair today Nausea secondary to oral bleeding and pain medications -Rectal compazine 25 mg q 6 hours prn DVT: hold prior to surgery Code: Full Dispo: observation, likely discharge tomorrow after surgical repair. Quality VTE Deep Vein Thrombosis/Pulmonary Embolism Present on Admission: No
[2020-10-16] MEDS: HYDROMORPHONE 1 MG INJ IV ×4 (16:20→23:41)
[2020-10-16 17:18] LABS: Pregnancy Test Urine Negative (Negative)
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
--- NOTE | 2020-10-16 22:18 | SUR.HOLD ---
Spoke with Dr Nelson regarding delay of surgery due to emergency surgery of another inpatient. Dr Nelson agreeable to perform surgery at 0700 on MondayOctober 17. Notified OR nurse and call crew for Monday. Called data warehouse architect and updated.
[2020-10-17] VITALS (12 sets, daily range): BP systolic 108–136; BP diastolic 70–102; PULSE 66–82; RESP 12–20; TEMP 36.3–36.6; O2SAT 94–97; BMI 35.5
[2020-10-17] MEDS: PROMETHAZINE 25 MG SUPP PR ×3 (01:22→11:03)
[2020-10-17] MEDS: HYDROMORPHONE 1 MG INJ IV (01:42)
[2020-10-17] MEDS: HYDROMORPHONE 2 MG INJ IV ×4 (02:36→11:02)
[2020-10-17] MEDS: LORazepam 2 MG/ML INJ 1 MG IV (03:14)
[2020-10-17] MEDS: KETOROLAC 30 MG/ML VIAL IV ×2 (04:25→10:28)
[2020-10-17] MEDS: SODIUM CHLORIDE 0.9% 1,000 ML 125 ML IV (05:21)
[2020-10-17 06:22] LABS: Add Manual Diff / Slide Review NO; Basophils Absolute Auto 0 /uL (0-100); Basophils Percent Auto 0.7 % (0-2); Eosinophils Absolute Auto 100 /uL (0-450); Eosinophils Percent Auto 2.1 % (2-4); Hematocrit 41.4 % (36-46); Hemoglobin 13.9 g/dL (12.0-16.0); Lymphocytes Absolute Auto 2400 /uL (1100-4500); Lymphocytes Percent Auto 39.8 % (25-40); Mean Corpuscular HGB Conc 33.5 % (30-36); Mean Corpuscular Hemoglobin 30.8 PG (26-34); Mean Corpuscular Volume 91.9 fL (80-100); Monocytes Absolute Auto 400 /uL (0-900); Monocytes Percent Auto 7.3 % (3-14); Neutrophils Absolute Auto 3100 /uL (1500-7000); Neutrophils Percent Auto 50.1 % (50-75); Platelet Count 206 X10^3/uL (150-400); Red Cell Distribution Width 13.1 % (11.6-14.8); White Blood Cell Count 6.1 X10^3/uL (4.5-11.0)
[2020-10-17 06:32] LABS: BUN Creatinine Ratio 15.6 (6-22); Blood Urea Nitrogen 7 mg/dL (7-17); Calcium 8.9 mg/dL (8.4-10.2); Carbon Dioxide 27 mmol/L (22-32); Chloride 105 mmol/L (98-107); Estimated Glomerular Filt Rate > 60.0 mL/min (>60); Glucose 101 mg/dL (70-100); HEMOLYSIS < 15 (0-50); Potassium 3.5 mmol/L (3.4-5.1); Sodium 140 mmol/L (137-145)
--- NOTE | 2020-10-17 07:25 | PC.NURSE ---
Pt off unit for surgery by EMILIANA Ford via w/c, accompanied by .
[2020-10-17] MEDS: LACTATED RINGERS 1,000 ML 42 ML IV (07:46)
--- NOTE | 2020-10-17 08:40 | PM.PREOP ---
Pre-operative Note COVID-19 COVID-19 status: Negative Interval Note History & Physical reviewed/Exam performed by Physician: Yes Changes to H&P: No ASA Class (for procedural sedation): II
--- NOTE | 2020-10-17 09:02 | SUR.OPER ---
Supine on padded OR bed, head on pillow, arm padded and tucked at side, legs uncrossed, safety belt at thigh, tape over blanket over lower legs .
[2020-10-17] MEDS: LIDOCAINE 2% W/EPI INJ 20 ML INJ (09:07)
--- NOTE | 2020-10-17 09:24 | P.OP_ITS ---
Operative Date/Time/Diagnoses Date of procedure: 10/17/20 Time of procedure: 09:24 Pre-op diagnosis: right maxillary dentoalveolar fracture with displacement of teeth 7 and 9 Post-op diagnosis: other (Gingival laceration above teeth 7 and 8) Procedure & Clinicians Procedure: Closed reduction right maxillary dentoalveolar fracture. Repair of gingival laceration Same procedure as scheduled: Yes Indications: Right maxillary dentoalveolar fracture with palatal displacement of teeth 7 and 8. Gingival laceration around teeth 7 and 8. Surgeon: Korey Nelson Click Yes if Unassisted: Yes Anesthesia Type: General and Sedation Operative Notes Findings: Reduction of fracture allowed reasonable occlusion. Noted gingival laceration apical to teeth 6-11. No exposed bone noted. Closure Type: not applicable Specimen(s): none sent Prosthetic devices, grafts, tissues, transplants, or devices: 26 guage wire adapted from teeth 5-11 and secured in placed with dental composite. Estimated Blood Loss (mL): 0 Procedure in detail: Patient was brought to operating theatre #1 at [facility]. She was prepped and draped for an OMS procedure. Anesthesia was titrated to effect using intravenous deep sedation. Local anesthesia was admin istered (lidocaine 2% with 1:035008 epi x 5 ml's) by infiltrating around the right maxilla. Once anesthesia was obtained, using gauze and grasping the anterior maxilla, the fracture was reduced and the teeth were repositioned. The occlusion was checked and patient could get her posterior teeth into the correct position. ONce this was accomplished, the fractured was stabilized. Upon reduction of the fracture, the laceration in the gingiva became more apparent as I was able to accurately visualize the area now. Using dental acid etch, composite sales agent food vending service and flowable composite, a 26 gauge wire was adapted to teeth 5-11 and secured to the teeth using the prescribed method for preparing teeth for composite bonding agents. The teeth were stabilized. The occlusion was checked again and noted to be stable. The laceration edges were reapproximated with 4-0 cg suture x 2. Patient was turned over to the anesthesiologist in stable condition and escorted tot he PACU. Complications: none Post-operative Condition: stable Disposition: PACU Plan for aftercare: Patient to be discharged to home. Soft diet for six weeks particularly no biting with the front teeth. Pain management and one week of oral antibiotics. Follow up with me in the office in one week to evaluate the occlusion.
--- NOTE | 2020-10-17 09:44 | SUR.PHASEI ---
Pt slow to wake, denies pain, no nausea. mouth moistened with wet oral spoinge and mouth moisture cream to lips. Report called, pt to be transported back to room. Telemetry with pt on transfer.
--- NOTE | 2020-10-17 09:55 | SUR.PHASEI ---
Ice chips given.
--- NOTE | 2020-10-17 11:26 | SUR.PHASEI ---
Late entry: Pt transported back to room, left with RN in stable condition.
--- NOTE | 2020-10-17 13:17 | PC.NURSE ---
Pt DI given to pt and spouse, discussed- medications, diet, f/u appts, reasons to seek medical attention. IV removed, intact, tolerated well. Pt dressed and packed belongings with spouse's assistance. All questions answered. Pt left via w/c to spouse's POV.
--- NOTE | 2020-10-17 13:40 | CM.DPNOTE ---
DC Note DC order in place after patient came back from the OR this morning (delayed d/t urgent needs in the OR); patient left w/spouse via pov, no needs from DCP team JW
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
== END 2020-10-17 13:05 | disposition home or self-care (01) ==
LOC: ED 20:59 → AC 21:32
PROVIDERS: Dentist Oral and Maxillofacial Surgery; Internal Medicine; Admitting Provider Nurse Practitioner Family; Emergency Provider Emergency Medicine; PCP Family Medicine; Referring Provider Emergency Medicine; Visit Provider Nurse Practitioner Family
PROC: (CPT 21440; principal; 2020-10-17 08:30)
DX: S02.42XA Fracture of alveolus of maxilla, initial encounter for closed fracture (principal); R51.9 Headache, unspecified; M54.2 Cervicalgia; W20.8XXA Other cause of strike by thrown, projected or falling object, initial encounter; Z20.822 Contact with and (suspected) exposure to COVID-19
CPT/HCPCS: 21440; 36415; 70450; 70486; 72125; 80048; 81025; 83735; 85025; 87635; 94760; 96361; 96374; 96375; 96376; 99284; C9803; G0378; J1170; J1885; J2060; J2704; J7050

== ENCOUNTER 2021-01-17 14:48 | Emergency (ER) | payer OTHER, SELFPAY ==
[2020-10-15 21:40] VITALS: BMI 35.5
[2021-01-17 15:11] VITALS: BP 178/133; PULSE 99; RESP 14; TEMP 36.6; O2SAT 99; BMI 34.3
--- NOTE | 2021-01-17 16:20 | ED_ITS ---
HPI - Back Pain/Injury General Chief Complaint: Back Pain/Injury Stated Complaint: Lower back is out Time Seen by Provider: 01/17/21 16:15 Source: patient and family Limitations: no limitations History of Present Illness HPI Narrative: Patient is a 35-year-old female here for evaluation of right- sided lower back discomfort. She states the symptoms started yesterday when she was chasing after her child and left her child up. She did use pain medication at home. Also anti-inflammatories. She also had a muscle relaxer at home. None of the above therapy seem to be improving her symptoms. She has no fever. No urinary symptoms. Has had symptoms like this in the past. Related Data Home Medications Medication Instructions Recorded Confirmed sertraline 50 mg tablet (Zoloft) 150 mg PO QPM 10/23/17 03/27/18 Tpn 1 ea CONTINUOUS IV INFUSION Q20H 03/27/18 03/27/18 nifedipine 30 mg tablet,extended 30 mg PO DAILY 03/27/18 03/27/18 release 24 hr promethazine 25 mg rectal 25 mg WI Q6H PRN 03/27/18 10/15/20 suppository promethazine 50 mg/mL injection 1 dose IV PRN PRN 03/27/18 03/27/18 solution doxazosin 1 mg tablet 1 mg PO DAILY 12/14/18 12/14/18 ergocalciferol (vitamin D2) 1,250 50,000 unit PO QWEEK 12/14/18 12/14/18 mcg (50,000 unit) capsule lisdexamfetamine 60 mg capsule 60 mg PO DAILY 12/14/18 12/14/18 methylphenidate HCl 36 mg 36 mg PO DAILY 12/14/18 12/14/18 tablet,extended release 24 hr pantoprazole 40 mg tablet,delayed 40 mg PO DAILY 12/14/18 release venlafaxine 150 mg 150 mg PO DAILY 12/14/18 10/15/20 capsule,extended release 24 hr lisdexamfetamine 70 mg capsule 70 mg PO QAM 02/01/19 10/15/20 (Vyvanse) galcanezumab-gnlm 120 mg/mL 120 mg SUBCUT QMONTH 10/15/20 10/15/20 subcutaneous pen injector (Emgality Pen) Previous Rx's Medication Instructions Recorded albuterol sulfate 90 mcg/actuation 2 puff INHALATION Q4-6H PRN #8.5 06/05/19 aerosol inhaler (ProAir HFA) gram hydrocodone 5 mg-acetaminophen 325 1 tab PO Q8H PRN #7 tab 01/17/21 mg tablet Allergies Allergy/AdvReac Type Severity Reaction Status Date / Time cephalexin [CEPHALEXIN] Allergy Unknown Verified 01/17/21 15:15 latex [LATEX] Allergy Unknown Verified 01/17/21 15:15 levofloxacin [From LEVAQUIN] Allergy Unknown Verified 01/17/21 15:15 ondansetron [ONDANSETRON] Allergy Unknown Verified 01/17/21 15:15 oxycodone [From PERCOCET] Allergy Unknown Verified 01/17/21 15:15 Penicillins [PENICILLINS] Allergy Unknown Verified 01/17/21 15:15 vancomycin Allergy Verified 01/17/21 15:15 prochlorperazine AdvReac Severe Anxiety Verified 01/17/21 15:15 [From Compazine] metoclopramide [From Reglan] AdvReac Verified 01/17/21 15:15 Review of Systems Constitutional Constitutional: Reports system reviewed and no additional complaints, except as documented Cardiovascular Cardiovascular: Reports system reviewed and no additional complaints, except as documented Respiratory Respiratory: Reports system reviewed and no additional complaints, except as documented Gastrointestinal Gastrointestinal: Reports system reviewed and no additional complaints, except as documented Musculoskeletal Musculoskeletal: Reports as per HPI Integumentary/Breasts Skin/Breast: Reports system reviewed and no additional complaints, except as documented Neurologic Neurologic: Reports system reviewed and no additional complaints, except as documented Hematologic/Lymphatic On Anticoagulants: No Patient History Medical History ADHD Depression DVT (deep venous thrombosis) Hyperemesis affecting , antepartum Kidney stone Surgical History History of appendectomy Social History household members: spouse and children Smoking Status: Never smoker Smoking Status: Never smoker alcohol intake frequency: holidays/special occasions only Substance Use Type: does not use Exam Initial Vital Signs Initial Vital Signs: Vital Signs Temperature 97.9 F 01/17/21 15:11 Pulse Rate 99 H 01/17/21 15:11 Respiratory Rate 14 01/17/21 15:11 Blood Pressure 178/133 H 01/17/21 15:11 Pulse Oximetry 99 01/17/21 15:11 Const General: cooperative and comfortable HENMT Head: normal to inspection and normocephalic Resp Effort & Inspection: normal respiratory effort Cardio Rate: regular rate Back/Spine/Pelvis Other: Patient with muscle fullness and pinpoint tenderness to palpation of the right paraspinal muscles at the thoracic lumbar junction. Skin General: no rashes or lesions noted Neuro General: patient alert, patient awake, patient oriented x3 and moves all extremities Extrem General: normal to inspection and capillary refill normal Psych Appearance: grossly normal and well kempt Course Orders Ordered: Discontinued Medications Hydromorphone HCl (Hydromorphone 1 Mg Inj) 1 mg IM NOW ONE Stop: 01/17/21 16:22 Last Admin: 01/17/21 16:42 Dose: 1 mg Documented by: ANGELA Ketorolac Tromethamine (Ketorolac 30 Mg/Ml Vial) 30 mg IM NOW ONE Stop: 01/17/21 16:22 Last Admin: 01/17/21 16:41 Dose: 30 mg Documented by: ANGELA Vital Signs Vital signs: Vital Signs - 8 hr 01/17/21 15:11 01/17/21 17:06 Temperature 97.9 F Pulse Rate 99 H 74 Respiratory Rate 14 12 Blood Pressure 178/133 H 110/54 L Pulse Oximetry 99 100 MDM - Back Pain/Injury MDM Narrative Medical decision making narrative: Patient's symptoms today are consistent with musculoskeletal etiology. Low suspicion for fracture. Low suspicion for cauda equina. Will try to help her symptoms with medications. Informed her that this most likely will take several days for it to improve. She she was given return precautions. She expressed understanding agreement. Discharge Plan Departure Patient Disposition: Home Clinical Impression: Muscle spasm of back Instructions: DI for Back Spasm Activity Restrictions/Additional Instructions: Your physical exam today is consistent with a muscle spasm on the right side. This type of injury does get better on its own however it may take several days. I recommend that you continue to take the cyclobenzaprine/Flexeril as needed. You can also do other conservative treatments such as massage and heat and ice. You Can also take anti-inflammatories such as Motrin/ibuprofen as. Use the pain medications sparingly and only as needed. Contact your primary doctor for a follow-up. Prescriptions: New hydrocodone-acetaminophen 5-325 mg tablet 1 tab PO Q8H PRN (Reason: pain) Qty: 7 RF: 0 No Action Vyvanse 70 mg capsule 70 mg PO QAM RF: 0 sertraline [Zoloft] 50 mg Tablet 150 mg PO QPM RF: 0 nifedipine 30 mg tablet extended release 24hr 30 mg PO DAILY RF: 0 promethazine 25 mg suppository 25 mg WI Q6H PRN (Reason: Nausea And Vomiting) RF: 0 promethazine 50 mg/mL Solution 1 dose IV PRN PRN (Reason: Nausea And Vomiting) RF: 0 Tpn 1 ea Continuous IV Infusion Q20H RF: 0 doxazosin 1 mg tablet 1 mg PO DAILY RF: 0 venlafaxine 150 mg capsule,extended release 24hr 150 mg PO DAILY RF: 0 pantoprazole 40 mg tablet,delayed release (DR/EC) 40 mg PO DAILY RF: 0 ergocalciferol (vitamin D2) 50,000 unit capsule 50,000 unit PO QWEEK RF: 0 methylphenidate HCl 36 mg tablet extended release 24hr 36 mg PO DAILY RF: 0 lisdexamfetamine 60 mg capsule 60 mg PO DAILY RF: 0 albuterol sulfate [ProAir HFA] 90 mcg/actuation HFA aerosol inhaler 2 puff INHALATION Q4-6H PRN (Reason: shortness of breath or wheezing) Qty: 8.5 RF: 0 Emgality Pen 120 mg/mL Pen Injector 120 mg SUBCUT QMONTH RF: 0 Referrals: Lamar Javier DO [Primary Care Provider] -
[2021-01-17] MEDS: KETOROLAC 30 MG/ML VIAL IM (16:41)
[2021-01-17] MEDS: HYDROMORPHONE 1 MG INJ IM (16:42)
[2021-01-17 17:06] VITALS: BP 110/54; PULSE 74; RESP 12; O2SAT 100
== END 2021-01-17 17:10 | disposition home or self-care (01) ==
PROVIDERS: Emergency Provider Emergency Medicine; PCP Family Medicine
DX: M62.830 Muscle spasm of back (principal)
CPT/HCPCS: 96372; 99283; J1170; J1885

== ENCOUNTER → 2021-02-15 09:57 | Outpatient (CLI) | payer OTHER, SELFPAY ==
[2020-10-15 21:40] VITALS: BMI 35.5
--- NOTE | 2021-02-15 | DI.MRI.S_ITS ---
PROCEDURE: MR LUMBAR SPINE WO CON INDICATIONS: Low back pain, unspecified TECHNIQUE: Noncontrast sagittal T1 spin echo and T2 fast echo, sagittal STIR, axial T1 and T2 fast spin echo through the lumbar spine. In cases with scoliosis, additional coronal T2 fast spin echo may be performed. COMPARISON: None. FINDINGS: Image quality: Excellent. Alignment and Curvature: There is normal bony alignment. Bone Marrow: Marrow is of normal overall signal. No acute vertebral body compression fractures. Spinal Cord: Conus medullaris terminates at the L1 level. Visualized cord demonstrates normal signal and size. Paraspinous Soft Tissues: No paravertebral masses. T12-L1: Normal appearance. L1-L2: Normal appearance. L2-L3: Normal appearance. L3-L4: Loss of disc signal. Mild, diffuse disc bulge. Mild bilateral facet hypertrophy. Mild narrowing of the central canal. No neural foraminal narrowing. No neural compression. Fissure noted in the posterior annulus. L4-L5: Loss of disc signal. Mild, diffuse disc bulge. Small central disc protrusion. Mild bilateral facet hypertrophy. Mild narrowing of the central canal. Mild bilateral neural foraminal narrowing. No neural compression. Fissure noted in the posterior annulus. L5-S1: Loss of disc signal. Mild, diffuse disc bulge. Mild bilateral facet hypertrophy. No central stenosis. No neural foraminal narrowing. No neural compression. Fissure noted in the posterior annulus. IMPRESSION: 1. Multilevel degenerative disc disease. 2. Multilevel facet arthropathy. 3. No severe central canal narrowing. 4. No severe neural foraminal narrowing. 5. No neural compression. 6. L3-L4, L4-L5 and L5-S1 disc annulus fissures. Dictated by: Jacklyn Daniels MD, PhD on 02/15/2021 at 14:45 Approved by: Jacklyn Daniels MD, PhD on 02/15/2021 at 14:48
== END ==
PROVIDERS: PCP Family Medicine; Referring Provider Family Medicine; Visit Provider Family Medicine
DX: M54.50 Low back pain, unspecified (principal); M51.16 Intervertebral disc disorders with radiculopathy, lumbar region; M51.17 Intervertebral disc disorders with radiculopathy, lumbosacral region; M47.26 Other spondylosis with radiculopathy, lumbar region; M47.27 Other spondylosis with radiculopathy, lumbosacral region
CPT/HCPCS: 72148

== ENCOUNTER 2021-05-27 14:29 | Emergency (ER) | payer OTHER, SELFPAY ==
[2020-10-15 21:40] VITALS: BMI 35.5
[2021-05-27 14:33] VITALS: BP 160/100; PULSE 102; RESP 20; TEMP 36.7; O2SAT 99; BMI 36.6
--- NOTE | 2021-05-27 14:58 | ED_ITS ---
HPI - Abdominal Pain <Mu Rodriguez PA-C - Last Filed: 05/27/21 19:56> General Chief Complaint: Abdominal Pain Stated Complaint: Rt Sided Abd Pain Time Seen by Provider: 05/27/21 14:43 Source: patient Mode of arrival: Ambulatory History of Present Illness HPI narrative: Patient is a 35-year-old female with a history of appendectomy and cholecystectomy presenting to the emergency department today for evaluation right lower quadrant abdominal pain. Patient states that her pain began approximately 3-4 days ago, noting the pain has been constant and sharp since then. She states that she is experienced associated nausea, diarrhea, and reports a T-max fever of 101? F at home. Of note, patient states her last menstrual period occurred on 05/02/2021, and she states that she has been taking Clomid for her most recent cycle. Patient denies fever, chills, chest pain, cough, shortness of breath, vomiting, dysuria, hematuria, vaginal discharge, or any other concerning symptoms. No further concerns were voiced at this time. Patient states she has taken Tylenol and ibuprofen at home with no relief in her symptoms. Related Data Home Medications Medication Instructions Recorded Confirmed sertraline 50 mg tablet (Zoloft) 150 mg PO QPM 10/23/17 03/27/18 Tpn 1 ea CONTINUOUS IV INFUSION Q20H 03/27/18 03/27/18 nifedipine 30 mg tablet,extended 30 mg PO DAILY 03/27/18 03/27/18 release 24 hr promethazine 25 mg rectal 25 mg ID Q6H PRN 03/27/18 10/15/20 suppository promethazine 50 mg/mL injection 1 dose IV PRN PRN 03/27/18 03/27/18 solution doxazosin 1 mg tablet 1 mg PO DAILY 12/14/18 12/14/18 ergocalciferol (vitamin D2) 1,250 50,000 unit PO QWEEK 12/14/18 12/14/18 mcg (50,000 unit) capsule lisdexamfetamine 60 mg capsule 60 mg PO DAILY 12/14/18 12/14/18 methylphenidate HCl 36 mg 36 mg PO DAILY 12/14/18 12/14/18 tablet,extended release 24 hr pantoprazole 40 mg tablet,delayed 40 mg PO DAILY 12/14/18 release venlafaxine 150 mg 150 mg PO DAILY 12/14/18 10/15/20 capsule,extended release 24 hr lisdexamfetamine 70 mg capsule 70 mg PO QAM 02/01/19 10/15/20 (Vyvanse) galcanezumab-gnlm 120 mg/mL 120 mg SUBCUT QMONTH 10/15/20 10/15/20 subcutaneous pen injector (Emgality Pen) Previous Rx's Medication Instructions Recorded albuterol sulfate 90 mcg/actuation 2 puff INHALATION Q4-6H PRN #8.5 06/05/19 aerosol inhaler (ProAir HFA) gram hydrocodone 5 mg-acetaminophen 325 1 tab PO Q8H PRN #7 tab 01/17/21 mg tablet Allergies Allergy/AdvReac Type Severity Reaction Status Date / Time cephalexin [CEPHALEXIN] Allergy Unknown Verified 05/27/21 14:39 latex [LATEX] Allergy Unknown Verified 05/27/21 14:39 levofloxacin [From LEVAQUIN] Allergy Unknown Verified 05/27/21 14:39 ondansetron [ONDANSETRON] Allergy Unknown Verified 05/27/21 14:39 oxycodone [From PERCOCET] Allergy Unknown Verified 05/27/21 14:39 Penicillins [PENICILLINS] Allergy Unknown Verified 05/27/21 14:39 vancomycin Allergy Verified 05/27/21 14:39 prochlorperazine AdvReac Severe Anxiety Verified 05/27/21 14:39 [From Compazine] metoclopramide [From Reglan] AdvReac Verified 05/27/21 14:39 Review of Systems <Mu Rodriguez PA-C - Last Filed: 05/27/21 19:56> Constitutional Constitutional: Denies chills, Denies fatigue, Reports fever(s), Denies frequent falls, Denies lethargy and Denies weakness Eyes Eyes: Denies loss of vision ENT Ears, Nose, Mouth, and Throat: Denies dizziness and Denies neck pain Cardiovascular Cardiovascular: Denies chest pain, Denies irregular heart rhythm, Denies lightheadedness, Denies palpitations, Denies dyspnea, Denies dyspnea on exertion and Denies orthopnea Respiratory Respiratory: Denies cough, Denies dyspnea, Denies dyspnea on exertion and Denies wheezing Gastrointestinal Gastrointestinal: Reports abdominal pain, Denies melena, Denies change in bowel habits, Reports diarrhea, Reports nausea, Denies vomiting and Denies hematemesis Genitourinary Genitourinary: Denies hematuria, Denies flank pain, Denies urinary incontinence and Denies urinary urgency Musculoskeletal Musculoskeletal: Denies back pain, Denies muscle weakness, Denies neck pain, Denies numbness and Denies tingling Integumentary/Breasts Skin/Breast: Denies pruritus, Denies erythema, Denies rash and Denies wounds Neurologic Neurologic: Denies behavioral changes, Denies confusion, Denies dizziness, Denies frequent falls, Denies loss of vision, Denies numbness, Denies tingling and Denies weakness Psychiatric Psychiatric: Denies behavioral changes and Denies confusion Endocrine Endocrine: Denies fatigue and Denies palpitations Allergic/Immunologic Allergic/Immunologic: Denies wheezing Patient History <Mu Rodriguez PA-C - Last Filed: 05/27/21 19:56> Medical History ADHD Depression DVT (deep venous thrombosis) Hyperemesis affecting , antepartum Kidney stone Surgical History History of appendectomy Social History household members: spouse and children Smoking Status: Never smoker Smoking Status: Never smoker alcohol intake frequency: holidays/special occasions only Substance Use Type: does not use Exam <Mu Rodriguez PA-C - Last Filed: 05/27/21 19:56> Narrative Exam Narrative: GENERAL: 35 year old patient appears stated age. Well-developed patient, in mild distress. HEAD: Atraumatic. Normocephalic. EYES: Pupils equal round and reactive. Extraocular motions intact. No scleral icterus. No injection or drainage. ENT: Nose without bleeding, purulent drainage. Throat without erythema, t onsillar hypertrophy or exudate. Airway patent. NECK: Trachea midline. Non tender CARDIOVASCULAR: Regular rate and rhythm without murmurs, gallops, or rubs. RESPIRATORY: Clear to auscultation. Breath sounds equal bilaterally. No wheezes, rales, or rhonchi. GASTROINTESTINAL: Abdomen soft, nondistended. Tenderness to palpation noted in the right lower quadrant. No overlying masses noted. Negative psoas sign, negative obturator sign. No rebound tenderness appreciated. EXTREMITIES: No edema or joint tenderness. BACK: Nontender without deformity or crepitance. No flank tenderness. NEURO: AOx3. SKIN: No rash or erythema of visible areas Initial Vital Signs Initial Vital Signs: Vital Signs Temperature 98.1 F 05/27/21 14:33 Pulse Rate 102 H 05/27/21 14:33 Respiratory Rate 05/27/21 14:33 Blood Pressure 160/100 H 05/27/21 14:33 Pulse Oximetry 99 05/27/21 14:33 <Thong Doshi DO - Last Filed: 05/29/21 01:42> Initial Vital Signs Initial Vital Signs: Vital Signs Temperature 98.1 F 05/27/21 14:33 Pulse Rate 102 H 05/27/21 14:33 Respiratory Rate 05/27/21 14:33 Blood Pressure 160/100 H 05/27/21 14:33 Pulse Oximetry 99 05/27/21 14:33 Course <Mu Rodriguez PA-C - Last Filed: 05/27/21 19:56> Course Course Narrative: Urine dip, CBC, CMP, lipase, and right lower quadrant ultrasound obtained. Orders Ordered: Discontinued Medications Hydrocodone Bitart/Acetaminophen (Hydrocodone/Acet 5/325 Tablet) 1 tab PO NOW ONE Stop: 05/27/21 14:57 Last Admin: 05/27/21 15:21 Dose: 1 tab Documented by: NICKI Ketorolac Tromethamine (Ketorolac 30 Mg/Ml Vial) 30 mg IM NOW ONE Stop: 05/27/21 15:25 Last Admin: 05/27/21 15:58 Dose: Not Given Documented by: SONJA Vital Signs Vital signs: Vital Signs - 8 hr 05/27/21 14:33 05/27/21 15:35 05/27/21 15:40 Temperature 98.1 F Pulse Rate 102 H 99 H Respiratory Rate 20 Blood Pressure 160/100 H 156/98 H Pulse Oximetry 99 <Thong Doshi DO - Last Filed: 05/29/21 01:42> Orders Ordered: Discontinued Medications Hydrocodone Bitart/Acetaminophen (Hydrocodone/Acet 5/325 Tablet) 1 tab PO NOW ONE Stop: 05/27/21 14:57 Last Admin: 05/27/21 15:21 Dose: 1 tab Documented by: NICKI Ketorolac Tromethamine (Ketorolac 30 Mg/Ml Vial) 30 mg IM NOW ONE Stop: 05/27/21 15:25 Last Admin: 05/27/21 15:58 Dose: Not Given Documented by: SONJA Vital Signs Vital signs: Vital Signs - 8 hr 05/27/21 14:33 05/27/21 15:35 05/27/21 15:40 Temperature 98.1 F Pulse Rate 102 H 99 H Respiratory Rate 20 Blood Pressure 160/100 H 156/98 H Pulse Oximetry 99 MDM - Abdominal Pain <Mu Rodriguez PA-C - Last Filed: 05/27/21 19:56> Lab Data Result diagrams: 05/27/21 14:54 05/27/21 16:10 Labs: Lab Results 05/27/21 05/27/21 05/27/21 Range/Units 14:54 14:54 16:10 WBC 8.9 (4.5-11.0) X10^3/uL RBC 4.96 (4.0-5.2) X10^6/uL Hgb 14.8 (12.0-16.0) g/dL Hct 42.7 (36-46) % MCV 86.1 (80-100) fL MCH 29.8 (26-34) PG MCHC 34.6 (30-36) % RDW 13.3 (11.6-14.8) % Plt Count 256 (150-400) X10^3/uL Neut % (Auto) 82.7 H (50-75) % Lymph % (Auto) 11.0 L (25-40) % Dewey % (Auto) 5.0 (3-14) % Eos % (Auto) 1.2 L (2-4) % Baso % (Auto) 0.1 (0-2) % Neut # (Auto) 7400 H (5869-8891) /uL Lymph # (Auto) 1000 L (2258-3547) /uL Dewey # (Auto) 400 (0-900) /uL Eos # (Auto) 100 (0-450) /uL Baso # (Auto) 0 (0-100) /uL Sodium 137 (137-145) mmol/L Potassium 3.6 (3.4-5.1) mmol/L Chloride 104 (98-107) mmol/L Carbon Dioxide 25 (22-32) mmol/L BUN 11 (7-17) mg/dL Creatinine 0.45 L (0.52-1.04) mg/dL Estimated GFR > 60.0 (>60) mL/min BUN/Creatinine Ratio 24.4 H (6-22) Glucose 103 H (70-100) mg/dL Calcium 8.9 (8.4-10.2) mg/dL Total Bilirubin 0.8 (0.2-1.3) mg/dL AST 167 H (14-36) IU/L ALT 142 H (<35) IU/L Alkaline Phosphatase 113 (38-126) U/L Total Protein 7.2 (6.3-8.2) g/dL Albumin 4.3 (3.5-5.0) g/dL Globulin 2.9 (1.7-4.1) g/dL Albumin/Globulin Ratio 1.5 (1.0-2.8) Lipase 69 (23-300) U/L SARS-CoV-2 (PCR) Negative (Negative) Point of care testing: Point of Care Testing Test Results Negative Urine Dip Bedside Urine Glucose Negative Bedside Urine Bilirubin - Negative Bedside Urine Ketone +/- 5 Urine Specific Browder 1.020 Bedside Urine Occult Blood - Negative Bedside Urine pH 6.5 Bedside Urine Urobilinogen - Negative Bedside Urine Nitrite - Negative Bedside Urine Leukocytes - Negative Esterase Imaging Data US - Pelvic: Radiologist's Impression: PROCEDURE:? US PELVIC COMPLETE ? INDICATIONS:? RLQ pain ? TECHNIQUE:? Real-time scanning was performed of the pelvic organs, with image documentation.? Additional endovaginal scanning was necessary due to incomplete visualization of the adnexal and endometrial structures by transabdominal scanning.? ? COMPARISON:? [facility], US, PELVIC COMPLETE, 05/04/2017, 15:01. ? FINDINGS:? ?? Uterus:? Uterus is normal in size at 8.2 x 4.1 x 6.4 cm. The endometrium measures 17.6 mm combined thickness.? ? Ovaries:? The right ovary measures 3.5 x 3.5 x 2.9 cm and demonstrates a nonvascular complex cyst within it that measures 3 x 2.1 x 2.2 cm. The left ovary measures 2.1 x 1.6 x 1 cm.? No adnexal masses are seen. ? Other:? No pathologic free abdominal or pelvic fluid. ? ? IMPRESSION:? There is a complex cyst seen of the right ovary, which may represent a hemorrhagic cyst, measuring up to 3 cm. If it would be clinically appropriate, a followup pelvic ultrasound could be considered in 6 weeks to assure resolution/ improvement.? ? Endometrial stripe is mildly thickened at 17.6 mm. ? Note: Concordant preliminary findings given by the weight loss consultant upon the completion of the examination to Lety Rodriguez at 3:44 p.m. on May 27, 2021. ? ? We strive to produce accurate, complete, and clear reports of imaging services. To assist us in improving patient care, this report was composed using standard report templates and voice recognition software. Therefore, it may contain abnormal punctuation, insertions and/or omissions. Occasional wrong-word or sound-alike substitutions may occur. Though we review the report and make efforts to correct it, we do recommend that the report be read carefully in proper context to recognize any text inaccuracies. ? ? Dictated by: Dragan Patel M.D. on 05/27/2021 at 15:27 ? ? Approved by: Dragan Patel M.D. on 05/27/2021 at 15:30 ? <Thong Doshi DO - Last Filed: 05/29/21 01:42> Lab Data Labs: Lab Results 05/27/21 05/27/21 05/27/21 Range/Units 14:54 14:54 16:10 WBC 8.9 (4.5-11.0) X10^3/uL RBC 4.96 (4.0-5.2) X10^6/uL Hgb 14.8 (12.0-16.0) g/dL Hct 42.7 (36-46) % MCV 86.1 (80-100) fL MCH 29.8 (26-34) PG MCHC 34.6 (30-36) % RDW 13.3 (11.6-14.8) % Plt Count 256 (150-400) X10^3/uL Neut % (Auto) 82.7 H (50-75) % Lymph % (Auto) 11.0 L (25-40) % Dewey % (Auto) 5.0 (3-14) % Eos % (Auto) 1.2 L (2-4) % Baso % (Auto) 0.1 (0-2) % Neut # (Auto) 7400 H (9964-5623) /uL Lymph # (Auto) 1000 L (7922-8468) /uL Dewey # (Auto) 400 (0-900) /uL Eos # (Auto) 100 (0-450) /uL Baso # (Auto) 0 (0-100) /uL Sodium 137 (137-145) mmol/L Potassium 3.6 (3.4-5.1) mmol/L Chloride 104 (98-107) mmol/L Carbon Dioxide 25 (22-32) mmol/L BUN 11 (7-17) mg/dL Creatinine 0.45 L (0.52-1.04) mg/dL Estimated GFR > 60.0 (>60) mL/min BUN/Creatinine Ratio 24.4 H (6-22) Glucose 103 H (70-100) mg/dL Calcium 8.9 (8.4-10.2) mg/dL Total Bilirubin 0.8 (0.2-1.3) mg/dL AST 167 H (14-36) IU/L ALT 142 H (<35) IU/L Alkaline Phosphatase 113 (38-126) U/L Total Protein 7.2 (6.3-8.2) g/dL Albumin 4.3 (3.5-5.0) g/dL Globulin 2.9 (1.7-4.1) g/dL Albumin/Globulin Ratio 1.5 (1.0-2.8) Lipase 69 (23-300) U/L SARS-CoV-2 (PCR) Negative (Negative) Point of care testing: Point of Care Testing Test Results Negative Urine Dip Bedside Urine Glucose Negative Bedside Urine Bilirubin - Negative Bedside Urine Ketone +/- 5 Urine Specific Browder 1.020 Bedside Urine Occult Blood - Negative Bedside Urine pH 6.5 Bedside Urine Urobilinogen - Negative Bedside Urine Nitrite - Negative Bedside Urine Leukocytes - Negative Esterase Discharge Plan Departure Patient Disposition: Home Clinical Impression: Complex cyst of right ovary Instructions: DI for Ovarian Cyst Activity Restrictions/Additional Instructions: *You have been diagnosed with complex cyst of right ovary *What to do: *Please continue to take your regular medications as directed. [ ] New medication prescriptions sent to your pharmacy: [ ] [ ] New medication written as a paper prescription [X] No new medications given *Please follow up with your primary care provider in 2-3 days, call for an appointment. Let them know you were seen in the Emergency Department and that we ask that you be seen in follow up. We will electronically transmit a record of today's note if your PCP is in our system. *Please follow-up with your OBGYN within the next 6-8 weeks for repeat ultrasound to monitor progression of the cyst. *If you do not have a primary care provider please contact the [facility] Resource line at [phone]. They will ask some questions about your medical history and help get you set up with a doctor in the community. *Return to Emergency Department if you should have any new, worsening or concerning symptoms, such as fever greater than 101 F, shaking chills, worsening pain, persistent vomiting or other bothersome symptoms. Prescriptions: No Action Vyvanse 70 mg capsule 70 mg PO QAM 0RF Label Comments: TAKE 1 CAPSULE BY MOUTH IN THE MORNING sertraline [Zoloft] 50 mg Tablet 150 mg PO QPM 0RF nifedipine 30 mg tablet extended release 24hr 30 mg PO DAILY 0RF promethazine 25 mg suppository 25 mg ID Q6H PRN (Reason: Nausea And Vomiting) 0RF promethazine 50 mg/mL Solution 1 dose IV PRN PRN (Reason: Nausea And Vomiting) 0RF Tpn 1 ea Continuous IV Infusion Q20H 0RF Label Comments: RUNS 20 HOURS PER DAY doxazosin 1 mg tablet 1 mg PO DAILY 0RF venlafaxine 150 mg capsule,extended release 24hr 150 mg PO DAILY 0RF pantoprazole 40 mg tablet,delayed release (DR/EC) 40 mg PO DAILY 0RF ergocalciferol (vitamin D2) 50,000 unit capsule 50,000 unit PO QWEEK 0RF methylphenidate HCl 36 mg tablet extended release 24hr 36 mg PO DAILY 0RF lisdexamfetamine 60 mg capsule 60 mg PO DAILY 0RF albuterol sulfate [ProAir HFA] 90 mcg/actuation HFA aerosol inhaler 2 puff INHALATION Q4-6H PRN (Reason: shortness of breath or wheezing) Qty: 8.5 0RF Emgality Pen 120 mg/mL Pen Injector 120 mg SUBCUT QMONTH 0RF hydrocodone-acetaminophen 5-325 mg tablet 1 tab PO Q8H PRN (Reason: pain) Qty: 7 0RF Referrals: Lamar Javier DO [Primary Care Provider] - <Thong Doshi DO - Last Filed: 05/29/21 01:42> Cosign ED Attending Saroj Attestation: I was immediately available in the department for consultation. Documentation has been reviewed. I agree with assessment and plan.
--- NOTE | 2021-05-27 15:02 | DI.US.S_ITS ---
PROCEDURE: US PELVIC COMPLETE INDICATIONS: RLQ pain TECHNIQUE: Real-time scanning was performed of the pelvic organs, with image documentation. Additional endovaginal scanning was necessary due to incomplete visualization of the adnexal and endometrial structures by transabdominal scanning. COMPARISON: [facility], , PELVIC COMPLETE, 05/04/2017, 15:01. FINDINGS: Uterus: Uterus is normal in size at 8.2 x 4.1 x 6.4 cm. The endometrium measures 17.6 mm combined thickness. Ovaries: The right ovary measures 3.5 x 3.5 x 2.9 cm and demonstrates a nonvascular complex cyst within it that measures 3 x 2.1 x 2.2 cm. The left ovary measures 2.1 x 1.6 x 1 cm. No adnexal masses are seen. Other: No pathologic free abdominal or pelvic fluid. IMPRESSION: There is a complex cyst seen of the right ovary, which may represent a hemorrhagic cyst, measuring up to 3 cm. If it would be clinically appropriate, a followup pelvic ultrasound could be considered in 6 weeks to assure resolution/ improvement. Endometrial stripe is mildly thickened at 17.6 mm. Note: Concordant preliminary findings given by the machinery mover upon the completion of the examination to Lety Rodriguez at 3:44 p.m. on May 27, 2021. We strive to produce accurate, complete, and clear reports of imaging services. To assist us in improving patient care, this report was composed using standard report templates and voice recognition software. Therefore, it may contain abnormal punctuation, insertions and/or omissions. Occasional wrong-word or sound-alike substitutions may occur. Though we review the report and make efforts to correct it, we do recommend that the report be read carefully in proper context to recognize any text inaccuracies. Dictated by: Dragan Patel M.D. on 05/27/2021 at 15:27 Approved by: Dragan Patel M.D. on 05/27/2021 at 15:30
[2021-05-27] MEDS: HYDROCODONE/ACET 5/325 TABLET 1 TAB PO (15:21)
[2021-05-27 15:35] VITALS: BP 156/98
[2021-05-27 15:40] VITALS: PULSE 99
[2021-05-27 16:02] LABS: COVID19 -Nasal RAPID Negative (Negative)
[2021-05-27 16:04] LABS: Add Manual Diff / Slide Review NO; Basophils Absolute Auto 0 /uL (0-100); Basophils Percent Auto 0.1 % (0-2); Eosinophils Absolute Auto 100 /uL (0-450); Eosinophils Percent Auto 1.2 % (2-4); Hematocrit 42.7 % (36-46); Hemoglobin 14.8 g/dL (12.0-16.0); Lymphocytes Absolute Auto 1000 /uL (1100-4500); Mean Corpuscular HGB Conc 34.6 % (30-36); Mean Corpuscular Hemoglobin 29.8 PG (26-34); Mean Corpuscular Volume 86.1 fL (80-100); Monocytes Absolute Auto 400 /uL (0-900); Neutrophils Absolute Auto 7400 /uL (1500-7000); Neutrophils Percent Auto 82.7 % (50-75); Platelet Count 256 X10^3/uL (150-400); Red Blood Cell Count 4.96 X10^6/uL (4.0-5.2); Red Cell Distribution Width 13.3 % (11.6-14.8); White Blood Cell Count 8.9 X10^3/uL (4.5-11.0)
[2021-05-27 16:47] LABS: Alanine Aminotransferase 142 IU/L (<35); Albumin 4.3 g/dL (3.5-5.0); Albumin Globulin Ratio 1.5 (1.0-2.8); Alkaline Phosphatase 113 U/L (38-126); Aspartate Aminotransferase 167 IU/L (14-36); BUN Creatinine Ratio 24.4 (6-22); Bilirubin Total 0.8 mg/dL (0.2-1.3); Blood Urea Nitrogen 11 mg/dL (7-17); Calcium 8.9 mg/dL (8.4-10.2); Carbon Dioxide 25 mmol/L (22-32); Chloride 104 mmol/L (98-107); Estimated Glomerular Filt Rate > 60.0 mL/min (>60); Globulin 2.9 g/dL (1.7-4.1); Glucose 103 mg/dL (70-100); HEMOLYSIS < 15 (0-50); Lipase 69 U/L (23-300); Potassium 3.6 mmol/L (3.4-5.1); Sodium 137 mmol/L (137-145); Total Protein 7.2 g/dL (6.3-8.2)
== END 2021-05-27 17:17 | disposition home or self-care (01) ==
PROVIDERS: Emergency Medicine; Emergency Provider Physician Assistant; PCP Family Medicine
DX: N83.201 Unspecified ovarian cyst, right side (principal); Z88.5 Allergy status to narcotic agent; Z20.822 Contact with and (suspected) exposure to COVID-19
CPT/HCPCS: 36415; 76830; 76856; 80053; 81003; 81025; 83690; 85025; 87635; 96372; 99284; C9803

== ENCOUNTER 2021-07-20 12:29 | Emergency (ER) | payer OTHER, SELFPAY ==
[2020-10-15 21:40] VITALS: BMI 35.5
[2021-07-20 12:35] VITALS: BP 139/88; PULSE 99; RESP 18; TEMP 36.5; O2SAT 96; BMI 37.8
--- NOTE | 2021-07-20 12:39 | DI.US.S_ITS ---
PROCEDURE: US OB <= 14 WEEKS FETUS INDICATIONS: SPOTTING WITH PAIN OUTSIDE/PRIOR DATING DATA: Last menstrual period (LMP): 05/30/2021. LMP-based estimated date of delivery (BEST): 03/06/2022. First dating scan (date and location): 07/20/2021. Estimated date of delivery (BEST) from first dating scan: 03/07/2022. TECHNIQUE: Real-time scanning was performed of the fetus and maternal pelvic organs, with image documentation. Endovaginal scanning was also performed to better visualize the fetus and maternal ovaries. COMPARISON: None. FINDINGS: Embryo: [place]-rump length measures 1.1 cm corresponding to 7 weeks 1 day. Heart rate is measured at 132 beats per minute. 0.8 x 0.4 x 1.9 cm subchorionic hemorrhage is noted. Maternal organs: Ovaries are not visualized. IMPRESSION: Single live intrauterine is identified with ultrasound gestational age of 7 weeks 1 day. Small subchorionic hemorrhage. We strive to produce accurate, complete, and clear reports of imaging services. To assist us in improving patient care, this report was composed using standard report templates and voice recognition software. Therefore, it may contain abnormal punctuation, insertions and/or omissions. Occasional wrong-word or sound-alike substitutions may occur. Though we review the report and make efforts to correct it, we do recommend that the report be read carefully in proper context to recognize any text inaccuracies. Dictated by: Jesica Hernandez M.D. on 07/20/2021 at 13:34 Approved by: Jesica Hernandez M.D. on 07/20/2021 at 13:36
[2021-07-20 14:55] LABS: Add Manual Diff / Slide Review NO; Basophils Absolute Auto 100 /uL (0-100); Basophils Percent Auto 1.2 % (0-2); Eosinophils Absolute Auto 100 /uL (0-450); Eosinophils Percent Auto 1.7 % (2-4); Hematocrit 39.5 % (36-46); Hemoglobin 13.9 g/dL (12.0-16.0); Lymphocytes Absolute Auto 2700 /uL (1100-4500); Lymphocytes Percent Auto 34.6 % (25-40); Mean Corpuscular HGB Conc 35.1 % (30-36); Mean Corpuscular Hemoglobin 30.8 PG (26-34); Mean Corpuscular Volume 87.7 fL (80-100); Monocytes Absolute Auto 600 /uL (0-900); Monocytes Percent Auto 7.2 % (3-14); Neutrophils Absolute Auto 4400 /uL (1500-7000); Neutrophils Percent Auto 55.3 % (50-75); Platelet Count 258 X10^3/uL (150-400); Red Cell Distribution Width 13.4 % (11.6-14.8); White Blood Cell Count 7.9 X10^3/uL (4.5-11.0)
--- NOTE | 2021-07-20 14:58 | ED.PREGNANCY ---
HPI - <Filipe Schneider PA-C - Last Filed: 07/20/21 15:22> General Chief complaint: Vaginal Bleeding Stated complaint: 7 WKS BLEEDING Time Seen by Provider: 07/20/21 14:38 Source: patient Mode of arrival: Ambulatory Limitations: no limitations History of Present Illness HPI Narrative: Patient presents to the ED complaining of lower abdominal pain that radiates on the right side she was concerned that she may be having a threatened . She noticed she was having some vaginal spotting that started yesterday. She has her 1st appointment established with her OBGYN on August 10. No reported recent trauma or fall no new medications reported. Related Data Home Medications Medication Instructions Recorded Confirmed sertraline 50 mg tablet (Zoloft) 150 mg PO QPM 10/23/17 03/27/18 Tpn 1 ea CONTINUOUS IV INFUSION Q20H 03/27/18 03/27/18 nifedipine 30 mg tablet,extended 30 mg PO DAILY 03/27/18 03/27/18 release 24 hr promethazine 25 mg rectal 25 mg NV Q6H PRN 03/27/18 10/15/20 suppository promethazine 50 mg/mL injection 1 dose IV PRN PRN 03/27/18 03/27/18 solution doxazosin 1 mg tablet 1 mg PO DAILY 12/14/18 12/14/18 ergocalciferol (vitamin D2) 1,250 50,000 unit PO QWEEK 12/14/18 12/14/18 mcg (50,000 unit) capsule lisdexamfetamine 60 mg capsule 60 mg PO DAILY 12/14/18 12/14/18 methylphenidate HCl 36 mg 36 mg PO DAILY 12/14/18 12/14/18 tablet,extended release 24 hr pantoprazole 40 mg tablet,delayed 40 mg PO DAILY 12/14/18 release venlafaxine 150 mg 150 mg PO DAILY 12/14/18 10/15/20 capsule,extended release 24 hr lisdexamfetamine 70 mg capsule 70 mg PO QAM 02/01/19 10/15/20 (Vyvanse) galcanezumab-gnlm 120 mg/mL 120 mg SUBCUT QMONTH 10/15/20 10/15/20 subcutaneous pen injector (Emgality Pen) Previous Rx's Medication Instructions Recorded albuterol sulfate 90 mcg/actuation 2 puff INHALATION Q4-6H PRN #8.5 06/05/19 aerosol inhaler (ProAir HFA) gram hydrocodone 5 mg-acetaminophen 325 1 tab PO Q8H PRN #7 tab 01/17/21 mg tablet Allergies Allergy/AdvReac Type Severity Reaction Status Date / Time cephalexin [CEPHALEXIN] Allergy Unknown Verified 07/20/21 12:39 latex [LATEX] Allergy Unknown Verified 07/20/21 12:39 levofloxacin [From LEVAQUIN] Allergy Unknown Verified 07/20/21 12:39 ondansetron [ONDANSETRON] Allergy Unknown Verified 07/20/21 12:39 oxycodone [From PERCOCET] Allergy Unknown Verified 07/20/21 12:39 Penicillins [PENICILLINS] Allergy Unknown Verified 07/20/21 12:39 vancomycin Allergy Verified 07/20/21 12:39 prochlorperazine AdvReac Severe Anxiety Verified 07/20/21 12:39 [From Compazine] metoclopramide [From Reglan] AdvReac Verified 07/20/21 12:39 Review of Systems <Filipe Schneider PA-C - Last Filed: 07/20/21 15:22> Review of Systems ROS Unobtainable: All systems reviewed & are unremarkable except as noted in HPI and below Constitutional Constitutional: Denies chills, Denies fatigue, Denies fever(s), Denies frequent falls, Denies lethargy and Denies weakness Eyes Eyes: Denies change in vision, Denies eye discharge, Denies irritation and Denies loss of vision ENT Ears, Nose, Mouth, and Throat: Denies change in voice, Denies dizziness, Denies neck pain, Denies sore throat and Denies throat swelling Cardiovascular Cardiovascular: Denies chest pain, Denies irregular heart rhythm, Denies lightheadedness, Denies palpitations, Denies dyspnea, Denies dyspnea on exertion and Denies orthopnea Respiratory Respiratory: Denies cough, Denies dyspnea, Denies dyspnea on exertion and Denies wheezing Gastrointestinal Gastrointestinal: Reports abdominal pain, Denies change in bowel habits, Denies diarrhea, Denies nausea and Denies vomiting Genitourinary Genitourinary: Reports abnormal vaginal bleeding, Denies hematuria, Denies flank pain, Denies urinary incontinence and Denies urinary urgency Musculoskeletal Musculoskeletal: Denies back pain, Denies muscle weakness, Denies neck pain, Denies numbness and Denies tingling Integumentary/Breasts Skin/Breast: Denies pruritus, Denies erythema, Denies rash and Denies wounds Neurologic Neurologic: Denies behavioral changes, Denies confusion, Denies dizziness, Denies frequent falls, Denies loss of vision, Denies numbness, Denies tingling and Denies weakness Psychiatric Psychiatric: Denies anxiety, Denies behavioral changes, Denies confusion, Denies depression, Denies homicidal ideation and Denies suicidal ideation Endocrine Endocrine: Denies fatigue, Denies flushing and Denies palpitations Hematologic/Lymphatic Hematologic/Lymphatic: Denies easy bruising Allergic/Immunologic Allergic/Immunologic: Denies urticaria, Denies throat swelling and Denies wheezing Exam <Filipe Schneider PA-C - Last Filed: 07/20/21 15:22> Initial Vital Signs Initial Vital Signs: Vital Signs Temperature 97.7 F 07/20/21 12:35 Pulse Rate 99 H 07/20/21 12:35 Respiratory Rate 18 07/20/21 12:35 Blood Pressure 139/88 07/20/21 12:35 Pulse Oximetry 96 07/20/21 12:35 Const General: cooperative, healthy appearing, comfortable and well developed Nutritional Appearance: average body habitus Orientation: Orientation [facility] Head: normal to inspection, normocephalic and atraumatic Ears: hearing grossly normal bilaterally, external ears normal and TM's normal bilaterally Nose: external nose normal Face and sinus: normal facial exam and sinuses nontender Eyes Pupils: PERRL Resp Effort & Inspection: normal respiratory effort and able to speak in complete sentences Auscultation: clear to auscultation bilaterally Cardio Rhythm: regular rhythm Heart Sounds: S1 normal and S2 normal GI Inspection: normal to inspection Palpation: soft and no hepatosplenomegaly Percussion: normal to percussion Auscultation: normal bowel sounds <Mindy Hobson DO - Last Filed: 07/21/21 10:17> Initial Vital Signs Initial Vital Signs: Vital Signs Temperature 97.7 F 07/20/21 12:35 Pulse Rate 99 H 07/20/21 12:35 Respiratory Rate 18 07/20/21 12:35 Blood Pressure 139/88 07/20/21 12:35 Pulse Oximetry 96 07/20/21 12:35 Course <Filipe Schneider PA-C - Last Filed: 07/20/21 15:22> Orders Ordered: ED Orders 07/20/21 12:39 US OB <= 14 weeks fetus Stat 07/20/21 14:45 ABO RH Type Stat Complete Blood Count AUTO DIFF Stat Comprehensive Metabolic Panel Stat HCG Quantitative /Beta subunit Stat Vital Signs Vital signs: Vital Signs - 8 hr 07/20/21 12:35 Temperature 97.7 F Pulse Rate 99 H Respiratory Rate 18 Blood Pressure 139/88 Pulse Oximetry 96 <Mindy Hobson DO - Last Filed: 07/21/21 10:17> Orders Ordered: ED Orders 07/20/21 12:39 US OB <= 14 weeks fetus Stat 07/20/21 14:45 ABO RH Type Stat Complete Blood Count AUTO DIFF Stat Comprehensive Metabolic Panel Stat HCG Quantitative /Beta subunit Stat Vital Signs Vital signs: Vital Signs - 8 hr 07/20/21 12:35 Temperature 97.7 F Pulse Rate 99 H Respiratory Rate 18 Blood Pressure 139/88 Pulse Oximetry 96 MDM - OB/Uterine Contractions <Filipe Schneider PA-C - Last Filed: 07/20/21 15:22> Differential Diagnosis Differential diagnosis: Likely other Lab Data Result diagrams: 07/20/21 14:45 07/20/21 14:45 Labs: Lab Results 07/20/21 07/20/21 07/20/21 Range/Units 14:45 14:45 14:45 WBC 7.9 (4.5-11.0) X10^3/uL RBC 4.50 (4.0-5.2) X10^6/uL Hgb 13.9 (12.0-16.0) g/dL Hct 39.5 (36-46) % MCV 87.7 (80-100) fL MCH 30.8 (26-34) PG MCHC 35.1 (30-36) % RDW 13.4 (11.6-14.8) % Plt Count 258 (150-400) X10^3/uL Neut % (Auto) 55.3 (50-75) % Lymph % (Auto) 34.6 (25-40) % Harris % (Auto) 7.2 (3-14) % Eos % (Auto) 1.7 L (2-4) % Baso % (Auto) 1.2 (0-2) % Neut # (Auto) 4400 (1820-1903) /uL Lymph # (Auto) 2700 (3427-9220) /uL Harris # (Auto) 600 (0-900) /uL Eos # (Auto) 100 (0-450) /uL Baso # (Auto) 100 (0-100) /uL Sodium 136 L (137-145) mmol/L Potassium 3.9 (3.4-5.1) mmol/L Chloride 105 (98-107) mmol/L Carbon Dioxide 25 (22-32) mmol/L BUN 9 (7-17) mg/dL Creatinine 0.47 L (0.52-1.04) mg/dL Estimated GFR > 60.0 (>60) mL/min BUN/Creatinine Ratio 19.1 (6-22) Glucose 101 H (70-100) mg/dL Calcium 9.2 (8.4-10.2) mg/dL Total Bilirubin 0.2 (0.2-1.3) mg/dL AST 115 H (14-36) IU/L ALT 107 H (<35) IU/L Alkaline Phosphatase 88 (38-126) U/L Total Protein 7.1 (6.3-8.2) g/dL Albumin 4.2 (3.5-5.0) g/dL Globulin 2.9 (1.7-4.1) g/dL Albumin/Globulin Ratio 1.4 (1.0-2.8) HCG, Quant 35151 mIU/mL Blood Type O Positive Imaging Data US - abdomen: Radiologist's Impression: PROCEDURE:? US OB <= 14 WEEKS FETUS ? INDICATIONS:? SPOTTING WITH PAIN ? OUTSIDE/PRIOR DATING DATA:? Last menstrual period (LMP):? 05/30/2021.? LMP-based estimated date of delivery (BEST):? 03/06/2022.? First dating scan (date and location):? 07/20/2021.? Estimated date of delivery (BEST) from first dating scan:? 03/07/2022. ? TECHNIQUE:? Real-time scanning was performed of the fetus and maternal pelvic organs, with image documentation.? Endovaginal scanning was also performed to better visualize the fetus and maternal ovaries.? ? COMPARISON:? None. ? FINDINGS:? ? Embryo:? [place]-rump length measures 1.1 cm corresponding to 7 weeks 1 day.? Heart rate is measured at 132 beats per minute.? 0.8 x 0.4 x 1.9 cm subchorionic hemorrhage is noted. Maternal organs:? Ovaries are not visualized. ? ? ? IMPRESSION:? ? Single live intrauterine is identified with ultrasound gestational age of 7 weeks 1 day. ? Small subchorionic hemorrhage. ? We strive to produce accurate, complete, and clear reports of imaging services. To assist us in improving patient care, this report was composed using standard report templates and voice recognition software. Therefore, it may contain abnormal punctuation, insertions and/or omissions. Occasional wrong-word or sound-alike substitutions may occur. Though we review the report and make efforts to correct it, we do recommend that the report be read carefully in proper context to recognize any text inaccuracies. ? Dictated by: Jesica Hernandez M.D. on 07/20/2021 at 13:34 ? ? Approved by: Jesica Hernandez M.D. on 07/20/2021 at 13:36?? MDM Narrative Medical decision making narrative: Patient was evaluated today for lower abdominal pain with some vaginal spotting. Abdominal ultrasound shows a normal uterine corresponding with 7 weeks and 1 day with a heart rate measured at 132 beats per minute. It showed evidence of a subchorionic hemorrhage which is likely the cause of her vaginal spotting. She has an appointment with her Ob in 2 weeks and will be discharged home. I spoke to her to return to the ED if her bleeding worsens or her pain worsens otherwise continue that follow-up appointment with her OBGYN. <Mindy Hobson, - Last Filed: 07/21/21 10:17> Lab Data Labs: Lab Results 07/20/21 07/20/21 07/20/21 Range/Units 14:45 14:45 14:45 WBC 7.9 (4.5-11.0) X10^3/uL RBC 4.50 (4.0-5.2) X10^6/uL Hgb 13.9 (12.0-16.0) g/dL Hct 39.5 (36-46) % MCV 87.7 (80-100) fL MCH 30.8 (26-34) PG MCHC 35.1 (30-36) % RDW 13.4 (11.6-14.8) % Plt Count 258 (150-400) X10^3/uL Neut % (Auto) 55.3 (50-75) % Lymph % (Auto) 34.6 (25-40) % Harris % (Auto) 7.2 (3-14) % Eos % (Auto) 1.7 L (2-4) % Baso % (Auto) 1.2 (0-2) % Neut # (Auto) 4400 (0508-7404) /uL Lymph # (Auto) 2700 (3727-3000) /uL Harris # (Auto) 600 (0-900) /uL Eos # (Auto) 100 (0-450) /uL Baso # (Auto) 100 (0-100) /uL Sodium 136 L (137-145) mmol/L Potassium 3.9 (3.4-5.1) mmol/L Chloride 105 (98-107) mmol/L Carbon Dioxide 25 (22-32) mmol/L BUN 9 (7-17) mg/dL Creatinine 0.47 L (0.52-1.04) mg/dL Estimated GFR > 60.0 (>60) mL/min BUN/Creatinine Ratio 19.1 (6-22) Glucose 101 H (70-100) mg/dL Calcium 9.2 (8.4-10.2) mg/dL Total Bilirubin 0.2 (0.2-1.3) mg/dL AST 115 H (14-36) IU/L ALT 107 H (<35) IU/L Alkaline Phosphatase 88 (38-126) U/L Total Protein 7.1 (6.3-8.2) g/dL Albumin 4.2 (3.5-5.0) g/dL Globulin 2.9 (1.7-4.1) g/dL Albumin/Globulin Ratio 1.4 (1.0-2.8) HCG, Quant 88799 mIU/mL Blood Type O Positive Discharge Plan Departure Patient Disposition: Home Clinical Impression: Vaginal bleeding during , Instructions: DI for Vaginal Bleeding During Activity Restrictions/Additional Instructions: Make sure you drink plenty of fluids and monitor the progress of your vaginal bleeding. If you notice that it increases or worsens or your abdominal pain gets worse then you can return to the emergency room for re-evaluation. Otherwise follow-up with your OBGYN for any further concerns. Prescriptions: No Action Vyvanse 70 mg capsule 70 mg PO QAM 0RF Label Comments: TAKE 1 CAPSULE BY MOUTH IN THE MORNING sertraline [Zoloft] 50 mg Tablet 150 mg PO QPM 0RF nifedipine 30 mg tablet extended release 24hr 30 mg PO DAILY 0RF promethazine 25 mg suppository 25 mg NV Q6H PRN (Reason: Nausea And Vomiting) 0RF promethazine 50 mg/mL Solution 1 dose IV PRN PRN (Reason: Nausea And Vomiting) 0RF Tpn 1 ea Continuous IV Infusion Q20H 0RF Label Comments: RUNS 20 HOURS PER DAY doxazosin 1 mg tablet 1 mg PO DAILY 0RF venlafaxine 150 mg capsule,extended release 24hr 150 mg PO DAILY 0RF pantoprazole 40 mg tablet,delayed release (DR/EC) 40 mg PO DAILY 0RF ergocalciferol (vitamin D2) 50,000 unit capsule 50,000 unit PO QWEEK 0RF methylphenidate HCl 36 mg tablet extended release 24hr 36 mg PO DAILY 0RF lisdexamfetamine 60 mg capsule 60 mg PO DAILY 0RF albuterol sulfate [ProAir HFA] 90 mcg/actuation HFA aerosol inhaler 2 puff INHALATION Q4-6H PRN (Reason: shortness of breath or wheezing) Qty: 8.5 0RF Emgality Pen 120 mg/mL Pen Injector 120 mg SUBCUT QMONTH 0RF hydrocodone-acetaminophen 5-325 mg tablet 1 tab PO Q8H PRN (Reason: pain) Qty: 7 0RF Referrals: Lamar Javier DO [Primary Care Provider] - <Mindy Hobson DO - Last Filed: 07/21/21 10:17> Cosign ED Attending Meaganature Attestation: I was immediately available in the department for consultation. Documentation has been reviewed. I agree with assessment and plan.
[2021-07-20 15:09] LABS: Alanine Aminotransferase 107 IU/L (<35); Albumin 4.2 g/dL (3.5-5.0); Albumin Globulin Ratio 1.4 (1.0-2.8); Alkaline Phosphatase 88 U/L (38-126); Aspartate Aminotransferase 115 IU/L (14-36); BUN Creatinine Ratio 19.1 (6-22); Bilirubin Total 0.2 mg/dL (0.2-1.3); Blood Urea Nitrogen 9 mg/dL (7-17); Calcium 9.2 mg/dL (8.4-10.2); Carbon Dioxide 25 mmol/L (22-32); Chloride 105 mmol/L (98-107); Estimated Glomerular Filt Rate > 60.0 mL/min (>60); Globulin 2.9 g/dL (1.7-4.1); Glucose 101 mg/dL (70-100); HEMOLYSIS < 15 (0-50); Potassium 3.9 mmol/L (3.4-5.1); Sodium 136 mmol/L (137-145); Total Protein 7.1 g/dL (6.3-8.2)
[2021-07-20 15:32] VITALS: BP 131/78; PULSE 81; RESP 16; O2SAT 98
[2021-07-20 15:50] LABS: HCG Quantitative /Beta subunit 33693 mIU/mL
== END 2021-07-20 15:34 | disposition home or self-care (01) ==
PROVIDERS: Emergency Medicine; Emergency Provider Physician Assistant; PCP Family Medicine
DX: O20.9 Hemorrhage in early pregnancy, unspecified (principal); Z3A.01 Less than 8 weeks gestation of pregnancy
CPT/HCPCS: 76801; 76817; 80053; 84702; 85025; 86900; 86901; 99283; 99284

== ENCOUNTER 2021-10-31 20:19 | Emergency (ER) | payer OTHER, SELFPAY ==
[2020-10-15 21:40] VITALS: BMI 35.5
[2021-10-31 20:32] VITALS: BP 122/75; PULSE 83; RESP 16; TEMP 36.4; O2SAT 96; BMI 37.8
--- NOTE | 2021-10-31 23:57 | DI.RAD.S_ITS ---
PROCEDURE: XR CHEST 1V INDICATIONS: SOB, COVID TECHNIQUE: One view of the chest was acquired. COMPARISON: [facility], CR, XR CHEST 1V, 11/19/2019, 20:21. FINDINGS: Surgical changes and devices: None. Lungs and pleura: There are patchy bibasilar opacities with areas of confluence in the medial retrocardiac regions. No pleural effusions or pneumothorax. Mediastinum: Mediastinal contours appear normal. Heart size is normal. Bones and chest wall: No suspicious bony lesions. Overlying soft tissues appear unremarkable. IMPRESSION: 1. Bibasilar medial retrocardiac opacities suggestive of consolidation and pneumonia given clinical history. The differential includes atelectasis. Dictated by: Edward Tavera M.D. on 11/01/2021 at 1:45 Approved by: Edward Tavera M.D. on 11/01/2021 at 1:47
[2021-11-01 02:13] VITALS: BP 121/69; PULSE 80; RESP 24; O2SAT 97
--- NOTE | 2021-11-01 05:44 | ED_ITS ---
HPI - URI/Sore Throat General Chief Complaint: Upper Respiratory Symptoms Stated Complaint: covid+ 10/29 trouble breathing Time Seen by Provider: 10/31/21 22:40 Source: patient Mode of arrival: Ambulatory History of Present Illness HPI Narrative: 35-year-old female nonsmoker without significant medical history presents for evaluation of ongoing upper respiratory symptoms including nasal congestion, runny nose and sore throat as well as cough which is now started producing yellowish green sputum.? She is nauseated but denies any vomiting.? She denies any diarrhea or constipation as well as dysuria, frequency or urgency.? Her daughter had relatively similar symptoms last week and was diagnosed with COVID on , the patient tested on Monday and became positive. Related Data Home Medications Medication Instructions Recorded Confirmed sertraline 50 mg tablet (Zoloft) 150 mg PO QPM 10/23/17 03/27/18 Tpn 1 ea continuous IV infusion Q20H 03/27/18 03/27/18 nifedipine 30 mg tablet,extended 30 mg PO DAILY 03/27/18 03/27/18 release 24 hr promethazine 25 mg rectal 25 mg NC Q6H PRN Nausea And 03/27/18 10/15/20 suppository Vomiting promethazine 50 mg/mL injection 1 dose IV PRN PRN Nausea And 03/27/18 03/27/18 solution Vomiting doxazosin 1 mg tablet 1 mg PO DAILY 12/14/18 12/14/18 ergocalciferol (vitamin D2) 1,250 50,000 unit PO QWEEK 12/14/18 12/14/18 mcg (50,000 unit) capsule lisdexamfetamine 60 mg capsule 60 mg PO DAILY 12/14/18 12/14/18 methylphenidate HCl 36 mg 36 mg PO DAILY 12/14/18 12/14/18 tablet,extended release 24 hr pantoprazole 40 mg tablet,delayed 40 mg PO DAILY 12/14/18 release venlafaxine 150 mg 150 mg PO DAILY 12/14/18 10/15/20 capsule,extended release 24 hr lisdexamfetamine 70 mg capsule 70 mg PO QAM 02/01/19 10/15/20 (Vyvanse) galcanezumab-gnlm 120 mg/mL 120 mg SUBCUT QMONTH 10/15/20 10/15/20 subcutaneous pen injector (Emgality Pen) Previous Rx's Medication Instructions Recorded albuterol sulfate 90 mcg/actuation 2 puff inhalation Q4-6H PRN 06/05/19 aerosol inhaler (ProAir HFA) shortness of breath or wheezing #8.5 grams hydrocodone 5 mg-acetaminophen 325 1 tab PO Q8H PRN pain #7 tabs 01/17/21 mg tablet Allergies Allergy/AdvReac Type Severity Reaction Status Date / Time cephalexin [CEPHALEXIN] Allergy Unknown Verified 07/20/21 12:39 latex [LATEX] Allergy Unknown Verified 07/20/21 12:39 levofloxacin [From LEVAQUIN] Allergy Unknown Verified 07/20/21 12:39 ondansetron [ONDANSETRON] Allergy Unknown Verified 07/20/21 12:39 oxycodone [From PERCOCET] Allergy Unknown Verified 07/20/21 12:39 Penicillins [PENICILLINS] Allergy Unknown Verified 07/20/21 12:39 vancomycin Allergy Verified 07/20/21 12:39 prochlorperazine AdvReac Severe Anxiety Verified 07/20/21 12:39 [From Compazine] metoclopramide [From Reglan] AdvReac Verified 07/20/21 12:39 Review of Systems Review of Systems Narrative: GENERAL see HPI HEENT see HPI RESPIRATORY: ?See HPI CARDIOVASCULAR: Denies chest pain, palpitations, orthopnea, edema, GASTROINTESTINAL: Denies nausea, vomiting, abdominal pain, diarrhea, constipation, melena. : Denies dysuria, frequency, incontinence, hematuria, urinary retention. MUSCULOSKELETAL: denies weakness, joint pain, or bony pain SKIN: Denies rash, skin lesions, or other NEUROLOGIC: Denies weakness, headache, numbness, change in speech, confusion, s eizures, incoordination. PSYCHIATRIC: No concerning psychosocial issues. 12 point review of systems is negative except for those stated above Patient History Medical History ADHD Depression DVT (deep venous thrombosis) Hyperemesis affecting , antepartum Kidney stone Surgical History History of appendectomy Social History household members: spouse and children Smoking Status: Never smoker Smoking Status: Never smoker alcohol intake frequency: holidays/special occasions only Substance Use Type: does not use Exam Narrative Exam Narrative: GENERAL: [35] year old patient appears stated age. Well-developed patient, in mild distress. HEAD: Atraumatic. Normocephalic. EYES: Pupils equal round and reactive. Extraocular motions intact. No scleral icterus. No injection or drainage. ENT: Nose without bleeding, purulent drainage. Throat without erythema, tonsillar hypertrophy or exudate. Airway patent. NECK: Trachea midline. Non tender CARDIOVASCULAR: Regular rate and rhythm without murmurs, gallops, or rubs. RESPIRATORY: ?Faint crackles bilateral bases GASTROINTESTINAL: Abdomen soft, non-tender, nondistended. EXTREMITIES: No edema or joint tenderness. BACK: Nontender without deformity or crepitance. No flank tenderness. NEURO: AOx3. SKIN: No rash or erythema of visible areas Initial Vital Signs Initial Vital Signs: Vital Signs Temperature 97.5 F L 10/31/21 20:32 Pulse Rate 83 10/31/21 20:32 Respiratory Rate 16 10/31/21 20:32 Blood Pressure 122/75 10/31/21 20:32 Pulse Oximetry 96 10/31/21 20:32 Oxygen Delivery Method 10/31/21 20:32 Course Orders Ordered: ED Orders 10/31/21 23:57 Chest [XR chest 1V] Stat Vital Signs Vital signs: Vital Signs - 8 hr 11/01/21 02:13 Pulse Rate 80 Respiratory Rate 24 Blood Pressure 121/69 Pulse Oximetry 97 Oxygen Delivery Method Room Air MDM - URI/Sore Throat Lab Data Labs: Urine Dip Bedside Urine Glucose Negative Bedside Urine Bilirubin - Negative Bedside Urine Ketone - Negative Urine Specific [place] 1.010 Bedside Urine Occult Blood - Negative Bedside Urine pH 6.0 Bedside Urine Protein - Negative Bedside Urine Urobilinogen - Negative Bedside Urine Nitrite - Negative Bedside Urine Leukocytes - Negative Esterase Imaging Data Chest x-ray: Radiologist's Impression: Katt Martin??35??F??1985 ? Allergy/Adv: cephalexin, latex, levofloxacin, ondansetron, oxycodone, Penicillins, vancomycin, prochlorperazine, metoclopramide (More??) Close Chest X-Ray (Signed) Edward Tavera - 10/31/21 Ultrasound (Signed) Jesica Hernandez - 07/20/21 Pelvis Ultrasound (Signed) Dragan Patel - 05/27/21 Lumbar Spine MRI (Signed) Richie Danielsence - 02/15/21 Telemetry Strips 10/15/[address] (Signed) Boone Hitchcock - 10/15/[address] (Signed) Boone Hitchcock - 10/15/[address] (Signed) Boone Hitchcock - 10/15/20 Abdomen/Pelvis CT (Signed) José Miguel Marsh - 05/29/20 Chest X-Ray (Signed) Boone Hitchcock - 11/19/19 Hand X-Ray (Signed) Shon Wooten - 07/11/19 Chest X-Ray (Signed) Shon Wooten - 06/05/19 Wrist X-Ray (Signed) Shon Wooten - 12/14/18 Chest X-Ray (Signed) Dragan Patel - 12/03/18 Wrist MRI (Signed) Hilario Peng - 10/26/18 Ultrasound (Signed) Alexandra Valente - 10/23/17 [place] [address] XRay Report Signed Patient: Katt Martin MR#: [id number] : 1985 Acct:[id number] Age/Sex: 35 / F Date of Service: 10/31/21 Loc: Accession Number: [id number] ?? Procedure: XR chest 1V Ordering Provider: Thong Doshi D.O. PROCEDURE:? XR CHEST 1V ? INDICATIONS:? SOB, COVID ? TECHNIQUE:? One view of the chest was acquired.? ? COMPARISON:? [facility], CR, XR CHEST 1V, 11/19/2019, 20:21. ? FINDINGS:? ? Surgical changes and devices:? None.? ? Lungs and pleura:? There are patchy bibasilar opacities with areas of confluence in the medial retrocardiac regions.? No pleural effusions or pneumothorax.? ? Mediastinum:? Mediastinal contours appear normal.? Heart size is normal.? ? Bones and chest wall:? No suspicious bony lesions.? Overlying soft tissues appear unremarkable.? ? IMPRESSION:? ? 1. Bibasilar medial retrocardiac opacities suggestive of consolidation and pneumonia given clinical history.? The differential includes atelectasis. ? ? Dictated by: Edward Tavera M.D. on 11/01/2021 at 1:45 ? ? Approved by: Edward Tavera M.D. on 11/01/2021 at 1:47? MDM Narrative Medical decision making narrative: 35-year-old female with known COVID has worsening respiratory symptoms with subjective fever and sputum production. Chest x-ray obtained which notes infiltrate, patient given antibiotics, return precautions discussed and questions answered to her apparent satisfaction Discharge Plan Departure Patient Disposition: Home Clinical Impression: Pneumonia Prescriptions: No Action Vyvanse 70 mg capsule 70 mg PO QAM Label Comments: TAKE 1 CAPSULE BY MOUTH IN THE MORNING sertraline [Zoloft] 50 mg Tablet 150 mg PO QPM nifedipine 30 mg tablet extended release 24hr 30 mg PO DAILY promethazine 25 mg suppository 25 mg NC Q6H PRN (Reason: Nausea And Vomiting) promethazine 50 mg/mL Solution 1 dose IV PRN PRN (Reason: Nausea And Vomiting) Tpn 1 ea Continuous IV Infusion Q20H Label Comments: RUNS 20 HOURS PER DAY doxazosin 1 mg tablet 1 mg PO DAILY venlafaxine 150 mg capsule,extended release 24hr 150 mg PO DAILY pantoprazole 40 mg tablet,delayed release (DR/EC) 40 mg PO DAILY ergocalciferol (vitamin D2) 50,000 unit capsule 50,000 unit PO QWEEK methylphenidate HCl 36 mg tablet extended release 24hr 36 mg PO DAILY lisdexamfetamine 60 mg capsule 60 mg PO DAILY albuterol sulfate [ProAir HFA] 90 mcg/actuation HFA aerosol inhaler 2 puff INHALATION Q4-6H PRN (Reason: shortness of breath or wheezing) Qty: 8.5 0RF Emgality Pen 120 mg/mL Pen Injector 120 mg SUBCUT QMONTH hydrocodone-acetaminophen 5-325 mg tablet 1 tab PO Q8H PRN (Reason: pain) Qty: 7 0RF Visit Report Forms: Patient Portal/API
== END 2021-11-01 02:13 | disposition home or self-care (01) ==
PROVIDERS: Emergency Provider Emergency Medicine; PCP Family Medicine
DX: U07.1 COVID-19 (principal); J12.82 Pneumonia due to coronavirus disease 2019
CPT/HCPCS: 71045; 81003; 99281; 99283

== ENCOUNTER 2021-12-14 10:52 | Emergency (ER) | payer OTHER, SELFPAY ==
[2020-10-15 21:40] VITALS: BMI 35.5
[2021-12-14 11:00] VITALS: BP 133/82; PULSE 94; RESP 15; TEMP 36.2; O2SAT 95; BMI 37.8
--- NOTE | 2021-12-14 13:04 | DI.RAD.S_ITS ---
PROCEDURE: XR FOREARM RT 2V INDICATIONS: dog bite TECHNIQUE: 2 views of the forearm were acquired. COMPARISON: None. FINDINGS: Bones: No fractures or dislocations. No suspicious bony lesions. Soft tissues: No suspicious soft tissue calcifications or masses. No radiodense foreign body. No soft tissue gas. IMPRESSION: No fracture. No osseous lesion. If symptoms and/or clinical suspicion for pathology persists, further assessment with repeat radiographs (7-10 days) or advanced imaging (e.g. CT, MRI or bone scan) should be considered. Dictated by: Jacklyn Daniels MD, PhD on 12/14/2021 at 12:29 Approved by: Jacklyn Daniels MD, PhD on 12/14/2021 at 12:29
--- NOTE | 2021-12-14 13:38 | ED.ANIMALBIT ---
HPI - Animal Bite <Hamzah ConnollyKENIA hay - Last Filed: 12/14/21 14:36> General Chief Complaint: Animal Bite Stated Complaint: Dog bite right arm Time Seen by Provider: 12/14/21 13:27 Source: patient Mode of arrival: Ambulatory History of Present Illness HPI narrative: 35-year-old female, currently 28 weeks , presents to the emergency department with right forearm wounds secondary to breaking up a dog fight between her fully immunized home pets. Patient reports that the sites bled profusely and has since stopped. Patient has multiple antibiotic allergies. Patient states that her last tetanus shot was in 2019. Patient is here with her . Related Data Home Medications Medication Instructions Recorded Confirmed sertraline 50 mg tablet (Zoloft) 150 mg PO QPM 10/23/17 03/27/18 Tpn 1 ea continuous IV infusion Q20H 03/27/18 03/27/18 nifedipine 30 mg tablet,extended 30 mg PO DAILY 03/27/18 03/27/18 release 24 hr promethazine 25 mg rectal 25 mg MA Q6H PRN Nausea And 03/27/18 10/15/20 suppository Vomiting promethazine 50 mg/mL injection 1 dose IV PRN PRN Nausea And 03/27/18 03/27/18 solution Vomiting doxazosin 1 mg tablet 1 mg PO DAILY 12/14/18 12/14/18 ergocalciferol (vitamin D2) 1,250 50,000 unit PO QWEEK 12/14/18 12/14/18 mcg (50,000 unit) capsule lisdexamfetamine 60 mg capsule 60 mg PO DAILY 12/14/18 12/14/18 methylphenidate HCl 36 mg 36 mg PO DAILY 12/14/18 12/14/18 tablet,extended release 24 hr pantoprazole 40 mg tablet,delayed 40 mg PO DAILY 12/14/18 release venlafaxine 150 mg 150 mg PO DAILY 12/14/18 10/15/20 capsule,extended release 24 hr lisdexamfetamine 70 mg capsule 70 mg PO QAM 02/01/19 10/15/20 (Vyvanse) galcanezumab-gnlm 120 mg/mL 120 mg SUBCUT QMONTH 10/15/20 10/15/20 subcutaneous pen injector (Emgality Pen) Previous Rx's Medication Instructions Recorded albuterol sulfate 90 mcg/actuation 2 puff inhalation Q4-6H PRN 06/05/19 aerosol inhaler (ProAir HFA) shortness of breath or wheezing #8.5 grams hydrocodone 5 mg-acetaminophen 325 1 tab PO Q8H PRN pain #7 tabs 01/17/21 mg tablet Allergies Allergy/AdvReac Type Severity Reaction Status Date / Time cephalexin [CEPHALEXIN] Allergy Unknown Verified 12/14/21 11:00 latex [LATEX] Allergy Unknown Verified 12/14/21 11:00 levofloxacin [From LEVAQUIN] Allergy Unknown Verified 12/14/21 11:00 ondansetron [ONDANSETRON] Allergy Unknown Verified 12/14/21 11:00 oxycodone [From PERCOCET] Allergy Unknown Verified 12/14/21 11:00 Penicillins [PENICILLINS] Allergy Unknown Verified 12/14/21 11:00 vancomycin Allergy Verified 12/14/21 11:00 prochlorperazine AdvReac Severe Anxiety Verified 12/14/21 11:00 [From Compazine] metoclopramide [From Reglan] AdvReac Verified 12/14/21 11:00 Review of Systems <KENIA Torres - Last Filed: 12/14/21 14:36> Review of Systems Narrative: Narrative: GENERAL: Denies chills, fatigue, fever, sweats. See HPI HEENT: Denies sinus pain, ear pain, sore throat, difficulty swallowing, dizziness. RESPIRATORY: Denies dyspnea, cough, wheezing, sputum. CARDIOVASCULAR: Denies chest pain, palpitations, edema. GASTROINTESTINAL: Denies nausea, vomiting, abdominal pain, diarrhea, constipation. : Denies dysuria, frequency, incontinence, hematuria, urinary retention, flank pain. MSK: Denies weakness, joint pain, or bony pain. SKIN: Endorses 2 puncture wounds to right forearm. NEUROLOGIC: Denies weakness, dizziness, headache, numbness, confusion. PSYCHIATRIC: No concerning psychosocial issues. Patient History <KENIA Torres - Last Filed: 12/14/21 14:36> Medical History ADHD Depression DVT (deep venous thrombosis) Hyperemesis affecting , antepartum Kidney stone Surgical History History of appendectomy Social History household members: spouse and children Smoking Status: Never smoker Smoking Status: Never smoker alcohol intake frequency: holidays/special occasions only Substance Use Type: does not use Exam <KENIA Torres - Last Filed: 12/14/21 14:36> Narrative Exam Narrative: Exam Narrative: GENERAL: This is a well-nourished, well-developed patient, in no acute distress HEAD: Atraumatic. Normocephalic. CARDIOVASCULAR: Regular rate and rhythm without murmurs, peripheral pulses intact, cap refill <2 sec. RESPIRATORY: Breath sounds equal and clear bilaterally. No wheezes, rales, or rhonchi. No cough. No increased respiratory effort. No accessory muscle use. MSK: Moves all extremities. Normal range of motion, no clubbing or edema. Neurovascularly intact. NEURO: A&O x 3. SKIN: Warm, dry. Two 0.3 cm puncture wounds to right medial forearm. Positive bruising and no active bleeding. Initial Vital Signs Initial Vital Signs: Vital Signs Temperature 97.2 F L 12/14/21 11:00 Pulse Rate 94 H 12/14/21 11:00 Respiratory Rate 15 12/14/21 11:00 Blood Pressure 133/82 12/14/21 11:00 Pulse Oximetry 95 12/14/21 11:00 Oxygen Delivery Method 12/14/21 11:00 <Brianda De La Rosa DO - Last Filed: 12/17/21 08:51> Initial Vital Signs Initial Vital Signs: Vital Signs Temperature 97.2 F L 12/14/21 11:00 Pulse Rate 94 H 12/14/21 11:00 Respiratory Rate 15 12/14/21 11:00 Blood Pressure 133/82 12/14/21 11:00 Pulse Oximetry 95 12/14/21 11:00 Oxygen Delivery Method 12/14/21 11:00 Course <KENIA Torres - Last Filed: 12/14/21 14:36> Orders Ordered: ED Orders 12/14/21 13:04 XR forearm RT 2V Stat Vital Signs Vital signs: Vital Signs - 8 hr 12/14/21 11:00 Temperature 97.2 F L Pulse Rate 94 H Respiratory Rate 15 Blood Pressure 133/82 Pulse Oximetry 95 Oxygen Delivery Method Room Air <Brianda De La Rosa DO - Last Filed: 12/17/21 08:51> Orders Ordered: ED Orders 12/14/21 13:04 XR forearm RT 2V Stat Vital Signs Vital signs: Vital Signs - 8 hr 12/14/21 11:00 Temperature 97.2 F L Pulse Rate 94 H Respiratory Rate 15 Blood Pressure 133/82 Pulse Oximetry 95 Oxygen Delivery Method Room Air MDM - Animal Bite <KENIA Torres - Last Filed: 12/14/21 14:36> Differential Diagnosis Differential diagnosis: Likely dog bite Imaging Data Extremity x-ray #1: My Impression: Normal forearm Radiologist's Impression: [address] [address] XRay Report Signed Patient: Katt Martin MR#: [id number] : 1985 Acct:[id number] Age/Sex: 35 / F Date of Service: 12/14/21 Loc: ED Accession Number: [id number] ?? Procedure: XR forearm RT 2V Ordering Provider: Brianda De La Rosa D.O. PROCEDURE:? XR FOREARM RT 2V ? INDICATIONS:? dog bite ? TECHNIQUE:? 2 views of the forearm were acquired.? ? COMPARISON:? None. ? FINDINGS:? ? Bones:? No fractures or dislocations.? No suspicious bony lesions.? ? Soft tissues:? No suspicious soft tissue calcifications or masses.? No radiodense foreign body.? No soft tissue gas.? ? ? IMPRESSION:? No fracture. No osseous lesion. If symptoms and/or clinical suspicion for pathology persists, further assessment with repeat radiographs (7-10 days) or advanced imaging (e.g. CT, MRI or bone scan) should be considered. ? ? Dictated by: Jacklyn Daniels MD, PhD on 12/14/2021 at 12:29 ? ? Approved by: Jakclyn Dainels MD, PhD on 12/14/2021 at 12:29 ? [facility] Narrative Medical decision making narrative: 35-year-old female who is currently and with multiple antibiotic allergies, presents emergency department with puncture wounds from breaking up a dog fight between her 2 fully immunized dogs. Sites were flushed out with normal saline and dressed with a Band-Aid. Patient is up-to-date with her tetanus. Careful consideration regarding antibiotic therapy included consultation with Dr. De La Rosa and shared decision making with patient and spouse. Decision was made to treat with doxycycline and clindamycin for 3 days. Strict return precautions given. Patient and spouse were agreeable with course of action. Discharge Plan Departure Patient Disposition: Home Clinical Impression: Dog bite Instructions: DI for Dog Bite Activity Restrictions/Additional Instructions: *You have been diagnosed with dog bite to your right forearm. Your x-ray was negative for any fractures or tooth fragments. I have flushed out your wounds and placed a Band-Aid on them. You have stated that you are up-to-date on your tetanus. Due to your many antibiotic allergies and your , we have discussed options and decided that we willl treat you with prophylactic antibiotics for the next 3 days. Please follow-up with your family doctor as needed. For any worsening symptoms that include difficulty breathing chest pain, increased wound redness, swelling, pain or yellow discharge, please see your family doctor or feel free to return to the emergency department. *What to do: *Please continue to take your regular medications as directed. [ x] New medication prescriptions sent to your pharmacy: [[facility] in [place]] [ ] New medication written as a paper prescription [ ] No new medications given *Please follow up with your primary care provider in 2-3 days, call for an appointment. Let them know you were seen in the Emergency Department and that we ask that you be seen in follow up. We will electronically transmit a record of today's note if your PCP is in our system *If you do not have a primary care provider please contact the [facility] Resource line at [phone]. They will ask some questions about your medical history and help get you set up with a doctor in the community. ? Return to ER if you should have any new, worsening or concerning symptoms, such as worsening pain, severe headache, confusion, chest pain, difficulty breathing, fever greater than 101 F, shaking chills, persistent vomiting to the point that you cannot drink fluids, or other new or worsening symptoms. Prescriptions: No Action Vyvanse 70 mg capsule 70 mg PO QAM Label Comments: TAKE 1 CAPSULE BY MOUTH IN THE MORNING sertraline [Zoloft] 50 mg Tablet 150 mg PO QPM nifedipine 30 mg tablet extended release 24hr 30 mg PO DAILY promethazine 25 mg suppository 25 mg MA Q6H PRN (Reason: Nausea And Vomiting) promethazine 50 mg/mL Solution 1 dose IV PRN PRN (Reason: Nausea And Vomiting) Tpn 1 ea Continuous IV Infusion Q20H Label Comments: RUNS 20 HOURS PER DAY doxazosin 1 mg tablet 1 mg PO DAILY venlafaxine 150 mg capsule,extended release 24hr 150 mg PO DAILY pantoprazole 40 mg tablet,delayed release (DR/EC) 40 mg PO DAILY ergocalciferol (vitamin D2) 50,000 unit capsule 50,000 unit PO QWEEK methylphenidate HCl 36 mg tablet extended release 24hr 36 mg PO DAILY lisdexamfetamine 60 mg capsule 60 mg PO DAILY albuterol sulfate [ProAir HFA] 90 mcg/actuation HFA aerosol inhaler 2 puff INHALATION Q4-6H PRN (Reason: shortness of breath or wheezing) Qty: 8.5 0RF Emgality Pen 120 mg/mL Pen Injector 120 mg SUBCUT QMONTH hydrocodone-acetaminophen 5-325 mg tablet 1 tab PO Q8H PRN (Reason: pain) Qty: 7 0RF Referrals: Lamar Javier DO [Primary Care Provider] - Visit Report Forms: Patient Portal/API <Brianda De La Rosa DO - Last Filed: 12/17/21 08:51> Cosign ED Attending Cosgarimaature Attestation: I was immediately available in the department for consultation. Documentation has been reviewed. Patient case was discussed regarding antibiotic prophylaxis dog bite. Reviewed patient's allergies her actual allergic responses. Patient is currently , prescription for doxycycline and clindamycin with shared decision making.
[2021-12-14 14:37] VITALS: BP 136/80; PULSE 80; RESP 18; O2SAT 99
== END 2021-12-14 14:37 | disposition home or self-care (01) ==
PROVIDERS: Emergency Provider Registered Nurse; PCP Family Medicine
DX: S41.151A Open bite of right upper arm, initial encounter (principal); W54.0XXA Bitten by dog, initial encounter
CPT/HCPCS: 73090; 99283

== ENCOUNTER → 2022-10-26 12:43 | Outpatient (CLI) | payer OTHER, SELFPAY ==
[2020-10-15 21:40] VITALS: BMI 35.5
--- NOTE | 2022-10-26 | DI.MRI.S_ITS ---
PROCEDURE: MR LUMBAR SPINE WO CON INDICATIONS: Lumbar disc degeneration TECHNIQUE: Noncontrast sagittal T1 spin echo and T2 fast echo, sagittal STIR, and T2 fast spin echo through the lumbar spine. In cases with scoliosis, additional coronal T2 fast spin echo may be performed. COMPARISON: [facility], MR, MR LUMBAR SPINE WO CON, 02/15/2021, 10:07. FINDINGS: Image quality: Excellent. Alignment and Curvature: There is normal bony alignment. Bone Marrow: Marrow is of normal overall signal. No acute vertebral body compression fractures. Spinal Cord: Conus medullaris terminates at the L1 level. Visualized cord demonstrates normal signal and size. Paraspinous Soft Tissues: No paravertebral masses. T12-L1: No significant disc bulge. The foramina and central canal are patent. L1-L2: No significant disc bulge. The foramina and central canal are patent. L2-L3: No significant disc bulge. The foramina and central canal are patent. L3-L4: The disc is desiccated consistent with degeneration. Mild diffuse disc bulge causing mild left foraminal stenosis. The central canal has mild stenosis. L4-L5: The disc is desiccated consistent with degeneration. Mild bilateral foraminal stenosis. The central canal has mild stenosis. L5-S1: The disc is desiccated consistent with degeneration. A central annular tear is present posteriorly. The foramina and central canal are patent. IMPRESSION: 1. Degenerative disc disease at L3-4, L4-5, and L5-S1. 2. Degenerative changes of L3-4 Dictated by: Mike Smiley M.D. on 10/26/2022 at 14:46 Approved by: Mike Smiley M.D. on 10/26/2022 at 14:53
--- NOTE | 2022-10-26 | DI.MRI.S_ITS ---
PROCEDURE: MR WRIST RT WO CON INDICATIONS: Pain in right wrist TECHNIQUE: Noncontrast coronal proton density fast spin echo and T2 fast spin echo with fat saturation; coronal 3-D gradient echo, axial T1 spin echo and T2 fast spin echo with fat saturation, sagittal T1 spin echo through the wrist. COMPARISON: [facility], MR, MR WRIST RT WO CON, 10/26/2018, 9:55. FINDINGS: Image quality: Excellent. Bones and cartilage: The carpal bones are normally aligned. No bone marrow contusions or fractures. No evidence for avascular necrosis. Overlying cartilage surfaces appear normal. Carpal ligaments: The scapholunate and lunotriquetral ligaments appear intact. In the absence of intra-articular contrast, the extrinsic carpal ligaments are not well identified. On sagittal images, the pisohamate ligament appears intact. Triangular fibrocartilage complex: Subtle signal abnormality involving medial periphery of triangular fibrocartilage near its ulnar insertion is seen concerning for subtle TFCC tear. The adjacent meniscal homolog appears normal in the absence of intra-articular contrast. The extensor carpi ulnaris tendon is normal in location and morphology. Tendons and soft tissues: Small amount of fluid distending tendon sheath of 4th extensor compartment with mildly thickened extensor digitorum and indices tendons at the level of distal radius and and radiocarpal joint is seen. The carpal tunnel structures appear normal, including the median nerve. The ulnar nerve appears normal within Guyon's canal. Rest of the extensor tendon compartments demonstrate normal morphology, without pathologic tendon sheath fluid. No soft tissue ganglion cysts. IMPRESSION: 1. Suggestion of low-grade tenosynovitis involving 4th extensor compartment at the level of distal radius and radiocarpal joint. Rest of the extensor and flexor tendons are grossly intact. 2. No marrow edema. No fracture or dislocation. No avascular necrosis. 3. Suggestion of subtle TFCC tear near its ulnar insertion. 4. Extensor and flexor tendons are intact. Dictated by: Sean Massey M.D. on 10/26/2022 at 14:21 Approved by: Sean Massey M.D. on 10/26/2022 at 14:47
== END ==
PROVIDERS: PCP Family Medicine; Referring Provider Student in an Organized Health Care Education/Training Program; Visit Provider Student in an Organized Health Care Education/Training Program
DX: M51.36 Other intervertebral disc degeneration, lumbar region (principal); M51.37 Other intervertebral disc degeneration, lumbosacral region; M47.816 Spondylosis without myelopathy or radiculopathy, lumbar region; M25.531 Pain in right wrist
CPT/HCPCS: 72148; 73221

== ENCOUNTER 2023-02-12 15:30 | Emergency (ER) | payer OTHER, SELFPAY ==
[2020-10-15 21:40] VITALS: BMI 35.5
[2023-02-12 15:43] VITALS: BP 160/93; PULSE 87; RESP 16; TEMP 37.1; O2SAT 96; BMI 37.8
[2023-02-12 18:50] VITALS: BP 178/93; PULSE 81; RESP 16; O2SAT 96
--- NOTE | 2023-02-12 18:50 | PC.NURSE ---
Patient reports she sleeps in her contacts. Woke up with redness and burning in eye. Removed lenses and threw them away and is now in glasses.
[2023-02-12] MEDS: FLUORESCEIN 1 MG STRIP EYE-LEFT (18:57)
[2023-02-12] MEDS: PROPARACAINE 0.5% OPHTH SOL 1 DROPS EYE-LEFT (18:57)
--- NOTE | 2023-02-12 20:09 | ED.EYEPROB ---
HPI - Eye Problem General Chief complaint: Eye Problems Stated complaint: Eye redness Time Seen by Provider: 02/12/23 19:53 Source: patient Mode of arrival: Ambulatory History of Present Illness HPI Narrative: Patient is a 37-year-old female hours contacts presenting today with left eye pain and irritation for 3 days. She has not worn her contacts for about 3 days it is red sensitive to light. Sometimes draining sometimes not. No fever or chills. No change in vision Related Data Home Medications Medication Instructions Recorded Confirmed sertraline 50 mg tablet (Zoloft) 150 mg PO QPM 10/23/17 03/27/18 Tpn 1 ea continuous IV infusion Q20H 03/27/18 03/27/18 nifedipine 30 mg tablet,extended 30 mg PO DAILY 03/27/18 03/27/18 release 24 hr promethazine 25 mg rectal 25 mg AR Q6H PRN Nausea And 03/27/18 10/15/20 suppository Vomiting promethazine 50 mg/mL injection 1 dose IV PRN PRN Nausea And 03/27/18 03/27/18 solution Vomiting doxazosin 1 mg tablet 1 mg PO DAILY 12/14/18 12/14/18 ergocalciferol (vitamin D2) 1,250 50,000 unit PO QWEEK 12/14/18 12/14/18 mcg (50,000 unit) capsule lisdexamfetamine 60 mg capsule 60 mg PO DAILY 12/14/18 12/14/18 methylphenidate HCl 36 mg 36 mg PO DAILY 12/14/18 12/14/18 tablet,extended release 24 hr pantoprazole 40 mg tablet,delayed 40 mg PO DAILY 12/14/18 release venlafaxine 150 mg 150 mg PO DAILY 12/14/18 10/15/20 capsule,extended release 24 hr lisdexamfetamine 70 mg capsule 70 mg PO QAM 02/01/19 10/15/20 (Vyvanse) galcanezumab-gnlm 120 mg/mL 120 mg SUBCUT QMONTH 10/15/20 10/15/20 subcutaneous pen injector (Emgality Pen) Previous Rx's Medication Instructions Recorded albuterol sulfate 90 mcg/actuation 2 puff inhalation Q4-6H PRN 06/05/19 aerosol inhaler (ProAir HFA) shortness of breath or wheezing #8.5 grams hydrocodone 5 mg-acetaminophen 325 1 tab PO Q8H PRN pain #7 tabs 01/17/ mg tablet moxifloxacin 0.5 % eye drops 1 drp EYE-LEFT TID #3 mL 02/12/23 (Vigamox) Allergies Allergy/AdvReac Type Severity Reaction Status Date / Time cephalexin [CEPHALEXIN] Allergy Unknown Verified 02/12/23 15:43 latex [LATEX] Allergy Unknown Verified 02/12/23 15:43 levofloxacin [From LEVAQUIN] Allergy Unknown Verified 02/12/23 15:43 ondansetron [ONDANSETRON] Allergy Unknown Verified 02/12/23 15:43 oxycodone [From PERCOCET] Allergy Unknown Verified 02/12/23 15:43 Penicillins [PENICILLINS] Allergy Unknown Verified 02/12/23 15:43 vancomycin Allergy Verified 02/12/23 15:43 prochlorperazine AdvReac Severe Anxiety Verified 02/12/23 15:43 [From Compazine] metoclopramide [From Reglan] AdvReac Verified 02/12/23 15:43 Review of Systems Review of Systems ROS Unobtainable: All systems reviewed & are unremarkable except as noted in HPI and below Patient History Medical History DVT (deep venous thrombosis) Depression ADHD Kidney stone Hyperemesis affecting , antepartum Surgical History History of appendectomy Social History household members: spouse and children Smoking Status: Never smoker Smoking Status: Never smoker alcohol intake frequency: holidays/special occasions only Substance Use Type: does not use Exam Initial Vital Signs Initial Vital Signs: Vital Signs Temperature 98.7 F 02/12/23 15:43 Pulse Rate 87 02/12/23 15:43 Respiratory Rate 16 02/12/23 15:43 Blood Pressure 160/93 H 02/12/23 15:43 Pulse Oximetry 96 02/12/23 15:43 Oxygen Delivery Method Room Air 02/12/23 15:43 GENERAL: Well-appearing, well-nourished and in no acute distress. Left eye was treated with proparacaine, stained with fluorescein. No dye uptake. No foreign body. Left eye is quite erythematous no periorbital edema or erythema CARDIOVASCULAR: peripheral pulses in tact, cap refill <2 sec RESPIRATORY: No respiratory distress, speaks in full sentences without difficulty EXTREMITIES: Normal range of motion, no clubbing or edema. Neurovascularly intact NEUROLOGICAL: Cranial nerves II through XII grossly intact. Normal gait and speech. SKIN: Warm, dry, no petechiae, no rashes or lesions. Course Orders Ordered: Discontinued Medications Fluorescein Sodium (Fluorescein 1 Mg Strip) 1 mg EYE-LEFT NOW ONE Stop: 02/12/23 18:56 Last Admin: 02/12/23 18:57 Dose: 1 mg Documented By: DEWEY Proparacaine HCl (Proparacaine 0.5% Ophth Reyna) 1 drops EYE-LEFT NOW ONE Stop: 02/12/23 18:55 Last Admin: 02/12/23 18:57 Dose: 1 drop Documented By: DEWEY Vital Signs Vital signs: Vital Signs - 8 hr 02/12/23 15:43 02/12/23 18:50 Temperature 98.7 F Pulse Rate 87 81 Respiratory Rate 16 16 Blood Pressure 160/93 H 178/93 H Pulse Oximetry 96 96 Oxygen Delivery Method Room Air Room Air MDM - Eye Problem MDM Narrative Medical decision making narrative: The patient 37-year-old female who has symptoms consistent with a conjunctivitis. There is no corneal abrasion. She wears contacts. She does have allergy to Levaquin but she reports it gets hives she is willing to try another fluoroquinolone drop. She reports that she is an EpiPen but does not have anaphylaxis to fluoroquinolones Discharge Plan Departure Patient Disposition: Home Clinical Impression: Conjunctivitis Instructions: Conjunctivitis Activity Restrictions/Additional Instructions: *You have been diagnosed with conjunctivitis *What to do: Do not wear contacts until I have completely resolved *Continue to take medications as directed Vigamox 1 drop 7 days -->[facility] *Follow up with your primary care provider in 2-3 days or call [phone] *Return to ER if you should have increasing redness pain drainage fever or any new, worsening or concerning symptoms Prescriptions: New moxifloxacin [Vigamox] 0.5 % drops 1 drp EYE-LEFT TID Qty: 3 0RF No Action Vyvanse 70 mg capsule 70 mg PO QAM Patient Comments: TAKE 1 CAPSULE BY MOUTH IN THE MORNING sertraline [Zoloft] 50 mg Tablet 150 mg PO QPM nifedipine 30 mg tablet extended release 24hr 30 mg PO DAILY promethazine 25 mg suppository 25 mg AR Q6H PRN (Reason: Nausea And Vomiting) promethazine 50 mg/mL Solution 1 dose IV PRN PRN (Reason: Nausea And Vomiting) Tpn 1 ea Continuous IV Infusion Q20H Patient Comments: RUNS 20 HOURS PER DAY doxazosin 1 mg tablet 1 mg PO DAILY venlafaxine 150 mg capsule,extended release 24hr 150 mg PO DAILY pantoprazole 40 mg tablet,delayed release (DR/EC) 40 mg PO DAILY ergocalciferol (vitamin D2) 50,000 unit capsule 50,000 unit PO QWEEK methylphenidate HCl 36 mg tablet extended release 24hr 36 mg PO DAILY lisdexamfetamine 60 mg capsule 60 mg PO DAILY albuterol sulfate [ProAir HFA] 90 mcg/actuation HFA aerosol inhaler 2 puff INHALATION Q4-6H PRN (Reason: shortness of breath or wheezing) Qty: 8.5 0RF Emgality Pen 120 mg/mL Pen Injector 120 mg SUBCUT QMONTH hydrocodone-acetaminophen 5-325 mg tablet 1 tab PO Q8H PRN (Reason: pain) Qty: 7 0RF Referrals: Lamar Javier DO [Primary Care Provider] - Stand Alone Forms: Patient Portal/API
== END 2023-02-12 20:38 | disposition home or self-care (01) ==
PROVIDERS: Emergency Provider Emergency Medicine; PCP Family Medicine
DX: H10.9 Unspecified conjunctivitis (principal)
CPT/HCPCS: 99282

== ENCOUNTER 2023-07-07 04:10 | Emergency (ER) | payer OTHER, SELFPAY ==
[2020-10-15 21:40] VITALS: BMI 35.5
[2023-07-07 04:15] VITALS: BP 109/63; PULSE 76; RESP 18; TEMP 36.3; O2SAT 95; BMI 40.7
--- NOTE | 2023-07-07 04:28 | ED.GENADULT ---
HPI - General Adult General Chief complaint: Dental/Oral Stated complaint: sores in mouth Time Seen by Provider: 07/07/23 04:23 Source: patient Mode of arrival: Ambulatory History of Present Illness HPI narrative: 37-year-old female here for evaluation of a sore on the right side of her tongue, feeling like her tongue is swelling and pain in her right ear. Symptoms have been going on for the past 12 hours or less. She was seen at an outside facility approximately 1 week ago. Diagnosed with pneumonia. Given 1 dose of antibiotics. Was not sent home with a prescription. Her primary doctor started her on azithromycin within the past 24 hours. Related Data Home Medications Medication Instructions Recorded Confirmed sertraline 50 mg tablet (Zoloft) 150 mg PO QPM 10/23/17 03/27/18 Tpn 1 ea continuous IV infusion Q20H 03/27/18 03/27/18 nifedipine 30 mg tablet,extended 30 mg PO DAILY 03/27/18 03/27/18 release 24 hr promethazine 25 mg rectal 25 mg MT Q6H PRN Nausea And 03/27/18 10/15/20 suppository Vomiting promethazine 50 mg/mL injection 1 dose IV PRN PRN Nausea And 03/27/18 03/27/18 solution Vomiting doxazosin 1 mg tablet 1 mg PO DAILY 12/14/18 12/14/18 ergocalciferol (vitamin D2) 1,250 50,000 unit PO QWEEK 12/14/18 12/14/18 mcg (50,000 unit) capsule lisdexamfetamine 60 mg capsule 60 mg PO DAILY 12/14/18 12/14/18 methylphenidate HCl 36 mg 36 mg PO DAILY 12/14/18 12/14/18 tablet,extended release 24 hr pantoprazole 40 mg tablet,delayed 40 mg PO DAILY 12/14/18 release venlafaxine 150 mg 150 mg PO DAILY 12/14/18 10/15/20 capsule,extended release 24 hr lisdexamfetamine 70 mg capsule 70 mg PO QAM 02/01/19 10/15/20 (Vyvanse) galcanezumab-gnlm 120 mg/mL 120 mg SUBCUT QMONTH 10/15/20 10/15/20 subcutaneous pen injector (Emgality Pen) Previous Rx's Medication Instructions Recorded albuterol sulfate 90 mcg/actuation 2 puff inhalation Q4-6H PRN 06/05/19 aerosol inhaler (ProAir HFA) shortness of breath or wheezing #8.5 grams hydrocodone 5 mg-acetaminophen 325 1 tab PO Q8H PRN pain #7 tabs 01/17/ mg tablet moxifloxacin 0.5 % eye drops 1 drp EYE-LEFT TID #3 mL 02/12/23 (Vigamox) Allergies Allergy/AdvReac Type Severity Reaction Status Date / Time cephalexin [CEPHALEXIN] Allergy Unknown Verified 02/12/23 15:43 latex [LATEX] Allergy Unknown Verified 02/12/23 15:43 levofloxacin [From LEVAQUIN] Allergy Unknown Verified 02/12/23 15:43 ondansetron [ONDANSETRON] Allergy Unknown Verified 02/12/23 15:43 oxycodone [From PERCOCET] Allergy Unknown Verified 02/12/23 15:43 Penicillins [PENICILLINS] Allergy Unknown Verified 02/12/23 15:43 vancomycin Allergy Verified 02/12/23 15:43 prochlorperazine AdvReac Severe Anxiety Verified 02/12/23 15:43 [From Compazine] metoclopramide [From Reglan] AdvReac Verified 02/12/23 15:43 Review of Systems Constitutional Constitutional: Reports system reviewed and no additional complaints, except as documented ENT Ears, Nose, Mouth, and Throat: Reports system reviewed and no additional complaints, except as documented Integumentary/Breasts Skin/Breast: Reports system reviewed and no additional complaints, except as documented Patient History Medical History DVT (deep venous thrombosis) Depression ADHD Kidney stone Hyperemesis affecting , antepartum Surgical History History of appendectomy Social History household members: spouse and children Smoking Status: Never smoker Smoking Status: Never smoker alcohol intake frequency: holidays/special occasions only Substance Use Type: does not use Exam Initial Vital Signs Initial Vital Signs: Vital Signs Temperature 97.4 F L 07/07/23 04:15 Pulse Rate 76 07/07/23 04:15 Respiratory Rate 18 07/07/23 04:15 Blood Pressure 109/63 07/07/23 04:15 Pulse Oximetry 95 07/07/23 04:15 Oxygen Delivery Method Room Air 07/07/23 04:15 HENRI Ears: TM normal on the left and TM abnormal bulging on the right; not bullous, not dull and not erythematous Mouth: lip normal, oropharynx normal, moist mucous membranes and other (Aphthous ulcer right side of tongue) Skin General: no rashes or lesions noted Neuro General: patient alert, patient awake and moves all extremities Course Vital Signs Vital signs: Vital Signs - 8 hr 07/07/23 04:15 Temperature 97.4 F L Pulse Rate 76 Respiratory Rate 18 Blood Pressure 109/63 Pulse Oximetry 95 Oxygen Delivery Method Room Air Medical Decision Making MDM Narrative Medical decision making narrative: History and physical exam was consistent with an aphthous ulcer on the right side of her tongue and a serous otitis media on the right. There was no indication to change any of the antibiotics she is on azithromycin. No respiratory issues. We did discuss things that she could try at home to include saltwater gargles and Chloraseptic sprays. Patient is safe for discharge home. Discharge Plan Departure Patient Disposition: Home Clinical Impression: Aphthous ulcer of mouth Activity Restrictions/Additional Instructions: Continue to take all of your medications as directed. You can try things like salt water gargles and [id number] Chloraseptic sprays to try to help with the discomfort. These lesion should get better with time. Prescriptions: No Action Vyvanse 70 mg capsule 70 mg PO QAM Patient Comments: TAKE 1 CAPSULE BY MOUTH IN THE MORNING sertraline [Zoloft] 50 mg Tablet 150 mg PO QPM nifedipine 30 mg tablet extended release 24hr 30 mg PO DAILY promethazine 25 mg suppository 25 mg MT Q6H PRN (Reason: Nausea And Vomiting) promethazine 50 mg/mL Solution 1 dose IV PRN PRN (Reason: Nausea And Vomiting) Tpn 1 ea Continuous IV Infusion Q20H Patient Comments: RUNS 20 HOURS PER DAY doxazosin 1 mg tablet 1 mg PO DAILY venlafaxine 150 mg capsule,extended release 24hr 150 mg PO DAILY pantoprazole 40 mg tablet,delayed release (DR/EC) 40 mg PO DAILY ergocalciferol (vitamin D2) 50,000 unit capsule 50,000 unit PO QWEEK methylphenidate HCl 36 mg tablet extended release 24hr 36 mg PO DAILY lisdexamfetamine 60 mg capsule 60 mg PO DAILY albuterol sulfate [ProAir HFA] 90 mcg/actuation HFA aerosol inhaler 2 puff INHALATION Q4-6H PRN (Reason: shortness of breath or wheezing) Qty: 8.5 0RF Emgality Pen 120 mg/mL Pen Injector 120 mg SUBCUT QMONTH hydrocodone-acetaminophen 5-325 mg tablet 1 tab PO Q8H PRN (Reason: pain) Qty: 7 0RF moxifloxacin [Vigamox] 0.5 % drops 1 drp EYE-LEFT TID Qty: 3 0RF Referrals: Lamar Javier DO [Primary Care Provider] - Stand Alone Forms: Patient Portal/API
== END 2023-07-07 04:35 | disposition home or self-care (01) ==
PROVIDERS: Emergency Provider Emergency Medicine; PCP Family Medicine
DX: B08.8 Other specified viral infections characterized by skin and mucous membrane lesions (principal)
CPT/HCPCS: 99281; 99282

== ENCOUNTER 2023-07-15 10:45 | Emergency (ER) | payer OTHER, SELFPAY ==
[2020-10-15 21:40] VITALS: BMI 35.5
[2023-07-15 11:06] VITALS: BP 105/74; PULSE 70; RESP 18; O2SAT 95; BMI 41.1
--- NOTE | 2023-07-15 11:12 | ED.EAR ---
HPI - Ear Problem <Kishore Mujica PA-C - Last Filed: 07/15/23 11:28> General Chief complaint: Ear Stated complaint: ear pain Time Seen by Provider: 07/15/23 11:11 History of Present Illness HPI Narrative: This is a 37-year-old female presents emergency department due to bilateral ear pain for the last day. Reports a tactile low-grade fever of 100? F. Denies any discharge from the ear. No hearing loss, vertigo, or any other concerning signs or symptoms. Related Data Home Medications Medication Instructions Recorded Confirmed sertraline 50 mg tablet (Zoloft) 150 mg PO QPM 10/23/17 03/27/18 Tpn 1 ea continuous IV infusion Q20H 03/27/18 03/27/18 nifedipine 30 mg tablet,extended 30 mg PO DAILY 03/27/18 03/27/18 release 24 hr promethazine 25 mg rectal 25 mg MO Q6H PRN Nausea And 03/27/18 10/15/20 suppository Vomiting promethazine 50 mg/mL injection 1 dose IV PRN PRN Nausea And 03/27/18 03/27/18 solution Vomiting doxazosin 1 mg tablet 1 mg PO DAILY 12/14/18 12/14/18 ergocalciferol (vitamin D2) 1,250 50,000 unit PO QWEEK 12/14/18 12/14/18 mcg (50,000 unit) capsule lisdexamfetamine 60 mg capsule 60 mg PO DAILY 12/14/18 12/14/18 methylphenidate HCl 36 mg 36 mg PO DAILY 12/14/18 12/14/18 tablet,extended release 24 hr pantoprazole 40 mg tablet,delayed 40 mg PO DAILY 12/14/18 release venlafaxine 150 mg 150 mg PO DAILY 12/14/18 10/15/20 capsule,extended release 24 hr lisdexamfetamine 70 mg capsule 70 mg PO QAM 02/01/19 10/15/20 (Vyvanse) galcanezumab-gnlm 120 mg/mL 120 mg SUBCUT QMONTH 10/15/20 10/15/20 subcutaneous pen injector (Emgality Pen) Previous Rx's Medication Instructions Recorded albuterol sulfate 90 mcg/actuation 2 puff inhalation Q4-6H PRN 06/05/19 aerosol inhaler (ProAir HFA) shortness of breath or wheezing #8.5 grams hydrocodone 5 mg-acetaminophen 325 1 tab PO Q8H PRN pain #7 tabs 01/17/ mg tablet moxifloxacin 0.5 % eye drops 1 drp EYE-LEFT TID #3 mL 02/12/23 (Vigamox) Allergies Allergy/AdvReac Type Severity Reaction Status Date / Time cephalexin [CEPHALEXIN] Allergy Unknown Verified 02/12/23 15:43 latex [LATEX] Allergy Unknown Verified 02/12/23 15:43 levofloxacin [From LEVAQUIN] Allergy Unknown Verified 02/12/23 15:43 ondansetron [ONDANSETRON] Allergy Unknown Verified 02/12/23 15:43 oxycodone [From PERCOCET] Allergy Unknown Verified 02/12/23 15:43 Penicillins [PENICILLINS] Allergy Unknown Verified 02/12/23 15:43 vancomycin Allergy Verified 02/12/23 15:43 prochlorperazine AdvReac Severe Anxiety Verified 02/12/23 15:43 [From Compazine] metoclopramide [From Reglan] AdvReac Verified 02/12/23 15:43 Review of Systems <Kishore Mujica PA-C - Last Filed: 07/15/23 11:28> Review of Systems Narrative: GENERAL: Reports fevers, Denies chills, fatigue, malaise, , sweats. HEENT: Reports ear pain, Denies sinus pain, sore throat, difficulty swallowing, dizziness. RESPIRATORY: Denies dyspnea, cough, wheezing, hemoptysis, sputum. CARDIOVASCULAR: Denies chest pain, palpitations, orthopnea, edema, GASTROINTESTINAL: Denies nausea, vomiting, abdominal pain, diarrhea, constipation, melena. : Denies dysuria, frequency, incontinence, hematuria, urinary retention. MUSCULOSKELETAL: denies weakness, joint pain, or bony pain SKIN: Denies rash, skin lesions, or other NEUROLOGIC: Denies weakness, headache, numbness, change in speech, confusion, seizures, incoordination. PSYCHIATRIC: No concerning psychosocial issues. 12 point review of systems is negative except for those stated above Patient History <Kishore Mujica PA-C - Last Filed: 07/15/23 11:28> Medical History DVT (deep venous thrombosis) Depression ADHD Kidney stone Hyperemesis affecting , antepartum Surgical History History of appendectomy Social History household members: spouse and children Smoking Status: Never smoker Smoking Status: Never smoker alcohol intake frequency: holidays/special occasions only Substance Use Type: does not use Exam <CLAUDETTE Lind Last Filed: 07/15/23 11:28> Narrative Exam Narrative: GENERAL: Well-developed patient, in mild distress. HEAD: Atraumatic. Normocephalic. EYES: Pupils equal round and reactive. Extraocular motions intact. No scleral icterus. No injection or drainage. Bilateral TMs mildly bulging, no erythema. No discharge. No perforations. ENT: Nose without bleeding, purulent drainage. Throat without erythema, tonsillar hypertrophy or exudate. Airway patent. NECK: Trachea midline. Non tender EXTREMITIES: No edema or joint tenderness. NEURO: AOx3. SKIN: No rash or erythema of visible areas Initial Vital Signs Initial Vital Signs: Vital Signs Pulse Rate 70 07/15/23 11:06 Respiratory Rate 18 07/15/23 11:06 Blood Pressure 105/74 07/15/23 11:06 Pulse Oximetry 95 07/15/23 11:06 Oxygen Delivery Method Room Air 07/15/23 11:06 <Hamzah Boo DO - Last Filed: 07/15/23 13:05> Initial Vital Signs Initial Vital Signs: Vital Signs Pulse Rate 70 07/15/23 11:06 Respiratory Rate 18 07/15/23 11:06 Blood Pressure 105/74 07/15/23 11:06 Pulse Oximetry 95 07/15/23 11:06 Oxygen Delivery Method Room Air 07/15/23 11:06 Course <CLAUDETTE Lind Last Filed: 07/15/23 11:28> Vital Signs Vital signs: Vital Signs - 8 hr 07/15/23 11:06 07/15/23 12:12 Pulse Rate 70 68 Respiratory Rate 18 18 Blood Pressure 105/74 119/71 Pulse Oximetry 95 96 Oxygen Delivery Method Room Air Room Air Oxygen Flow Rate 0 <DO Dario Liu Last Filed: 07/15/23 13:05> Vital Signs Vital signs: Vital Signs - 8 hr 07/15/23 11:06 07/15/23 12:12 Pulse Rate 70 68 Respiratory Rate 18 18 Blood Pressure 105/74 119/71 Pulse Oximetry 95 96 Oxygen Delivery Method Room Air Room Air Oxygen Flow Rate 0 Medical Decision Making <Kishore Mujica PA-C - Last Filed: 07/15/23 11:28> MDM Narrative Medical decision making narrative: ED course: This is a 37-year-old female presents to the emergency department due to suspected Eustachian tube dysfunction. No evidence of any kind of otitis media or otitis externa on exam. Recommended [id number] decongestants. CC: Ear pain Complicating co-morbidities: None Data collected from: Previous notes Medical records reviewed: Patient was here 8 days ago due to aphthous ulcer in the mouth. History of pneumonia prior to that receiving antibiotics. Was also diagnosed with a serous otitis media on the right in his already on azithromycin for the pneumonia and no further medications prescribed. Differential considered, but not limited to: Chest media, otitis externa, Eustachian tube dysfunction, TM perforation Exam documented above, pertinent findings include: No erythema to the tympanic membrane, mild bulging Lab Test results independently reviewed as above. Pertinent findings: None obtained Imaging studies independently reviewed: None Scores Used: None MIPS Elements: None Consultations: None Treatments: None Re-evaluations: None Discussion: Discussed plan with the patient was comfortable with the plan Diagnosis: Eustachian tube dysfunction Disposition: see below, along with detailed discharge instructions that have been reviewed with patient as well as indications for ED re-evaluation and additional outpatient follow up Discharge Plan Departure Patient Disposition: Home Clinical Impression: ETD (eustachian tube dysfunction) Activity Restrictions/Additional Instructions: Thank you for coming to the [facility] Emergency Department today. As we discussed there was no evidence of any kind of infection affecting your ears. I suspect this is an increase in fluid buildup due to possible change in the seasons or viral URI. Please continue to use [id number] decongestants as well as [id number] allergy medicine to help with the symptoms. Please return to the emergency department if you develop any significant hearing loss, significant ear pain, high fevers, or any other concerning signs or symptoms. I hope you feel better soon. Please follow up with your primary care provider within a week if your symptoms continue. If you do not have a primary care provider please contact the [facility] Resource line at [phone]. They will ask some questions about your medical history and help you get set up with a provider in the community. Prescriptions: No Action Vyvanse 70 mg capsule 70 mg PO QAM Patient Comments: TAKE 1 CAPSULE BY MOUTH IN THE MORNING sertraline [Zoloft] 50 mg Tablet 150 mg PO QPM nifedipine 30 mg tablet extended release 24hr 30 mg PO DAILY promethazine 25 mg suppository 25 mg MO Q6H PRN (Reason: Nausea And Vomiting) promethazine 50 mg/mL Solution 1 dose IV PRN PRN (Reason: Nausea And Vomiting) Tpn 1 ea Continuous IV Infusion Q20H Patient Comments: RUNS 20 HOURS PER DAY doxazosin 1 mg tablet 1 mg PO DAILY venlafaxine 150 mg capsule,extended release 24hr 150 mg PO DAILY pantoprazole 40 mg tablet,delayed release (DR/EC) 40 mg PO DAILY ergocalciferol (vitamin D2) 50,000 unit capsule 50,000 unit PO QWEEK methylphenidate HCl 36 mg tablet extended release 24hr 36 mg PO DAILY lisdexamfetamine 60 mg capsule 60 mg PO DAILY albuterol sulfate [ProAir HFA] 90 mcg/actuation HFA aerosol inhaler 2 puff INHALATION Q4-6H PRN (Reason: shortness of breath or wheezing) Qty: 8.5 0RF Emgality Pen 120 mg/mL Pen Injector 120 mg SUBCUT QMONTH hydrocodone-acetaminophen 5-325 mg tablet 1 tab PO Q8H PRN (Reason: pain) Qty: 7 0RF moxifloxacin [Vigamox] 0.5 % drops 1 drp EYE-LEFT TID Qty: 3 0RF Referrals: Lamar Javier DO [Primary Care Provider] - Stand Alone Forms: Patient Portal/API ED Sign-out <Hamzah Boo DO - Last Filed: 07/15/23 13:05> Cosign ED Attending Cosgarimaature Attestation: Dr Boo Co-Sign Statement: I was available for consultation during this patient's emergency department visit. This chart is signed by myself for administrative purposes only. I did not have direct contact with this patient during this visit. They were seen independently by the APC.
[2023-07-15 12:12] VITALS: BP 119/71; PULSE 68; RESP 18; O2SAT 96
== END 2023-07-15 12:20 | disposition home or self-care (01) ==
PROVIDERS: Emergency Provider Physician Assistant Medical; PCP Family Medicine
DX: H69.83 Other specified disorders of Eustachian tube, bilateral (principal)
CPT/HCPCS: 99281; 99282

== ENCOUNTER 2023-08-02 08:14 | Emergency (ER) | payer OTHER, SELFPAY ==
[2020-10-15 21:40] VITALS: BMI 35.5
[2023-08-02 08:24] VITALS: O2SAT 99
--- NOTE | 2023-08-02 08:24 | ED_ITS ---
HPI - General Adult General Chief complaint: Abdominal Pain Stated complaint: Pain in left side Time Seen by Provider: 08/02/23 08:16 History of Present Illness HPI narrative: 37-year-old female with history of fibromyalgia, depression, remote history of kidney stones presents by private vehicle from home for 1 day of left-sided flank and lower abdominal pain. Pain is constant, aching, does not radiate. She was uncertain if this is similar to previous kidney stones because her last stone was so long ago. She takes chronic pain medications but ran out yesterday. Her prescription will not be available until tomorrow. Denies nausea, vomiting, difficulty urinating. Related Data Home Medications Medication Instructions Recorded Confirmed sertraline 50 mg tablet (Zoloft) 150 mg PO QPM 10/23/17 03/27/18 Tpn 1 ea continuous IV infusion Q20H 03/27/18 03/27/18 nifedipine 30 mg tablet,extended 30 mg PO DAILY 03/27/18 03/27/18 release 24 hr promethazine 25 mg rectal 25 mg DE Q6H PRN Nausea And 03/27/18 10/15/20 suppository Vomiting promethazine 50 mg/mL injection 1 dose IV PRN PRN Nausea And 03/27/18 03/27/18 solution Vomiting doxazosin 1 mg tablet 1 mg PO DAILY 12/14/18 12/14/18 ergocalciferol (vitamin D2) 1,250 50,000 unit PO QWEEK 12/14/18 12/14/18 mcg (50,000 unit) capsule lisdexamfetamine 60 mg capsule 60 mg PO DAILY 12/14/18 12/14/18 methylphenidate HCl 36 mg 36 mg PO DAILY 12/14/18 12/14/18 tablet,extended release 24 hr pantoprazole 40 mg tablet,delayed 40 mg PO DAILY 12/14/18 release venlafaxine 150 mg 150 mg PO DAILY 12/14/18 10/15/20 capsule,extended release 24 hr lisdexamfetamine 70 mg capsule 70 mg PO QAM 02/01/19 10/15/20 (Vyvanse) galcanezumab-gnlm 120 mg/mL 120 mg SUBCUT QMONTH 10/15/20 10/15/20 subcutaneous pen injector (Emgality Pen) Previous Rx's Medication Instructions Recorded albuterol sulfate 90 mcg/actuation 2 puff inhalation Q4-6H PRN 06/05/19 aerosol inhaler (ProAir HFA) shortness of breath or wheezing #8.5 grams hydrocodone 5 mg-acetaminophen 325 1 tab PO Q8H PRN pain #7 tabs 01/17/ mg tablet moxifloxacin 0.5 % eye drops 1 drp EYE-LEFT TID #3 mL 02/12/23 (Vigamox) hydrocodone 7.5 mg-acetaminophen 1 tab PO Q8H PRN pain #4 tabs 08/02/23 325 mg tablet Allergies Allergy/AdvReac Type Severity Reaction Status Date / Time cephalexin [CEPHALEXIN] Allergy Unknown Verified 08/02/23 08:30 latex [LATEX] Allergy Unknown Verified 08/02/23 08:30 levofloxacin [From LEVAQUIN] Allergy Unknown Verified 08/02/23 08:30 ondansetron [ONDANSETRON] Allergy Unknown Verified 08/02/23 08:30 oxycodone [From PERCOCET] Allergy Unknown Verified 08/02/23 08:30 Penicillins [PENICILLINS] Allergy Unknown Verified 08/02/23 08:30 vancomycin Allergy Verified 08/02/23 08:30 prochlorperazine AdvReac Severe Anxiety Verified 08/02/23 08:30 [From Compazine] metoclopramide [From Reglan] AdvReac Verified 08/02/23 08:30 Review of Systems Review of Systems Narrative: Negative except as noted above Patient History Medical History DVT (deep venous thrombosis) Depression ADHD Kidney stone Hyperemesis affecting , antepartum Surgical History History of appendectomy Social History household members: spouse and children Smoking Status: Never smoker Smoking Status: Never smoker alcohol intake frequency: holidays/special occasions only Substance Use Type: does not use Exam Initial Vital Signs Initial Vital Signs: Vital Signs Pulse Oximetry 99 08/02/23 08:24 Const: Awake, alert, no acute distress, nontoxic appearing Cardiac: regular rate, regular rhythm RESP: unlabored, clear bilaterally, no wheezing GI: Soft, left lower quadrant tenderness to deep palpation without rebound or guarding MSK back: No midline tenderness, left-sided CVA tenderness to firm percussion Skin: Warm, Dry, intact, no rashes Neuro: AO x3, CN II-XII grossly intact, moves all extremities Course Orders Ordered: Discontinued Medications Hydrocodone Bitart/Acetaminophen (Hydrocodone/Acet 5/325 Prepack) 1 bottle MISC DIRECTED ONE Stop: 08/02/23 09:38 Sodium Chloride (Normal Saline 0.9%) 1,000 mls @ 1,000 mls/hr IV BOLUS ONE Stop: 08/02/23 09:39 Last Admin: 08/02/23 10:19 Dose: Not Given Documented By: LILLIANA Ketorolac Tromethamine (Ketorolac 30 Mg/Ml Vial) 15 mg IV NOW ONE Stop: 08/02/23 08:41 Last Admin: 08/02/23 09:50 Dose: 15 mg Documented By: LILLIANA Vital Signs Vital signs: Vital Signs - 8 hr 08/02/23 08:27 Temperature 98.1 F Pulse Rate 69 Respiratory Rate 14 Blood Pressure 200/100 H Pulse Oximetry 99 Oxygen Delivery Method Room Air Medical Decision Making Differential Diagnosis Differential Diagnosis: Kidney stone, pyelonephritis, diverticulitis Lab Data 08/02/23 08:49 08/02/23 08:49 Labs: Lab Results 08/02/23 Range/Units 08:49 WBC 8.7 (4.5-11.0) X10^3/uL RBC 4.61 (4.0-5.2) X10^6/uL Hgb 14.4 (12.0-16.0) g/dL Hct 41.3 (36-46) % MCV 89.7 (80-100) fL MCH 31.3 (26-34) PG MCHC 34.9 (30-36) % RDW 13.3 (11.6-14.8) % Plt Count 292 (150-400) X10^3/uL Neut % (Auto) 58.1 (50-75) % Lymph % (Auto) 33.3 (25-40) % [place] % (Auto) 5.8 (3-14) % Eos % (Auto) 1.5 L (2-4) % Baso % (Auto) 1.3 (0-2) % Neut # (Auto) 5100 (1952-1344) /uL Lymph # (Auto) 2900 (9159-7604) /uL [place] # (Auto) 500 (0-900) /uL Eos # (Auto) 100 (0-450) /uL Baso # (Auto) 100 (0-100) /uL Sodium 139 (137-145) mmol/L Potassium 4.1 (3.4-5.1) mmol/L Chloride 107 (98-107) mmol/L Carbon Dioxide 25 (22-32) mmol/L BUN 8 (7-17) mg/dL Creatinine 0.41 L (0.52-1.04) mg/dL Estimated GFR > 60 (>60) mL/min BUN/Creatinine Ratio 19.5 (6-22) Glucose 113 H (70-100) mg/dL Calcium 9.0 (8.4-10.2) mg/dL Total Bilirubin 0.7 (0.2-1.3) mg/dL AST 64 H (14-36) IU/L ALT 51 H (<35) IU/L Alkaline Phosphatase 97 (38-126) U/L Total Protein 7.5 (6.3-8.2) g/dL Albumin 4.0 (3.5-5.0) g/dL Globulin 3.5 (1.7-4.1) g/dL Albumin/Globulin Ratio 1.1 (1.0-2.8) Point of Care Testing Test Results Negative Urine Dip Bedside Urine Glucose Negative Bedside Urine Bilirubin - Negative Bedside Urine Ketone - Negative Urine Specific [place] 1.015 Bedside Urine Occult Blood - Negative Bedside Urine pH 7.0 Bedside Urine Protein - Negative Bedside Urine Urobilinogen - Negative Bedside Urine Nitrite - Negative Bedside Urine Leukocytes - Negative Esterase Point of care testing: Point of Care Testing Test Results Negative Urine Dip Bedside Urine Glucose Negative Bedside Urine Bilirubin - Negative Bedside Urine Ketone - Negative Urine Specific [place] 1.015 Bedside Urine Occult Blood - Negative Bedside Urine pH 7.0 Bedside Urine Protein - Negative Bedside Urine Urobilinogen - Negative Bedside Urine Nitrite - Negative Bedside Urine Leukocytes - Negative Esterase Imaging Data CT scan - abdomen/pelvis: Radiologist's Impression: PROCEDURE: CT ABDOMEN PELVIS WO CON INDICATIONS: L FLANK PAIN, REMOTE HX STONES TECHNIQUE: Axial sections were acquired from the lung bases to the pubic symphysis. Coronal and sagittal reformats were performed. For radiation dose reduction, the following was used: automated exposure control, adjustment of mA and/or kV according to patient size. COMPARISON: None. FINDINGS: Image quality: Diagnostic. Lower Chest: Bilateral mammoplasties. Normal heart size. Lung bases are clear. URINARY: Right Kidney: No stones or hydronephrosis. Right Ureter: No hydroureter. Left Kidney: No stones or hydronephrosis. Left Ureter: No hydroureter. Bladder: Normal wall thickness. No stones. ABDOMEN: Liver: Hepatomegaly. Mild diffuse hepatic steatosis. Gallbladder: Surgically absent. Biliary ducts: No biliary dilation. Pancreas: No ductal dilation. Spleen: Size is within normal limits. Adrenal Glands: No adrenal nodules. Stomach and Bowel: Normal colonic caliber, without significant wall thickening. Appendectomy clips. Peritoneum: No abnormal intraperitoneal fluid. No free air. Ventral Wall: No hernia. Abdominal Nodes: No enlarged retroperitoneal or mesenteric lymph nodes. Vessels: Aorta and inferior vena cava are normal in size. PELVIS: Pelvic Organs: Unremarkable. Pelvic Nodes: Unremarkable. Miscellaneous: No inguinal hernias are seen. Bones: Unremarkable. IMPRESSION: 1. No renal stone, ureteral stone, or hydronephrosis. 2. No findings which explain left flank pain. 3. No acute abdominal process. 4. Remote cholecystectomy and appendectomy. Dictated by: Glen John M.D. on 08/02/2023 at 9:06 Approved by: Glen John M.D. on 08/02/2023 at 9:09 [facility] Narrative Medical decision making narrative: Nontoxic patient presenting with 1 day of left-sided symptoms. Abdomen is soft but she does have tenderness in the left lower quadrant as well as tenderness on her left flank to percussion. Laboratory work and imaging ordered. Laboratory work is reviewed, unremarkable. No evidence of infection or electrolyte abnormalities, kidney function is stable. CT of the abdomen and pelvis reviewed, there are no stones, no obvious cause of patient's symptoms. Patient reassessed, resting comfortably in bed, exam is unchanged, however in light of negative labs and negative CT scan patient is stable to go home. As a courtesy I refilled 1 day's worth of her pain medication prescription until her prescription can be available from the pharmacy for pickup tomorrow. ED return precautions discussed at bedside. Patient expressed understanding of the plan and is in agreement at this time. All questions answered at the time of discharge. Discharge Plan Departure Patient Disposition: Home Clinical Impression: Acute flank pain Instructions: DI for Flank Pain Activity Restrictions/Additional Instructions: Your laboratory work and CT today were normal. I do not know the cause of your flank pain. Please follow up with your primary care physician. A prepack of [employer] has been sent with you to bridge you until your prescription can be refilled tomorrow. Prescriptions: New hydrocodone-acetaminophen 7.5-325 mg tablet 1 tab PO Q8H PRN (Reason: pain) Qty: 4 0RF Rx Instructions: AWARE OF CHRONIC MEDS, JUST FOR 1 DAY No Action Vyvanse 70 mg capsule 70 mg PO QAM Patient Comments: TAKE 1 CAPSULE BY MOUTH IN THE MORNING sertraline [Zoloft] 50 mg Tablet 150 mg PO QPM nifedipine 30 mg tablet extended release 24hr 30 mg PO DAILY promethazine 25 mg suppository 25 mg DE Q6H PRN (Reason: Nausea And Vomiting) promethazine 50 mg/mL Solution 1 dose IV PRN PRN (Reason: Nausea And Vomiting) Tpn 1 ea Continuous IV Infusion Q20H Patient Comments: RUNS 20 HOURS PER DAY doxazosin 1 mg tablet 1 mg PO DAILY venlafaxine 150 mg capsule,extended release 24hr 150 mg PO DAILY pantoprazole 40 mg tablet,delayed release (DR/EC) 40 mg PO DAILY ergocalciferol (vitamin D2) 50,000 unit capsule 50,000 unit PO QWEEK methylphenidate HCl 36 mg tablet extended release 24hr 36 mg PO DAILY lisdexamfetamine 60 mg capsule 60 mg PO DAILY albuterol sulfate [ProAir HFA] 90 mcg/actuation HFA aerosol inhaler 2 puff INHALATION Q4-6H PRN (Reason: shortness of breath or wheezing) Qty: 8.5 0RF Emgality Pen 120 mg/mL Pen Injector 120 mg SUBCUT QMONTH hydrocodone-acetaminophen 5-325 mg tablet 1 tab PO Q8H PRN (Reason: pain) Qty: 7 0RF moxifloxacin [Vigamox] 0.5 % drops 1 drp EYE-LEFT TID Qty: 3 0RF Referrals: Lamar Javier DO [Primary Care Provider] - Stand Alone Forms: Patient Portal/API
[2023-08-02 08:27] VITALS: BP 200/100; PULSE 69; RESP 14; TEMP 36.7; O2SAT 99; BMI 42.5
--- NOTE | 2023-08-02 08:40 | DI.CT.S_ITS ---
PROCEDURE: CT ABDOMEN PELVIS WO CON INDICATIONS: L FLANK PAIN, REMOTE HX STONES TECHNIQUE: Axial sections were acquired from the lung bases to the pubic symphysis. Coronal and sagittal reformats were performed. For radiation dose reduction, the following was used: automated exposure control, adjustment of mA and/or kV according to patient size. COMPARISON: None. FINDINGS: Image quality: Diagnostic. Lower Chest: Bilateral mammoplasties. Normal heart size. Lung bases are clear. URINARY: Right Kidney: No stones or hydronephrosis. Right Ureter: No hydroureter. Left Kidney: No stones or hydronephrosis. Left Ureter: No hydroureter. Bladder: Normal wall thickness. No stones. ABDOMEN: Liver: Hepatomegaly. Mild diffuse hepatic steatosis. Gallbladder: Surgically absent. Biliary ducts: No biliary dilation. Pancreas: No ductal dilation. Spleen: Size is within normal limits. Adrenal Glands: No adrenal nodules. Stomach and Bowel: Normal colonic caliber, without significant wall thickening. Appendectomy clips. Peritoneum: No abnormal intraperitoneal fluid. No free air. Ventral Wall: No hernia. Abdominal Nodes: No enlarged retroperitoneal or mesenteric lymph nodes. Vessels: Aorta and inferior vena cava are normal in size. PELVIS: Pelvic Organs: Unremarkable. Pelvic Nodes: Unremarkable. Miscellaneous: No inguinal hernias are seen. Bones: Unremarkable. IMPRESSION: 1. No renal stone, ureteral stone, or hydronephrosis. 2. No findings which explain left flank pain. 3. No acute abdominal process. 4. Remote cholecystectomy and appendectomy. Dictated by: Glen John M.D. on 08/02/2023 at 9:06 Approved by: Glen John M.D. on 08/02/2023 at 9:09
[2023-08-02 08:55] LABS: Add Manual Diff / Slide Review NO; Basophils Absolute Auto 100 /uL (0-100); Basophils Percent Auto 1.3 % (0-2); Eosinophils Absolute Auto 100 /uL (0-450); Eosinophils Percent Auto 1.5 % (2-4); Hematocrit 41.3 % (36-46); Hemoglobin 14.4 g/dL (12.0-16.0); Lymphocytes Absolute Auto 2900 /uL (1100-4500); Lymphocytes Percent Auto 33.3 % (25-40); Mean Corpuscular HGB Conc 34.9 % (30-36); Mean Corpuscular Hemoglobin 31.3 PG (26-34); Mean Corpuscular Volume 89.7 fL (80-100); Monocytes Absolute Auto 500 /uL (0-900); Monocytes Percent Auto 5.8 % (3-14); Neutrophils Absolute Auto 5100 /uL (1500-7000); Neutrophils Percent Auto 58.1 % (50-75); Platelet Count 292 X10^3/uL (150-400); Red Blood Cell Count 4.61 X10^6/uL (4.0-5.2); Red Cell Distribution Width 13.3 % (11.6-14.8); White Blood Cell Count 8.7 X10^3/uL (4.5-11.0)
[2023-08-02 09:17] LABS: Alanine Aminotransferase 51 IU/L (<35); Albumin Globulin Ratio 1.1 (1.0-2.8); Alkaline Phosphatase 97 U/L (38-126); Aspartate Aminotransferase 64 IU/L (14-36); BUN Creatinine Ratio 19.5 (6-22); Bilirubin Total 0.7 mg/dL (0.2-1.3); Blood Urea Nitrogen 8 mg/dL (7-17); Carbon Dioxide 25 mmol/L (22-32); Chloride 107 mmol/L (98-107); Estimated Glomerular Filt Rate > 60 mL/min (>60); Globulin 3.5 g/dL (1.7-4.1); Glucose 113 mg/dL (70-100); HEMOLYSIS 50 (0-50); Potassium 4.1 mmol/L (3.4-5.1); Sodium 139 mmol/L (137-145); Total Protein 7.5 g/dL (6.3-8.2)
[2023-08-02] MEDS: KETOROLAC 30 MG/ML VIAL 15 MG IV (09:50)
[2023-08-02 10:09] VITALS: PULSE 71; O2SAT 94
[2023-08-02 10:11] VITALS: BP 167/121; PULSE 68; O2SAT 94
[2023-08-02 10:12] VITALS: BP 170/111; PULSE 69; O2SAT 96
== END 2023-08-02 10:22 | disposition home or self-care (01) ==
PROVIDERS: Emergency Provider Emergency Medicine; PCP Family Medicine
DX: R10.32 Left lower quadrant pain (principal)
CPT/HCPCS: 36415; 74176; 80053; 81003; 81025; 85025; 99284; J1885

== ENCOUNTER 2023-09-21 16:49 | Emergency (ER) | payer OTHER, SELFPAY ==
[2020-10-15 21:40] VITALS: BMI 35.5
[2023-09-21 16:50] VITALS: BP 177/100; PULSE 83; RESP 15; TEMP 36.9; O2SAT 95; BMI 42.9
--- NOTE | 2023-09-21 16:54 | ED_ITS ---
HPI - Back Pain/Injury <Kishore Mujica PA-C - Last Filed: 09/21/23 17:27> General Chief Complaint: Back Pain/Injury Stated Complaint: back pain Time Seen by Provider: 09/21/23 16:54 History of Present Illness HPI Narrative: This is a 29-year-old female presents emergency department due to acute onset lower back pain after sitting down in bed. She states that she has a history of some bulging discs. Denies any urinary or bowel incontinence saddle paresthesia. Denies any significant trauma. States that the only thing she did is sit down in a bed and it stiffened up. Related Data Home Medications Medication Instructions Recorded Confirmed sertraline 50 mg tablet (Zoloft) 150 mg PO QPM 10/23/17 03/27/18 Tpn 1 ea continuous IV infusion Q20H 03/27/18 03/27/18 nifedipine 30 mg tablet,extended 30 mg PO DAILY 03/27/18 03/27/18 release 24 hr promethazine 25 mg rectal 25 mg NC Q6H PRN Nausea And 03/27/18 10/15/20 suppository Vomiting promethazine 50 mg/mL injection 1 dose IV PRN PRN Nausea And 03/27/18 03/27/18 solution Vomiting doxazosin 1 mg tablet 1 mg PO DAILY 12/14/18 12/14/18 ergocalciferol (vitamin D2) 1,250 50,000 unit PO QWEEK 12/14/18 12/14/18 mcg (50,000 unit) capsule lisdexamfetamine 60 mg capsule 60 mg PO DAILY 12/14/18 12/14/18 methylphenidate HCl 36 mg 36 mg PO DAILY 12/14/18 12/14/18 tablet,extended release 24 hr pantoprazole 40 mg tablet,delayed 40 mg PO DAILY 12/14/18 release venlafaxine 150 mg 150 mg PO DAILY 12/14/18 10/15/20 capsule,extended release 24 hr lisdexamfetamine 70 mg capsule 70 mg PO QAM 02/01/19 10/15/20 (Vyvanse) galcanezumab-gnlm 120 mg/mL 120 mg SUBCUT QMONTH 10/15/20 10/15/20 subcutaneous pen injector (Emgality Pen) Previous Rx's Medication Instructions Recorded albuterol sulfate 90 mcg/actuation 2 puff inhalation Q4-6H PRN 06/05/19 aerosol inhaler (ProAir HFA) shortness of breath or wheezing #8.5 grams hydrocodone 5 mg-acetaminophen 325 1 tab PO Q8H PRN pain #7 tabs 01/17/ mg tablet moxifloxacin 0.5 % eye drops 1 drp EYE-LEFT TID #3 mL 02/12/23 (Vigamox) hydrocodone 7.5 mg-acetaminophen 1 tab PO Q8H PRN pain #4 tabs 08/02/23 325 mg tablet tizanidine 4 mg capsule 4 mg PO Q8H PRN muscle spasticity 09/21/23 #20 caps Allergies Allergy/AdvReac Type Severity Reaction Status Date / Time cephalexin [CEPHALEXIN] Allergy Unknown Verified 09/21/23 16:57 latex [LATEX] Allergy Unknown Verified 09/21/23 16:57 levofloxacin [From LEVAQUIN] Allergy Unknown Verified 09/21/23 16:57 ondansetron [ONDANSETRON] Allergy Unknown Verified 09/21/23 16:57 oxycodone [From PERCOCET] Allergy Unknown Verified 09/21/23 16:57 Penicillins [PENICILLINS] Allergy Unknown Verified 09/21/23 16:57 vancomycin Allergy Verified 09/21/23 16:57 prochlorperazine AdvReac Severe Anxiety Verified 09/21/23 16:57 [From Compazine] metoclopramide [From Reglan] AdvReac Verified 09/21/23 16:57 Review of Systems <Kishore Mujica PA-C - Last Filed: 09/21/23 17:27> Review of Systems Narrative: GENERAL: Denies chills, fatigue, malaise, fever, sweats. HEENT: Denies sinus pain, ear pain, sore throat, difficulty swallowing, dizziness. RESPIRATORY: Denies dyspnea, cough, wheezing, hemoptysis, sputum. CARDIOVASCULAR: Denies chest pain, palpitations, orthopnea, edema, GASTROINTESTINAL: Denies nausea, vomiting, abdominal pain, diarrhea, constipation, melena. : Denies dysuria, frequency, incontinence, hematuria, urinary retention. MUSCULOSKELETAL: Reports lower back pain SKIN: Denies rash, skin lesions, or other NEUROLOGIC: Denies weakness, headache, numbness, change in speech, confusion, seizures, incoordination. PSYCHIATRIC: No concerning psychosocial issues. 12 point review of systems is negative except for those stated above Patient History <CLAUDETTE Lind Last Filed: 09/21/23 17:27> Medical History DVT (deep venous thrombosis) Depression ADHD Kidney stone Hyperemesis affecting , antepartum Surgical History History of appendectomy Social History household members: spouse and children Smoking Status: Never smoker Smoking Status: Never smoker alcohol intake frequency: holidays/special occasions only Substance Use Type: does not use Exam <CLAUDETTE Lind Last Filed: 09/21/23 17:27> Narrative Exam Narrative: GENERAL: Well-developed patient, in mild distress. HEAD: Atraumatic. Normocephalic. EYES: Pupils equal round and reactive. Extraocular motions intact. No scleral icterus. No injection or drainage. ENT: Nose without bleeding, purulent drainage. Throat without erythema, tonsillar hypertrophy or exudate. Airway patent. NECK: Trachea midline. Non tender EXTREMITIES: No edema or joint tenderness. NEURO: AOx3. back: Bilateral lumbar paraspinal tenderness to palpation SKIN: No rash or erythema of visible areas Initial Vital Signs Initial Vital Signs: Vital Signs Temperature 98.5 F 09/21/23 16:50 Pulse Rate 83 09/21/23 16:50 Respiratory Rate 15 09/21/23 16:50 Blood Pressure 177/100 H 09/21/23 16:50 Pulse Oximetry 95 09/21/23 16:50 Oxygen Delivery Method Room Air 09/21/23 16:50 <Mindy Hobson DO - Last Filed: 09/22/23 10:50> Initial Vital Signs Initial Vital Signs: Vital Signs Temperature 98.5 F 09/21/23 16:50 Pulse Rate 83 09/21/23 16:50 Respiratory Rate 15 09/21/23 16:50 Blood Pressure 177/100 H 09/21/23 16:50 Pulse Oximetry 95 09/21/23 16:50 Oxygen Delivery Method Room Air 09/21/23 16:50 Course <CLAUDETTE Lind Last Filed: 09/21/23 17:27> Orders Ordered: Discontinued Medications Ketorolac Tromethamine (Ketorolac 30 Mg/Ml Vial) 15 mg IM NOW ONE Stop: 09/21/23 17:18 Last Admin: 09/21/23 17:32 Dose: 15 mg Documented By: RB Vital Signs Vital signs: Vital Signs - 8 hr 09/21/23 16:50 Temperature 98.5 F Pulse Rate 83 Respiratory Rate 15 Blood Pressure 177/100 H Pulse Oximetry 95 Oxygen Delivery Method Room Air <Mindy Hobson DO - Last Filed: 09/22/23 10:50> Orders Ordered: Discontinued Medications Ketorolac Tromethamine (Ketorolac 30 Mg/Ml Vial) 15 mg IM NOW ONE Stop: 09/21/23 17:18 Last Admin: 09/21/23 17:32 Dose: 15 mg Documented By: RB Vital Signs Vital signs: Vital Signs - 8 hr 09/21/23 16:50 Temperature 98.5 F Pulse Rate 83 Respiratory Rate 15 Blood Pressure 177/100 H Pulse Oximetry 95 Oxygen Delivery Method Room Air MDM - Back Pain/Injury <Kishore Mujica PA-C - Last Filed: 09/21/23 17:27> MDM Narrative Medical decision making narrative: ED course: this is a 37-year-old female presents to the emergency department due to suspected lumbosacral muscular strain. Denies any concerning symptoms such as saddle paresthesias, urinary or bowel incontinence, or any other concerning signs or symptoms. Very low concern for any kind of acute fracture. We will treat with IM Toradol as well as muscle relaxants. CC: Lower back pain Complicating co-morbidities: history of fibromyalgia Data collected from: Previous notes Medical records reviewed: Patient was last seen in the emergency department about 2 months ago due to flank pain. History of fibromyalgia, depression, kidney stones. Complaining of flank pain and abdominal pain history of appendectomy, DVT, depression CT showed no findings. History of cholecystectomy. Patient was eventually discharged. Differential considered, but not limited to: vertebral fracture, kidney stone, lumbosacral strain Exam documented above, pertinent findings include: tenderness to palpation of the bilateral lumbar paraspinals Lab Test results independently reviewed as above. Pertinent findings: none obtained Imaging studies independently reviewed: not obtained Scores Used: None MIPS Elements: None Consultations: None Treatments: 15 mg IM Toradol Re-evaluations: none Discussion: Discussed plan with the patient was comfortable with the plan Diagnosis: lumbosacral strain Disposition: see below, along with detailed discharge instructions that have been reviewed with patient as well as indications for ED re-evaluation and additional outpatient follow up Discharge Plan Departure Patient Disposition: Home Clinical Impression: Lumbar back pain Instructions: DI for Back Strain or Sprain Activity Restrictions/Additional Instructions: Thank you for coming to the [facility] Emergency Department today. as we discussed suspect this is muscular in nature. The Toradol should help with your symptoms. Please take the muscle relaxants as prescribed. Please return to the emergency department if you develop any Numbness between her legs, urinary or bowel incontinence, or any other concerning signs or symptoms. I hope you feel better soon. Please follow up with your primary care provider within a week if your symptoms continue. If you do not have a primary care provider please contact the [facility] Resource line at [phone]. They will ask some questions about your medical history and help you get set up with a provider in the community. Prescriptions: New tizanidine 4 mg capsule 4 mg PO Q8H PRN (Reason: muscle spasticity) Qty: 20 0RF No Action Vyvanse 70 mg capsule 70 mg PO QAM Patient Comments: TAKE 1 CAPSULE BY MOUTH IN THE MORNING sertraline [Zoloft] 50 mg Tablet 150 mg PO QPM nifedipine 30 mg tablet extended release 24hr 30 mg PO DAILY promethazine 25 mg suppository 25 mg NC Q6H PRN (Reason: Nausea And Vomiting) promethazine 50 mg/mL Solution 1 dose IV PRN PRN (Reason: Nausea And Vomiting) Tpn 1 ea Continuous IV Infusion Q20H Patient Comments: RUNS 20 HOURS PER DAY doxazosin 1 mg tablet 1 mg PO DAILY venlafaxine 150 mg capsule,extended release 24hr 150 mg PO DAILY pantoprazole 40 mg tablet,delayed release (DR/EC) 40 mg PO DAILY ergocalciferol (vitamin D2) 50,000 unit capsule 50,000 unit PO QWEEK methylphenidate HCl 36 mg tablet extended release 24hr 36 mg PO DAILY lisdexamfetamine 60 mg capsule 60 mg PO DAILY albuterol sulfate [ProAir HFA] 90 mcg/actuation HFA aerosol inhaler 2 puff INHALATION Q4-6H PRN (Reason: shortness of breath or wheezing) Qty: 8.5 0RF Emgality Pen 120 mg/mL Pen Injector 120 mg SUBCUT QMONTH hydrocodone-acetaminophen 5-325 mg tablet 1 tab PO Q8H PRN (Reason: pain) Qty: 7 0RF moxifloxacin [Vigamox] 0.5 % drops 1 drp EYE-LEFT TID Qty: 3 0RF hydrocodone-acetaminophen 7.5-325 mg tablet 1 tab PO Q8H PRN (Reason: pain) Qty: 4 0RF Rx Instructions: AWARE OF CHRONIC MEDS, JUST FOR 1 DAY Referrals: Lamar Javier DO [Primary Care Provider] - Stand Alone Forms: Patient Portal/API ED Sign-out <Mindy Hobson DO - Last Filed: 09/22/23 10:50> Cosign ED Attending Cosgarimaature Attestation: I was available for consultation.
[2023-09-21] MEDS: KETOROLAC 30 MG/ML VIAL 15 MG IM (17:32)
== END 2023-09-21 17:38 | disposition home or self-care (01) ==
PROVIDERS: Emergency Provider Physician Assistant Medical; PCP Family Medicine
DX: M54.50 Low back pain, unspecified (principal)
CPT/HCPCS: 96372; 99283; J1885

== ENCOUNTER 2023-09-25 23:13 | Emergency (ER) | payer OTHER, SELFPAY ==
[2020-10-15 21:40] VITALS: BMI 35.5
[2023-09-25 23:31] VITALS: BP 181/102; PULSE 98; RESP 18; TEMP 37.2; O2SAT 97; BMI 42.9
--- NOTE | 2023-09-25 23:47 | DI.RAD.S_ITS ---
PROCEDURE: XR CHEST 1V INDICATIONS: COUGH, SOB TECHNIQUE: One view of the chest was acquired. COMPARISON: [facility], CR, XR CHEST 1V, 11/01/2021, 0:02. FINDINGS: Surgical changes and devices: None. Lungs and pleura: Minor strandy parenchymal opacity at the left mid lung base. No pleural effusion or pneumothorax. Mediastinum: Mediastinal contours appear normal. Heart size is normal. Bones and chest wall: No suspicious bony lesions. Overlying soft tissues appear unremarkable. IMPRESSION: Strandy left base opacity may be atelectasis, scarring, or small pneumonia. Dictated by: Lani Herrera M.D. on 09/26/2023 at 1:22 Approved by: Lani Herrera M.D. on 09/26/2023 at 1:22
--- NOTE | 2023-09-26 01:57 | ED_ITS ---
HPI - SOB/Dyspnea General Chief Complaint: Shortness of Breath/Dyspnea Stated Complaint: SOB Time Seen by Provider: 09/26/23 01:57 Source: patient Mode of arrival: Ambulatory Limitations: no limitations Related Data Home Medications Medication Instructions Recorded Confirmed sertraline 50 mg tablet (Zoloft) 150 mg PO QPM 10/23/17 03/27/18 Tpn 1 ea continuous IV infusion Q20H 03/27/18 03/27/18 nifedipine 30 mg tablet,extended 30 mg PO DAILY 03/27/18 03/27/18 release 24 hr promethazine 25 mg rectal 25 mg NJ Q6H PRN Nausea And 03/27/18 10/15/20 suppository Vomiting promethazine 50 mg/mL injection 1 dose IV PRN PRN Nausea And 03/27/18 03/27/18 solution Vomiting doxazosin 1 mg tablet 1 mg PO DAILY 12/14/18 12/14/18 ergocalciferol (vitamin D2) 1,250 50,000 unit PO QWEEK 12/14/18 12/14/18 mcg (50,000 unit) capsule lisdexamfetamine 60 mg capsule 60 mg PO DAILY 12/14/18 12/14/18 methylphenidate HCl 36 mg 36 mg PO DAILY 12/14/18 12/14/18 tablet,extended release 24 hr pantoprazole 40 mg tablet,delayed 40 mg PO DAILY 12/14/18 release venlafaxine 150 mg 150 mg PO DAILY 12/14/18 10/15/20 capsule,extended release 24 hr lisdexamfetamine 70 mg capsule 70 mg PO QAM 02/01/19 10/15/20 (Vyvanse) galcanezumab-gnlm 120 mg/mL 120 mg SUBCUT QMONTH 10/15/20 10/15/20 subcutaneous pen injector (Emgality Pen) Previous Rx's Medication Instructions Recorded albuterol sulfate 90 mcg/actuation 2 puff inhalation Q4-6H PRN 06/05/19 aerosol inhaler (ProAir HFA) shortness of breath or wheezing #8.5 grams hydrocodone 5 mg-acetaminophen 325 1 tab PO Q8H PRN pain #7 tabs 01/17/21 mg tablet moxifloxacin 0.5 % eye drops 1 drp EYE-LEFT TID #3 mL 10/08/23 (Vigamox) hydrocodone 7.5 mg-acetaminophen 1 tab PO Q8H PRN pain #4 tabs 08/02/23 325 mg tablet tizanidine 4 mg capsule 4 mg PO Q8H PRN muscle spasticity 09/21/23 #20 caps albuterol sulfate 90 mcg/actuation 2 puff inhalation Q6H PRN 09/26/23 aerosol inhaler shortness of breath or wheezing #8.5 grams azithromycin 250 mg tablet See Rx Instructions PO .COMPLEX #6 09/26/23 tabs Allergies Allergy/AdvReac Type Severity Reaction Status Date / Time cephalexin [CEPHALEXIN] Allergy Unknown Verified 09/21/23 16:57 latex [LATEX] Allergy Unknown Verified 09/21/23 16:57 levofloxacin [From LEVAQUIN] Allergy Unknown Verified 09/21/23 16:57 ondansetron [ONDANSETRON] Allergy Unknown Verified 09/21/23 16:57 oxycodone [From PERCOCET] Allergy Unknown Verified 09/21/23 16:57 Penicillins [PENICILLINS] Allergy Unknown Verified 09/21/23 16:57 vancomycin Allergy Verified 09/21/23 16:57 prochlorperazine AdvReac Severe Anxiety Verified 09/21/23 16:57 [From Compazine] metoclopramide [From Reglan] AdvReac Verified 09/21/23 16:57 Patient History Medical History DVT (deep venous thrombosis) Depression ADHD Kidney stone Hyperemesis affecting , antepartum Surgical History History of appendectomy Social History household members: spouse and children Smoking Status: Never smoker Smoking Status: Never smoker alcohol intake frequency: holidays/special occasions only Substance Use Type: does not use Exam Narrative Exam Narrative: GENERAL: Well-developed patient, in mild distress. HEAD: Atraumatic. Normocephalic. EYES: Pupils equal round and reactive. Extraocular motions intact. No scleral icterus. No injection or drainage. ENT: Nose without bleeding, purulent drainage. Throat without erythema, tonsillar hypertrophy or exudate. Airway patent. NECK: Trachea midline. Non tender CARDIOVASCULAR: Regular rate and rhythm without murmurs, gallops, or rubs. RESPIRATORY: Clear to auscultation. Breath sounds equal bilaterally. No wheezes, rales, or rhonchi. GASTROINTESTINAL: Abdomen soft, non-tender, nondistended. EXTREMITIES: No edema or joint tenderness. BACK: Nontender without deformity or crepitance. No flank tenderness. NEURO: AOx3. SKIN: No rash or erythema of visible areas Initial Vital Signs Initial Vital Signs: Vital Signs Temperature 98.9 F 09/25/23 23:31 Pulse Rate 98 H 09/25/23 23:31 Respiratory Rate 18 09/25/23 23:31 Blood Pressure 181/102 H 09/25/23 23:31 Pulse Oximetry 97 09/25/23 23:31 Oxygen Delivery Method Room Air 09/25/23 23:31 Course Orders Ordered: ED Orders 09/25/23 23:47 CXR [XR chest 1V] Stat Discontinued Medications Albuterol (Albuterol 2.5 Mg/3 Ml Neb (Adult)) 2.5 mg INH NOW ONE Stop: 09/26/23 02:12 Last Admin: 09/26/23 02:34 Dose: 2.5 mg Documented By: JULIANNA Azithromycin (Azithromycin 250 Mg Tablet) 500 mg PO NOW ONE Stop: 09/26/23 02:10 Last Admin: 09/26/23 02:32 Dose: 500 mg Documented By: JULIANNA Vital Signs Vital signs: Vital Signs - 8 hr 09/25/23 23:31 09/26/23 03:08 Temperature 98.9 F Pulse Rate 98 H 82 Respiratory Rate 18 18 Blood Pressure 181/102 H 152/67 H Pulse Oximetry 97 95 Oxygen Delivery Method Room Air Room Air MDM - SOB/Dyspnea Imaging Data Chest x-ray: Radiologist's Impression: [address] [address] XRay Report Signed Patient: Katt Martin MR#: [id number] : 1985 Acct:[id number] Age/Sex: 37 / F Date of Service: 09/25/23 Loc: ED Accession Number: [id number] Procedure: XR chest 1V Ordering Provider: Mikhail Lundy MD PROCEDURE: XR CHEST 1V INDICATIONS: COUGH, SOB TECHNIQUE: One view of the chest was acquired. COMPARISON: [facility], CR, XR CHEST 1V, 11/01/2021, 0:02. FINDINGS: Surgical changes and devices: None. Lungs and pleura: Minor strandy parenchymal opacity at the left mid lung base. No pleural effusion or pneumothorax. Mediastinum: Mediastinal contours appear normal. Heart size is normal. Bones and chest wall: No suspicious bony lesions. Overlying soft tissues appear unremarkable. IMPRESSION: Strandy left base opacity may be atelectasis, scarring, or small pneumonia. Dictated by: Lani Herrera M.D. on 09/26/2023 at 1:22 Approved by: Lani Herrera M.D. on 09/26/2023 at 1:22 Discharge Plan Departure Patient Disposition: Home Clinical Impression: Pneumonia, Shortness of breath Instructions: DI for Pneumonia -- Adult Activity Restrictions/Additional Instructions: Productive cough with increasing shortness of breath over the last 1 week, nonsmoker, chest x-ray reading from the radiologist suspects possible small area of pneumonia, versus atelectasis, given history we will treat with antibacterial antibiotics for possible pneumonia. Breathing treatment given as well. First dose azithromycin antibiotic given in the emergency department, prescription sent for further course to your pharmacy. Albuterol inhaler for discharge also sent to your pharmacy. Consider recheck in clinic if not improved in next couple of days. Return to this/nearest emergency department for any change worsening symptoms or any concerns prior Prescriptions: New albuterol sulfate 90 mcg/actuation HFA aerosol inhaler 2 puff inhalation Q6H PRN (Reason: shortness of breath or wheezing) Qty: 8.5 0RF azithromycin 250 mg tablet See Rx Instructions .ROUTE .COMPLEX Qty: 6 0RF Rx Instructions: For 250 mg dose pack: take 500 mg today (day 1), then 250 mg for 4 days (days 2-5) No Action Vyvanse 70 mg capsule 70 mg PO QAM Patient Comments: TAKE 1 CAPSULE BY MOUTH IN THE MORNING tizanidine 4 mg capsule 4 mg PO Q8H PRN (Reason: muscle spasticity) Qty: 20 0RF sertraline [Zoloft] 50 mg Tablet 150 mg PO QPM nifedipine 30 mg tablet extended release 24hr 30 mg PO DAILY promethazine 25 mg suppository 25 mg NJ Q6H PRN (Reason: Nausea And Vomiting) promethazine 50 mg/mL Solution 1 dose IV PRN PRN (Reason: Nausea And Vomiting) Tpn 1 ea Continuous IV Infusion Q20H Patient Comments: RUNS 20 HOURS PER DAY doxazosin 1 mg tablet 1 mg PO DAILY venlafaxine 150 mg capsule,extended release 24hr 150 mg PO DAILY pantoprazole 40 mg tablet,delayed release (DR/EC) 40 mg PO DAILY ergocalciferol (vitamin D2) 50,000 unit capsule 50,000 unit PO QWEEK methylphenidate HCl 36 mg tablet extended release 24hr 36 mg PO DAILY lisdexamfetamine 60 mg capsule 60 mg PO DAILY albuterol sulfate [ProAir HFA] 90 mcg/actuation HFA aerosol inhaler 2 puff INHALATION Q4-6H PRN (Reason: shortness of breath or wheezing) Qty: 8.5 0RF Emgality Pen 120 mg/mL Pen Injector 120 mg SUBCUT QMONTH hydrocodone-acetaminophen 5-325 mg tablet 1 tab PO Q8H PRN (Reason: pain) Qty: 7 0RF moxifloxacin [Vigamox] 0.5 % drops 1 drp EYE-LEFT TID Qty: 3 0RF hydrocodone-acetaminophen 7.5-325 mg tablet 1 tab PO Q8H PRN (Reason: pain) Qty: 4 0RF Rx Instructions: AWARE OF CHRONIC MEDS, JUST FOR 1 DAY Referrals: Lamar Javier DO [Primary Care Provider] - Stand Alone Forms: Patient Portal/API
[2023-09-26] MEDS: AZITHROMYCIN 250 MG TABLET 500 MG PO (02:32)
[2023-09-26] MEDS: ALBUTEROL 2.5 MG/3 ML NEB (ADULT) INH (02:34)
[2023-09-26 03:08] VITALS: BP 152/67; PULSE 82; RESP 18; O2SAT 95
== END 2023-09-26 03:11 | disposition home or self-care (01) ==
PROVIDERS: Emergency Provider Emergency Medicine; PCP Family Medicine
DX: J18.9 Pneumonia, unspecified organism (principal)
CPT/HCPCS: 71045; 99283; J7613

== ENCOUNTER → 2023-11-03 11:47 | Outpatient (CLI) | payer OTHER, SELFPAY ==
[2020-10-15 21:40] VITALS: BMI 35.5
[2023-11-04 06:09] LABS: IGA 188 mg/dL (87-352); IGG 835 mg/dL (586-1602); IGM 174 mg/dL (26-217)
== END ==
PROVIDERS: PCP Family Medicine; Referring Provider Internal Medicine Critical Care Medicine; Visit Provider Internal Medicine Critical Care Medicine
DX: J18.9 Pneumonia, unspecified organism (principal)
CPT/HCPCS: 36415; 82784; 86331; 86602; 86606; 86609; 86671

== ENCOUNTER 2023-11-11 20:13 | Emergency (ER) | payer OTHER, SELFPAY ==
[2020-10-15 21:40] VITALS: BMI 35.5
[2023-11-11 20:41] VITALS: BP 110/72; PULSE 71; RESP 16; TEMP 37; O2SAT 100; BMI 40.7
--- NOTE | 2023-11-11 20:45 | DI.RAD.S_ITS ---
PROCEDURE: XR SHOULDER LT MIN 2V INDICATIONS: increase pain in shoulder, decreased range of motion. TECHNIQUE: 3 views of the shoulder were acquired. COMPARISON: None. FINDINGS: Bones: No fractures or dislocations. No suspicious bony lesions. Visualized ribs appear intact. Soft tissues: No suspicious soft tissue calcifications. IMPRESSION: No acute bony abnormality. If there are persistent symptoms or clinical suspicion for pathology, then repeat radiographs or advanced imaging (CT or MRI) may be considered for further evaluation. Dictated by: Boone Hitchcock M.D. on 11/11/2023 at 21:16 Approved by: Boone Hitchcock M.D. on 11/11/2023 at 21:16
[2023-11-12 00:53] VITALS: BP 158/93; PULSE 68; RESP 20; O2SAT 100
[2023-11-12 01:29] VITALS: BP 145/107; PULSE 71; O2SAT 97
[2023-11-12 01:30] VITALS: PULSE 68; O2SAT 99
[2023-11-12 02:00] VITALS: PULSE 64; O2SAT 98
--- NOTE | 2023-11-12 02:14 | ED_ITS ---
HPI - Extremity Problem General Chief complaint: Extremity Problem,Nontraumatic Stated complaint: intense lt shoulder pain Time Seen by Provider: 11/12/23 01:41 Source: patient Mode of arrival: Ambulatory History of Present Illness HPI Narrative: 37-year-old female with history of fibromyalgia, has 3 days duration left superior trapezius area discomfort, left lateral neck discomfort, left upper rhomboid area discomfort, she believes that she might have had this from waking up from sleep, tends to sleep on the side. She takes tizanidine muscle relaxant on regular basis. She has had relief before with Toradol, but usually does not take regular naproxen/ibuprofen due to her GERD, she usually tolerates a single dose of Toradol pretty well. No fall injury or trauma new activities. No numbness or tingling to left arm. No chest pain. No neck procedures or surgeries. Related Data Home Medications Medication Instructions Recorded Confirmed sertraline 50 mg tablet (Zoloft) 150 mg PO QPM 10/23/17 11/03/23 Tpn 1 ea continuous IV infusion Q20H 03/27/18 11/03/23 nifedipine 30 mg tablet,extended 30 mg PO DAILY 03/27/18 11/03/23 release 24 hr promethazine 25 mg rectal 25 mg OR Q6H PRN Nausea And 03/27/18 11/03/23 suppository Vomiting promethazine 50 mg/mL injection 1 dose IV PRN PRN Nausea And 03/27/18 11/03/23 solution Vomiting doxazosin 1 mg tablet 1 mg PO DAILY 12/14/18 11/03/23 ergocalciferol (vitamin D2) 1,250 50,000 unit PO QWEEK 12/14/18 11/03/23 mcg (50,000 unit) capsule lisdexamfetamine 60 mg capsule 60 mg PO DAILY 12/14/18 11/03/23 methylphenidate HCl 36 mg 36 mg PO DAILY 12/14/18 11/03/23 tablet,extended release 24 hr pantoprazole 40 mg tablet,delayed 40 mg PO DAILY 12/14/18 11/03/23 release venlafaxine 150 mg 150 mg PO DAILY 12/14/18 11/03/23 capsule,extended release 24 hr lisdexamfetamine 70 mg capsule 70 mg PO QAM 02/01/19 11/03/23 (Vyvanse) galcanezumab-gnlm 120 mg/mL 120 mg SUBCUT QMONTH 10/15/20 11/03/23 subcutaneous pen injector (Emgality Pen) Previous Rx's Medication Instructions Recorded albuterol sulfate 90 mcg/actuation 2 puff inhalation Q4-6H PRN 06/05/19 aerosol inhaler (ProAir HFA) shortness of breath or wheezing #8.5 grams hydrocodone 5 mg-acetaminophen 325 1 tab PO Q8H PRN pain #7 tabs 01/17/21 mg tablet moxifloxacin 0.5 % eye drops 1 drp EYE-LEFT TID #3 mL 02/12/23 (Vigamox) hydrocodone 7.5 mg-acetaminophen 1 tab PO Q8H PRN pain #4 tabs 08/02/23 325 mg tablet tizanidine 4 mg capsule 4 mg PO Q8H PRN muscle spasticity 09/21/23 #20 caps albuterol sulfate 90 mcg/actuation 2 puff inhalation Q6H PRN 09/26/23 aerosol inhaler shortness of breath or wheezing #8.5 grams azithromycin 250 mg tablet See Rx Instructions PO .COMPLEX #6 09/26/23 tabs Allergies Allergy/AdvReac Type Severity Reaction Status Date / Time cephalexin [CEPHALEXIN] Allergy Unknown Verified 11/03/23 11:14 latex [LATEX] Allergy Unknown Verified 11/03/23 11:14 levofloxacin [From LEVAQUIN] Allergy Unknown Verified 11/03/23 11:14 ondansetron [ONDANSETRON] Allergy Unknown Verified 11/03/23 11:14 oxycodone [From PERCOCET] Allergy Unknown Verified 11/03/23 11:14 Penicillins [PENICILLINS] Allergy Unknown Verified 11/03/23 11:14 vancomycin Allergy Verified 11/03/23 11:14 prochlorperazine AdvReac Severe Anxiety Verified 11/03/23 11:14 [From Compazine] metoclopramide [From Reglan] AdvReac Verified 11/03/23 11:14 Review of Systems Review of Systems Narrative: see HPI Patient History Medical History DVT (deep venous thrombosis) Depression ADHD Kidney stone Hyperemesis affecting , antepartum Surgical History History of appendectomy Social History household members: spouse and children Smoking Status: Never smoker Smoking Status: Never smoker alcohol intake frequency: holidays/special occasions only Substance Use Type: does not use Exam Narrative Exam Narrative: GENERAL: Well-developed patient, in mild distress. HEAD: Atraumatic. Normocephalic. EYES: Pupils equal round and reactive. Extraocular motions intact. No scleral icterus. No injection or drainage. ENT: Nose without bleeding, purulent drainage. Throat without erythema, tonsillar hypertrophy or exudate. Airway patent. NECK: Trachea midline. Nontender midline. Some tenderness superior aspect left trapezius, upper rhomboids on the left, and lateral cervical musculature. CARDIOVASCULAR: Regular rate and rhythm without murmurs, gallops, or rubs. RESPIRATORY: Clear to auscultation. Breath sounds equal bilaterally. No wheezes, rales, or rhonchi. GASTROINTESTINAL: Abdomen soft, non-tender, nondistended. EXTREMITIES: No edema or joint tenderness. No gross deformity left shoulder, no tenderness anterior deltoid, AC joint, or lateral shoulder region BACK: Nontender without deformity or crepitance. No flank tenderness. NEURO: AOx3. SKIN: No rash or erythema of visible areas Initial Vital Signs Initial Vital Signs: Vital Signs Temperature 98.6 F 11/11/23 20:41 Pulse Rate 71 11/11/23 20:41 Respiratory Rate 16 11/11/23 20:41 Blood Pressure 110/72 11/11/23 20:41 Pulse Oximetry 100 11/11/23 20:41 Oxygen Delivery Method Room Air 11/11/23 20:41 Course Orders Ordered: Discontinued Medications Ketorolac Tromethamine (Ketorolac 30 Mg/Ml Vial) 30 mg IM NOW ONE Stop: 11/12/23 02:14 Last Admin: 11/12/23 02:21 Dose: 30 mg Documented By: TEMITOPE Tramadol HCl (Tramadol 50 Mg Prepack) 1 bottle MISC DIRECTED ONE Stop: 11/12/23 02:19 Last Admin: 11/12/23 02:21 Dose: 1 bottle Documented By: TEMITOPE Vital Signs Vital signs: Vital Signs - 8 hr 11/11/23 20:41 11/12/23 00:53 11/12/23 01:29 Temperature 98.6 F Pulse Rate 71 68 71 Respiratory Rate 16 20 Blood Pressure 110/72 158/93 H Pulse Oximetry 100 100 97 Oxygen Delivery Method Room Air Room Air 11/12/23 01:29 11/12/23 01:30 Temperature Pulse Rate 68 Respiratory Rate Blood Pressure 145/107 H Pulse Oximetry 99 Oxygen Delivery Method Room Air MDM - Extremity (Nontraumatic) Imaging Data Extremity x-ray #1: Radiologist's Impression: Close Shoulder X-Ray (Signed) Boone Hitchcock - 11/11/23 Launch?[address] [address] XRay Report Signed Patient: Katt Martin MR#: [id number] : 1985 Acct:[id number] Age/Sex: 37 / F Date of Service: 11/11/23 Loc: ED Accession Number: [id number] Procedure: XR shoulder LT min 2V Ordering Provider: Mikhail Lundy MD PROCEDURE: XR SHOULDER LT MIN 2V INDICATIONS: increase pain in shoulder, decreased range of motion. TECHNIQUE: 3 views of the shoulder were acquired. COMPARISON: None. FINDINGS: Bones: No fractures or dislocations. No suspicious bony lesions. Visualized ribs appear intact. Soft tissues: No suspicious soft tissue calcifications. IMPRESSION: No acute bony abnormality. If there are persistent symptoms or clinical suspicion for pathology, then repeat radiographs or advanced imaging (CT or MRI) may be considered for further evaluation. Dictated by: oBone Hitchcock M.D. on 11/11/2023 at 21:16 Approved by: Boone Hitchcock M.D. on 11/11/2023 at 21:16 [facility] Narrative Medical decision making narrative: 37-year-old female with fibromyalgia, left sided shoulder pain, on examination really seems to be limited to her superior trapezius and lateral cervical musculature and upper rhomboid on the left side. No midline tenderness. Examination around left shoulder unremarkable. Screening x-ray ordered from triage of the left shoulder was negative. She takes tizanidine muscle relaxant regularly. History of GERD, avoids chronic oral NSAIDs but has had single IM injection Toradol in the past, requests dose, IM Toradol ordered. Home pack tramadol for discharge. Improved, stable, discharged home. Home with family. Return precautions discussed Discharge Plan Departure Patient Disposition: Home Clinical Impression: Strain of left trapezius muscle, Acute strain of neck muscle Activity Restrictions/Additional Instructions: Left-sided neck pain, x-rays of the shoulder done from triage were negative. You did not seem to really have discomfort in the shoulder joint area per se, but more on examination in the superior trapezius musculature, also along the sebastian perior left rhomboid musculature, and lateral neck musculature. You take tizanidine muscle relaxant on regular basis. You have responded well in the past with injection of Toradol, ordered. Home pack tramadol to use if needed. Recheck with your regular doctor in the next couple of days if symptoms persist. Return to this/nearest emergency department for any change worsening symptoms or any concerns prior Prescriptions: No Action Vyvanse 70 mg capsule 70 mg PO QAM Patient Comments: TAKE 1 CAPSULE BY MOUTH IN THE MORNING tizanidine 4 mg capsule 4 mg PO Q8H PRN (Reason: muscle spasticity) Qty: 20 0RF albuterol sulfate 90 mcg/actuation HFA aerosol inhaler 2 puff inhalation Q6H PRN (Reason: shortness of breath or wheezing) Qty: 8.5 0RF azithromycin 250 mg tablet See Rx Instructions .ROUTE .COMPLEX Qty: 6 0RF Rx Instructions: For 250 mg dose pack: take 500 mg today (day 1), then 250 mg for 4 days (days 2-5) sertraline [Zoloft] 50 mg Tablet 150 mg PO QPM nifedipine 30 mg tablet extended release 24hr 30 mg PO DAILY promethazine 25 mg suppository 25 mg OR Q6H PRN (Reason: Nausea And Vomiting) promethazine 50 mg/mL Solution 1 dose IV PRN PRN (Reason: Nausea And Vomiting) Tpn 1 ea Continuous IV Infusion Q20H Patient Comments: RUNS 20 HOURS PER DAY doxazosin 1 mg tablet 1 mg PO DAILY venlafaxine 150 mg capsule,extended release 24hr 150 mg PO DAILY pantoprazole 40 mg tablet,delayed release (DR/EC) 40 mg PO DAILY ergocalciferol (vitamin D2) 50,000 unit capsule 50,000 unit PO QWEEK methylphenidate HCl 36 mg tablet extended release 24hr 36 mg PO DAILY lisdexamfetamine 60 mg capsule 60 mg PO DAILY albuterol sulfate [ProAir HFA] 90 mcg/actuation HFA aerosol inhaler 2 puff INHALATION Q4-6H PRN (Reason: shortness of breath or wheezing) Qty: 8.5 0RF Emgality Pen 120 mg/mL Pen Injector 120 mg SUBCUT QMONTH hydrocodone-acetaminophen 5-325 mg tablet 1 tab PO Q8H PRN (Reason: pain) Qty: 7 0RF moxifloxacin [Vigamox] 0.5 % drops 1 drp EYE-LEFT TID Qty: 3 0RF hydrocodone-acetaminophen 7.5-325 mg tablet 1 tab PO Q8H PRN (Reason: pain) Qty: 4 0RF Rx Instructions: AWARE OF CHRONIC MEDS, JUST FOR 1 DAY Referrals: Lamar Javier DO [Primary Care Provider] - Stand Alone Forms: Patient Portal/API
[2023-11-12] MEDS: TRAMADOL 50 MG PREPACK 1 BOTTLE MISC (02:21)
[2023-11-12] MEDS: KETOROLAC 30 MG/ML VIAL IM (02:21)
[2023-11-12 02:23] VITALS: BP 154/79; PULSE 74; O2SAT 97
== END 2023-11-12 02:31 | disposition home or self-care (01) ==
PROVIDERS: Emergency Provider Emergency Medicine; PCP Family Medicine
DX: S46.912A Strain of unspecified muscle, fascia and tendon at shoulder and upper arm level, left arm, initial encounter (principal); S16.1XXA Strain of muscle, fascia and tendon at neck level, initial encounter; X58.XXXA Exposure to other specified factors, initial encounter
CPT/HCPCS: 73030; 96372; 99283; J1885

== ENCOUNTER 2023-11-26 07:45 | Emergency (ER) | payer OTHER, SELFPAY ==
[2020-10-15 21:40] VITALS: BMI 35.5
[2023-11-26 07:50] VITALS: PULSE 75; O2SAT 97
[2023-11-26 07:51] VITALS: BP 135/92; PULSE 72; PULSE 75; RESP 16; TEMP 36.8; O2SAT 97; BMI 42.9
[2023-11-26 08:00] VITALS: BP 125/84; PULSE 71; O2SAT 95
--- NOTE | 2023-11-26 08:15 | ED.EXTPRO ---
HPI - Extremity Problem General Chief complaint: Extremity Problem,Nontraumatic Stated complaint: Left shoulder injury Time Seen by Provider: 11/26/23 08:15 Source: patient Mode of arrival: Ambulatory History of Present Illness HPI Narrative: patient is a 29-year-old female history of fibromyalgia presenting today with ongoing left shoulder pain. She reports he has had this pain for about 2 weeks. Denies any sort of injury. She was seen evaluated here on November 11 she was given tizanidine Toradol. She says it has not gotten better she had an x-ray at time. She is since seen her primary care provider who did trigger injection shots which normally help her however this time they did not. She is got some numbness going into her neck it hurts every time she moves. she feels numbness tingling going down her whole hand. She denies any weakness she has not dropping things. She is offered a Toradol shot today but declines. 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 She says just nothing is helping she has not been able to sleep. She is holding arm in position of comfort Related Data Home Medications Medication Instructions Recorded Confirmed sertraline 50 mg tablet (Zoloft) 150 mg PO QPM 10/23/17 11/03/23 Tpn 1 ea continuous IV infusion Q20H 03/27/18 11/03/23 nifedipine 30 mg tablet,extended 30 mg PO DAILY 03/27/18 11/03/23 release 24 hr promethazine 25 mg rectal 25 mg UT Q6H PRN Nausea And 03/27/18 11/03/23 suppository Vomiting promethazine 50 mg/mL injection 1 dose IV PRN PRN Nausea And 03/27/18 11/03/23 solution Vomiting doxazosin 1 mg tablet 1 mg PO DAILY 12/14/18 11/03/23 ergocalciferol (vitamin D2) 1,250 50,000 unit PO QWEEK 12/14/18 11/03/23 mcg (50,000 unit) capsule lisdexamfetamine 60 mg capsule 60 mg PO DAILY 12/14/18 11/03/23 methylphenidate HCl 36 mg 36 mg PO DAILY 12/14/18 11/03/23 tablet,extended release 24 hr pantoprazole 40 mg tablet,delayed 40 mg PO DAILY 12/14/18 11/03/23 release venlafaxine 150 mg 150 mg PO DAILY 12/14/18 11/03/23 capsule,extended release 24 hr lisdexamfetamine 70 mg capsule 70 mg PO QAM 02/01/19 11/03/23 (Vyvanse) galcanezumab-gnlm 120 mg/mL 120 mg SUBCUT QMONTH 10/15/20 11/03/23 subcutaneous pen injector (Emgality Pen) Previous Rx's Medication Instructions Recorded albuterol sulfate 90 mcg/actuation 2 puff inhalation Q4-6H PRN 06/05/19 aerosol inhaler (ProAir HFA) shortness of breath or wheezing #8.5 grams hydrocodone 5 mg-acetaminophen 325 1 tab PO Q8H PRN pain #7 tabs 01/17/21 mg tablet moxifloxacin 0.5 % eye drops 1 drp EYE-LEFT TID #3 mL 02/12/23 (Vigamox) hydrocodone 7.5 mg-acetaminophen 1 tab PO Q8H PRN pain #4 tabs 08/02/23 325 mg tablet tizanidine 4 mg capsule 4 mg PO Q8H PRN muscle spasticity 09/21/23 #20 caps albuterol sulfate 90 mcg/actuation 2 puff inhalation Q6H PRN 09/26/23 aerosol inhaler shortness of breath or wheezing #8.5 grams azithromycin 250 mg tablet See Rx Instructions PO .COMPLEX #6 09/26/23 tabs diazepam 5 mg tablet (Valium) 5 mg PO Q12HR PRN muscle spasm #10 11/26/23 tabs prednisone 20 mg tablet 20 mg PO DAILY #5 tabs 11/26/23 Allergies Allergy/AdvReac Type Severity Reaction Status Date / Time cephalexin [CEPHALEXIN] Allergy Unknown Verified 11/26/23 07:58 latex [LATEX] Allergy Unknown Verified 11/26/23 07:58 levofloxacin [From LEVAQUIN] Allergy Unknown Verified 11/26/23 07:58 ondansetron [ONDANSETRON] Allergy Unknown Verified 11/26/23 07:58 oxycodone [From PERCOCET] Allergy Unknown Verified 11/26/23 07:58 Penicillins [PENICILLINS] Allergy Unknown Verified 11/26/23 07:58 vancomycin Allergy Verified 11/26/23 07:58 prochlorperazine AdvReac Severe Anxiety Verified 11/26/23 07:58 [From Compazine] metoclopramide [From Reglan] AdvReac Verified 11/26/23 07:58 Patient History Medical History DVT (deep venous thrombosis) Depression ADHD Kidney stone Hyperemesis affecting , antepartum Surgical History History of appendectomy Social History household members: spouse and children Smoking Status: Never smoker Smoking Status: Never smoker alcohol intake frequency: holidays/special occasions only Substance Use Type: does not use Exam Initial Vital Signs Initial Vital Signs: Vital Signs Pulse Rate 75 11/26/23 07:50 Pulse Oximetry 97 11/26/23 07:50 GENERAL: Well-appearing, well-nourished and in no acute distress. NECK: no vertebral tenderness full flexion-extension and rotation CARDIOVASCULAR: peripheral pulses in tact, cap refill <2 sec RESPIRATORY: No respiratory distress, speaks in full sentences without difficulty EXTREMITIES: Normal range of motion, no clubbing or edema. Neurovascularly intact Left shoulder holding in adduction. sensation and deltoid ulnar radial median nerve intact. Tube Rebuilder strength equal bilaterally distal radial pulse intact NEUROLOGICAL: Cranial nerves II through XII grossly intact. Normal gait and speech. SKIN: Warm, dry, no petechiae, no rashes or lesions. Course Orders Ordered: Discontinued Medications Diazepam (Diazepam 5 Mg Tablet) 5 mg PO NOW ONE Stop: 11/26/23 08:28 Last Admin: 11/26/23 08:39 Dose: 5 mg Documented By: Prednisone (Prednisone 20 Mg Tablet) 40 mg PO NOW ONE Stop: 11/26/23 08:28 Last Admin: 11/26/23 08:39 Dose: 40 mg Documented By: Vital Signs Vital signs: Vital Signs - 8 hr 11/26/23 07:50 11/26/23 07:51 11/26/23 07:51 Temperature 98.2 F Pulse Rate 75 72 Respiratory Rate 16 Blood Pressure 135/92 H 135/92 H Pulse Oximetry 97 97 Oxygen Delivery Method Room Air 11/26/23 07:51 11/26/23 08:00 11/26/23 08:00 Temperature Pulse Rate 75 71 Respiratory Rate Blood Pressure 125/84 Pulse Oximetry 97 95 Oxygen Delivery Method 11/26/23 08:30 11/26/23 08:30 Temperature Pulse Rate 74 Respiratory Rate Blood Pressure 134/88 Pulse Oximetry 96 Oxygen Delivery Method MDM - Extremity (Nontraumatic) MDM Narrative Medical decision making narrative: patient 37-year-old female history of fibromyalgia presenting today with ongoing left shoulder pain for 2 weeks. She is got numbness tingling down her left arm going into her neck. It seems to be musculoskeletal it has been constant for 2 weeks. No chest pain or weakness. She is definitely willing in a position of comfort. she was offered a Toradol shot but declines today. She is already taking duloxetine. At this time recommend supportive care only. Recommend outpatient MRI. She has not really had any neck pain but possible cervical stenosis. She is pain all the way down her arm into her fingers. No weakness no suspicion for CVA or cardiac she is given prednisone and Valium here in the ED. Discharge Plan Departure Patient Disposition: Home Clinical Impression: Peripheral neuropathy Activity Restrictions/Additional Instructions: *You have been diagnosed with I suspect your having some sort of nerve impingement *What to do: may wear sling but please make sure to take shoulder out of sling multiple times a day and move around. I do recommend MRI possibly cervical spine and or shoulder. Please discuss with your primaryCare in order to get this scheduled *Continue to take medications as directed prednisone 40 mg once a day for 5 days Valium 5 mg every 12 hours if needed for severe muscle spasm do not combine with Woodward or other muscle relaxer *Follow up with your primary care provider in 2-3 days or call [phone] *Return to ER if you should have increasing weakness numbness tingling [or] any new, worsening or concerning symptoms CONTROLLED SUBSTANCE DISCHARGE (Narcotoic/benzodiazepine/Flexeril/Phenergan) 1. You have been prescribed narcotic medications, it does have acetaminophen/Tylenol/paracetamol in it, DO NOT TAKE MORE THAN 4,00mg in 24 hours of Tylenol. TRAMADOL DOES NOT CONTAIN TYLENOL 2. Please understand that we cannot provide further refills of narcotics, benzodiazepines or controlled substances through the ED and her pain management will need to be through your provider. 3. While on these medications you cannot drive or operate heavy machinery. 4. You cannot sign legal documents or perform any duties such as this. 5. As long as you're taking opiate pain medications he should also be taking a stool softener such as Colace, Dulcolax, MiraLAX or prune juice, to help avoid constipation. Prescriptions: New prednisone 20 mg tablet 20 mg PO DAILY Qty: 5 0RF diazepam [Valium] 5 mg tablet 5 mg PO Q12HR PRN (Reason: muscle spasm) Qty: 10 0RF No Action Vyvanse 70 mg capsule 70 mg PO QAM Patient Comments: TAKE 1 CAPSULE BY MOUTH IN THE MORNING tizanidine 4 mg capsule 4 mg PO Q8H PRN (Reason: muscle spasticity) Qty: 20 0RF albuterol sulfate 90 mcg/actuation HFA aerosol inhaler 2 puff inhalation Q6H PRN (Reason: shortness of breath or wheezing) Qty: 8.5 0RF azithromycin 250 mg tablet See Rx Instructions .ROUTE .COMPLEX Qty: 6 0RF Rx Instructions: For 250 mg dose pack: take 500 mg today (day 1), then 250 mg for 4 days (days 2-5) sertraline [Zoloft] 50 mg Tablet 150 mg PO QPM nifedipine 30 mg tablet extended release 24hr 30 mg PO DAILY promethazine 25 mg suppository 25 mg UT Q6H PRN (Reason: Nausea And Vomiting) promethazine 50 mg/mL Solution 1 dose IV PRN PRN (Reason: Nausea And Vomiting) Tpn 1 ea Continuous IV Infusion Q20H Patient Comments: RUNS 20 HOURS PER DAY doxazosin 1 mg tablet 1 mg PO DAILY venlafaxine 150 mg capsule,extended release 24hr 150 mg PO DAILY pantoprazole 40 mg tablet,delayed release (DR/EC) 40 mg PO DAILY ergocalciferol (vitamin D2) 50,000 unit capsule 50,000 unit PO QWEEK methylphenidate HCl 36 mg tablet extended release 24hr 36 mg PO DAILY lisdexamfetamine 60 mg capsule 60 mg PO DAILY albuterol sulfate [ProAir HFA] 90 mcg/actuation HFA aerosol inhaler 2 puff INHALATION Q4-6H PRN (Reason: shortness of breath or wheezing) Qty: 8.5 0RF Emgality Pen 120 mg/mL Pen Injector 120 mg SUBCUT QMONTH hydrocodone-acetaminophen 5-325 mg tablet 1 tab PO Q8H PRN (Reason: pain) Qty: 7 0RF moxifloxacin [Vigamox] 0.5 % drops 1 drp EYE-LEFT TID Qty: 3 0RF hydrocodone-acetaminophen 7.5-325 mg tablet 1 tab PO Q8H PRN (Reason: pain) Qty: 4 0RF Rx Instructions: AWARE OF CHRONIC MEDS, JUST FOR 1 DAY Referrals: Lamar Javier DO [Primary Care Provider] - Stand Alone Forms: Patient Portal/API
[2023-11-26 08:30] VITALS: BP 134/88; PULSE 74; O2SAT 96
[2023-11-26] MEDS: predniSONE 20 MG TABLET 40 MG PO (08:39)
[2023-11-26] MEDS: diazePAM 5 MG TABLET PO (08:39)
== END 2023-11-26 09:05 | disposition home or self-care (01) ==
PROVIDERS: Emergency Provider Emergency Medicine; PCP Family Medicine
DX: G62.9 Polyneuropathy, unspecified (principal); Z87.39 Personal history of other diseases of the musculoskeletal system and connective tissue
CPT/HCPCS: 99283

== ENCOUNTER → 2024-01-13 10:57 | Outpatient (CLI) | payer OTHER, SELFPAY ==
[2020-10-15 21:40] VITALS: BMI 35.5
--- NOTE | 2024-01-13 10:58 | DI.MRI.S_ITS ---
PROCEDURE: MR CERVICAL SPINE WO CON INDICATIONS: RADICULOPATHY, CERVICAL REGION TECHNIQUE: Noncontrast sagittal T1 spin echo and T2 fast spin echo, sagittal STIR, foraminal oblique sagittal T2 fast spin echo, and axial gradient echo or T2 fast spin echo through the cervical spine. COMPARISON: None. FINDINGS: Image quality: Diagnostic Alignment and Curvature: Straightening of the normal cervical lordosis. No spondylolisthesis Bone Marrow: No acute fracture. Spinal Cord: No suspicious cord signal Paraspinous Soft Tissues: No paravertebral masses. Prevertebral soft tissues are normal in thickness. C2-C3: No stenosis C3-C4: Mild facet and uncovertebral arthropathy. Minimal bilateral neural foraminal narrowing There is minimal central protrusion. C4-C5: Small posterior disc osteophyte complex. Uncovertebral and facet arthropathy. Mild central narrowing. Mild bilateral neural foraminal narrowing. C5-C6: Small posterior disc osteophyte complex and right-sided disc protrusion in the foraminal region. Mild central narrowing. Uncovertebral and facet arthropathy. Moderate right neural foraminal narrowing C6-C7: Small annular fissure posteriorly Mild central narrowing. Uncovertebral and facet arthropathy. Small protrusion in the left paracentral region. mild left neural foraminal narrowing. C7-T1: No stenosis. IMPRESSION: Overall mild and moderate areas of spondylosis with narrowing as described above. No acute fracture. There is straightening of the normal cervical lordosis. Dictated by: Alcides Barth M.D. on 01/15/2024 at 12:16 Approved by: Alcides Barth M.D. on 01/15/2024 at 12:20
== END ==
LOC: MRI 10:57
PROVIDERS: PCP Family Medicine; Referring Provider Family Medicine; Visit Provider Family Medicine
DX: M47.22 Other spondylosis with radiculopathy, cervical region (principal); M48.02 Spinal stenosis, cervical region
CPT/HCPCS: 72141

== ENCOUNTER 2024-01-19 00:20 | Emergency (ER) | payer OTHER, SELFPAY ==
[2020-10-15 21:40] VITALS: BMI 35.5
[2024-01-19 00:40] VITALS: BP 145/98; PULSE 79; RESP 18; TEMP 37.1; O2SAT 98; BMI 38.9
--- NOTE | 2024-01-19 02:22 | ED.HA ---
HPI - Headache General Chief Complaint: Headache Stated Complaint: migrane, feels week on left side Time Seen by Provider: 01/19/24 02:22 Source: patient, RN notes reviewed and old records reviewed Mode of arrival: Ambulatory Limitations: no limitations History of Present Illness HPI Narrative: 29-year-old female with a history of fibromyalgia, migraines who follows with Dr. Wyatt for Neurology. Patient states she has had migraine for about 1.5 months. States it has been persistent has not resolved she has seen Dr. Wyatt. She had an infusion of a migraine cocktail threw him the included Toradol, fluids, dexamethasone, lorazepam and Benadryl which was not helpful on Monday. She has oral narcotics that she takes at home for breakthrough pain but states they have not been controlling it. States that it is kind of left side, she has noted a little bit of blurred vision on the left. She gets photophobia. She gets nauseated she has not been actively vomiting she feels like her left side feels bit weaker. She denies any numbness or tingling new on her left side today. She has had some tingling in her left foot for the past week. Patient states the weakness feeling has been for several days. Patient states no chest pain or shortness of breath. No loss of bowel or bladder control. No other GI or urinary symptoms besides nausea. She has had an eye evaluation in the past 6 months. She is on several medications for her migraines which have not been helpful. Has multiple allergies to medications. No tobacco, occasional alcohol, no recreational drugs. Patient's primary care physician has Lamar Ramon. Related Data Home Medications Medication Instructions Recorded Confirmed sertraline 50 mg tablet (Zoloft) 150 mg PO QPM 10/23/17 11/03/23 Tpn 1 ea continuous IV infusion Q20H 03/27/18 11/03/23 nifedipine 30 mg tablet,extended 30 mg PO DAILY 03/27/18 11/03/23 release 24 hr promethazine 25 mg rectal 25 mg NM Q6H PRN Nausea And 03/27/18 11/03/23 suppository Vomiting promethazine 50 mg/mL injection 1 dose IV PRN PRN Nausea And 03/27/18 11/03/23 solution Vomiting doxazosin 1 mg tablet 1 mg PO DAILY 12/14/18 11/03/23 ergocalciferol (vitamin D2) 1,250 50,000 unit PO QWEEK 12/14/18 11/03/23 mcg (50,000 unit) capsule lisdexamfetamine 60 mg capsule 60 mg PO DAILY 12/14/18 11/03/23 methylphenidate HCl 36 mg 36 mg PO DAILY 12/14/18 11/03/23 tablet,extended release 24 hr pantoprazole 40 mg tablet,delayed 40 mg PO DAILY 12/14/18 11/03/23 release venlafaxine 150 mg 150 mg PO DAILY 12/14/18 11/03/23 capsule,extended release 24 hr lisdexamfetamine 70 mg capsule 70 mg PO QAM 02/01/19 11/03/23 (Vyvanse) galcanezumab-gnlm 120 mg/mL 120 mg SUBCUT QMONTH 10/15/20 11/03/23 subcutaneous pen injector (Emgality Pen) Previous Rx's Medication Instructions Recorded albuterol sulfate 90 mcg/actuation 2 puff inhalation Q4-6H PRN 06/05/19 aerosol inhaler (ProAir HFA) shortness of breath or wheezing #8.5 grams hydrocodone 5 mg-acetaminophen 325 1 tab PO Q8H PRN pain #7 tabs 01/17/21 mg tablet moxifloxacin 0.5 % eye drops 1 drp EYE-LEFT TID #3 mL 02/12/23 (Vigamox) hydrocodone 7.5 mg-acetaminophen 1 tab PO Q8H PRN pain #4 tabs 08/02/23 325 mg tablet tizanidine 4 mg capsule 4 mg PO Q8H PRN muscle spasticity 09/21/23 #20 caps albuterol sulfate 90 mcg/actuation 2 puff inhalation Q6H PRN 09/26/23 aerosol inhaler shortness of breath or wheezing #8.5 grams azithromycin 250 mg tablet See Rx Instructions PO .COMPLEX #6 09/26/23 tabs diazepam 5 mg tablet (Valium) 5 mg PO Q12HR PRN muscle spasm #10 11/26/23 tabs prednisone 20 mg tablet 20 mg PO DAILY #5 tabs 11/26/23 Allergies Allergy/AdvReac Type Severity Reaction Status Date / Time cephalexin [CEPHALEXIN] Allergy Unknown Verified 11/26/23 07:58 latex [LATEX] Allergy Unknown Verified 11/26/23 07:58 levofloxacin [From LEVAQUIN] Allergy Unknown Verified 11/26/23 07:58 ondansetron [ONDANSETRON] Allergy Unknown Verified 11/26/23 07:58 oxycodone [From PERCOCET] Allergy Unknown Verified 11/26/23 07:58 Penicillins [PENICILLINS] Allergy Unknown Verified 11/26/23 07:58 vancomycin Allergy Verified 11/26/23 07:58 prochlorperazine AdvReac Severe Anxiety Verified 11/26/23 07:58 [From Compazine] metoclopramide [From Reglan] AdvReac Verified 11/26/23 07:58 Review of Systems Review of Systems ROS Unobtainable: All systems reviewed & are unremarkable except as noted in HPI and below Patient History Medical History DVT (deep venous thrombosis) Depression ADHD Kidney stone Hyperemesis affecting , antepartum Surgical History History of appendectomy Social History household members: spouse and children Smoking Status: Never smoker Smoking Status: Never smoker alcohol intake frequency: holidays/special occasions only Substance Use Type: does not use Exam Narrative Exam Narrative: GEN: well nourished, well appearing female, alert and oriented x 3, patient appears to be in mild distress. HEENT: Atraumatic, pupils are equal round reactive to light, extraocular movements are intact, nares are clear, TMs are clear with no fluid, there is no conjunctival pallor. Throat is clear without any exudates, erythema, tonsillar enlargement or uvular deviation, no facial droop HEART: Regular rate and rhythm without murmur, clicks, rubs. Pulses are equal in upper and lower extremities LUNGS:Lungs clear to auscultation, no wheezes, rales, crackles, chest moves symmetrically ABD:bowel sounds normal, soft, non-tender, no guarding, rebound, rigidity, no masses noted, no hepatosplenomegaly :No CVA tenderness MSCL: Non-tender, no muscle atrophy, muscles strength 5/5 upper and lower extremities, full range of motion, normal gait NEURO:CN 2-12 intact, sensation normal, reflexes 2/4 upper and lower extremities. finger nose finger test normal, heel campuzano test normal. No dysarthria or aphasia. SKIN: No rash, erythema or other skin changes noted. Initial Vital Signs Initial Vital Signs: Vital Signs Temperature 98.7 F 01/19/24 00:40 Pulse Rate 79 01/19/24 00:40 Respiratory Rate 18 01/19/24 00:40 Blood Pressure 145/98 H 01/19/24 00:40 Pulse Oximetry 98 01/19/24 00:40 Oxygen Delivery Method Room Air 01/19/24 00:40 Course Orders Ordered: ED Orders 01/19/24 02:37 CT head/brain wo con Stat Discontinued Medications Dexamethasone (Dexamethasone 10 Mg/Ml Vial) 10 mg IV NOW ONE Stop: 01/19/24 02:38 Last Admin: 01/19/24 02:47 Dose: 10 mg Documented By: AB Sodium Chloride (Normal Saline 0.9%) 1,000 mls @ 1,000 mls/hr IV BOLUS ONE Stop: 01/19/24 03:36 Last Infusion: 01/19/24 04:54 Dose: Infused Documented By: Admin: 01/19/24 02:47 Dose: 1,000 mls/hr Documented By: AB Ketorolac Tromethamine (Ketorolac 30 Mg/Ml Vial) 15 mg IV NOW ONE Stop: 01/19/24 02:38 Last Admin: 01/19/24 02:47 Dose: 15 mg Documented By: AB Morphine Sulfate (Morphine 4 Mg/Ml Inj) 4 mg IV NOW ONE Stop: 01/19/24 03:35 Last Admin: 01/19/24 03:54 Dose: 4 mg Documented By: AB Promethazine HCl (Promethazine 25 Mg Tablet) 25 mg PO NOW ONE Stop: 01/19/24 04:05 Last Admin: 01/19/24 04:14 Dose: 25 mg Documented By: AB Vital Signs Vital signs: Vital Signs - 8 hr 01/19/24 00:40 01/19/24 04:53 Temperature 98.7 F Pulse Rate 79 80 Respiratory Rate 18 16 Blood Pressure 145/98 H 161/94 H Pulse Oximetry 98 92 Oxygen Delivery Method Room Air Room Air MDM - Headache MDM Narrative Medical decision making narrative: 38-year-old with a history of chronic migraines state she has had persistent intractable migraine for 6 weeks, patient has been following with her neurologist. She notes a little bit of left eye blurriness in the past 24 hours and states that her left side has felt weaker for several days to a week. Patient's neurologic exam is overall normal. Patient has not had any imaging of her brain in some time. She has been on her home medications. She does get regular narcotic prescription refills from her primary care physician. Head CT is negative for acute change, Patient has a reassuring neurologic exam was given Toradol, fluids dexamethasone. Patient deferred anything for antinausea medications states pretty well-controlled and has a multiple medications that she does not tolerate well. She does tolerate promethazine but we only have his p.o. and she has not persistently vomiting she defers. Discharge Plan Departure Patient Disposition: Home Clinical Impression: Migraine Instructions: DI for Migraine Activity Restrictions/Additional Instructions: Follow up with your physician and Dr. Wyatt. Continue your home medications as prescribed. Please for fevers, new changes to your symptoms, persistent vomiting, new weakness, numbness or difficulty with movement, syncope or passing out, new loss of bowel or bladder control or other new or concerning changes. Prescriptions: No Action Vyvanse 70 mg capsule 70 mg PO QAM Patient Comments: TAKE 1 CAPSULE BY MOUTH IN THE MORNING tizanidine 4 mg capsule 4 mg PO Q8H PRN (Reason: muscle spasticity) Qty: 20 0RF albuterol sulfate 90 mcg/actuation HFA aerosol inhaler 2 puff inhalation Q6H PRN (Reason: shortness of breath or wheezing) Qty: 8.5 0RF azithromycin 250 mg tablet See Rx Instructions .ROUTE .COMPLEX Qty: 6 0RF Rx Instructions: For 250 mg dose pack: take 500 mg today (day 1), then 250 mg for 4 days (days 2-5) prednisone 20 mg tablet 20 mg PO DAILY Qty: 5 0RF diazepam [Valium] 5 mg tablet 5 mg PO Q12HR PRN (Reason: muscle spasm) Qty: 10 0RF sertraline [Zoloft] 50 mg Tablet 150 mg PO QPM nifedipine 30 mg tablet extended release 24hr 30 mg PO DAILY promethazine 25 mg suppository 25 mg NM Q6H PRN (Reason: Nausea And Vomiting) promethazine 50 mg/mL Solution 1 dose IV PRN PRN (Reason: Nausea And Vomiting) Tpn 1 ea Continuous IV Infusion Q20H Patient Comments: RUNS 20 HOURS PER DAY doxazosin 1 mg tablet 1 mg PO DAILY venlafaxine 150 mg capsule,extended release 24hr 150 mg PO DAILY pantoprazole 40 mg tablet,delayed release (DR/EC) 40 mg PO DAILY ergocalciferol (vitamin D2) 50,000 unit capsule 50,000 unit PO QWEEK methylphenidate HCl 36 mg tablet extended release 24hr 36 mg PO DAILY lisdexamfetamine 60 mg capsule 60 mg PO DAILY albuterol sulfate [ProAir HFA] 90 mcg/actuation HFA aerosol inhaler 2 puff INHALATION Q4-6H PRN (Reason: shortness of breath or wheezing) Qty: 8.5 0RF Emgality Pen 120 mg/mL Pen Injector 120 mg SUBCUT QMONTH hydrocodone-acetaminophen 5-325 mg tablet 1 tab PO Q8H PRN (Reason: pain) Qty: 7 0RF moxifloxacin [Vigamox] 0.5 % drops 1 drp EYE-LEFT TID Qty: 3 0RF hydrocodone-acetaminophen 7.5-325 mg tablet 1 tab PO Q8H PRN (Reason: pain) Qty: 4 0RF Rx Instructions: AWARE OF CHRONIC MEDS, JUST FOR 1 DAY Referrals: Lamar Javier DO [Primary Care Provider] - Stand Alone Forms: Patient Portal/API
--- NOTE | 2024-01-19 02:37 | DI.CT.S_ITS ---
PROCEDURE: CT HEAD/BRAIN WO CON INDICATIONS: hx migraines, persistent x 1.5 months, left side feels diff TECHNIQUE: Noncontrast 4.5 mm thick angled axial sections acquired from the foramen magnum to the vertex, with coronal and sagittal reformats. For radiation dose reduction, the following was used: automated exposure control, adjustment of mA and/or kV according to patient size. COMPARISON: [facility], CT, CT HEAD/BRAIN WO CON, 10/15/2020, 20:05. FINDINGS: Image quality: Diagnostic. Left downward head tilt and left-sided head turn with oblique images limits orthogonal symmetry. CSF spaces: Basal cisterns are patent. No extra-axial fluid collections. Ventricles are normal in size and shape. Brain: No midline shift. No intracranial masses or hemorrhage. Landon-white matter interface is normal. Skull and face: Calvarium and visualized facial bones are intact, without suspicious lesions. Sinuses: Visualized sinuses and mastoids are clear. IMPRESSION: No CT evidence of intracranial abnormality. If symptoms persist or worsen, or there is high clinical suspicion of intracranial abnormality, MR brain could be performed Dictated by: Ministerio Diaz M.D. on 01/19/2024 at 8:21 Approved by: Ministerio Diaz M.D. on 01/19/2024 at 8:28
[2024-01-19] MEDS: DEXAMETHASONE 10 MG/ML VIAL IV (02:47)
[2024-01-19] MEDS: SODIUM CHLORIDE 0.9% 1,000 ML 1000 ML IV (02:47)
[2024-01-19] MEDS: KETOROLAC 30 MG/ML VIAL 15 MG IV (02:47)
[2024-01-19] MEDS: MORPHINE 4 MG/ML INJ IV (03:54)
[2024-01-19] MEDS: PROMETHAZINE 25 MG TABLET PO (04:14)
[2024-01-19 04:53] VITALS: BP 161/94; PULSE 80; RESP 16; O2SAT 92
== END 2024-01-19 05:01 | disposition home or self-care (01) ==
PROVIDERS: Emergency Provider Emergency Medicine; PCP Family Medicine
DX: G40.909 Epilepsy, unspecified, not intractable, without status epilepticus (principal); H53.8 Other visual disturbances
CPT/HCPCS: 70450; 96361; 96374; 96375; 99284; J1100; J1885; J2270

== ENCOUNTER 2024-01-31 21:09 | Emergency (ER) | payer OTHER, SELFPAY ==
[2020-10-15 21:40] VITALS: BMI 35.5
[2024-01-31] VITALS (10 sets, daily range): BP systolic 146–175; BP diastolic 87–106; PULSE 92–103; RESP 18; TEMP 36.5; O2SAT 95–100; BMI 35.6
[2024-01-31 22:02] LABS: Bacteria Urine None Seen; Culture Indicated Urine Cult Not Indicated; RBC Urine None Seen (0-5/HPF); Squamous Epithelial Cell Urine 0-1 /HPF (0-5/HPF); Urine Volume 10mL (spun); WBC Urine None Seen (0-5/HPF)
[2024-01-31 22:08] LABS: Add Manual Diff / Slide Review NO; Basophils Absolute Auto 100 /uL (0-100); Basophils Percent Auto 1.3 % (0-2); Eosinophils Absolute Auto 100 /uL (0-450); Eosinophils Percent Auto 1.1 % (2-4); Hematocrit 47.7 % (36-46); Hemoglobin 16.4 g/dL (12.0-16.0); Lymphocytes Absolute Auto 2800 /uL (1100-4500); Lymphocytes Percent Auto 29.4 % (25-40); Mean Corpuscular HGB Conc 34.5 % (30-36); Mean Corpuscular Hemoglobin 30.8 PG (26-34); Mean Corpuscular Volume 89.2 fL (80-100); Monocytes Absolute Auto 600 /uL (0-900); Neutrophils Absolute Auto 5900 /uL (1500-7000); Neutrophils Percent Auto 62.2 % (50-75); Platelet Count 356 X10^3/uL (150-400); Red Blood Cell Count 5.34 X10^6/uL (4.0-5.2); Red Cell Distribution Width 14.2 % (11.6-14.8); White Blood Cell Count 9.5 X10^3/uL (4.5-11.0)
[2024-01-31 22:12] LABS: Alanine Aminotransferase 26 IU/L (<35); Albumin 4.9 g/dL (3.5-5.0); Albumin Globulin Ratio 1.4 (1.0-2.8); Alkaline Phosphatase 111 U/L (38-126); Aspartate Aminotransferase 33 IU/L (14-36); BUN Creatinine Ratio 7.1 (6-22); Bilirubin Total 1.1 mg/dL (0.2-1.3); Blood Urea Nitrogen 4 mg/dL (7-17); Calcium 9.8 mg/dL (8.4-10.2); Carbon Dioxide 20 mmol/L (22-32); Chloride 105 mmol/L (98-107); Estimated Glomerular Filt Rate > 60 mL/min (>60); Globulin 3.5 g/dL (1.7-4.1); Glucose 98 mg/dL (70-100); HEMOLYSIS < 15 (0-50); Lipase 89 U/L (23-300); Potassium 3.8 mmol/L (3.4-5.1); Sodium 139 mmol/L (137-145); Total Protein 8.4 g/dL (6.3-8.2)
[2024-01-31 22:13] LABS: Lactate (Lactic Acid) 1.2 mmol/L (0.7-2.1)
--- NOTE | 2024-01-31 22:36 | ED.ABDPAIN ---
HPI - Abdominal Pain General Chief Complaint: Abdominal Pain Stated Complaint: abd pain, vomiting all day Time Seen by Provider: 01/31/24 21:29 Source: patient Mode of arrival: Ambulatory History of Present Illness HPI narrative: 38yoF presents for 1 day of midepigastric pain with nausea and vomiting. Trying to take phenergan at home without relief. Reports recently increasing her ozempic dose. Hx cholecystectomy and appendectomy Related Data Home Medications Medication Instructions Recorded Confirmed sertraline 50 mg tablet (Zoloft) 150 mg PO QPM 10/23/17 11/03/23 Tpn 1 ea continuous IV infusion Q20H 03/27/18 11/03/23 nifedipine 30 mg tablet,extended 30 mg PO DAILY 03/27/18 11/03/23 release 24 hr promethazine 25 mg rectal 25 mg NC Q6H PRN Nausea And 03/27/18 11/03/23 suppository Vomiting promethazine 50 mg/mL injection 1 dose IV PRN PRN Nausea And 03/27/18 11/03/23 solution Vomiting doxazosin 1 mg tablet 1 mg PO DAILY 12/14/18 11/03/23 ergocalciferol (vitamin D2) 1,250 50,000 unit PO QWEEK 12/14/18 11/03/23 mcg (50,000 unit) capsule lisdexamfetamine 60 mg capsule 60 mg PO DAILY 12/14/18 11/03/23 methylphenidate HCl 36 mg 36 mg PO DAILY 12/14/18 11/03/23 tablet,extended release 24 hr pantoprazole 40 mg tablet,delayed 40 mg PO DAILY 12/14/18 11/03/23 release venlafaxine 150 mg 150 mg PO DAILY 12/14/18 11/03/23 capsule,extended release 24 hr lisdexamfetamine 70 mg capsule 70 mg PO QAM 02/01/19 11/03/23 (Vyvanse) galcanezumab-gnlm 120 mg/mL 120 mg SUBCUT QMONTH 10/15/20 11/03/23 subcutaneous pen injector (Emgality Pen) Previous Rx's Medication Instructions Recorded albuterol sulfate 90 mcg/actuation 2 puff inhalation Q4-6H PRN 06/05/19 aerosol inhaler (ProAir HFA) shortness of breath or wheezing #8.5 grams hydrocodone 5 mg-acetaminophen 325 1 tab PO Q8H PRN pain #7 tabs 01/17/21 mg tablet moxifloxacin 0.5 % eye drops 1 drp EYE-LEFT TID #3 mL 02/12/23 (Vigamox) hydrocodone 7.5 mg-acetaminophen 1 tab PO Q8H PRN pain #4 tabs 08/02/23 325 mg tablet tizanidine 4 mg capsule 4 mg PO Q8H PRN muscle spasticity 09/21/23 #20 caps albuterol sulfate 90 mcg/actuation 2 puff inhalation Q6H PRN 09/26/23 aerosol inhaler shortness of breath or wheezing #8.5 grams azithromycin 250 mg tablet See Rx Instructions PO .COMPLEX #6 09/26/23 tabs diazepam 5 mg tablet (Valium) 5 mg PO Q12HR PRN muscle spasm #10 11/26/23 tabs prednisone 20 mg tablet 20 mg PO DAILY #5 tabs 11/26/23 Allergies Allergy/AdvReac Type Severity Reaction Status Date / Time cephalexin [CEPHALEXIN] Allergy Unknown Verified 11/26/23 07:58 latex [LATEX] Allergy Unknown Verified 11/26/23 07:58 levofloxacin [From LEVAQUIN] Allergy Unknown Verified 11/26/23 07:58 ondansetron [ONDANSETRON] Allergy Unknown Verified 11/26/23 07:58 oxycodone [From PERCOCET] Allergy Unknown Verified 11/26/23 07:58 Penicillins [PENICILLINS] Allergy Unknown Verified 11/26/23 07:58 vancomycin Allergy Verified 11/26/23 07:58 prochlorperazine AdvReac Severe Anxiety Verified 11/26/23 07:58 [From Compazine] metoclopramide [From Reglan] AdvReac Verified 11/26/23 07:58 Patient History Medical History DVT (deep venous thrombosis) Depression ADHD Kidney stone Hyperemesis affecting , antepartum Surgical History History of appendectomy Social History household members: spouse and children Smoking Status: Never smoker Smoking Status: Never smoker alcohol intake frequency: holidays/special occasions only Substance Use Type: does not use Exam Initial Vital Signs Initial Vital Signs: Vital Signs Temperature 97.7 F 01/31/24 21:16 Pulse Rate 100 H 01/31/24 21:16 Respiratory Rate 18 01/31/24 21:16 Blood Pressure 151/102 H 01/31/24 21:16 Pulse Oximetry 100 01/31/24 21:16 Oxygen Delivery Method Room Air 01/31/24 21:16 Const: Awake, alert, no acute distress, nontoxic appearing Cardiac: regular rate, regular rhythm RESP: unlabored, clear bilaterally, no wheezing GI: Soft, midepigastric tenderness to deep palpation Skin: Warm, Dry, intact, no rashes Neuro: AO x3, CN II-XII grossly intact, moves all extremities Course Orders Ordered: ED Orders 01/31/24 21:30 Urine Microscopic Stat 01/31/24 21:52 CBC Auto Diff [Complete Blood Count AUTO DIFF] Stat Comprehensive Metabolic Panel Stat Lactate (Lactic Acid) Stat Lipase Stat 01/31/24 22:36 CT abdomen pelvis wo con Stat Discontinued Medications Diphenhydramine HCl (Diphenhydramine 50 Mg/Ml Vial) 50 mg IV NOW ONE Stop: 01/31/24 23:40 Last Admin: 01/31/24 23:50 Dose: Not Given Documented By: JOS Droperidol (Droperidol 5 Mg/2 Ml Vial) 2.5 mg IV NOW ONE Stop: 01/31/24 23:12 Last Admin: 01/31/24 23:24 Dose: 2.5 mg Documented By: JOS Sodium Chloride (Normal Saline 0.9%) 1,000 mls @ 1,000 mls/hr IV BOLUS ONE Stop: 02/01/24 00:10 Last Infusion: 02/01/24 00:16 Dose: Infused Documented By: Admin: 01/31/24 23:23 Dose: 1,000 mls/hr Documented By: JOS Vital Signs Vital signs: Vital Signs - 8 hr 01/31/24 21:16 01/31/24 21:31 01/31/24 22:00 Temperature 97.7 F Pulse Rate 100 H 98 H 92 H Respiratory Rate 18 Blood Pressure 151/102 H Pulse Oximetry 100 95 95 Oxygen Delivery Method Room Air 01/31/24 22:04 01/31/24 22:04 01/31/24 22:05 Temperature Pulse Rate 95 H Respiratory Rate Blood Pressure 146/98 H 156/106 H Pulse Oximetry 96 Oxygen Delivery Method 01/31/24 22:05 01/31/24 22:30 01/31/24 22:31 Temperature Pulse Rate 94 H 99 H 101 H Respiratory Rate Blood Pressure Pulse Oximetry 96 96 96 Oxygen Delivery Method 01/31/24 22:31 01/31/24 23:00 01/31/24 23:30 Temperature Pulse Rate 99 H 103 H Respiratory Rate Blood Pressure 175/99 H Pulse Oximetry 97 96 Oxygen Delivery Method 01/31/24 23:32 01/31/24 23:32 02/01/24 00:00 Temperature Pulse Rate 99 H Respiratory Rate Blood Pressure 146/87 H 159/117 H Pulse Oximetry 95 Oxygen Delivery Method Room Air 02/01/24 00:00 Temperature Pulse Rate 97 H Respiratory Rate Blood Pressure Pulse Oximetry 96 Oxygen Delivery Method Room Air MDM - Abdominal Pain Differential Diagnosis Differential diagnosis: Likely abdominal pain, gastroenteritis and pancreatitis Lab Data 01/31/24 21:52 01/31/24 21:52 Labs: Lab Results 01/31/24 01/31/24 Range/Units 21:30 21:52 WBC 9.5 (4.5-11.0) X10^3/uL RBC 5.34 H (4.0-5.2) X10^6/uL Hgb 16.4 H (12.0-16.0) g/dL Hct 47.7 H (36-46) % MCV 89.2 (80-100) fL MCH 30.8 (26-34) PG MCHC 34.5 (30-36) % RDW 14.2 (11.6-14.8) % Plt Count 356 (150-400) X10^3/uL Neut % (Auto) 62.2 (50-75) % Lymph % (Auto) 29.4 (25-40) % [place] % (Auto) 6.0 (3-14) % Eos % (Auto) 1.1 L (2-4) % Baso % (Auto) 1.3 (0-2) % Neut # (Auto) 5900 (5865-6686) /uL Lymph # (Auto) 2800 (7091-6391) /uL [place] # (Auto) 600 (0-900) /uL Eos # (Auto) 100 (0-450) /uL Baso # (Auto) 100 (0-100) /uL Sodium 139 (137-145) mmol/L Potassium 3.8 (3.4-5.1) mmol/L Chloride 105 (98-107) mmol/L Carbon Dioxide 20 L (22-32) mmol/L BUN 4 L (7-17) mg/dL Creatinine 0.56 (0.52-1.04) mg/dL Estimated GFR > 60 (>60) mL/min BUN/Creatinine Ratio 7.1 (6-22) Glucose 98 (70-100) mg/dL Lactate 1.2 (0.7-2.1) mmol/L Calcium 9.8 (8.4-10.2) mg/dL Total Bilirubin 1.1 (0.2-1.3) mg/dL AST 33 (14-36) IU/L ALT 26 (<35) IU/L Alkaline Phosphatase 111 (38-126) U/L Total Protein 8.4 H (6.3-8.2) g/dL Albumin 4.9 (3.5-5.0) g/dL Globulin 3.5 (1.7-4.1) g/dL Albumin/Globulin Ratio 1.4 (1.0-2.8) Lipase 89 (23-300) U/L Urine RBC None seen (0-5/HPF) Urine WBC None seen (0-5/HPF) Ur Squamous Epith Cells 0-1 /hpf (0-5/HPF) Urine Bacteria None seen (None) Ur Culture Indicated? Cult not indicated Vol Urine Centrifuged 10ml (spun) Point of care testing: Point of Care Testing Test Results Negative Urine Dip Bedside Urine Glucose Negative Bedside Urine Bilirubin - Negative Bedside Urine Ketone +++ 80 Urine Specific [place] 1.015 Bedside Urine Occult Blood - Negative Bedside Urine pH 6.0 Bedside Urine Protein +/- 15 Bedside Urine Urobilinogen - Negative Bedside Urine Nitrite - Negative Bedside Urine Leukocytes - Negative Esterase Imaging Data CT scan - abdomen/pelvis: Radiologist's Impression: PROCEDURE: CT ABDOMEN PELVIS WO CON INDICATIONS: N/V/MIDEPIGASTRIC PAIN TECHNIQUE: Axial sections were acquired from the lung bases to the pubic symphysis. Coronal and sagittal reformats were performed. For radiation dose reduction, the following was used: automated exposure control, adjustment of mA and/or kV according to patient size. COMPARISON: None. FINDINGS: Image quality: Diagnostic. Lower Chest: Bilateral breast implants URINARY: Right Kidney: No stones or hydronephrosis. Right Ureter: No hydroureter. Left Kidney: No stones or hydronephrosis. Left Ureter: No hydroureter. Bladder: Normal wall thickness. No stones. ABDOMEN: Liver: No contour-deforming solid mass. Gallbladder: Absent Biliary ducts: No biliary dilation. Pancreas: No ductal dilation. Spleen: Size is within normal limits. Adrenal Glands: No adrenal nodules. Stomach and Bowel: Normal colonic caliber, without significant wall thickening. Appendectomy. No significant diverticular disease. Peritoneum: No abnormal intraperitoneal fluid. No free air. Ventral Wall: No hernia. Suspect scar. Abdominal Nodes: No enlarged retroperitoneal or mesenteric lymph nodes. Vessels: Aorta and inferior vena cava are normal in size. PELVIS: Pelvic Organs: Nodular contour of the uterus, probably due to fibroids. Symmetric ovaries. Pelvic Nodes: Unremarkable. Miscellaneous: No inguinal hernias are seen. Suspected posterior injection granulomas present. Bones: Posterior disc protrusion at L4-5 causing mild spinal canal narrowing. IMPRESSION: No obstructing stones or hydronephrosis. Appendectomy. Cholecystectomy. Symmetric ovaries. Dictated by: Jameel Hernandez M.D. on 01/31/2024 at 23:16 Approved by: Jameel Hernandez M.D. on 01/31/2024 at 23:20 MDM Narrative Medical decision making narrative: Nausea, vomiting, midepigastric abdominal pain. Abdomen soft, no peritoneal signs. Patient reports numerous allergies to different antiemetics and we do not have IV Phenergan, so droperidol was ordered. Patient reported a small amount of agitation after droperidol, however she declined Benadryl. Laboratory work reviewed, no significant abnormalities identified. Normal lipase. Patient was able to tolerate p.o. without difficulty. CT negative for acute findings. Patient informed of lab and imaging results, recommended that if she has persistent symptoms then she should talk to her doctor about decreasing her Ozempic dose. Counseled a light diet and continued use of Phenergan as needed for nausea at home. Discharge Plan Departure Patient Disposition: Home Clinical Impression: Abdominal pain, Nausea & vomiting Instructions: DI for Abdominal Pain-Adult Activity Restrictions/Additional Instructions: Your lab work and CT today were normal. You may resume taking your phenergan as needed for nausea and vomiting. Follow a light diet for the next day or so to avoid aggravating your stomach. Follow up with your primary care doctor. Prescriptions: No Action Vyvanse 70 mg capsule 70 mg PO QAM Patient Comments: TAKE 1 CAPSULE BY MOUTH IN THE MORNING tizanidine 4 mg capsule 4 mg PO Q8H PRN (Reason: muscle spasticity) Qty: 20 0RF albuterol sulfate 90 mcg/actuation HFA aerosol inhaler 2 puff inhalation Q6H PRN (Reason: shortness of breath or wheezing) Qty: 8.5 0RF azithromycin 250 mg tablet See Rx Instructions .ROUTE .COMPLEX Qty: 6 0RF Rx Instructions: For 250 mg dose pack: take 500 mg today (day 1), then 250 mg for 4 days (days 2-5) prednisone 20 mg tablet 20 mg PO DAILY Qty: 5 0RF diazepam [Valium] 5 mg tablet 5 mg PO Q12HR PRN (Reason: muscle spasm) Qty: 10 0RF sertraline [Zoloft] 50 mg Tablet 150 mg PO QPM nifedipine 30 mg tablet extended release 24hr 30 mg PO DAILY promethazine 25 mg suppository 25 mg NC Q6H PRN (Reason: Nausea And Vomiting) promethazine 50 mg/mL Solution 1 dose IV PRN PRN (Reason: Nausea And Vomiting) Tpn 1 ea Continuous IV Infusion Q20H Patient Comments: RUNS 20 HOURS PER DAY doxazosin 1 mg tablet 1 mg PO DAILY venlafaxine 150 mg capsule,extended release 24hr 150 mg PO DAILY pantoprazole 40 mg tablet,delayed release (DR/EC) 40 mg PO DAILY ergocalciferol (vitamin D2) 50,000 unit capsule 50,000 unit PO QWEEK methylphenidate HCl 36 mg tablet extended release 24hr 36 mg PO DAILY lisdexamfetamine 60 mg capsule 60 mg PO DAILY albuterol sulfate [ProAir HFA] 90 mcg/actuation HFA aerosol inhaler 2 puff INHALATION Q4-6H PRN (Reason: shortness of breath or wheezing) Qty: 8.5 0RF Emgality Pen 120 mg/mL Pen Injector 120 mg SUBCUT QMONTH hydrocodone-acetaminophen 5-325 mg tablet 1 tab PO Q8H PRN (Reason: pain) Qty: 7 0RF moxifloxacin [Vigamox] 0.5 % drops 1 drp EYE-LEFT TID Qty: 3 0RF hydrocodone-acetaminophen 7.5-325 mg tablet 1 tab PO Q8H PRN (Reason: pain) Qty: 4 0RF Rx Instructions: AWARE OF CHRONIC MEDS, JUST FOR 1 DAY Referrals: Lamar Javier DO [Primary Care Provider] - Stand Alone Forms: Patient Portal/API
[2024-01-31] MEDS: SODIUM CHLORIDE 0.9% 1,000 ML 1000 ML IV (23:23)
[2024-01-31] MEDS: DROPERIDOL 5 MG/2 ML VIAL 2.5 MG IV (23:24)
--- NOTE | 2024-01-31 23:41 | PC.NURSE ---
Addendum entered by Aguilar Catalan R.N. 01/31/24 23:54: Pt declines IV Benadryl, stating that can make her feel anxious too. Provider made aware. Pt states, if I hold still I feel better. Pt does report feeling less nauseous. PO challenge begun as per provider verbal direction. Original Note: Pt reports not feeling right and appears anxious in bed. Provider Alexander made aware of patient presentation and complaint.
[2024-02-01] VITALS: BP 159/117; PULSE 97; O2SAT 96
== END 2024-02-01 00:23 | disposition home or self-care (01) ==
PROVIDERS: Emergency Provider Emergency Medicine; PCP Family Medicine
DX: R10.13 Epigastric pain (principal); R11.2 Nausea with vomiting, unspecified
CPT/HCPCS: 36415; 74176; 80053; 81003; 81015; 81025; 83605; 83690; 85025; 96361; 96374; 99284; J1790

== ENCOUNTER → 2024-04-27 13:20 | Outpatient (CLI) | payer OTHER, SELFPAY ==
[2020-10-15 21:40] VITALS: BMI 35.5
--- NOTE | 2024-04-27 13:21 | DI.CT.S_ITS ---
PROCEDURE: CT CHEST WO CON INDICATIONS: recurrent pneumonia TECHNIQUE: Noncontrast 5 mm thick sections acquired from the pulmonary apices to the posterior costophrenic angles. 1 mm lung window, 5 mm thick coronal and sagittal and 7 mm axial MIP reformats were then acquired. For radiation dose reduction, the following was used: automated exposure control, adjustment of mA and/or kV according to patient size. COMPARISON: [facility], CT, CT ABDOMEN PELVIS WO CON, 01/31/2024, 22:51. FINDINGS: Image quality: Diagnostic. Thyroid: Within normal limits. Cardiac: Heart size within normal limits. No pericardial effusion. Aorta: Thoracic aortic diameter within normal limits. Pulmonary Artery: Main pulmonary artery diameter within normal limits. Lungs: No focal lung consolidation. Pleura: No pneumothorax or pleural effusion. Airways: The trachea and mainstem bronchi are patent. Lymph Nodes: No mediastinal, hilar, or axillary lymphadenopathy. Esophagus: Within normal limits. Bones: No acute osseous abnormality. Upper Abdomen: Status post cholecystectomy. Other: Prosthetic breast implants. IMPRESSION: No acute CT abnormality of the chest. Dictated by: Lion Gaytan M.D. on 04/28/2024 at 13:20 Approved by: Lion Gaytan M.D. on 04/28/2024 at 13:23
== END ==
LOC: CT 13:21
PROVIDERS: PCP Family Medicine; Referring Provider Internal Medicine Critical Care Medicine; Visit Provider Internal Medicine Critical Care Medicine
DX: J18.9 Pneumonia, unspecified organism (principal)
CPT/HCPCS: 71250

== ENCOUNTER → 2024-04-27 13:30 | Outpatient (CLI) | payer OTHER, SELFPAY ==
[2020-10-15 21:40] VITALS: BMI 35.5
--- NOTE | 2024-04-27 | DI.MRI.S_ITS ---
PROCEDURE: MR LUMBAR SPINE WO CON INDICATIONS: LOW BACK PAIN TECHNIQUE: Noncontrast sagittal T1 spin echo and T2 fast echo, sagittal STIR, and T2 fast spin echo through the lumbar spine. In cases with scoliosis, additional coronal T2 fast spin echo may be performed. COMPARISON: [facility], MR, MR LUMBAR SPINE WO CON, 10/26/2022, 12:49. FINDINGS: Alignment and Curvature: There is normal bony alignment. Bone Marrow: Marrow is of normal overall signal. No acute vertebral body compression fractures. Spinal Cord: Conus medullaris terminates at the L1 level. Visualized cord demonstrates normal signal and size. Paraspinous Soft Tissues: No paravertebral masses. T12-L1: Normal appearance. L1-L2: Normal appearance. L2-L3: Normal appearance. L3-L4: Disc bulge and arthropathy. Moderate central stenosis. Moderate left and no right foraminal stenosis L4-L5: Disc bulge and arthropathy. Moderate central stenosis. Moderate right and mild left foraminal stenosis L5-S1: Disc bulge and arthropathy. No central or foraminal stenosis. IMPRESSION: Multilevel degenerative disc disease and arthropathy results in varying degrees of central and foraminal stenosis including moderate central and foraminal stenosis L3-4 and L4-5 Approved by: Sea Bhakta M.D. on 04/29/2024 at 12:45
== END ==
LOC: MRI 13:30
PROVIDERS: PCP Family Medicine; Referring Provider Acupuncturist; Visit Provider Acupuncturist
DX: J18.9 Pneumonia, unspecified organism (principal); M51.361 Other intervertebral disc degeneration, lumbar region with lower extremity pain only; M51.371 Other intervertebral disc degeneration, lumbosacral region with lower extremity pain only; M47.816 Spondylosis without myelopathy or radiculopathy, lumbar region; M47.817 Spondylosis without myelopathy or radiculopathy, lumbosacral region; M48.061 Spinal stenosis, lumbar region without neurogenic claudication
CPT/HCPCS: 71250; 72148

== ENCOUNTER 2025-02-18 10:28 | Emergency (ER) | payer OTHER, SELFPAY ==
[2020-10-15 21:40] VITALS: BMI 35.5
[2025-02-18 10:33] VITALS: BP 115/70; PULSE 79; RESP 14; TEMP 36.3; O2SAT 98; BMI 34.3
--- NOTE | 2025-02-18 11:19 | ED_ITS ---
HPI - Headache <Ashley Calvert PA-C - Last Filed: 02/18/25 14:18> General Chief Complaint: Headache Stated Complaint: Migraine, right eye pain. x 1 day Time Seen by Provider: 02/18/25 11:08 Mode of arrival: Wheelchair History of Present Illness HPI Narrative: Ms. Viraj Cazares is a pleasant 39-year-old female with a past medical history of migraine headaches, fibromyalgia, ADHD, depression who presents to the emergency department for acute on chronic migraine headache and left eye pain x 3 days. Patient states she always deals with a migraine however on Monday it started to get worse in her left eye started to have severe sharp pain like ?a knife stabbing her?. Last night she noticed her left eye was red. She stopped wearing her contact lenses on Monday because of this pain. Despite taking her normal breakthrough migraine medications of Tylenol, Phenergan, tizanidine, she continues having severe pain. Bilateral photophobia. Describes blurriness in her bilateral eyes, worse in the left eye, and white spots in the left eye that is different for her. Denies fevers, chills, flu-like symptoms, vomiting, diarrhea, dysuria. No trauma to the head. She is here with her spouse and service animal. Related Data Home Medications ?Medication ?Instructions ?Recorded ?Confirmed sertraline 50 mg tablet (Zoloft) 150 mg PO QPM 8 11/03/23 Tpn 1 ea continuous IV infusion Q20H 03/27/18 11/03/23 nifedipine 30 mg tablet,extended 30 mg PO DAILY 11/03/23 release 24 hr promethazine 25 mg rectal 25 mg ME Q6H PRN Nausea And 03/27/18 11/03/23 suppository Vomiting promethazine 50 mg/mL injection 1 dose IV PRN PRN Naus ea And 03/27/18 11/03/23 solution Vomiting doxazosin 1 mg tablet 1 mg PO DAILY 12/14/1811/02 ergocalciferol (vitamin D2) 1,250 50,000 unit PO QWEEK 12/14/18 11/03/23 mcg (50,000 unit) capsule lisdexamfetamine 60 mg capsule 60 mg PO DAILY 12/14/18 11/03/23 methylphenidate HCl 36 mg 36 mg PO DAILY 12/14/1810/07 tablet,extended release 24 hr pantoprazole 40 mg tablet,delayed 40 mg PO DAILY 12/1411/03/23 release venlafaxine 150 mg 150 mg PO DAILY 12/14/18 capsule,extended release 24 hr lisdexamfetamine 70 mg capsule 70 mg PO QAM 02/01/19 0 11/03/23 (Vyvanse) galcanezumab-gnlm 120 mg/mL 120 mg SUBCUT QMONTH 10/1511/03/23 subcutaneous pen injector (Emgality Pen) Previous Rx's ?Medication ?Instructions ?Recorded albuterol sulfate 90 mcg/actuation 2 puff inhalation Q 4-6H PRN 06/05/19 aerosol inhaler (ProAir HFA) shortness of breath or wh eezing #8.5 grams hydrocodone 5 mg-acetaminophen 325 1 tab PO Q8H PRN pa in #7 tabs 01/17/21 mg tablet moxifloxacin 0.5 % eye drops 1 drp EYE-LEFT TID #3 mL 02/12/23 (Vigamox) hydrocodone 7.5 mg-acetaminophen 1 tab PO Q8H PRN pain #4 tabs 08/02/23 325 mg tablet tizanidine 4 mg capsule 4 mg PO Q8H PRN muscle spast icity 09/21/23 #20 caps albuterol sulfate 90 mcg/actuation 2 puff inhalation Q 6H PRN 09/26/23 aerosol inhaler shortness of breath or wheez ing #8.5 grams azithromycin 250 mg tablet See Rx Instructions PO .COM PLEX #6 09/26/23 tabs diazepam 5 mg tablet (Valium) 5 mg PO Q12HR PRN muscle spasm #10 11/26/23 tabs prednisone 20 mg tablet 20 mg PO DAILY #5 tabs 11/25 hydrocodone 5 mg-acetaminophen 325 1 tab PO Q4-6H PRN pain #12 tabs 02/18/25 mg tablet Allergies Allergy/AdvReac Type Severity Reaction Status Date / Time cephalexin (CEPHALEXIN) Allergy Unknown Verified 02/18/25 10:33 latex (LATEX) Allergy Unknown Verified 02/18/25 10:33 levofloxacin (From LEVAQUIN) Allergy Unknown Verified 02/18/25 10:33 ondansetron (ONDANSETRON) Allergy Unknown Verified 02/18/25 10:33 oxycodone (From PERCOCET) Allergy Unknown Verified 02/18/25 10:33 Penicillins (PENICILLINS) Allergy Unknown Verified 02/18/25 10:33 vancomycin Allergy Verified 02/18/25 10:33 prochlorperazine (From AdvReac Severe Anxiety Verified 02/18/25 10:33 Compazine) metoclopramide (From Reglan) AdvReac Verified 02/18/25 10:33 Review of Systems <Ashley Calvert PA-C - Last Filed: 02/18/25 14:18> Review of Systems ROS Unobtainable: All systems reviewed & are unremarkable except as noted in HPI and below Patient History <Ashley Calvert PA-C - Last Filed: 02/18/25 14:18> Medical History DVT (deep venous thrombosis) Depression ADHD Kidney stone Hyperemesis affecting , antepartum Surgical History History of appendectomy Social History household members: spouse and children alcohol intake frequency: holidays/special occasions only Exam <Ashley Calvert PA-C - Last Filed: 02/18/25 14:18> Narrative Exam Narrative: GENERAL: 39 year old patient appears stated age. Well-developed patient, in no acute distress. HEAD: Atraumatic. Normocephalic. EYES: Pupils are round, reactive to light, however left pupil does not appear to dilate quite as largely as the right pupil. Extraocular motions intact. Left eye conjunctival injection/erythema with ciliary flush. On fluorescein exam, patient has a 1 mm area of fluorescein uptake just inferior and medial to the pupil, concerning for ulcer. Negative Neo sign. No periocular erythema or edema. Visual krishna are full. ENT: Nose without bleeding, purulent drainage. NECK: Trachea midline. Cervical ROM intact. CARDIOVASCULAR: Regular rate and rhythm. RESPIRATORY: ?Nonlabored respirations. ?Speaking in clear, full sentences. ?Clear to auscultation. Breath sounds equal bilaterally. No wheezes, rales, or rhonchi. ? NEURO: AOx3. ?Clear speech. ?No facial asymmetry. Moves all 4 extremities appropriately. SKIN: No rash or erythema of visible areas Initial Vital Signs Initial Vital Signs: Vital Signs Temperature 97.4 F L 02/18/25 10:33 Pulse Rate 79 02/18/25 10:33 Respiratory Rate 14 02/18/25 10:33 Blood Pressure 115/70 02/18/25 10:33 Pulse Oximetry 98 02/18/25 10:33 Oxygen Delivery Method Room Air 02/18/25 10:33 <Mindy Hobson DO - Last Filed: 02/19/25 07:57> Initial Vital Signs Initial Vital Signs: Vital Signs Temperature 97.4 F L 02/18/25 10:33 Pulse Rate 79 02/18/25 10:33 Respiratory Rate 14 02/18/25 10:33 Blood Pressure 115/70 02/18/25 10:33 Pulse Oximetry 98 02/18/25 10:33 Oxygen Delivery Method Room Air 02/18/25 10:33 Course <Ashley Calvert PA-C - Last Filed: 02/18/25 14:18> Orders Ordered: Discontinued Medications Hydrocodone Bitart/Acetaminophen (Hydrocodone/Acet 5/325 Tablet) 1 tab PO NOW ONE Stop: 02/18/25 13:54 Last Admin: 02/18/25 14:03 Dose: 1 tab Documented By: JOSLYN Dexamethasone (Dexamethasone 10 Mg/Ml Vial) 10 mg IV NOW ONE Stop: 02/18/25 11:49 Last Admin: 02/18/25 12:03 Dose: 10 mg Documented By: JOSLYN Fluorescein Sodium (Fluorescein 1 Mg Strip) 1 mg EYE-RIGHT NOW ONE Stop: 02/18/25 11:11 Last Admin: 02/18/25 11:20 Dose: 1 mg Documented By: JOSLYN Hydromorphone HCl (Hydromorphone Hcl 0.5 Mg/0.5 Ml Syringe) 0.5 mg IV NOW ONE Stop: 02/18/25 11:49 Last Admin: 02/18/25 12:04 Dose: 0.5 mg Documented By: JOSLYN Hydromorphone HCl (Hydromorphone Hcl 0.5 Mg/0.5 Ml Syringe) 0.5 mg IV NOW ONE Stop: 02/18/25 13:04 Last Admin: 02/18/25 13:06 Dose: 0.5 mg Documented By: JOSLYN Sodium Chloride (Normal Saline 0.9%) 1,000 mls @ 1,000 mls/hr IV BOLUS ONE Stop: 02/18/25 12:47 Last Infusion: 02/18/25 14:02 Dose: Infused Documented By: Admin: 02/18/25 12:05 Dose: 1,000 mls/hr Documented By: JOSLYN Ketorolac Tromethamine (Ketorolac 30 Mg/Ml Vial) 15 mg IV NOW ONE Stop: 02/18/25 11:49 Last Admin: 02/18/25 12:04 Dose: 15 mg Documented By: JOSLYN Proparacaine HCl (Proparacaine 0.5% Ophth Reyna) 1 drops EYE-RIGHT NOW ONE Stop: 02/18/25 11:11 Last Admin: 02/18/25 11:21 Dose: 1 drop Documented By: JOSLYN Vital Signs Vital signs: Vital Signs - 8 hr 02/18/25 10:33 02/18/25 13:11 02/18/25 13:57 Temperature 97.4 F L Pulse Rate 79 75 65 Respiratory Rate 14 16 16 Blood Pressure 115/70 144/82 H Pulse Oximetry 98 98 98 Oxygen Delivery Method Room Air Room Air Room Air <Mindy Hobson DO - Last Filed: 02/19/25 07:57> Orders Ordered: Discontinued Medications Hydrocodone Bitart/Acetaminophen (Hydrocodone/Acet 5/325 Tablet) 1 tab PO NOW ONE Stop: 02/18/25 13:54 Last Admin: 02/18/25 14:03 Dose: 1 tab Documented By: JOSLYN Dexamethasone (Dexamethasone 10 Mg/Ml Vial) 10 mg IV NOW ONE Stop: 02/18/25 11:49 Last Admin: 02/18/25 12:03 Dose: 10 mg Documented By: JOSLYN Fluorescein Sodium (Fluorescein 1 Mg Strip) 1 mg EYE-RIGHT NOW ONE Stop: 02/18/25 11:11 Last Admin: 02/18/25 11:20 Dose: 1 mg Documented By: JOSLYN Hydromorphone HCl (Hydromorphone Hcl 0.5 Mg/0.5 Ml Syringe) 0.5 mg IV NOW ONE Stop: 02/18/25 11:49 Last Admin: 02/18/25 12:04 Dose: 0.5 mg Documented By: JOSLYN Hydromorphone HCl (Hydromorphone Hcl 0.5 Mg/0.5 Ml Syringe) 0.5 mg IV NOW ONE Stop: 02/18/25 13:04 Last Admin: 02/18/25 13:06 Dose: 0.5 mg Documented By: JOSLYN Sodium Chloride (Normal Saline 0.9%) 1,000 mls @ 1,000 mls/hr IV BOLUS ONE Stop: 02/18/25 12:47 Last Infusion: 02/18/25 14:02 Dose: Infused Documented By: Admin: 02/18/25 12:05 Dose: 1,000 mls/hr Documented By: JOSLYN Ketorolac Tromethamine (Ketorolac 30 Mg/Ml Vial) 15 mg IV NOW ONE Stop: 02/18/25 11:49 Last Admin: 02/18/25 12:04 Dose: 15 mg Documented By: JOSLYN Proparacaine HCl (Proparacaine 0.5% Ophth Reyna) 1 drops EYE-RIGHT NOW ONE Stop: 02/18/25 11:11 Last Admin: 02/18/25 11:21 Dose: 1 drop Documented By: JOSLYN Vital Signs Vital signs: Vital Signs - 8 hr 02/18/25 10:33 02/18/25 13:11 02/18/25 13:57 Temperature 97.4 F L Pulse Rate 79 75 65 Respiratory Rate 14 16 16 Blood Pressure 115/70 144/82 H Pulse Oximetry 98 98 98 Oxygen Delivery Method Room Air Room Air Room Air MDM - Headache <Ashley Calvert PA-C - Last Filed: 02/18/25 14:18> Medical Records Attestation: I reviewed the patient's medical records. Lab Data 02/18/25 11:54 02/18/25 11:54 Labs: Lab Results 02/18/25 Range/Units 11:54 WBC 7.5 (4.5-11.0) X10^3/uL RBC 4.53 (4.0-5.2) X10^6/uL Hgb 13.5 (12.0-16.0) g/dL Hct 39.7 (36-46) % MCV 87.5 (80-100) fL MCH 29.8 (26-34) PG MCHC 34.0 (30-36) % RDW 14.5 (11.6-14.8) % Plt Count 272 (150-400) X10^3/uL Neut % (Auto) 67.1 (50-75) % Lymph % (Auto) 26.4 (25-40) % Taney % (Auto) 4.2 (3-14) % Eos % (Auto) 1.5 L (2-4) % Baso % (Auto) 0.8 (0-2) % Neut # (Auto) 5000 (2708-5427) /uL Lymph # (Auto) 2000 (4937-6697) /uL Taney # (Auto) 300 (0-900) /uL Eos # (Auto) 100 (0-450) /uL Baso # (Auto) 100 (0-100) /uL ESR 3 (0-20) MM/HR Sodium 136 L (137-145) mmol/L Potassium 4.1 (3.4-5.1) mmol/L Chloride 104 (98-107) mmol/L Carbon Dioxide 24 (22-32) mmol/L BUN 9 (7-17) mg/dL Creatinine 0.57 (0.52-1.04) mg/dL Estimated GFR > 60 (>60) mL/min BUN/Creatinine Ratio 15.8 (6-22) Glucose 102 H (70-99) mg/dL Calcium 9.2 (8.4-10.2) mg/dL Total Bilirubin 0.5 (0.2-1.3) mg/dL AST 25 (14-36) IU/L ALT 18 (<35) IU/L Alkaline Phosphatase 81 (38-126) U/L Total Protein 7.5 (6.3-8.2) g/dL Albumin 4.5 (3.5-5.0) g/dL Globulin 3.0 (1.7-4.1) g/dL Albumin/Globulin Ratio 1.5 (1.0-2.8) MDM Narrative Medical decision making narrative: 39-year-old female with a past medical history of migraine headaches, fibromyalgia, ADHD, depression who presents to the emergency department for acute on chronic migraine headache and left eye pain x 3 days. Differential diagnosis includes but is not limited to acute angle closure glaucoma, uveitis, conjunctivitis, corneal abrasion, migraine, corneal ulcer, temporal arteritis etc. On exam patient is in visible discomfort but no distress, vital signs all within normal limits. She has bilateral photophobia. She has an erythematous left eye/conjunctival injection. Pupil is reactive to light but does not seem to dilate as much as R pupil. No periocular erythema or edema. Right eye intra- ocular pressure 14, left eye intra-ocular pressure 12. Fluorescein exam does reveal what appears to be a 1 mm corneal ulcer just medial and inferior to the L pupil. Ophthalmology on-call consulted. Patient does wear contact lens and does admit to occasionally leaving them in overnight accidentally, they have been out since monday. We will treat migraine pain at this time with IV fluids, Toradol, Decadron, Dilaudid. Patient has multiple allergies and states that Dilaudid typically works for her. Spoke with supervisor photocomposition on-call, Dr. Cali. Discussed patient case, physical exam concerning for corneal ulcer. She is agreeable to see the patient in office today to initiate treatment of reactive uveitis/corneal ulcer with a plan to perform a dilated eye exam, initiate antibiotic drops, etc. She does not recommend me initiating any drops at this time. Labs reveal normal WBC count 7.5, hemoglobin 13.5 hematocrit 39.7. Normal sodium 136, potassium 4.1, BUN 9 creatinine 0.57. Glucose 102. Normal LFTs. Normal ESR 3. Ophthalmology office called, patient will go directly to the office for examination. Patient was treated with an oral hydrocodone prior to discharge, pain medication sent to her pharmacy of choice, she is aware that ophthalmology will be starting her on necessary drops and I treatment. Patient and verbalized understanding of all information agreeable to plan. She is stable for discharge to the ophthalmology office at this time. <Mindy Hobson, DO - Last Filed: 02/19/25 07:57> Lab Data Labs: Lab Results 02/18/25 Range/Units 11:54 WBC 7.5 (4.5-11.0) X10^3/uL RBC 4.53 (4.0-5.2) X10^6/uL Hgb 13.5 (12.0-16.0) g/dL Hct 39.7 (36-46) % MCV 87.5 (80-100) fL MCH 29.8 (26-34) PG MCHC 34.0 (30-36) % RDW 14.5 (11.6-14.8) % Plt Count 272 (150-400) X10^3/uL Neut % (Auto) 67.1 (50-75) % Lymph % (Auto) 26.4 (25-40) % Taney % (Auto) 4.2 (3-14) % Eos % (Auto) 1.5 L (2-4) % Baso % (Auto) 0.8 (0-2) % Neut # (Auto) 5000 (5177-3707) /uL Lymph # (Auto) 2000 (0410-0487) /uL Taney # (Auto) 300 (0-900) /uL Eos # (Auto) 100 (0-450) /uL Baso # (Auto) 100 (0-100) /uL ESR 3 (0-20) MM/HR Sodium 136 L (137-145) mmol/L Potassium 4.1 (3.4-5.1) mmol/L Chloride 104 (98-107) mmol/L Carbon Dioxide 24 (22-32) mmol/L BUN 9 (7-17) mg/dL Creatinine 0.57 (0.52-1.04) mg/dL Estimated GFR > 60 (>60) mL/min BUN/Creatinine Ratio 15.8 (6-22) Glucose 102 H (70-99) mg/dL Calcium 9.2 (8.4-10.2) mg/dL Total Bilirubin 0.5 (0.2-1.3) mg/dL AST 25 (14-36) IU/L ALT 18 (<35) IU/L Alkaline Phosphatase 81 (38-126) U/L Total Protein 7.5 (6.3-8.2) g/dL Albumin 4.5 (3.5-5.0) g/dL Globulin 3.0 (1.7-4.1) g/dL Albumin/Globulin Ratio 1.5 (1.0-2.8) Discharge Plan Departure Patient Disposition: Home Clinical Impression: Acute pain in left eye Corneal ulcer Qualifiers: Laterality: left Qualified Code(s): H16.002 - Unspecified corneal ulcer, left eye Instructions: DI for Corneal Ulcer Activity Restrictions/Additional Instructions: Dear Ms. Viraj Cazares, Today you were seen in the emergency department for painful left eye. Your physical exam is concerning for an eye ulcer. Please go directly to the eye doctor's office for further management. A course of pain medication has been sent to your pharmacy to picking machine operator helper after as needed. You have been prescribed a short course of narcotic medications. These are potentially dangerous and addictive medications that should be used carefully. While on these medications you cannot drive or operate heavy machinery. Additionally, you cannot sign legal documents or perform any duties such as this. Many people get constipated on narcotic medications so it would be advisable to discuss stool softeners with the pharmacist when you picking machine operator helper your prescription. Please understand that we cannot provide further refills of narcotics or controlled substances through the ED and your pain management will need to be through your Primary Care Provider Please follow up with your primary care doctor within the next 2-3 days for ER follow-up. (If you do not have a PCP you can call [phone]. ?to schedule an appointment with an [facility] Primary Care Provider) IF YOU DEVELOP ANY NEW OR WORSENING SYMPTOMS, RETURN TO THE ER! Please read the attached instructions, they highlight more specific treatments and interventions for you at home. Thank you for letting me participate in your care, Ashley Calvert PA-C Prescriptions: New hydrocodone-acetaminophen 5-325 mg tablet 1 tab PO Q4-6H PRN (Reason: pain) Qty: 12 0RF No Action Vyvanse 70 mg capsule 70 mg PO QAM Patient Comments: TAKE 1 CAPSULE BY MOUTH IN THE MORNING tizanidine 4 mg capsule 4 mg PO Q8H PRN (Reason: muscle spasticity) Qty: 20 0RF albuterol sulfate 90 mcg/actuation HFA aerosol inhaler 2 puff inhalation Q6H PRN (Reason: shortness of breath or wheezing) Qty: 8.5 0RF azithromycin 250 mg tablet See Rx Instructions .ROUTE .COMPLEX Qty: 6 0RF Rx Instructions: For 250 mg dose pack: take 500 mg today (day 1), then 250 mg for 4 days (days 2-5) prednisone 20 mg tablet 20 mg PO DAILY Qty: 5 0RF diazepam [Valium] 5 mg tablet 5 mg PO Q12HR PRN (Reason: muscle spasm) Qty: 10 0RF sertraline [Zoloft] 50 mg Tablet 150 mg PO QPM nifedipine 30 mg tablet extended release 24hr 30 mg PO DAILY promethazine 25 mg suppository 25 mg ME Q6H PRN (Reason: Nausea And Vomiting) promethazine 50 mg/mL Solution 1 dose IV PRN PRN (Reason: Nausea And Vomiting) Tpn 1 ea Continuous IV Infusion Q20H Patient Comments: RUNS 20 HOURS PER DAY doxazosin 1 mg tablet 1 mg PO DAILY venlafaxine 150 mg capsule,extended release 24hr 150 mg PO DAILY pantoprazole 40 mg tablet,delayed release (DR/EC) 40 mg PO DAILY ergocalciferol (vitamin D2) 50,000 unit capsule 50,000 unit PO QWEEK methylphenidate HCl 36 mg tablet extended release 24hr 36 mg PO DAILY lisdexamfetamine 60 mg capsule 60 mg PO DAILY albuterol sulfate [ProAir HFA] 90 mcg/actuation HFA aerosol inhaler 2 puff INHALATION Q4-6H PRN (Reason: shortness of breath or wheezing) Qty: 8.5 0RF Emgality Pen 120 mg/mL Pen Injector 120 mg SUBCUT QMONTH hydrocodone-acetaminophen 5-325 mg tablet 1 tab PO Q8H PRN (Reason: pain) Qty: 7 0RF moxifloxacin [Vigamox] 0.5 % drops 1 drp EYE-LEFT TID Qty: 3 0RF hydrocodone-acetaminophen 7.5-325 mg tablet 1 tab PO Q8H PRN (Reason: pain) Qty: 4 0RF Rx Instructions: AWARE OF CHRONIC MEDS, JUST FOR 1 DAY Referrals: Alvina Cali MD [Physician, Ophthalmology] Referral Note: L corneal ulcer Lamar Jvaier DO [Primary Care Provider, Medical] Stand Alone Forms: Patient Portal/API ED Sign-out <Mindy Hobson DO - Last Filed: 02/19/25 07:57> Cosign ED Attending Cosignature Attestation: I was available for consultation. Case was discussed with me talked about getting pressure initially had some formal with a Robbie-Pen. Ultimately ophthalmology was called and patient is to follow up for pressure check with ophthalmology
[2025-02-18] MEDS: FLUORESCEIN 1 MG STRIP EYE-RIGHT (11:20)
[2025-02-18] MEDS: PROPARACAINE 0.5% OPHTH SOL 1 DROPS EYE-RIGHT (11:21)
[2025-02-18] MEDS: KETOROLAC 30 MG/ML VIAL 15 MG IV (12:04)
[2025-02-18] MEDS: SODIUM CHLORIDE 0.9% 1,000 ML 1000 ML IV (12:05)
[2025-02-18 12:07] LABS: Add Manual Diff / Slide Review NO; Hematocrit 39.7 % (36-46); Hemoglobin 13.5 g/dL (12.0-16.0); Lymphocytes Absolute Auto 2000 /uL (1100-4500); Mean Corpuscular HGB Conc 34.0 % (30-36); Mean Corpuscular Hemoglobin 29.8 PG (26-34); Mean Corpuscular Volume 87.5 fL (80-100); Platelet Count 272 X10^3/uL (150-400)
[2025-02-18 12:29] LABS: Alanine Aminotransferase 18 IU/L (<35); Albumin 4.5 g/dL (3.5-5.0); Albumin Globulin Ratio 1.5 (1.0-2.8); Alkaline Phosphatase 81 U/L (38-126); Blood Urea Nitrogen 9 mg/dL (7-17); Calcium 9.2 mg/dL (8.4-10.2); Carbon Dioxide 24 mmol/L (22-32); Chloride 104 mmol/L (98-107); Estimated Glomerular Filt Rate > 60 mL/min (>60); Globulin 3.0 g/dL (1.7-4.1); Glucose 102 mg/dL (70-99); HEMOLYSIS < 15 (0-50); Potassium 4.1 mmol/L (3.4-5.1); Sodium 136 mmol/L (137-145); Total Protein 7.5 g/dL (6.3-8.2)
[2025-02-18 13:11] VITALS: PULSE 75; RESP 16; O2SAT 98
[2025-02-18 13:57] VITALS: BP 144/82; PULSE 65; RESP 16; O2SAT 98
== END 2025-02-18 14:20 | disposition home or self-care (01) ==
PROVIDERS: Emergency Provider Physician Assistant; PCP Family Medicine
DX: H16.002 Unspecified corneal ulcer, left eye (principal); G43.909 Migraine, unspecified, not intractable, without status migrainosus
CPT/HCPCS: 36415; 80053; 85025; 85651; 96361; 96374; 96375; 96376; 99284; J1100; J1171; J1885; J7030